=== PATIENT | female | born 1940 | race Caucasian/White ===

== ENCOUNTER 2018-04-26 07:21 | Day surgery (SDC) | payer OTHER ==
[2018-04-26] MEDS ORDERED: Ringers Lactate 1,000 ML IV ONE (08:12)
[2018-04-26] MEDS ORDERED: LIDOCAINE 2% MPF 5 ML VIAL ONE (09:16)
[2018-04-26] MEDS ORDERED: PROPOFOL 200 MG/20 ML VIAL IV ONE ×2 (09:18→09:29)
[2018-04-26] MEDS ORDERED: ESMOLOL HCL 10 ML IV ONE (09:33)
--- NOTE | 2018-04-26 09:40 | ENDO RPT ---
[address], [address] EGD PROCEDURE REPORT EXAM DATE: 04/26/2018 PATIENT NAME: Lupe Hartley MR#: [id number] BIRTHDATE: 1940 ATTENDING: Diogo Barraza Dr STATUS: outpatient BULK FLUIDS HANDLER: Myriam Vázquez RN and Caron Jackson RN INDICATIONS: The patient is a 78 yr old Female here for an EGD due to left upper quadrant abdominal pain, bloating, and belching PROCEDURE PERFORMED: EGD with biopsy MEDICATIONS: Per Anesthesia. TOPICAL ANESTHETIC: none CONSENT: The patient understands the risks and benefits of the procedure and understands that these risks include, but are not limited to: sedation, allergic reaction, infection, perforation and/or bleeding. Alternative means of evaluation and treatment include, among others: physical exam, x-rays, and/or surgical intervention. The patient elects to proceed with this endoscopic procedure. DESCRIPTION OF PROCEDURE: During intra-op preparation period all mechanical medical equipment was checked for proper function. Hand hygiene and appropriate measures for infection prevention was taken. Procedure, possible complications, and alternatives including but not limited to the possibility of bleeding, perforation, tear, infection, sepsis, need for surgery, need for blood transfusion, and anesthesia related complications were explained to the patient. After the risks, benefits and alternatives of the procedure were thoroughly explained, Informed consent was verified, confirmed and timeout was successfully executed by the treatment team. The patient was placed in the left lateral position. The patient was anesthetized with topical anesthesia. Through the anesthetized oropharyngeal area, the scope was passed without any difficulty. The EG-[id number] ([id number]) endoscope was introduced through the mouth and advanced to the third portion of the duodenum. Retroflexed views revealed a small hiatal hernia. The gastroscope was then slowly withdrawn and removed. LA Class A esophagitis was found in the lower esophagus. A small hiatal hernia was found Mild gastritis was found in the antrum. Multiple biopsies were obtained and sent to pathology. Duodenitis was found in the bulb of the duodenum. ADVERSE EVENTS: There were no complications. IMPRESSIONS: 1. LA Class A esophagitis in the lower esophagus 2. A small hiatal hernia 3. Mild gastritis in the antrum, s/p biopsies 4. Duodenitis in the bulb of the duodenum RECOMMENDATIONS: 1. await biopsy results 2. acid suppression therapy REPEAT EXAM: Diogo Barraza Dr eSigned: Diogo Barraza Dr 04/26/2018 9:39 AM cc: Patrick Monterroso CPT CODES: ICD9 CODES: PATIENT NAME: Lupe Hartley MR#: [id number]
--- NOTE | 2018-04-26 09:42 | ENDO RPT ---
[address], [address] EGD PROCEDURE REPORT EXAM DATE: 04/26/2018 PATIENT NAME: Lupe Hartley MR#: [id number] BIRTHDATE: 1940 ATTENDING: Diogo Barraza Dr STATUS: outpatient GATEHOUSE ATTENDANT: Myriam Vázquez RN and Caron Jackson RN INDICATIONS: The patient is a 78 yr old Female here for an EGD due to left upper quadrant abdominal pain, bloating, and belching PROCEDURE PERFORMED: EGD with biopsy MEDICATIONS: Per Anesthesia. TOPICAL ANESTHETIC: none CONSENT: The patient understands the risks and benefits of the procedure and understands that these risks include, but are not limited to: sedation, allergic reaction, infection, perforation and/or bleeding. Alternative means of evaluation and treatment include, among others: physical exam, x-rays, and/or surgical intervention. The patient elects to proceed with this endoscopic procedure. DESCRIPTION OF PROCEDURE: During intra-op preparation period all mechanical medical equipment was checked for proper function. Hand hygiene and appropriate measures for infection prevention was taken. Procedure, possible complications, and alternatives including but not limited to the possibility of bleeding, perforation, tear, infection, sepsis, need for surgery, need for blood transfusion, and anesthesia related complications were explained to the patient. After the risks, benefits and alternatives of the procedure were thoroughly explained, Informed consent was verified, confirmed and timeout was successfully executed by the treatment team. The patient was placed in the left lateral position. The patient was anesthetized with topical anesthesia. Through the anesthetized oropharyngeal area, the scope was passed without any difficulty. The EG-[id number] ([id number]) endoscope was introduced through the mouth and advanced to the third portion of the duodenum. Retroflexed views revealed a small paraesophaeal hernia. The gastroscope was then slowly withdrawn and removed. LA Class A esophagitis was found in the lower esophagus. A small paraesophaeal hernia was found Mild gastritis was found in the antrum. Multiple biopsies were obtained and sent to pathology. Duodenitis was found in the bulb of the duodenum. ADVERSE EVENTS: There were no complications. IMPRESSIONS: 1. LA Class A esophagitis in the lower esophagus 2. Small paraesophaeal hernia 3. Mild gastritis in the antrum, s/p biopsies 4. Duodenitis in the bulb of the duodenum RECOMMENDATIONS: 1. await biopsy results 2. acid suppression therapy REPEAT EXAM: Diogo Barraza Dr eSigned: Diogo Barraza Dr 04/26/2018 9:41 AM Revised: 04/26/2018 9:41 AM cc: Patrick Monterroso CPT CODES: ICD9 CODES: PATIENT NAME: Lupe Hartley MR#: [id number]
--- NOTE | 2018-04-26 10:10 | ENDO RPT ---
[address], [address] COLONOSCOPY PROCEDURE REPORT EXAM DATE: 04/26/2018 PATIENT NAME: Lupe Hartley MR #: [id number] BIRTHDATE: 1940 ATTENDING: Diogo Barraza Dr STATUS: outpatient PRODUCTION ASSISTANT: Caron Jackson RN and Myriam Vázquez RN INDICATIONS: The patient is a 78 yr old Female here for a colonoscopy due to RLQ abdominal pain PROCEDURE PERFORMED: Colonoscopy with biopsy - cold polypectomy MEDICATIONS: Per Anesthesia. ESTIMATED BLOOD LOSS: None CONSENT: The patient understands the risks and benefits of the procedure and understands that these risks include, but are not limited to: sedation, allergic reaction, infection, perforation and/or bleeding. Alternative means of evaluation and treatment include, among others: physical exam, x-rays, and/or surgical intervention. The patient elects to proceed with this endoscopic procedure. DESCRIPTION OF PROCEDURE: During intra-op preparation period all mechanical medical equipment was checked for proper function. Hand hygiene and appropriate measures for infection prevention was taken. Procedure, possible complications, alternatives including, but not limited to possibility of bleeding, perforation, tear, infection, sepsis, need for surgery, need for blood transfusion, were explained to the patient. After the risks, benefits and alternatives of the procedure were thoroughly explained, Informed consent was verified, confirmed and timeout was successfully executed by the treatment team. The patient was placed in the left lateral position. A digital rectal exam was performed and revealed no abnormalities of the rectum. After appropriate level of anesthesia, the scope was passed. The EG-[id number] ([id number]) and EC-[id number] ([id number]) endoscope was introduced through the anus and advanced to the cecum, which was identified by both the appendix and ileocecal valve. The instrument was then slowly withdrawn as the colon was fully examined. Scope withdrawal time was 8 minutes. COLON FINDINGS: Two diminutive flat polyps were found in the descending colon. A polypectomy was performed with cold forceps. Mild diverticulosis was noted throughout the entire examined colon, predominantly in the sigmoid colon. No bleeding was noted from the diverticulosis. Moderate sized internal hemorrhoids were found. Retroflexion was not performed. The scope was then completely withdrawn from the patient and the procedure terminated. ADVERSE EVENTS: There were no complications. IMPRESSIONS: 1. Two diminutive flat polyps in the descending colon; polypectomy was performed with cold forceps 2. Mild diverticulosis throughout the entire examined colon, predominantly in the sigmoid colon 3. Moderate sized internal hemorrhoids 4. Intubation to cecum RECOMMENDATIONS: 1. await biopsy results 2. avoid NSAIDS for 2 weeks RECALL: None schedule due to age (78 y.o.) Diogo Barraza Dr eSigned: Diogo Barraza Dr 04/26/2018 10:09 AM cc: Patrick Monterroso CPT CODES: ICD9 CODES: PATIENT NAME: Lupe Hartley MR#: [id number]
[2018-04-26 15:17] VITALS: BP 115/44; TEMP 97.9; O2SAT 100
== END 2018-04-26 10:40 | disposition home or self-care (01) ==
LOC: OR 07:21
PROVIDERS: ATTEND Internal Medicine Gastroenterology
PROC: 0DBM8ZX Excision of Descending Colon, Via Natural or Artificial Opening Endoscopic, Diagnostic (ICD-10-PCS; principal; 2018-04-26 09:45)
PROC: 0DB68ZX Excision of Stomach, Via Natural or Artificial Opening Endoscopic, Diagnostic (ICD-10-PCS; 2018-04-26 09:45)
DX: K29.50 Unspecified chronic gastritis without bleeding (principal); K63.5 Polyp of colon; K57.90 Diverticulosis of intestine, part unspecified, without perforation or abscess without bleeding; K64.8 Other hemorrhoids; K44.9 Diaphragmatic hernia without obstruction or gangrene; K29.80 Duodenitis without bleeding; I10 Essential (primary) hypertension; J44.9 Chronic obstructive pulmonary disease, unspecified; I25.10 Atherosclerotic heart disease of native coronary artery without angina pectoris; R01.1 Cardiac murmur, unspecified; E78.5 Hyperlipidemia, unspecified; Z79.82 Long term (current) use of aspirin; Z95.1 Presence of aortocoronary bypass graft; Z86.73 Personal history of transient ischemic attack (TIA), and cerebral infarction without residual deficits; Z87.891 Personal history of nicotine dependence; Z80.0 Family history of malignant neoplasm of digestive organs; Z80.3 Family history of malignant neoplasm of breast; Z82.49 Family history of ischemic heart disease and other diseases of the circulatory system; Z83.3 Family history of diabetes mellitus
CPT/HCPCS: 88305; 88312

== ENCOUNTER 2018-06-23 14:28 | Emergency (ER) | payer OTHER ==
[2018-06-23 15:44] LABS: Absolute Lymphocytes (CBC) 1.6 K/uL (0.7-4.9); Absolute Monocytes 0.6 K/uL (0.1-1.3); Absolute Neutrophil 7.7 K/uL (1.8-8.0); Basophils % 0.5 % (0-1.3); Hematocrit 45.3 % (36.0-45.0); Lymphocytes % 15.9 % (15.3-44.8); MCH 28.9 pg (27.0-35.0); MCV 87.3 fL (80-100); MPV 7.8 fL (7.6-11.3); Monocytes % 6.3 % (3.3-12.3); Protime INR 1.05; RBC Red Blood Cell Count 5.19 M/uL (3.86-4.86)
[2018-06-23 15:53] LABS: ALT/SGPT 19 U/L (12-78); AST/SGOT 16 U/L (15-37); Albumin 3.5 g/dL (3.4-5.0); Alkaline Phosphatase 123 U/L (45-117); BUN Blood Urea Nitrogen 17 mg/dL (7-18); Bicarbonate 27 mmol/L (21-32); Bilirubin Direct 0.1 mg/dL (0-0.2); Bilirubin Total 0.4 mg/dL (0.2-1.0); Glucose Level 109 mg/dL (74-106); Magnesium 2.3 mg/dL (1.8-2.4); NT PRO-BNP 744 pg/mL (<450); Potassium 4.1 mmol/L (3.5-5.1); Protein, Total 8.2 g/dL (6.4-8.2); Sodium Level 138 mmol/L (136-145); Troponin (Emerg Dept Use Only) < 0.02 ng/mL (0.0-0.045)
--- NOTE | 2018-06-23 16:52 | EDPHYS ---
Physician Documentation [facility] Name: Lupe Hartley Age: 78 yrs Sex: Female : 1940 Arrival Date: 06/23/2018 Time: 14:31 Bed 27 Private MD: Patrick Monterroso ED Physician Karthikeyan Bess HPI: 06/23 16:00 This 78 yrs old Female presents to ER via Ambulatory with complaints of Chest pm1 Pain. 16:00 The patient or guardian reports chest pain that is located primarily in the mid-sternal pm1 area. Onset: at 08:00. The pain radiates to the left arm. Associated signs and symptoms: Pertinent positives: shortness of breath, Pertinent negatives: abdominal pain, cough, dizziness, headache, nausea, vomiting. The chest pain is described as sharp. Duration: The patient or guardian reports multiple episodes, the episodes last approximately 5 second(s). Modifying factors: The symptoms are alleviated by nothing. the symptoms are aggravated by nothing. Severity of pain: in the emergency department the pain has resolved. The patient has not recently seen a physician, has an appointment scheduled, Dr. Corey in 1 month. Historical: - Allergies: 14:41 Phenobarbital; hj - Home Meds: 14:41 amlodipine 5 mg tab once daily [Active]; aspirin 81 mg Oral TbEC 1 tab once daily [Active]; levothyroxine 88 mcg tab 1 tab once daily [Active]; metoprolol succinate 200 mg Oral Tb24 once daily [Active]; Plavix 75 mg Oral tab 1 tab once daily [Active]; - PMHx: 14:41 CAD; Diverticulitis; HARD OF HEARING; Hyperlipidemia; Hypertension; Hypothyroidism; hj - PSHx: 14:41 Bypass x2; Heart stents; Hysterectomy; Appendectomy; Partial colon removal; hj - Immunization history:: Adult Immunizations up to date. - Social history:: Smoking status: Patient/guardian denies using tobacco, Patient/guardian denies using alcohol. - Ebola Screening: : Patient negative for fever greater than or equal to 101.5 degrees Fahrenheit, and additional compatible Ebola Virus Disease symptoms Patient denies exposure to infectious person Patient denies travel to an Ebola-affected area in the 21 days before illness onset. ROS: 16:00 Constitutional: Negative for fever, chills, and weight loss, Eyes: Negative for injury, pm1 pain, redness, and discharge, ENT: Negative for injury, pain, and discharge, Neck: Negative for injury, pain, and swelling. 16:00 Abdomen/GI: Negative for abdominal pain, nausea, vomiting, diarrhea, and constipation, Back: Negative for injury and pain, : Negative for injury, bleeding, discharge, and swelling, MS/Extremity: Negative for injury and deformity, Skin: Negative for injury, rash, and discoloration, Neuro: Negative for headache, weakness, numbness, tingling, and seizure. 16:00 Cardiovascular: Positive for chest pain, Negative for edema, orthopnea, palpitations. 16:00 Respiratory: Positive for shortness of breath, Negative for cough, sputum production, wheezing. Exam: 16:00 Constitutional: This is a well developed, well nourished patient who is awake, alert, pm1 and in no acute distress. Head/Face: Normocephalic, atraumatic. Eyes: Pupils equal round and reactive to light, extra-ocular motions intact. Lids and lashes normal. Conjunctiva and sclera are non-icteric and not injected. Cornea within normal limits. Periorbital areas with no swelling, redness, or edema. ENT: Nares patent. No nasal discharge, no septal abnormalities noted. Tympanic membranes are normal and external auditory canals are clear. Oropharynx with no redness, swelling, or masses, exudates, or evidence of obstruction, uvula midline. Mucous membranes moist. Neck: Trachea midline, no thyromegaly or masses palpated, and no cervical lymphadenopathy. Supple, full range of motion without nuchal rigidity, or vertebral point tenderness. No Meningismus. Chest/axilla: Normal chest wall appearance and motion. Nontender with no deformity. No lesions are appreciated. Cardiovascular: Regular rate and rhythm with a normal S1 and S2. No gallops, murmurs, or rubs. Normal PMI, no JVD. No pulse deficits. Respiratory: Lungs have equal breath sounds bilaterally, clear to auscultation and percussion. No rales, rhonchi or wheezes noted. No increased work of breathing, no retractions or nasal flaring. Abdomen/GI: Soft, non-tender, with normal bowel sounds. No distension or tympany. No guarding or rebound. No evidence of tenderness throughout. Back: No spinal tenderness. No costovertebral tenderness. Full range of motion. Skin: Warm, dry with normal turgor. Normal color with no rashes, no lesions, and no evidence of cellulitis. MS/ Extremity: Pulses equal, no cyanosis. Neurovascular intact. Full, normal range of motion. 16:00 Neuro: Orientation: is normal, Motor: is normal, Sensation: is normal, no obvious gross deficits. Vital Signs: 14:43 BP 195 / 74; Pulse 82; Resp 18; Temp 98.0(O); Pulse Ox 98% on R/A; Weight 60.78 kg; hj Height 5 ft. 5 in. (165.10 cm); Pain 6/10; 15:26 BP 190 / 67; Pulse 70; Resp 18; Pulse Ox 98% ; mg2 16:11 BP 179 / 69; Pulse 80; Resp 18; Pulse Ox 100% on R/A; Pain 0/10; mg2 17:01 BP 160 / 78; Pulse 85; Resp 18; Pulse Ox 100% on R/A; Pain 0/10; mg2 14:43 Body Mass Index 22.30 (60.78 kg, 165.10 cm) hj MDM: 15:09 Patient medically screened. pm1 16:00 Data reviewed: vital signs. Data interpreted: Pulse oximetry: on room air is 100 %. pm1 16:20 Refusal of service: The patient/guardian displays adequate decision making capability pm1 and despite a detailed discussion of alternatives, benefits, risks, and consequences refuses: Admission to the hospital for further work-up and treatment. 16:48 Physician consultation: Allan Fontanez MD was called at 16:43, was contacted at 16:48, pm1 regarding consult, patient's condition, and will see patient in office, tomorrow, Informed Dr. Fontanez that I wanted to keep the patient in the hospital for chest pain with shortness of breath. Impression: Angina. However the patient does not want to stay in the hospital. He knows her well and will see her in the office tomorrow. . 16:50 ED course: Informed patient of discussion with Dr. Fontanez and she said she will follow pm1 up with him tomorrow. 06/23 15:09 Order name: Basic Metabolic Panel; Complete Time: 16:14 pm1 06/23 15:09 Order name: CBC with Diff; Complete Time: 16:14 pm1 06/23 15:09 Order name: LFT's; Complete Time: 16:14 pm1 06/23 15:09 Order name: Magnesium; Complete Time: 16:14 pm1 06/23 15:09 Order name: NT PRO-BNP; Complete Time: 16:14 pm1 06/23 15:09 Order name: PT-INR; Complete Time: 16:14 pm1 06/23 14:46 Order name: EKG; Complete Time: 14:46 hj 06/23 15:09 Order name: Troponin (emerg Dept Use Only); Complete Time: 16:14 pm1 06/23 15:09 Order name: XRAY Chest (1 view) pm1 06/23 15:09 Order name: Cardiac monitoring; Complete Time: 15:22 pm1 06/23 15:09 Order name: EKG - Nurse/Tech; Complete Time: 15:23 pm1 06/23 15:09 Order name: IV Saline Lock; Complete Time: 15:23 pm1 06/23 15:09 Order name: Labs collected and sent; Complete Time: 15:23 pm1 06/23 15:09 Order name: O2 Per Protocol; Complete Time: 15:23 pm1 06/23 15:09 Order name: O2 Sat Monitoring; Complete Time: 15:23 pm1 Administered Medications: No medications were administered Disposition: 18:40 Co-signature as Attending Physician, Karthikeyan Bess MD I agree with the assessment and kdr plan of care. Disposition: 06/23/18 16:51 Discharged to Home. Impression: Chest pain, unspecified. - Condition is Stable. - Discharge Instructions: Nonspecific Chest Pain. - Medication Reconciliation Form, Thank You Letter form. - Follow up: Emergency Department; When: As needed; Reason: Worsening of condition. Follow up: Allan Fontanez MD; When: Tomorrow; Reason: Recheck today's complaints, Continuance of care, Re-evaluation by your physician. - Problem is new. - Symptoms have improved. Signatures: Dispatcher [employer] EDMS Karthikeyan Bess MD MD kdr Luis Antonio Cody RN RN hj Adan Spivey, SORTER OPERATOR SORTER OPERATOR pm1 Ryan Salcido RN RN mg2 Corrections: (The following items were deleted from the chart) 17:03 16:51 06/23/2018 16:51 Discharged to Home. Impression: Chest pain, unspecified. mg2 Condition is Stable. Forms are Medication Reconciliation Form, Thank You Letter, Antibiotic Education, Prescription Opioid Use. Follow up: Emergency Department; When: As needed; Reason: Worsening of condition. Follow up: Allan Fontanez; When: Tomorrow; Reason: Recheck today's complaints, Continuance of care, Re-evaluation by your physician. Problem is new. Symptoms have improved. pm1
--- NOTE | 2018-06-23 16:52 | ER ---
Nurse's Notes [facility] Name: Lupe Hartley Age: 78 yrs Sex: Female : 1940 Arrival Date: 06/23/2018 Time: 14:31 Bed 27 Private MD: Patrick Monterroso Diagnosis: Chest pain, unspecified Presentation: 06/23 14:39 Presenting complaint: Patient states: my BP was high 180/86 and started having chest hj pain around 8 am; denies N/V; reports radiating pain on the L arm; reports SOB;. Transition of care: patient was not received from another setting of care. Onset of symptoms was June 23, 2018. Risk Assessment: Do you want to hurt yourself or someone else? Patient reports no desire to harm self or others. Initial Sepsis Screen: Does the patient meet any 2 criteria? No. Patient's initial sepsis screen is negative. Does the patient have a suspected source of infection? No. Patient's initial sepsis screen is negative. Care prior to arrival: None. 14:39 Method Of Arrival: Ambulatory 14:39 Acuity: NINI 3 hj Triage Assessment: 14:42 General: Appears in no apparent distress. uncomfortable, Behavior is calm, cooperative, hj appropriate for age. Pain: Complains of pain in chest Pain does not radiate. Pain currently is 5 out of 10 on a pain scale. Cardiovascular: Capillary refill < 3 seconds Patient's skin is warm and dry. Historical: - Allergies: 14:41 Phenobarbital; hj - Home Meds: 14:41 amlodipine 5 mg tab once daily [Active]; aspirin 81 mg Oral TbEC 1 tab once daily [Active]; levothyroxine 88 mcg tab 1 tab once daily [Active]; metoprolol succinate 200 mg Oral Tb24 once daily [Active]; Plavix 75 mg Oral tab 1 tab once daily [Active]; - PMHx: 14:41 CAD; Diverticulitis; HARD OF HEARING; Hyperlipidemia; Hypertension; Hypothyroidism; hj - PSHx: 14:41 Bypass x2; Heart stents; Hysterectomy; Appendectomy; Partial colon removal; hj - Immunization history:: Adult Immunizations up to date. - Social history:: Smoking status: Patient/guardian denies using tobacco, Patient/guardian denies using alcohol. - Ebola Screening: : Patient negative for fever greater than or equal to 101.5 degrees Fahrenheit, and additional compatible Ebola Virus Disease symptoms Patient denies exposure to infectious person Patient denies travel to an Ebola-affected area in the 21 days before illness onset. Screenin:42 Abuse screen: Denies threats or abuse. Denies injuries from another. Nutritional hj screening: No deficits noted. Tuberculosis screening: No symptoms or risk factors identified. Fall Risk None identified. Assessment: 14:42 Pain: Pain began 6 hours ago. hj 15:23 General: Appears in no apparent distress. comfortable, Behavior is calm, cooperative. mg2 Pain: Denies pain. Neuro: Cardiovascular: Reports chest pain, before but pain free right now. it was radiating to the left arm initially. Respiratory: Airway is patent Respiratory effort is even, unlabored, Respiratory pattern is regular, symmetrical. GI: No signs and/or symptoms were reported involving the gastrointestinal system. : No signs and/or symptoms were reported regarding the genitourinary system. EENT: No signs and/or symptoms were reported regarding the EENT system. Derm: Skin is intact, is healthy with good turgor, Skin is pink, warm \T\ dry. normal. Musculoskeletal: No signs and/or symptoms reported regarding the musculoskeletal system. Vital Signs: 14:43 BP 195 / 74; Pulse 82; Resp 18; Temp 98.0(O); Pulse Ox 98% on R/A; Weight 60.78 kg; hj Height 5 ft. 5 in. (165.10 cm); Pain 6/10; 15:26 BP 190 / 67; Pulse 70; Resp 18; Pulse Ox 98% ; mg2 16:11 BP 179 / 69; Pulse 80; Resp 18; Pulse Ox 100% on R/A; Pain 0/10; mg2 17:01 BP 160 / 78; Pulse 85; Resp 18; Pulse Ox 100% on R/A; Pain 0/10; mg2 14:43 Body Mass Index 22.30 (60.78 kg, 165.10 cm) ED Course: 14:31 Patient arrived in ED. mr 14:32 Patrick Monterroso MD is Private Physician. mr 14:40 Triage completed. hj 14:42 Arm band placed on left wrist. hj 14:42 Patient has correct armband on for positive identification. Placed in gown. Bed in low hj position. Call light in reach. Side rails up X 1. Adult w/ patient. bus driver/monitor on. Pulse ox on. NIBP on. 14:43 Patient maintains SpO2 saturation greater than 95% on room air. hj 14:55 EKG done, by quality analyst/technical writer. reviewed by Karthikeyan Bess MD. at1 15:01 Adan Spivey NP is PHCP. pm1 15:01 Karthikeyan Bess MD is Attending Physician. pm1 15:10 Ryan Salcido, RN is Primary Nurse. mg2 15:25 No provider procedures requiring assistance completed. Inserted saline lock: 20 gauge mg2 in right antecubital area, using aseptic technique. Blood collected. 16:51 Allan Fontanez MD is Referral Physician. pm1 16:51 XRAY Chest (1 view) In Process Unspecified. EDMS 17:02 IV discontinued, intact, bleeding controlled, No redness/swelling at site. Pressure mg2 dressing applied. Administered Medications: No medications were administered Outcome: 16:51 Discharge ordered by MD. pm1 17:02 Discharged to home ambulatory, with family. mg2 17:02 Condition: stable 17:02 Discharge instructions given to patient, family, Instructed on discharge instructions, follow up and referral plans. Demonstrated understanding of instructions, follow-up care. 17:03 Patient left the ED. mg2 Signatures: Dispatcher [employer] EDME James Danielle Walters, building economist EKG Tat1 Luis Antonio Cody, RN RN Adan Spivey NP ROAD MANAGER pm1 Ryan Salcido, RN RN mg2 Corrections: (The following items were deleted from the chart) 14:46 14:43 Pulse 82bpm; Resp 18bpm; Pulse Ox 98% RA; Temp 98.0F Oral; 60.78 kg; Height 5 ft. hj 5 in.; BMI: 22.3; Pain 6/10; hj
--- NOTE | 2018-06-23 17:04 | RAD REPORT ---
EXAM DESCRIPTION: RAD - Chest Single View - 06/23/2018 4:50 pm CLINICAL HISTORY: Chest pain COMPARISON: January 2017 TECHNIQUE: AP portable chest image was obtained 1642 hours . FINDINGS: Chronic interstitial lung disease is present similar to comparison. No residual left lung field infiltrate or mass compared to the prior study. No failure or volume overload. Sternotomy wires are in place. Heart and vasculature are normal. No measurable pleural effusion and no pneumothorax. No acute bony abnormality seen. No acute aortic findings suspected. IMPRESSION: No acute cardiopulmonary process. No significant interval change.
[2018-06-23 17:16] VITALS: TEMP 98
[2018-06-23 17:18] VITALS: O2SAT 100
[2018-06-23 17:19] VITALS: BP 160/78
--- NOTE | 2018-06-24 09:26 | EKG ---
Test Date: 2018-06-23 Test Time: 14:48:02 Legal Recruiter: YURIDIA MEASUREMENT RESULTS: Intervals: Rate: 84 MO: 188 QRSD: 122 QT: 396 QTc: 467 [place]: P: -4 MO: 188 QRS: -73 T: 79 INTERPRETIVE STATEMENTS: Normal sinus rhythm Left axis deviation Left ventricular hypertrophy with QRS widening and repolarization abnormality Abnormal ECG Compared to ECG 01/25/2017 06:02:13 Left ventricular hypertrophy now present Atrial premature complex(es) no longer present Electronically Signed On 06-24-18 09:25:18 RETAIL INVENTORY CONTROL CLERK by Allan Fontanez
== END 2018-06-23 17:03 | disposition home or self-care (01) ==
LOC: ER 14:28
DX: R07.9 Chest pain, unspecified (principal); I10 Essential (primary) hypertension; E78.5 Hyperlipidemia, unspecified; E03.9 Hypothyroidism, unspecified; I25.10 Atherosclerotic heart disease of native coronary artery without angina pectoris; Z79.01 Long term (current) use of anticoagulants; Z79.82 Long term (current) use of aspirin; Z88.5 Allergy status to narcotic agent; Z95.818 Presence of other cardiac implants and grafts
CPT/HCPCS: 36415; 71045; 80048; 80076; 83735; 83880; 84484; 85025; 85610; 93005; 99285

== ENCOUNTER 2019-04-01 13:45 | Observation (INO) | payer OTHER ==
--- NOTE | 2019-04-01 14:33 | RAD REPORT ---
EXAM DESCRIPTION: RAD - Chest Single View - 04/01/2019 2:26 pm CLINICAL HISTORY: CHEST PAIN Chest pain. COMPARISON: <Comparisons> FINDINGS: Portable technique limits examination quality. The lungs are emphysematous but grossly clear. The heart is normal in size. No displaced fractures.St ernotomy wires. IMPRESSION: COPD.
[2019-04-01 14:51] LABS: Protime INR 0.96
[2019-04-01 15:03] LABS: Absolute Lymphocytes (CBC) 1.6 K/uL (0.7-4.9); Basophils % 0.9 % (0-1.3); Lymphocytes % 20.4 % (15.3-44.8); RBC Red Blood Cell Count 4.87 M/uL (3.86-4.86)
[2019-04-01 15:08] LABS: ALT/SGPT 16 U/L (12-78); AST/SGOT 13 U/L (15-37); Albumin 3.3 g/dL (3.4-5.0); Alkaline Phosphatase 94 U/L (45-117); BUN Blood Urea Nitrogen 20 mg/dL (7-18); Bicarbonate 27 mmol/L (21-32); Bilirubin Direct < 0.1 mg/dL (0-0.2); Bilirubin Total 0.4 mg/dL (0.2-1.0); Glucose Level 108 mg/dL (74-106); Magnesium 2.3 mg/dL (1.8-2.4); NT PRO-BNP 2110 pg/mL (<450); Potassium 3.9 mmol/L (3.5-5.1); Protein, Total 7.6 g/dL (6.4-8.2); Sodium Level 143 mmol/L (136-145); Troponin (Emerg Dept Use Only) < 0.02 ng/mL (0.0-0.045)
--- NOTE | 2019-04-01 15:32 | ER ---
Nurse's Notes [facility] Name: Lupe Hartley Age: 79 yrs Sex: Female : 1940 Arrival Date: 04/01/2019 Time: 13:52 Bed 2 Private MD: Diagnosis: Other chest pain Presentation: 04/01 13:52 Presenting complaint: EMS states: CHEST PAIN AND HTN x3 DAYS. Transition of care: bp patient was not received from another setting of care. Onset of symptoms is unknown. Risk Assessment: Do you want to hurt yourself or someone else? Patient reports no desire to harm self or others. Initial Sepsis Screen: Does the patient meet any 2 criteria? No. Patient's initial sepsis screen is negative. Does the patient have a suspected source of infection? No. Patient's initial sepsis screen is negative. Care prior to arrival: Medication(s) given: Nitroglycerin, 0.4 mg SL x 2, IV initiated. 20 GA, in the right antecubital area. 13:52 Method Of Arrival: EMS: [facility] bp 13:52 Acuity: NINI 2 bp Triage Assessment: 13:55 General: Appears in no apparent distress. comfortable, Behavior is calm, cooperative, bp appropriate for age. Pain: Complains of pain in chest. EENT: No deficits noted. Neuro: No deficits noted. Cardiovascular: Rhythm is sinus rhythm. Respiratory: No deficits noted. GI: No signs and/or symptoms were reported involving the gastrointestinal system. : No signs and/or symptoms were reported regarding the genitourinary system. Derm: No deficits noted. Historical: - Allergies: 13:55 Phenobarbital; bp - PMHx: 13:55 Hypothyroidism; Hypertension; Hyperlipidemia; HARD OF HEARING; Diverticulitis; CAD; bp Myocardial infarction; CARDIAC STENTS; COPD; - Immunization history:: Adult Immunizations. - Social history:: Smoking status: Patient/guardian denies using tobacco, Patient/guardian denies using alcohol, street drugs, The patient lives with family. - Ebola Screening: : No symptoms or risks identified at this time. - Family history:: not pertinent. - Hospitalizations: : No recent hospitalization is reported. Screenin:03 Abuse screen: Denies threats or abuse. Denies injuries from another. Nutritional bp screening: No deficits noted. Tuberculosis screening: No symptoms or risk factors identified. Fall Risk None identified. Assessment: 13:55 General: SEE TRIAGE NOTE. bp 14:00 Pain: Pain does not radiate. Pain began 2-3 days ago. bp 15:00 Reassessment: Patient and/or family updated on plan of care and expected duration. Pain ae4 level reassessed. Patient is alert, oriented x 3, equal unlabored respirations, skin warm/dry/pink. 16:57 Reassessment: ADMIT IN PROCESS. ae4 Vital Signs: 13:55 BP 193 / 60; Pulse 66; Resp 17; Temp 98; Pulse Ox 97% ; Weight 62.6 kg; Height 5 ft. 5 bp in. (165.10 cm); 14:24 BP 206 / 56; Pulse 59; Resp 15; Pulse Ox 99% ; bp 14:44 BP 215 / 65; Pulse 59; Resp 17; Pulse Ox 99% ; bp 16:03 BP 200 / 67; Pulse 56; Resp 20; Pulse Ox 97% on R/A; ae4 16:56 BP 185 / 99; Pulse 58; Resp 19; Pulse Ox 96% ; ae4 17:35 BP 133 / 104; Pulse 61; Resp 20; Pulse Ox 97% ; bp 13:55 Body Mass Index 22.96 (62.60 kg, 165.10 cm) bp NIH Stroke Scale Scores: 14:03 NIHSS Score: 0 bp ED Course: 13:52 Patient arrived in ED. bp 13:53 Triage completed. bp 13:55 Arm band placed on. bp 13:55 Maintain EMS IV. Dressing intact. Good blood return noted. Site clean \T\ dry. 20 GAUGE bp RIGHT AC. 14:03 Matti Pappas MD is Attending Physician. ma2 14:03 Patient has correct armband on for positive identification. Bed in low position. Call bp light in reach. Side rails up X2. manual lathe operator on. Pulse ox on. NIBP on. 14:03 No provider procedures requiring assistance completed. Patient maintains SpO2 bp saturation greater than 95% on room air. 14:12 Patrick Cornell, SADIQ is Primary Nurse. bp 14:26 XRAY Chest (1 view) In Process Unspecified. EDMS 15:31 Mayi Raymundo MD is Hospitalizing Provider. ma2 17:36 Patient admitted, IV remains in place. bp Administered Medications: 16:05 Drug: Labetalol 10 mg Route: IVP; Infused Over: 2 mins; Site: right antecubital; ae4 16:58 Follow up: Response: Blood pressure is lowered ae4 17:30 Drug: Labetalol 10 mg Route: IVP; Site: right antecubital; bp 17:33 Follow up: Response: Blood pressure is lowered bp Outcome: 15:31 Decision to Hospitalize by Provider. ma2 17:36 Admitted to Tele accompanied by tech, family with patient, via wheelchair, room 212, bp with chart. 17:36 Condition: stable 17:36 Instructed on the need for admit. 17:48 Patient left the ED. bp NIH Stroke Scale - NIH Stroke Score Date: 04/01/2019 Time: 14:03 Total Score = 0 1a. Level of Consciousness (LOC) - 0(Alert) 1b. Level of Consciousness (LOC) (Year \T\ Age) - 0(Both) 1c. LOC Commands (Open \T\ Closes Eyes/Painter Set) - 0(Both) 2. Best Gaze (Lateral Gaze Paresis) - 0(Normal) 3. Visual Field Loss - 0(No visual loss) 4. Facial Palsy - 0(Normal) 5a. Left Arm: Motor (10-second hold) - 0(No drift) 5b. Right Arm: Motor (10-second hold) - 0(No drift) 6a. Left Leg: Motor (5-second hold - always test supine) - 0(No drift) 6b. Right Leg: Motor (5-second hold - always test supine) - 0(No drift) 7. Limb Ataxia (finger/nose \T\ heel/craft - test with eyes open) - 0(Absent) 8. Sensory Loss (pinprick arms/legs/face) - 0(Normal) 9. Best Language: Aphasia (description/naming/reading) - 0(No aphasia) 10. Dysarthria (speech clarity - read or repeat words) - 0(Normal) 11. Extinction and Inattention (visual/tactile/auditory/spatial/personal) - 0(No abnormality) Initials: bp Signatures: Dispatcher [employer] EDPatrick Garcia RN RN bp Alzahri, Mohammad, MD MD ma2 Miah Yost RN RN ae4
--- NOTE | 2019-04-01 15:32 | EDPHYS ---
Physician Documentation [facility] Name: Lupe Hartley Age: 79 yrs Sex: Female : 1940 Arrival Date: 04/01/2019 Time: 13:52 Bed 2 Private MD: ED Physician Matti Pappas HPI: 04/01 15:01 This 79 yrs old Female presents to ER via EMS with complaints of Blood ma2 Pressure Problem, Chest Pain. 15:01 The patient or guardian reports chest pain that is located primarily in the substernal ma2 area. Onset: gradually, 1 day(s) ago. Associated signs and symptoms: Pertinent positives: Pertinent negatives: cough, dizziness, lower extremity pain, lightheadedness, shortness of breath, syncope. The chest pain is described as crushing. Severity of pain: At its worst the pain was mild in the emergency department the pain is unchanged. The patient has experienced similar episodes in the past. Historical: - Allergies: 13:55 Phenobarbital; bp - PMHx: 13:55 Hypothyroidism; Hypertension; Hyperlipidemia; HARD OF HEARING; Diverticulitis; CAD; bp Myocardial infarction; CARDIAC STENTS; COPD; - Immunization history:: Adult Immunizations. - Social history:: Smoking status: Patient/guardian denies using tobacco, Patient/guardian denies using alcohol, street drugs, The patient lives with family. - Ebola Screening: : No symptoms or risks identified at this time. - Family history:: not pertinent. - Hospitalizations: : No recent hospitalization is reported. ROS: 15:01 Constitutional: Negative for fever, chills, and weight loss. ma2 15:01 All other systems are negative. Exam: 15:01 Constitutional: This is a well developed, well nourished patient who is awake, alert, ma2 and in no acute distress. Head/Face: Normocephalic, atraumatic. Eyes: Pupils equal round and reactive to light, extra-ocular motions intact. Lids and lashes normal. Conjunctiva and sclera are non-icteric and not injected. Cornea within normal limits. Periorbital areas with no swelling, redness, or edema. ENT: Nares patent. No nasal discharge, no septal abnormalities noted. Tympanic membranes are normal and external auditory canals are clear. Oropharynx with no redness, swelling, or masses, exudates, or evidence of obstruction, uvula midline. Mucous membranes moist. Neck: Trachea midline, no thyromegaly or masses palpated, and no cervical lymphadenopathy. Supple, full range of motion without nuchal rigidity, or vertebral point tenderness. No Meningismus. Chest/axilla: Normal chest wall appearance and motion. Nontender with no deformity. No lesions are appreciated. Cardiovascular: Regular rate and rhythm with a normal S1 and S2. No gallops, murmurs, or rubs. Normal PMI, no JVD. No pulse deficits. Respiratory: Lungs have equal breath sounds bilaterally, clear to auscultation and percussion. No rales, rhonchi or wheezes noted. No increased work of breathing, no retractions or nasal flaring. Abdomen/GI: Soft, non-tender, with normal bowel sounds. No distension or tympany. No guarding or rebound. No evidence of tenderness throughout. MS/ Extremity: Pulses equal, no cyanosis. Neurovascular intact. Full, normal range of motion. Neuro: Awake and alert, GCS 15, oriented to person, place, time, and situation. Cranial nerves II-XII grossly intact. Motor strength 5/5 in all extremities. Sensory grossly intact. Cerebellar exam normal. Normal gait. Vital Signs: 13:55 BP 193 / 60; Pulse 66; Resp 17; Temp 98; Pulse Ox 97% ; Weight 62.6 kg; Height 5 ft. 5 bp in. (165.10 cm); 14:24 BP 206 / 56; Pulse 59; Resp 15; Pulse Ox 99% ; bp 14:44 BP 215 / 65; Pulse 59; Resp 17; Pulse Ox 99% ; bp 16:03 BP 200 / 67; Pulse 56; Resp 20; Pulse Ox 97% on R/A; ae4 16:56 BP 185 / 99; Pulse 58; Resp 19; Pulse Ox 96% ; ae4 17:35 BP 133 / 104; Pulse 61; Resp 20; Pulse Ox 97% ; bp 13:55 Body Mass Index 22.96 (62.60 kg, 165.10 cm) bp NIH Stroke Scale Scores: 14:03 NIHSS Score: 0 bp MDM: 14:03 Patient medically screened. ma2 15:01 Differential diagnosis: abnormal EKG, acute pericarditis, anxiety, coronary artery ma2 disease gastroesophageal reflux disease (GERD). Data reviewed: vital signs, nurses notes, lab test result(s), radiologic studies. 15:30 HEART Score: History: Highly Suspicious (2), ECG: Non specific repolarization ma2 disturbance / LBTB / PM (1), Age: > or = 65 years (2), Risk Factors: > or = 3 Risk factors for atherosclerotic disease (2), Total Score = 5. Counseling: I had a detailed discussion with the patient and/or guardian regarding: the historical points, exam findings, and any diagnostic results supporting the discharge/admit diagnosis, the presence of at least one elevated blood pressure reading (>120/80) during this emergency department visit, the need for further work-up and treatment in the hospital. 04/01 14:03 Order name: Basic Metabolic Panel; Complete Time: 15:19 ma04/01 14:03 Order name: CBC with Diff; Complete Time: 15:19 04/01 14:03 Order name: LFT's; Complete Time: 15:19 va04/01 14:03 Order name: Magnesium; Complete Time: 15:04/01 14:03 Order name: NT PRO-BNP; Complete Time: 15:19 04/01 14:03 Order name: PT-INR; Complete Time: 15:19 04/01 14:03 Order name: Troponin (emerg Dept Use Only); Complete Time: 15:19 ma04/01 14:03 Order name: XRAY Chest (1 view); Complete Time: 15:19 va04/01 14:03 Order name: EKG; Complete Time: 14:05 [facility] 04/01 14:03 Order name: Cardiac monitoring; Complete Time: 14:12 va04/01 14:03 Order name: EKG - Nurse/Tech; Complete Time: 14:12 04/01 14:03 Order name: IV Saline Lock; Complete Time: 14:12 04/01 14:03 Order name: Labs collected and sent; Complete Time: 14:24 ma2 04/01 14:03 Order name: O2 Per Protocol; Complete Time: 14:12 va2 04/01 14:03 Order name: O2 Sat Monitoring; Complete Time: 14:12 ma2 Administered Medications: 16:05 Drug: Labetalol 10 mg Route: IVP; Infused Over: 2 mins; Site: right antecubital; ae4 16:58 Follow up: Response: Blood pressure is lowered ae4 17:30 Drug: Labetalol 10 mg Route: IVP; Site: right antecubital; bp 17:33 Follow up: Response: Blood pressure is lowered bp Disposition: 04/01/19 15:31 Hospitalization ordered by Mayi Raymundo for Observation. Preliminary diagnosis is Other chest pain. - Bed requested for Telemetry/MedSurg (observation). - Status is Observation. bp - Condition is Stable. - Problem is new. - Symptoms are unchanged. UTI on Admission? No NIH Stroke Scale - NIH Stroke Score Date: 04/01/2019 Time: 14:03 Total Score = 0 1a. Level of Consciousness (LOC) - 0(Alert) 1b. Level of Consciousness (LOC) (Year \T\ Age) - 0(Both) 1c. LOC Commands (Open \T\ Closes Eyes/Stripper Black And White) - 0(Both) 2. Best Gaze (Lateral Gaze Paresis) - 0(Normal) 3. Visual Field Loss - 0(No visual loss) 4. Facial Palsy - 0(Normal) 5a. Left Arm: Motor (10-second hold) - 0(No drift) 5b. Right Arm: Motor (10-second hold) - 0(No drift) 6a. Left Leg: Motor (5-second hold - always test supine) - 0(No drift) 6b. Right Leg: Motor (5-second hold - always test supine) - 0(No drift) 7. Limb Ataxia (finger/nose \T\ heel/craft - test with eyes open) - 0(Absent) 8. Sensory Loss (pinprick arms/legs/face) - 0(Normal) 9. Best Language: Aphasia (description/naming/reading) - 0(No aphasia) 10. Dysarthria (speech clarity - read or repeat words) - 0(Normal) 11. Extinction and Inattention (visual/tactile/auditory/spatial/personal) - 0(No abnormality) Initials: bp Signatures: Dispatcher [employer] Patrick Mckeon, RN RN bp Matti Pappas MD MD ma2 Lori Hart Andrea, RN RN ae4 Corrections: (The following items were deleted from the chart) 15:50 15:31 Hospitalization Ordered by Mayi Raymundo MD for Observation. Preliminary eb diagnosis is Other chest pain. Bed requested for Telemetry/MedSurg (observation). Status is Observation. Condition is Stable. Problem is new. Symptoms are unchanged. UTI on Admission? No. ma2 17:16 15:50 04/01/2019 15:31 Hospitalization Ordered by Mayi Raymundo MD for eb Observation. Preliminary diagnosis is Other chest pain. Bed requested for Telemetry/MedSurg (observation). Status is Observation. Condition is Stable. Problem is new. Symptoms are unchanged. UTI on Admission? No. eb 17:48 17:16 04/01/2019 15:31 Hospitalization Ordered by Mayi Raymundo MD for bp Observation. Preliminary diagnosis is Other chest pain. Bed requested for Telemetry/MedSurg (observation). Status is Observation. Condition is Stable. Problem is new. Symptoms are unchanged. UTI on Admission? No. eb
[2019-04-01] MEDS ORDERED: LABETALOL 20 MG/4ML SYRINGE IV ONE (16:08)
[2019-04-01] MEDS ORDERED: MORPHINE 4 MG/ML SYR IV PRN (18:12)
[2019-04-01] MEDS ORDERED: NITROGLYCERIN 0.4 MG/TAB SL PRN (18:12)
[2019-04-01] MEDS ORDERED: ACETAMINOPHEN 500 MG TAB PO PRN (18:12)
[2019-04-01 19:44] VITALS: BMI 22.9
[2019-04-01] MEDS ORDERED: ENOXAPARIN 40 MG/0.4 ML SQ SCH (20:00)
[2019-04-01] MEDS ORDERED: METOPROLOL TAR 50 MG TAB PO SCH ×2 (21:00→21:13)
[2019-04-01] MEDS ORDERED: ATORVASTATIN 40 MG TAB PO SCH (21:00)
[2019-04-01] MEDS: AMLODIPINE 10 MG TAB PO SCH (23:13)
--- NOTE | 2019-04-02 03:10 | HP ---
Date of Admission: 04/01/2019 Consultants: He Corey MD, with Cardiology. Primary Care Physician: Dr. Monterroso Chief Complaint: Chest pain. Code Status: Full. History Of Present Illness: Patient is an 79-year-old female with past medical history of hypertension; hypothyroidism; diverticulosis; history of coronary artery disease, status post CABG x2. Patient was in her usual state of health until day of admission when she started having intermittent chest pain which was all over her chest, nonradiating, associated with some nausea. No vomiting of fever, chills, shortness of breath. Patient reports uncontrolled blood pressure. She has been compliant with her medications. Patient patient's symptoms were intermittent, moderate, progressively worsening. Therefore, came into the ER. In the ER, her vital signs showed elevated blood pressure, systolic was in the 200s, 215/65. Her workup revealed troponin of less than 0.02. EKG was unremarkable. Patient was then referred for admission. When seen in the ER, the patient was awake, alert, oriented x3, not in any acute distress. Past Medical History: Hypertension; hyperlipidemia; hard of hearing; diverticulosis; coronary artery disease, status post CABG, cardiac stents; TIA; congestive heart failure. Surgical History: Hysterectomy, appendectomy, colon resection for diverticulitis, CABG, and cardiac stents x4. Allergies: ANDROGENIC ANABOLIC STEROIDS, PHENOBARBITAL, PROMETHAZINE, CODEINE, STEROIDS. Medications: Patient takes aspirin 81 mg daily, Plavix 75 mg daily, levothyroxine, metoprolol 100 mg b.i.d. Social History: Patient denies any tobacco use, alcohol use, or illicit drug use. Patient is independent in her activities of daily living. Lives with her . Family History: Father had [place] at the age of 25. Review of Systems: Ten-point system reviewed, negative except as per HPI. Physical Examination: Vital Signs: Blood pressure 215/65, pulse 59, respirations 17, O2 of 99%, temperature 98. General: Awake alert oriented x3. Elderly female, in some mild distress. HEENT: Normocephalic, atraumatic, PERRLA, EOMI, moist mucous membranes. Oropharynx is clear. Conjunctivae anicteric. Patient has dentures present. Moist mucous membranes. CV: S1 and S2. Regular rate and rhythm. Peripheral pulses present. Respiratory: Moving air well bilaterally. No wheezing or stridor or use of accessory muscles. Gastrointestinal: Abdomen is soft, nontender, nondistended. Positive bowel sounds. No guarding or rigidity. Extremities: No clubbing, cyanosis, or edema. No calf tenderness. Neurological: Cranial nerves 2 through 12 intact grossly. No focal neurological deficits. Speech is normal. Skin: No rashes. Normal skin turgor. Psychiatric: Mood is okay. Affect is full. Insight and judgment are good. Laboratory Data: INR 0.96. Sodium 143; potassium 3.9; chloride 109; CO2 of 27 ; BUN 20; creatinine 1.33, which is around her baseline; glucose 108; calcium 9 ; magnesium 2.3. Troponin less than 0.02; BNP 2110. WBC 8, H and H 14.5 and 43 , platelets 352, neutrophils 68%. EKG showed nonspecific repolarization disturbance, widened QRS. Assessment And Plan: An 79-year-old female with: 1. Unstable angina. Patient has history of coronary artery bypass grafting, coronary artery disease. We will obtain serial cardiac enzymes to rule out acute coronary syndrome. Consult Cardiology. Patient does report recent cardiac stress test and echocardiogram in January. We will follow up with Dr. Corey's recommendations. We will resume home medications. The patient is on metoprolol, aspirin, Plavix and ARB. 2. Chronic kidney disease, stage 3. Creatinine seems to be around baseline. We will continue to monitor and avoid NSAIDs. 3. Hypertensive emergency. Patient is having chest pain. Blood pressure systolic in the 200s. We will give hydralazine IV. Resume home medications and monitor closely. 4. Hypothyroidism. We will check TSH. 5. Mixed hyperlipidemia. We will continue statin. 6. History of transient ischemic attack. 7. Congestive heart failure. Last known ejection fraction is 60%, diastolic dysfunction, chronic compensated. 8. Coronary artery disease, [place] artery and [place] heart, status post coronary artery bypass graft and stents. Continue with aspirin and Plavix. 9. Deep vein thrombosis prophylaxis with Lovenox. Admit the patient to Med-Surg, [facility] as observation. /TRAN Voice ID: [id number] BREANA
[2019-04-02 04:27] LABS: Urine Appearance CLEAR; Urine Bilirubin NEGATIVE (NEG); Urine Blood NEGATIVE (NEG); Urine Color YELLOW; Urine Glucose NEGATIVE (NEG); Urine Protein 2+ (NEG); Urine Specific Gravity 1.025 (1.005-1.030); Urine Urobilinogen 0.2 mg/dL (0.2-1.0)
[2019-04-02 04:28] LABS: Urine Microscopic Reflex ORDER UMIC
[2019-04-02 05:35] LABS: Urine Bacteria <20 /HPF (<20); Urine Culture Reflex Order REFLEXED; Urine RBC NONE SEEN /HPF (NONE SEEN)
[2019-04-02] MEDS ORDERED: LEVOTHYROXINE SOD 0.088 MG TAB PO SCH (06:00)
[2019-04-02 06:23] LABS: Absolute Lymphocytes (CBC) 2.6 K/uL (0.7-4.9); Basophils % 0.8 % (0-1.3); Hematocrit 41.3 % (36.0-45.0); Lymphocytes % 29.2 % (15.3-44.8); RBC Red Blood Cell Count 4.67 M/uL (3.86-4.86)
[2019-04-02 06:25] LABS: Potassium 3.4 mmol/L (3.5-5.1)
[2019-04-02] MEDS: AMLODIPINE 10 MG TAB PO SCH (08:44)
[2019-04-02] MEDS ORDERED: ASPIRIN EC 81 MG TAB PO SCH (09:00)
[2019-04-02] MEDS ORDERED: AMLODIPINE 10 MG TAB PO SCH (09:00)
[2019-04-02] MEDS ORDERED: IRBESARTAN 150 MG TAB PO SCH (09:00)
[2019-04-02] MEDS ORDERED: CLOPIDOGREL 75 MG TABLET PO SCH (09:00)
[2019-04-02 11:13] VITALS: TEMP 97.1
[2019-04-02 11:15] VITALS: O2SAT 98
--- NOTE | 2019-04-02 13:20 | EKG ---
Test Date: 2019-04-01 Test Time: 13:57:26 [employer] Producer: JOANNA MEASUREMENT RESULTS: Intervals: Rate: 60 CO: 192 QRSD: 130 QT: 440 QTc: 440 [place]: P: 74 CO: 192 QRS: -72 T: 73 INTERPRETIVE STATEMENTS: Normal sinus rhythm Left axis deviation Left ventricular hypertrophy with QRS widening and repolarization abnormality Abnormal ECG Compared to ECG 06/23/2018 14:48:02 No significant changes Electronically Signed On 04-02-19 13:18:45 CDT by He Corey
[2019-04-02 15:58] VITALS: BP 178/74
--- NOTE | 2019-04-02 23:22 | DS ---
Date of Discharge: 04/02/2019 Consultants: Dr. Corey. Procedures: None. Discharge Diagnoses: 1. Unstable angina, ACS ruled out. 2. Chronic kidney disease stage 3. Creatinine at baseline, improving. 3. Hypertensive emergency. Improved 4. Hypothyroidism. Continue levothyroxine. 5. Mixed hyperlipidemia. Lipid panel shows uncontrolled cholesterol and triglycerides. Statin 6. History of transient ischemic attack, stable on Plavix. 7. Congestive heart failure, diastolic dysfunction, chronic. 8. Coronary artery disease, [place] artery and [place] heart status post coronary artery bypass graft and stents. Continue with aspirin and Plavix. Beta carin held due to bradycardia. Hospital course Patient is an 79 -year-old femalewho came into the hospital with chest pain. Patient is admitted for further evaluation. ACS was ruled out. Patient has significant risk factors including heart disease with previous bypass congestive heart failure hypertension hyperlipidemia. Patient was found to have elevated blood pressure with systolic in the 200 's. Patient also has chronic kidney disease. Patient was given IV antihypertensives. Which improved her blood pressure. Patient's blood pressure medications were adjusted. Cardiology was consulted and patient was cleared from cardiology standpoint. Patient had a recent stress test and echocardiogram in January which was negative. Patient's symptoms subsided. Patient was recommended to follow up as an outpatient. Discharge condition stable. Discharge medications as per medication reconciliation list Follow up with primary care physician in 2-3 days. Follow up with wire mill operator in 2 weeks. Return to ER for worsening condition. Activity as tolerated. Physical exam: General awake alert oriented x3. CV S1-S2 Respiratory clear to auscultation bilaterally. GI abdomen soft nontender nondistended positive bowel sounds Extremities no clubbing cyanosis edema Neuro nonfocal SA/MODL Voice ID: [id number] Report ID: [id number] BREANA
--- NOTE | 2019-04-03 10:31 | CON ---
Date of Consultation: 04/02/[address] Raymnudo's service on 04/01/2019. I saw the patient on 04/02/2019. Reason For Consultation: Chest pain and hypertension. History Of Present Illness: Ms. Hartley is an 79-year-old woman. She is very well known to me from previous office visits and admission. She has had a history of coronary artery disease, status post stent in the LAD many years ago and had multiple stress tests in the past, all of which had been neg ative, who had issues with her hypertension on and off for years. She just had a renal Doppler in , which was negative. She came in with a blood pressure of 206 systolic. She has a history of COPD, hypothyroidism, dyslipidemia. Her blood pressure was over 200. She complained of some chest p ressure. No nausea or vomiting, diaphoresis, PND, orthopnea, pedal edema, palpitations, or syncope. Patient's workup was negative. Her troponin was negative. Her EKG showed LVH. Allergies: SHE IS ALLERGIC TO CODEINE AND STEROID. Review of Systems: Negative. Social History: Negative. Family History: Negative. Medications: At home include aspirin, Plavix, Norvasc 5 mg daily, Avapro , Synthroid. She also takes Toprol 100 b.i.d. Physical Examination: Vital Signs: Blood pressure 150/80, she was in sinus rhythm. General: No acute distress. HEENT: Negative. Neck: Supple with no bruit, lymphadenopathy, JVD, or thyromegaly. Chest: Clear to auscultation and percussion. Cardiac: Revealed a regular rhythm and rate with S4 gallops. No murmurs or rubs. Abdomen: Benign. Extremities: Revealed no clubbing, cyanosis, or edema. Diagnostic Data: Her creatinine is 1.33. Her BNP was 2110. EKG showed LVH. Troponin was negative. Her cholesterol was 249. Her triglyceride was 324. The LDL was 240. Impression And Plan: 1.Hypertension, poorly controlled. I will increase the Norvasc to 10 mg daily and a diuretic, hydro chlorothiazide daily. Continue the Avapro and Toprol as they are. She could certainly go home whene maritza it is okay with Dr. Raymundo and I will see her in the office soon. We will see what her blood pres sure does. She has already had a negative renal Dopplers. The last stress tests had been within the last year, I will do in the next month, I will repeat one. 2.Dyslipidemia, very poorly controlled. Patient . 3.Hypothyroidism. 4.Chronic obstructive pulmonary disease. 5.History of coronary artery disease, status post stent. 6.Mild renal insufficiency. 7.Left ventricular hypertrophy and elevated BNP secondary to hypertension. GILDA/TRAN Voice ID: [id number] Report ID: [id number]
== END 2019-04-02 16:22 | disposition home or self-care (01) ==
LOC: ER 13:45 → ERHOLD 15:49 → 2ND 17:37
PROVIDERS: ADMIT Family Medicine; ATTEND Family Medicine
DX: I16.1 Hypertensive emergency (principal); I25.10 Atherosclerotic heart disease of native coronary artery without angina pectoris; E78.2 Mixed hyperlipidemia; E03.9 Hypothyroidism, unspecified; K57.90 Diverticulosis of intestine, part unspecified, without perforation or abscess without bleeding; I11.0 Hypertensive heart disease with heart failure; I50.32 Chronic diastolic (congestive) heart failure; I12.9 Hypertensive chronic kidney disease with stage 1 through stage 4 chronic kidney disease, or unspecified chronic kidney disease; N18.3 Chronic kidney disease, stage 3 (moderate); Z95.1 Presence of aortocoronary bypass graft; Z86.73 Personal history of transient ischemic attack (TIA), and cerebral infarction without residual deficits; I51.7 Cardiomegaly
CPT/HCPCS: 36415; 71045; 80048; 80061; 80076; 81003; 81015; 83735; 83880; 84484; 85025; 85610; 87086; 87088; 93005; 94760; 96374; 97116; 97161; 97530; 99285; G0378; J1650

== ENCOUNTER 2020-03-28 16:48 | Emergency (ER) | payer OTHER ==
[2020-03-28 17:43] LABS: Absolute Lymphocytes (CBC) 0.8 K/uL (0.7-4.9); Basophils % 0.8 % (0-1.3); Hematocrit 41.2 % (36.0-45.0); Lymphocytes % 12.6 % (15.3-44.8); MPV 7.8 fL (7.6-11.3); RBC Red Blood Cell Count 4.73 M/uL (3.86-4.86)
[2020-03-28 17:44] LABS: Protime INR 1.06
[2020-03-28 18:01] LABS: ALT/SGPT 13 U/L (12-78); AST/SGOT 16 U/L (15-37); Albumin 3.2 g/dL (3.4-5.0); Alkaline Phosphatase 79 U/L (45-117); BUN Blood Urea Nitrogen 23 mg/dL (7-18); Bicarbonate 24 mmol/L (21-32); Bilirubin Direct < 0.1 mg/dL (0-0.2); Bilirubin Total 0.3 mg/dL (0.2-1.0); Glucose Level 99 mg/dL (74-106); Magnesium 2.2 mg/dL (1.8-2.4); NT PRO-BNP 1236 pg/mL (<450); Potassium 3.9 mmol/L (3.5-5.1); Protein, Total 8.2 g/dL (6.4-8.2); Sodium Level 137 mmol/L (136-145); Troponin (Emerg Dept Use Only) 0.03 ng/mL (0.0-0.045)
--- NOTE | 2020-03-28 18:49 | RAD REPORT ---
EXAM DESCRIPTION: RAD - Chest Single View - 03/28/2020 6:08 pm CLINICAL HISTORY: COUGH, decreased appetite, temperature 100.1 degrees COMPARISON: Portable March 2019 TECHNIQUE: AP portable chest image was obtained 03/28/2020 6:08 pm . FINDINGS: Baseline interstitial fibrotic changes are evident. Hazy ill-defined opacification is pres ent in the left mid lung field questionable for early pneumonia given the constellation of symptoms. No large mass or consolidation. No significant failure or volume overload. Sternotomy wires are in place. Heart and vasculature are normal. No measurable pleural effusion and n o pneumothorax. No acute bony abnormality seen. No acute aortic findings suspected. IMPRESSION: Questionable patchy pneumonia changes in the left midlung field. Findings are superimpos ed on chronic interstitial lung disease.
[2020-03-28 20:50] LABS: Blood O2 Saturation 97.4 % (92-98.5)
--- NOTE | 2020-03-28 21:20 | RAD REPORT ---
EXAM DESCRIPTION: CT - Thorax Wo Con - 03/28/2020 9:07 pm CLINICAL HISTORY: fever, cough COMPARISON: THORAX W CONTRAST dated 12/15/2011; CTANGIO CHEST dated 08/31/2007 TECHNIQUE: Axial 5 mm thick images of the chest were obtained without IV contrast. All CT scans are performed using dose optimization technique as appropriate and may include automated exposure control or mA/KV adjustment according to patient size. FINDINGS: Subpleural scarring changes are present in each upper lung field. In the lateral midportio n left upper lobe subpleural parenchymal opacification is present. Focal subpleural parenchymal opaci fication present in the medial aspect of the right middle lobe and in the posterior aspect of the rig ht lower lobe. A few small granulomatous type nodules are seen. No pleural thickening or pleural effu gabriela. No pneumothorax. No abnormal mediastinal or hilar masses or lymphadenopathy seen. Patient has extremely dense calcific ations in the aortic arch and in the origin of the left subclavian artery. Left subclavian origin johanne nt is in place. No pericardial thickening or effusion. No chest wall mass or abnormal axillary lymphadenopathy. IMPRESSION: Scattered subpleural lung parenchymal opacification is present. No large mass or consoli dation. Lung parenchymal pattern is nonspecific. Infectious etiology is suspected. The ground-glass subpleura l pattern raises possibility of COVID-19 pneumonia. Correlation is needed with history and laborator y findings.
--- NOTE | 2020-03-28 22:01 | EDPHYS ---
Physician Documentation [facility] Name: Lupe Hartley Age: 80 yrs Sex: Female : 1940 Arrival Date: 03/28/2020 Time: 16:49 Bed 23 Private MD: Patrick Monterroso ED Physician Jameel Saeed HPI: 03/28 20:10 This 80 yrs old Female presents to ER via EMS with complaints of Weakness. pkl 20:10 The patient or guardian reports cough, described as moderate, with no sputum. Onset: pkl The symptoms/episode began/occurred 1 week(s) ago. Associated signs and symptoms: Pertinent positives: feeling weak. Historical: - Allergies: 16:54 Phenobarbital; tw2 - Home Meds: 16:54 metoprolol succinate 100 mg oral Tb24 1 tab twice a day [Active]; Plavix 75 mg Oral tab tw2 1 tab once daily [Active]; irbesartan 75 mg oral tab 2 tabs once daily [Active]; amlodipine 5 mg tab 1 tab twice a day [Active]; levothyroxine 88 mcg tab 1 tab once daily [Active]; aspirin 81 mg Oral TbEC 1 tab once daily [Active]; hyoscyamine sulfate 0.125 mg SL subl [Active]; - PMHx: 16:54 CAD; cardiac stents; COPD; Diverticulitis; HARD OF HEARING; Hyperlipidemia; tw2 Hypertension; Hypothyroidism; Myocardial infarction; - Immunization history:: Adult Immunizations. - Social history:: Smoking status: . ROS: 20:10 Eyes: Negative for injury, pain, redness, and discharge, ENT: Negative for injury, pkl pain, and discharge, Neck: Negative for injury, pain, and swelling, Cardiovascular: Negative for chest pain, palpitations, and edema. 20:10 Respiratory: Positive for cough, with no reported sputum. 20:10 Abdomen/GI: Negative for abdominal pain, nausea, vomiting, and diarrhea. 20:10 Back: Negative for acute changes. 20:10 : Negative for urinary symptoms. 20:10 MS/extremity: Negative for acute changes. 20:10 Skin: Negative for rash. 20:10 Neuro: Positive for weakness, Negative for altered mental status. Exam: 20:10 Head/Face: Normocephalic, atraumatic. Eyes: Pupils equal round and reactive to light, pkl extra-ocular motions intact. Lids and lashes normal. Conjunctiva and sclera are non-icteric and not injected. Cornea within normal limits. Periorbital areas with no swelling, redness, or edema. ENT: Nares patent. No nasal discharge, no septal abnormalities noted. Tympanic membranes are normal and external auditory canals are clear. Oropharynx with no redness, swelling, or masses, exudates, or evidence of obstruction, uvula midline. Mucous membranes moist. Neck: Trachea midline, no thyromegaly or masses palpated, and no cervical lymphadenopathy. Supple, full range of motion without nuchal rigidity, or vertebral point tenderness. No Meningismus. Chest/axilla: Normal chest wall appearance and motion. Nontender with no deformity. No lesions are appreciated. Cardiovascular: Regular rate and rhythm with a normal S1 and S2. No gallops, murmurs, or rubs. Normal PMI, no JVD. No pulse deficits. Respiratory: Lungs have equal breath sounds bilaterally, clear to auscultation and percussion. No rales, rhonchi or wheezes noted. No increased work of breathing, no retractions or nasal flaring. Abdomen/GI: Soft, non-tender, with normal bowel sounds. No distension or tympany. No guarding or rebound. No evidence of tenderness throughout. Back: No spinal tenderness. No costovertebral tenderness. Full range of motion. Skin: Warm, dry with normal turgor. Normal color with no rashes, no lesions, and no evidence of cellulitis. MS/ Extremity: Pulses equal, no cyanosis. Neurovascular intact. Full, normal range of motion. Neuro: Awake and alert, GCS 15, oriented to person, place, time, and situation. Cranial nerves II-XII grossly intact. Motor strength 5/5 in all extremities. Sensory grossly intact. Cerebellar exam normal. Normal gait. 03/29 07:31 ECG was reviewed by the Attending Physician. kdr Vital Signs: 03/28 16:49 BP 178 / 82; Pulse 108; Resp 20; Temp 99.8(O); Pulse Ox 96% on R/A; Weight 52.16 kg tw2 (R); Height 5 ft. 5 in. (165.10 cm); Pain 0/10; 17:36 BP 170 / 71; Pulse 103; Resp 22; Pulse Ox 97% on R/A; tw2 19:37 BP 162 / 69; Pulse 100; Resp 20; Temp 99.2; Pulse Ox 99% on R/A; sg 21:21 BP 144 / 59; Pulse 115; Resp 18 S; Temp 100(O); Pulse Ox 99% on R/A; Pain 0/10; sg 22:30 BP 142 / 66; Pulse 100; Resp 18; Temp 99.2; Pulse Ox 100% on R/A; sg 23:30 BP 160 / 70; Pulse 97; Resp 18; Pulse Ox 100% on R/A; sg 16:49 Body Mass Index 19.14 (52.16 kg, 165.10 cm) tw2 MDM: 19:58 Patient medically screened. pkl 21:53 Data reviewed: vital signs, nurses notes, lab test result(s), EKG, radiologic studies, pkl CT scan, plain films. ED course: Patient does not want Covid 19 teat done. Discussed lab and imagining studies with patient and . Patient does not need admission at this time. Advised to return if symptoms are worse. Advised quaratine at home until she is better. Patient and understood instructions. 03/28 17:27 Order name: Basic Metabolic Panel; Complete Time: 18:54 tw2 03/28 17:27 Order name: CBC with Diff; Complete Time: 18:54 tw2 03/28 17:27 Order name: LFT's; Complete Time: 18:54 tw2 03/28 17:27 Order name: Magnesium; Complete Time: 18:54 tw2 03/28 17:27 Order name: NT PRO-BNP; Complete Time: 18:54 tw2 03/28 17:27 Order name: PT-INR; Complete Time: 18:54 tw2 03/28 17:27 Order name: Troponin (emerg Dept Use Only); Complete Time: 18:54 tw2 03/28 17:27 Order name: XRAY Chest (1 view); Complete Time: 18:54 tw 03/28 20:07 Order name: Blood Culture Adult (2) [facility] 03/28 20:07 Order name: Lactate; Complete Time: 21:01 [facility] 03/28 20:07 Order name: Procalcitonin; Complete Time: 21:45 [facility] 03/28 20:09 Order name: CT Chest Wo Con; Complete Time: 21:45 pkl 03/28 20:09 Order name: ABG; Complete Time: 21:01 pkl 03/28 17:27 Order name: EKG; Complete Time: 17:28 tw2 03/28 17:27 Order name: Cardiac monitoring; Complete Time: 17:36 tw2 03/28 17:27 Order name: EKG - Nurse/Tech; Complete Time: 17:36 tw2 03/28 17:27 Order name: IV Saline Lock; Complete Time: 17:36 tw2 03/28 17:27 Order name: Labs collected and sent; Complete Time: 17:36 tw2 03/28 17:27 Order name: O2 Per Protocol; Complete Time: 17:36 tw2 03/28 17:27 Order name: O2 Sat Monitoring; Complete Time: 17:36 tw2 EC/18 07:31 Rate is 107 beats/min. Rhythm is regular, Sinus tachycardia with No ectopy. QRS [place] is kdr Normal. Left axis deviation noted. [place] interval is normal. QRS interval is normal. QT interval is normal. Clinical impression: Sinus tachycardia. Administered Medications: 03/28 22:00 Drug: Decadron - Dexamethasone 6 mg Route: IVP; Site: right antecubital; sg 22:20 Follow up: Response: No adverse reaction ch2 22:00 Drug: AZITHromycin 500 mg Route: IVPB; Infused Over: 1 hrs; Site: right antecubital; sg 23:30 Follow up: Response: No adverse reaction; IV Status: Completed infusion sg Disposition: 03/28/20 22:01 Discharged to Home. Impression: Pneumonia. Possible Covid 19 infection. - Condition is Stable. - Prescriptions for Zithromax Z- Robin 250 mg Oral Tablet - take 1 tablet by ORAL route as directed for 5 days Day 1 - take two (2) tablets one time. Day 2, 3, 4 , 5 take one (1) tablet once daily.; 6 tablet. - Medication Reconciliation Form, Thank You Letter, Antibiotic Education, Prescription Opioid Use form. - Follow up: Patrick Monterroso MD; When: 2 - 3 days; Reason: Re-evaluation by your physician. - Problem is new. - Symptoms are unchanged. Signatures: Dispatcher [employer] EDDanny Gregorio RN RN sg Jameel Saeed MD MD pkl Rittger, Kevin, MD MD kdr Taylor Castillo, RN RN bb Amina Green RN RN tw2 Alba Su RN ch2 Corrections: (The following items were deleted from the chart) 23:32 22:01 03/28/2020 22:01 Discharged to Home. Impression: Pneumonia. Possible Covid 19 bb infection. Condition is Stable. Forms are Medication Reconciliation Form, Thank You Letter, Antibiotic Education, Prescription Opioid Use. Follow up: Patrick Monterroso; When: 2 - 3 days; Reason: Re-evaluation by your physician. Problem is new. Symptoms are unchanged. pkl
--- NOTE | 2020-03-28 22:01 | ER ---
Nurse's Notes [facility] Name: Lupe Hartley Age: 80 yrs Sex: Female : 1940 Arrival Date: 03/28/2020 Time: 16:49 Bed 23 Private MD: Patrick Monterroso Diagnosis: Pneumonia. Possible Covid 19 infection Presentation: 03/28 16:49 Chief complaint: EMS states: pt from home, reports a cough x 1 week, not eating and tw2 today she just hasnt felt well enough to take her medicine so her BP is a little elevated 165/86 and we got a temp of 100.1, 20 g right ac, ndka. Coronavirus screen: Client presents with at least one sign or symptom that may indicate coronavirus-19. Standard/surgical mask placed on the client. Provider contacted for isolation considerations. Ebola Screen: Patient denies travel to an Ebola-affected area in the 21 days before illness onset. Initial Sepsis Screen: Does the patient meet any 2 criteria? HR > 90 bpm. No. Patient's initial sepsis screen is negative. Does the patient have a suspected source of infection? No. Patient's initial sepsis screen is negative. Risk Assessment: Do you want to hurt yourself or someone else? Patient reports no desire to harm self or others. Onset of symptoms was March 28, 2020. 16:49 Method Of Arrival: [facility] tw2 16:49 Acuity: NINI 3 tw2 Triage Assessment: 16:49 General: Appears in no apparent distress. slender, Behavior is calm, cooperative, tw2 appropriate for age. Pain: Denies pain. Historical: - Allergies: 16:54 Phenobarbital; tw2 - Home Meds: 16:54 metoprolol succinate 100 mg oral Tb24 1 tab twice a day [Active]; Plavix 75 mg Oral tab tw2 1 tab once daily [Active]; irbesartan 75 mg oral tab 2 tabs once daily [Active]; amlodipine 5 mg tab 1 tab twice a day [Active]; levothyroxine 88 mcg tab 1 tab once daily [Active]; aspirin 81 mg Oral TbEC 1 tab once daily [Active]; hyoscyamine sulfate 0.125 mg SL subl [Active]; - PMHx: 16:54 CAD; cardiac stents; COPD; Diverticulitis; HARD OF HEARING; Hyperlipidemia; tw2 Hypertension; Hypothyroidism; Myocardial infarction; - Immunization history:: Adult Immunizations. - Social history:: Smoking status: . Screenin:00 Abuse screen: Denies threats or abuse. Nutritional screening: No deficits noted. tw2 Tuberculosis screening: No symptoms or risk factors identified. Fall Risk None identified. Assessment: 16:50 General: Appears in no apparent distress. slender, Behavior is calm, cooperative, tw2 appropriate for age. Pain: Denies pain. Neuro: Level of Consciousness is awake, alert, obeys commands, Oriented to person, place, time, situation. Cardiovascular: Heart tones S1 S2 Patient's skin is warm and dry. Respiratory: Reports cough that is non-productive, dry, persistent Airway is patent Respiratory effort is even, unlabored, Respiratory pattern is regular, symmetrical, Breath sounds are diminished bilaterally. GI: No signs and/or symptoms were reported involving the gastrointestinal system. Abdomen is flat, Bowel sounds present X 4 quads. : No signs and/or symptoms were reported regarding the genitourinary system. EENT: No signs and/or symptoms were reported regarding the EENT system. Derm: No signs and/or symptoms reported regarding the dermatologic system. Skin is fragile, is thin, Skin is dry, Skin temperature is warm. Musculoskeletal: Range of motion: intact in all extremities. 17:12 Reassessment: pts spouse is in lobby, ph# [phone]. tw2 17:37 Reassessment: Patient appears in no apparent distress at this time. No changes from tw2 previously documented assessment. Patient and/or family updated on plan of care and expected duration. Pain level reassessed. Patient is alert, oriented x 3, equal unlabored respirations, skin warm/dry/pink. 18:30 Reassessment: Patient is alert, oriented x 3, equal unlabored respirations, skin ch2 warm/dry/pink. "Im fine, just laying here coughing." Patient denies pain at this time. Patient states feeling better. Respiratory: Airway is patent Respiratory effort is even, unlabored, Respiratory pattern is symmetrical, tachypnea. Derm: Skin is pink, warm \\T\\ dry. 19:30 Reassessment: Patient and/or family updated on plan of care and expected duration. Pain sg level reassessed. Patient denies pain at this time. 20:30 Reassessment: Patient and/or family updated on plan of care and expected duration. Pain sg level reassessed. Patient is alert, oriented x 3, equal unlabored respirations, skin warm/dry/pink. Patient denies pain at this time. Patient states feeling better. 21:30 Reassessment: Patient and/or family updated on plan of care and expected duration. Pain sg level reassessed. Patient is alert, oriented x 3, equal unlabored respirations, skin warm/dry/pink. awaiting CT scan results at this time. 22:30 Reassessment: Patient and/or family updated on plan of care and expected duration. Pain sg level reassessed. Patient is alert, oriented x 3, equal unlabored respirations, skin warm/dry/pink. pt family updated on POC, pt at bedside speaking with , pt to be dc to home after IV abx therapy infusion here in the ED, pt and pt family stated understanding. Vital Signs: 16:49 BP 178 / 82; Pulse 108; Resp 20; Temp 99.8(O); Pulse Ox 96% on R/A; Weight 52.16 kg tw2 (R); Height 5 ft. 5 in. (165.10 cm); Pain 0/10; 17:36 BP 170 / 71; Pulse 103; Resp 22; Pulse Ox 97% on R/A; tw2 19:37 BP 162 / 69; Pulse 100; Resp 20; Temp 99.2; Pulse Ox 99% on R/A; sg 21:21 BP 144 / 59; Pulse 115; Resp 18 S; Temp 100(O); Pulse Ox 99% on R/A; Pain 0/10; sg 22:30 BP 142 / 66; Pulse 100; Resp 18; Temp 99.2; Pulse Ox 100% on R/A; sg 23:30 BP 160 / 70; Pulse 97; Resp 18; Pulse Ox 100% on R/A; sg 16:49 Body Mass Index 19.14 (52.16 kg, 165.10 cm) tw2 ED Course: 16:49 Patient arrived in ED. ds1 16:49 Amina Green, RN is Primary Nurse. tw2 16:50 Placed in gown. Bed in low position. Side rails up X2. classroom monitor on. Pulse ox on. tw2 NIBP on. 16:51 Triage completed. tw2 16:51 Arm band placed on. tw2 17:23 Karthikeyan Bess MD is Attending Physician. kdr 17:36 Maintain EMS IV. Dressing intact. Good blood return noted. Site clean \\T\\ dry. Gauge \\T\\ tw 2 site: 20 g RIGHT ac. 18:09 XRAY Chest (1 view) In Process Unspecified. EDMS 18:41 Report given to SADIQ Delgado. tw2 18:44 Primary Nurse role handed off by Amina Green RN sg 18:44 Danny Varela RN is Primary Nurse. sg 19:58 Attending Physician role handed off by Karthikeyan Bess MD pkl 19:58 Jameel Saeed MD is Attending Physician. pkl 20:03 Patrick Monterroso MD is Private Physician. sg 20:29 Initial lab(s) drawn, by ne, sent to lab. a procal and lactate and BCx2. sg 21:07 CT Chest Wo Con In Process Unspecified. EDMS 21:30 First set of blood cultures drawn by me. sg 21:45 Second set of blood cultures drawn by me. sg 22:00 Patrick Monterroso MD is Referral Physician. pkl 23:30 No provider procedures requiring assistance completed. IV discontinued, intact, sg bleeding controlled, No redness/swelling at site. Pressure dressing applied. Administered Medications: 22:00 Drug: Decadron - Dexamethasone 6 mg Route: IVP; Site: right antecubital; sg 22:20 Follow up: Response: No adverse reaction ch2 22:00 Drug: AZITHromycin 500 mg Route: IVPB; Infused Over: 1 hrs; Site: right antecubital; sg 23:30 Follow up: Response: No adverse reaction; IV Status: Completed infusion sg Outcome: 22:01 Discharge ordered by . pkl 23:30 Discharged to home via wheelchair, with family. sg 23:30 Condition: good 23:30 Discharge instructions given to patient, family, Instructed on discharge instructions, follow up and referral plans. medication usage, safety practices, Demonstrated understanding of instructions, follow-up care, medications, Prescriptions given X 2. 23:32 Patient left the ED. bb Signatures: Dispatcher [employer] EDMS Danny Varela RN RN sg Jameel Saeed MD MD pkKarthikeyan Walden MD MD kdr Sanford, Demi ds1 Taylor Castillo, RN RN bb Amina Green, RN RN tw2 Alba Su, RN RN ch2
[2020-03-28] MEDS ORDERED: NA CHLORIDE 0.9% 250 ML ONE (22:03)
[2020-03-28] MEDS ORDERED: AZITHROMYCIN 500 MG INJ IVPB ONE (22:03)
[2020-03-28] MEDS ORDERED: dexAMETHasone 4 MG/ML VIAL ONE (22:08)
[2020-03-28] MEDS ORDERED: ONDANSETRON 4 MG/2 ML VIAL ONE (22:27)
[2020-03-29 13:35] VITALS: O2SAT 99
[2020-03-29 13:36] VITALS: BP 144/59; TEMP 100
== END 2020-03-28 23:32 | disposition home or self-care (01) ==
LOC: ER 16:48
DX: J18.9 Pneumonia, unspecified organism (principal); I10 Essential (primary) hypertension; E03.9 Hypothyroidism, unspecified; I25.10 Atherosclerotic heart disease of native coronary artery without angina pectoris; Z79.01 Long term (current) use of anticoagulants; Z79.82 Long term (current) use of aspirin; Z88.5 Allergy status to narcotic agent
CPT/HCPCS: 96365; 93005; 87040 ×2; 85025; 80048; 36415; 83735; 87205; 85610; 80076; 83605; 84484; 84145; 83880; 71250; 71045; 82805; 96375; 99284; J0456; J7050; J2405

== ENCOUNTER 2021-01-20 06:10 | Observation (INO) | payer OTHER ==
[2021-01-20 06:34] LABS: RBC Red Blood Cell Count 4.23 M/uL (3.86-4.86)
[2021-01-20 06:35] LABS: Absolute Lymphocytes (CBC) 1.7 K/uL (0.7-4.9); Basophils % 1.1 % (0-1.3); Hematocrit 36.6 % (36.0-45.0); Lymphocytes % 17.1 % (15.3-44.8); MPV 7.5 fL (7.6-11.3)
[2021-01-20 06:53] LABS: ALT/SGPT 14 U/L (12-78); AST/SGOT 14 U/L (15-37); Albumin 3.2 g/dL (3.4-5.0); Alkaline Phosphatase 85 U/L (45-117); BUN Blood Urea Nitrogen 14 mg/dL (7-18); Bicarbonate 24 mmol/L (21-32); Bilirubin Direct < 0.1 mg/dL (0-0.2); Bilirubin Total 0.4 mg/dL (0.2-1.0); Glucose Level 105 mg/dL (74-106); Magnesium 2.2 mg/dL (1.8-2.4); NT PRO-BNP 2540 pg/mL (<450); Potassium 3.7 mmol/L (3.5-5.1); Protein, Total 7.1 g/dL (6.4-8.2); Sodium Level 141 mmol/L (136-145); Troponin (Emerg Dept Use Only) < 0.02 ng/mL (0.0-0.045)
--- NOTE | 2021-01-20 07:26 | ER ---
Nurse's Notes [facility] Name: Lupe Hartley Age: 80 yrs Sex: Female : 1940 Arrival Date: 01/20/2021 Time: 06:[address] Private MD: Diagnosis: Chest pain, unspecified;Congestive Heart Failure;Pneumonia Presentation: 01/20 06:20 Chief complaint: EMS states: Pt reports having chest pain since yesterday, having jb4 nausea and being unable to sleep. We initiated a 22g IV in the Left AC, gave 324mg of ASA, 1 sublingual nitro, and 4mg of Zofran IV. Pt now reports minimal chest pain. Coronavirus screen: Client denies travel out of the [place] in the last 14 days. At this time, the client does not indicate any symptoms associated with coronavirus-19. Ebola Screen: No symptoms or risks identified at this time. Initial Sepsis Screen: Does the patient meet any 2 criteria? No. Patient's initial sepsis screen is negative. Does the patient have a suspected source of infection? No. Patient's initial sepsis screen is negative. Risk Assessment: Do you want to hurt yourself or someone else? Patient reports no desire to harm self or others. Onset of symptoms was January 19, 2021. Transition of care: patient was not received from another setting of care. 06:20 Method Of Ar[facility]: [facility] jb4 06:20 Acuity: NINI 3 jb4 Historical: - Allergies: 06:24 Phenobarbital; jb4 - Home Meds: 06:24 amlodipine 5 mg tab 1 tab twice a day [Active]; metoprolol succinate 100 mg Oral Tb24 1 jb4 tab twice a day [Active]; Plavix 75 mg Oral tab 1 tab once daily [Active]; levothyroxine 88 mcg tab 1 tab once daily [Active]; irbesartan 75 mg Oral tab 2 tabs once daily [Active]; aspirin 81 mg Oral TbEC 1 tab once daily [Active]; - PMHx: 06:24 CAD; cardiac stents; COPD; Diverticulitis; HARD OF HEARING; Hyperlipidemia; jb4 Hypertension; Hypothyroidism; Myocardial infarction; - Immunization history:: Adult Immunizations up to date. - Social history:: Smoking status: Patient denies any tobacco usage or history of. Screenin:26 Abuse screen: Denies threats or abuse. Nutritional screening: No deficits noted. jb4 Tuberculosis screening: No symptoms or risk factors identified. Fall Risk None identified. Assessment: 06:26 General: Appears in no apparent distress. comfortable, Behavior is calm, cooperative, jb4 appropriate for age. Pain: Denies pain. Neuro: Level of Consciousness is awake, alert, obeys commands, Oriented to person, place, time, situation. Cardiovascular: Patient's skin is warm and dry. Respiratory: Airway is patent Respiratory effort is even, unlabored, Respiratory pattern is regular, symmetrical. GI: No signs and/or symptoms were reported involving the gastrointestinal system. : No signs and/or symptoms were reported regarding the genitourinary system. EENT: No signs and/or symptoms were reported regarding the EENT system. Derm: Skin is intact, Skin is pink, warm \T\ dry. Musculoskeletal: Circulation, motion, and sensation intact. Range of motion: intact in all extremities. Vital Signs: 06:20 BP 179 / 63; Pulse 58; Resp 16; Temp 98.9(O); Pulse Ox 97% on R/A; Weight 62.6 kg (R); jb4 Height 5 ft. 5 in. (165.10 cm); Pain 0/10; 08:00 BP 162 / 46; Pulse 53; Resp 13; Pulse Ox 97% on R/A; tr6 06:20 Body Mass Index 22.96 (62.60 kg, 165.10 cm) jb4 ED Course: 06:20 Patient arrived in ED. jb4 06:24 Triage completed. jb4 06:24 Arm band placed on right wrist. [facility] 06:25 Sanjay Doshi MD is Attending Physician. [facility] 06:26 Patient has correct armband on for positive identification. Bed in low position. Call jb light in reach. Side rails up X 1. cardiac monitor on. Pulse ox on. NIBP on. 06:26 Maintain EMS IV. Dressing intact. Good blood return noted. Site clean \T\ dry. Gauge \T\ abrahan 4 site: 22g LAC. 06:41 XRAY Chest (1 view) In Process Unspecified. EDMS 07:12 Attending Physician role handed off by Sanjay Doshi MD rn 07:12 Sukhwinder Delarosa MD is Attending Physician. rn 07:25 Rony Wilson DO is Hospitalizing Provider. 7 07:27 Lalita López, SADIQ is Primary Nurse. tr6 09:45 No provider procedures requiring assistance completed. tr6 09:45 Patient admitted, IV remains in place. tr6 Administered Medications: 08:00 Drug: Lasix (furosemide) 20 mg Route: IVP; Site: left antecubital; tr6 09:54 Follow up: Response: No adverse reaction tr6 08:07 Drug: Rocephin (cefTRIAXone) 1 grams Route: IV; Rate: per protocol; Site: left tr6 antecubital; 08:07 Drug: Zithromax (azithromycin) 500 mg Route: IVPB; Infused Over: 1 hrs; Site: left tr6 antecubital; Output: 09:30 Urine: 300ml (Voided); Total: 300ml. tr6 09:53 Urine: 100ml (Voided); Total: 400ml. tr6 Outcome: 07:26 Decision to Hospitalize by Provider. [facility] 09:44 Admitted to Med/surg accompanied by tech, via wheelchair, room 202, with chart, Report tr6 called to jarret BABCOCK 09:44 Condition: good 09:44 Instructed on the need for admit, Demonstrated understanding of instructions, follow-up care, medications. 10:23 Patient left the ED. ss Signatures: Dispatcher [employer] EDMS Sukhwinder Delarosa MD MD rn Smirch, Shelby, RN RN ss Bryson, James, RN RN jb4 Holmes, Maurice, MD MD mh7 Ramnanan, Tiffany, RN RN tr6
--- NOTE | 2021-01-20 07:27 | EDPHYS ---
Physician Documentation [facility] Name: Lupe Hartley Age: 80 yrs Sex: Female : 1940 Arrival Date: 01/20/2021 Time: 06:[address] Private MD: ED Physician Sukhwinder Delarosa HPI: 01/20 06:30 This 80 yrs old Female presents to ER via EMS with complaints of Chest pain. mh7 06:30 The patient or guardian reports chest pain that is located primarily in the substernal mh7 area. Onset: last night. The pain does not radiate. Associated signs and symptoms: Pertinent positives: dizziness, nausea, Pertinent negatives: abdominal pain, cough, diaphoresis, headache, lower extremity pain, lower extremity swelling, lightheadedness, near syncope, palpitations, recent travel, shortness of breath, syncope, vomiting. The chest pain is described as a heaviness. Duration: The patient or guardian reports multiple episodes, that are intermittent, that wax and wane, with no pattern. Modifying factors: The symptoms are alleviated by nothing. the symptoms are aggravated by nothing. Severity of pain: At its worst the pain was moderate last night, in the emergency department the pain has improved markedly. EMS care prior to arrival includes: aspirin. Historical: - Allergies: 06:24 Phenobarbital; jb4 - Home Meds: 06:24 amlodipine 5 mg tab 1 tab twice a day [Active]; metoprolol succinate 100 mg Oral Tb24 1 jb4 tab twice a day [Active]; Plavix 75 mg Oral tab 1 tab once daily [Active]; levothyroxine 88 mcg tab 1 tab once daily [Active]; irbesartan 75 mg Oral tab 2 tabs once daily [Active]; aspirin 81 mg Oral TbEC 1 tab once daily [Active]; - PMHx: 06:24 CAD; cardiac stents; COPD; Diverticulitis; HARD OF HEARING; Hyperlipidemia; jb4 Hypertension; Hypothyroidism; Myocardial infarction; - Immunization history:: Adult Immunizations up to date. - Social history:: Smoking status: Patient denies any tobacco usage or history of. ROS: 06:30 Constitutional: Negative for fever, chills, and weight loss, Eyes: Negative for injury, mh7 pain, redness, and discharge, ENT: Negative for injury, pain, and discharge, Neck: Negative for injury, pain, and swelling, Respiratory: Negative for shortness of breath, cough, wheezing, and pleuritic chest pain, Back: Negative for injury and pain, : Negative for injury, bleeding, discharge, and swelling, MS/Extremity: Negative for injury and deformity, Skin: Negative for injury, rash, and discoloration, Neuro: Negative for headache, weakness, numbness, tingling, and seizure, Psych: Negative for depression, anxiety, suicide ideation, homicidal ideation, and hallucinations, Allergy/Immunology: Negative for hives, rash, and allergies, Endocrine: Negative for neck swelling, polydipsia, polyuria, polyphagia, and marked weight changes, Hematologic/Lymphatic: Negative for swollen nodes, abnormal bleeding, and unusual bruising. Exam: 06:30 Constitutional: This is a well developed, well nourished patient who is awake, alert, mh7 and in no acute distress. Head/Face: Normocephalic, atraumatic. Eyes: Pupils equal round and reactive to light, extra-ocular motions intact. Lids and lashes normal. Conjunctiva and sclera are non-icteric and not injected. Cornea within normal limits. Periorbital areas with no swelling, redness, or edema. Neck: Trachea midline, no thyromegaly or masses palpated, and no cervical lymphadenopathy. Supple, full range of motion without nuchal rigidity, or vertebral point tenderness. No Meningismus. Chest/axilla: Normal chest wall appearance and motion. Nontender with no deformity. No lesions are appreciated. Cardiovascular: Regular rate and rhythm with a normal S1 and S2. No gallops, murmurs, or rubs. Normal PMI, no JVD. No pulse deficits. Respiratory: Lungs have equal breath sounds bilaterally, clear to auscultation and percussion. No rales, rhonchi or wheezes noted. No increased work of breathing, no retractions or nasal flaring. Abdomen/GI: Soft, non-tender, with normal bowel sounds. No distension or tympany. No guarding or rebound. No evidence of tenderness throughout. Back: No spinal tenderness. No costovertebral tenderness. Full range of motion. Skin: Warm, dry with normal turgor. Normal color with no rashes, no lesions, and no evidence of cellulitis. MS/ Extremity: Pulses equal, no cyanosis. Neurovascular intact. Full, normal range of motion. Neuro: Awake and alert, GCS 15, oriented to person, place, time, and situation. Cranial nerves II-XII grossly intact. Motor strength 5/5 in all extremities. Sensory grossly intact. Cerebellar exam normal. Normal gait. Psych: Awake, alert, with orientation to person, place and time. Behavior, mood, and affect are within normal limits. Vital Signs: 06:20 BP 179 / 63; Pulse 58; Resp 16; Temp 98.9(O); Pulse Ox 97% on R/A; Weight 62.6 kg (R); jb4 Height 5 ft. 5 in. (165.10 cm); Pain 0/10; 08:00 BP 162 / 46; Pulse 53; Resp 13; Pulse Ox 97% on R/A; tr6 06:20 Body Mass Index 22.96 (62.60 kg, 165.10 cm) 4 MDM: 07:14 Patient medically screened. rn 07:24 Differential diagnosis: abnormal EKG, acute myocardial infarction, acute pericarditis, mh7 anxiety, coronary artery disease chest wall pain, congestive heart failure pneumonia. HEART Score: History: Moderately Suspicious (1), ECG: Non specific repolarization disturbance / LBTB / PM (1), Age: > or = 65 years (2), Risk Factors: 1 or 2 risk factors (1), [Hypercholesterolemia] [Hypertension] Troponin: < or = 1 x Normal Limit (0), Total Score = 5. The patient was not given aspirin in the Emergency Department. Administered by EMS. Data reviewed: vital signs, nurses notes, EMS record, old medical records, lab test result(s), EKG, radiologic studies. Counseling: I had a detailed discussion with the patient and/or guardian regarding: the historical points, exam findings, and any diagnostic results supporting the discharge/admit diagnosis, the presence of at least one elevated blood pressure reading (>120/80) during this emergency department visit, lab results, radiology results, the need for further work-up and treatment in the hospital. 01/20 06:20 Order name: Basic Metabolic Panel [facility] 01/20 06:20 Order name: CBC with Diff [facility] 01/20 06:20 Order name: LFT's; Complete Time: 07:14 [facility] 01/20 06:20 Order name: Magnesium; Complete Time: 07:14 [facility] 01/20 06:20 Order name: NT PRO-BNP; Complete Time: 07:14 [facility] 01/20 06:20 Order name: PT-INR; Complete Time: 07:14 [facility] 01/20 06:20 Order name: Troponin (emerg Dept Use Only); Complete Time: 07:14 [facility] 01/20 06:20 Order name: Basic Metabolic Panel; Complete Time: 07:14 [facility] 01/20 06:20 Order name: CBC with Automated Diff; Complete Time: 07:14 [facility] 01/20 07:20 Order name: Blood Culture Adult (2) [facility] 01/20 07:23 Order name: Procalcitonin [facility] 01/20 07:23 Order name: Lactate [facility] 01/20 07:23 Order name: Procalcitonin; Complete Time: 09:35 [facility] 01/20 07:23 Order name: Lactate; Complete Time: 09:35 [facility] 01/20 06:20 Order name: XRAY Chest (1 view); Complete Time: 09:35 [facility] 01/20 06:20 Order name: EKG; Complete Time: 06:21 [facility] 01/20 06:20 Order name: Cardiac monitoring; Complete Time: 06:20 [facility] 01/20 06:20 Order name: EKG - Nurse/Tech; Complete Time: 06:20 [facility] 01/20 06:20 Order name: IV Saline Lock; Complete Time: 06:20 [facility] 01/20 06:20 Order name: Labs collected and sent; Complete Time: 06:20 [facility] 01/20 06:20 Order name: O2 Per Protocol; Complete Time: 06:20 [facility] 01/20 06:20 Order name: O2 Sat Monitoring; Complete Time: 06:20 [facility] 01/20 07:24 Order name: Influenza Screen (a \\T\\ B); Complete Time: 09:35 [facility] 01/20 07:24 Order name: COVID-19 : Document "Date of Symptom Onset" if Symptomatic. [facility] 01/20 09:39 Order name: SARS-COV-2 RT PCR EDMS Administered Medications: 08:00 Drug: Lasix (furosemide) 20 mg Route: IVP; Site: left antecubital; tr6 09:54 Follow up: Response: No adverse reaction tr6 08:07 Drug: Rocephin (cefTRIAXone) 1 grams Route: IV; Rate: per protocol; Site: left tr6 antecubital; 08:07 Drug: Zithromax (azithromycin) 500 mg Route: IVPB; Infused Over: 1 hrs; Site: left tr6 antecubital; Disposition Summary: 01/20/21 07:26 Hospitalization Ordered Hospitalization Status: Inpatient Admission [facility] Provider: Rony Wilson [facility] Location: Telemetry/MedSurg (Inpatient) [facility] Condition: Stable [facility] Problem: new [facility] Symptoms: have improved [facility] Bed/Room Type: Standard [facility] Room Assignment: 202(01/20/21 08:47) eb Diagnosis - Chest pain, unspecified [facility] - Congestive Heart Failure [facility] - Pneumonia [facility] Forms: - Medication Reconciliation Form [facility] - SBAR form [facility] Signatures: Dispatcher [employer] EDSukhwinder Palmer MD MD rn Bryson, James, RN RN jb4 Lori Hart Maurice, MD MD 7 Lalita López RN RN tr6 Corrections: (The following items were deleted from the chart) 08:47 07:26 [facility] eb
[2021-01-20] MEDS ORDERED: FUROSEMIDE 20 MG/ 2ML VIAL ONE (07:54)
[2021-01-20] MEDS ORDERED: CEFTRIAXONE/SWI 1gm 1 GM/10 ML SYR ONE (07:54)
[2021-01-20] MEDS ORDERED: AZITHROMYCIN 500 MG INJ IVPB ONE (07:54)
[2021-01-20] MEDS ORDERED: NA CHLORIDE 0.9% 250 ML ONE (07:54)
--- NOTE | 2021-01-20 08:12 | P.HP ---
Certification for Inpatient Patient admitted to: Observation With expected LOS: <2 Midnights Patient will require the following post-hospital care: None Practitioner: I am a practitioner with admitting privileges, knowledge of patient current condition, hospital course, and medical plan of care. Services: Services provided to patient in accordance with Admission requirements found in Title 42 Section 412.3 of the Code of Federal Regulations Patient History Date of Service: 01/20/21 Primary Care Provider: Dr. Fuentes; Cardiology-Dr. Corey Reason for admission: Chest pain History of Present Illness: 80-year-old female with history of CAD with prior stent, CABG x2, hypertension, hypothyroidism, chronic renal disease stage III and history of TIA. Patient presented to the emergency room with chest pain. This started yesterday. Chest pain was substernal. It was associated with some shortness of breath. She denied any fever, chills, sick contacts. She denied any nausea or vomiting. EMS was called. Patient given aspirin. Chest pain improved. Patient recently was seen by cardiology. She reported having a cardiac stress test, carotid Doppler last week with cardiology as an outpatient. Patient also reports history of Covid infection early part of the year. She was seen in the ER and released. She is partially vaccinated. She got her first dose of med during her vaccine sometime in September. She did not follow-up to get the second dose. In the ER patient was evaluated. Blood pressures elevated. White count 10.0, hemoglobin 12.5. Platelet count 397. sodium 141, potassium 3.7. BUN of 14, creatinine 1.25 with a GFR 41. Glucose 105. Troponin unremarkable. BMP 2540. Procalcitonin and lactic acid pending. Chest x-ray showed some congestion to the left upper lobe. CT chest pending. Patient was admitted for observation and further evaluation. Allergies Androgenic Anabolic Steroid Allergy (Verified 05/31/14 11:22) Shortness of breath phenobarbital Allergy (Verified 03/05/15 17:16) Unknown promethazine HCl [From Phenergan] Allergy (Verified 05/31/14 11:22) hallucinations codeine Adverse Reaction (Unknown, Verified 05/31/14 11:22) Nausea/Vomiting steroids Allergy (Uncoded 10/10/14 13:45) Unknown Home medications list reviewed: Yes Home Medications: Aspirin Chewable [Aspirin Chewable*] 81 mg PO DAILY 01/18/14 Clopidogrel Bisulfate [Plavix*] 75 mg PO DAILY 01/18/14 Levothyroxine Sodium [Levoxyl] 88 mcg PO [id number] 01/18/14 Metoprolol Succinate [Toprol Xl*] 100 mg PO BID 6AM 6PM 01/18/14 Irbesartan [Avapro*] 0.5 tab PO BID 04/01/19 Amlodipine Besylate [Norvasc] 10 mg PO DAILY #30 tablet 04/02/19 hydroCHLOROthiazide [Hydrochlorothiazide] 12.5 mg PO DAILY #30 tablet 04/02/19 - Past Medical/Surgical History Diabetic: No -: Hypothyroidism -: HTN -: Hyperlipidemia -: History of TIA -: CAD with prior stents, CABG x2 -: CABG x2 -: Hysterectomy -: History of colon resection related to diverticulitis -: Cardiac stents Psychosocial/ Personal History: Patient is of 59 years - Family History Family History: Reviewed- Non-Contributory - Social History Smoking Status: Former smoker Alcohol use: No CD- Drugs: No Caffeine use: Yes Place of Residence: Home Review of Systems General: As per HPI Eyes: Unremarkable ENT: Unremarkable Respiratory: Shortness of Breath, As per HPI Cardiovascular: Chest Pain, As per HPI Gastrointestinal: Unremarkable Genitourinary: Unremarkable Musculoskeletal: Unremarkable Integumentary: Unremarkable Neurological: Unremarkable Lymphatics: Unremarkable Physical Examination - Studies Laboratory Data (last 24 hrs) 01/20/21 06:25: PT 11.5, INR 1.00 01/20/21 06:25: WBC 10.00, Hgb 12.5, Hct 36.6, Plt Count 397 01/20/21 06:25: Sodium 141, Potassium 3.7, BUN 14, Creatinine 1.25, Glucose 105, Magnesium 2.2, Total Bilirubin 0.4, AST 14 L, ALT 14, Alkaline Phosphatase 85 Assessment and Plan - Plan Physical Exam: GENERAL: In general she is alert, cooperative. No focal deficits noted. VITAL SIGNS: Reviewed, blood pressure slightly elevated. HEENT: Head is normocephalic and atraumatic. Extraocular muscles are intact. Pupils are equal, round, and reactive to light and accommodation. Nares appeared normal. Mouth is well hydrated and without lesions. Mucous membranes are moist. NECK: Supple. No carotid bruits. No lymphadenopathy or thyromegaly. LUNGS: Slightly decreased to the left upper lobe otherwise unremarkable. No respiratory distress noted. Patient on room air. HEART: Regular rate and rhythm, no appreciable gallops, rubs, murmurs or extra heart sounds ABDOMEN: Soft, nontender, and nondistended. Positive bowel sounds. No hepatosplenomegaly was noted. EXTREMITIES: Without any cyanosis, clubbing, rash, lesions or peripheral edema. NEUROLOGIC: The patient is oriented to person, place and time. Strength and sensation are grossly intact. Face is symmetric. SKIN: Normal color, turgor and temperature. No ulcerations or rashes noted. Impression: Chest pain with mild shortness of breath with history of CAD with prior stents/CABG x2 Possible pneumonia versus atelectasis with history of nonhospitalized Covid infection in early 2020, partially vaccinated for Covid Hypertension uncontrolled Hypothyroidism Chronic kidney disease stage III History of TIA Plan: Chest pain with mild shortness of breath with history of CAD with prior stents/CABG x2: Patient will be admitted for further evaluation and observation. Will continue with aspirin, Plavix, blood pressure medications including Norvasc 5 mg 1 pill twice daily, metoprolol XL 100 mg 1 pill twice daily, and irbesartan 75 mg 2 pills daily. Will provide DVT prophylaxisheparin. Continue to monitor telemetry and cardiac enzymes. Patient was seen last week by cardiology for cardiac stress test, echocardiogram and carotid Doppler. Ca rdiology consulted for further evaluation. Await recommendations. Anticipate improvement over the next 24 hours. Possible pneumonia versus atelectasis with history of nonhospitalized Covid infection in early 2020, partially vaccinated for Covid: ER gave Rocephin and Zithromax in the ER. We will continue with medication. White count within normal range. Will order CT scan to further evaluate. Procalcitonin and lactic acid obtained. If unremarkable will discontinue antibiotics. Suspect atelectasis from prior Covid infection. Will test for Covid. Patient needs to be fully vaccinated in the future. She will need to get her second dose of Materna vaccine in the future. She can follow-up with her PCP for this.. Hypertension uncontrolled: Continue with home medicationNorvasc 5 mg 1 pill twice daily, metoprolol XL 100 mg 1 pill twice daily, and irbesartan 75 mg 2 pills daily. Will monitor and adjust appropriately. Hypothyroidism: Continue with her medication levothyroxine 88 mcg daily. Will check TSH and free T4. Chronic kidney disease stage III:Overall stable. Will consult nephrology for further recommendation. History of TIA: Continue Plavix and aspirin Code Status: Full Code DVT prophylaxis: Heparin Advanced Care Planning-30 minutes: Anticipate discharge likely within the next 24 hours. Await recommendations by cardiology and nephrology. Discharge Plan: Home Plan to discharge in: 24 Hours - Advance Directives Does patient have a Living Will: No Does patient have a Durable POA for Healthcare: Yes - Code Status/Comfort Care Code Status Assessed: Yes (Patient is full code) Time Spent Managing Pts Care (In Minutes): 55
--- NOTE | 2021-01-20 09:33 | RAD REPORT ---
EXAM DESCRIPTION: RAD - Chest Single View - 01/20/2021 6:41 am CLINICAL HISTORY: CHEST PAIN Chest pain. COMPARISON: Chest Single View dated 03/28/2020; Chest Single View dated 04/01/2019; Chest Single View dated 06/23/2018; Chest Single View dated 02/03/2017 FINDINGS: Portable technique limits examination quality. Airspace opacity is present in the left lateral mid lung superimposed on emphysematous changes. This likely represents infiltrate/pneumonia. The heart is normal in size. Sternotomy wires present.
[2021-01-20] MEDS ORDERED: IPRATROPIUM BROM 0.5MG/2.5ML NEB PRN (09:42)
[2021-01-20] MEDS ORDERED: METOPROLOL XL 100 MG TAB PO SCH (09:42)
[2021-01-20] MEDS ORDERED: ONDANSETRON 4 MG/2 ML VIAL IV PRN (09:42)
[2021-01-20] MEDS ORDERED: ACETAMINOPHEN 500 MG TAB PO PRN (09:42)
[2021-01-20] MEDS ORDERED: ALBUTEROL 2.5 MG/3 ML NEB SOL NEB PRN (09:42)
[2021-01-20] MEDS ORDERED: POTASSIUM CL SA 10 MEQ TAB PO ONE (09:56)
[2021-01-20 10:06] VITALS: BMI 22.9
[2021-01-20] MEDS: HEPARIN 5000 UNIT/ML 1 ML VIAL SQ SCH ×2 (10:33→20:38)
[2021-01-20] MEDS: ASPIRIN EC 81 MG TAB PO SCH (10:33)
[2021-01-20] MEDS: CLOPIDOGREL 75 MG TABLET PO SCH (10:33)
[2021-01-20] MEDS: AMLODIPINE 5 MG TAB PO SCH ×2 (10:44→20:38)
[2021-01-20] MEDS: IRBESARTAN 150 MG TAB PO SCH (10:44)
[2021-01-20 11:05] LABS: Urine Appearance CLEAR (Clear); Urine Bilirubin NEGATIVE (Negative); Urine Blood NEGATIVE (Negative); Urine Color YELLOW (Yellow); Urine Glucose NEGATIVE (Negative); Urine Protein TRACE (Negative); Urine Specific Gravity <=1.005 (1.005-1.030); Urine Urobilinogen 0.2 mg/dL (0.2-1.0)
[2021-01-20 11:07] LABS: Urine Microscopic Reflex ORDER UMIC
[2021-01-20 11:42] LABS: Urine Bacteria NONE SEEN /HPF (<20); Urine RBC NONE SEEN /HPF (NONE SEEN)
--- NOTE | 2021-01-20 11:54 | RAD REPORT ---
EXAM DESCRIPTION: CT - Thorax Wo Con CLINICAL HISTORY: Chest pain chest pain, Hx of COVID in early part of year COMPARISON: Thorax Wo Con dated 03/28/2020; Chest Single View dated 01/20/2021 FINDINGS: Prominent diffuse COPD is seen. There is a mildly loculated left pleural effusion noted wi th a mild subtle interstitial infiltrate in the anterior left upper lobe. Spiculated nodule is presen t in the posterior right apex, demonstrating interval increase in size since prior study. On today's examination the nodule measures 12 x 8 mm, previously 9 x 5 mm. No pneumothorax. No axillary, mediastinal or hilar adenopathy. No concerning bony finding. 22 mm cysts is seen anterior aspect of the left kidney superiorly. All CT scans are performed using dose optimization technique as appropriate and may include automated exposure control or mA/KV adjustment according to patient size. IMPRESSION: Prominent diffuse COPD is noted.Mild infiltrate is seen in the anterior left upper lobe with a small loculated left pleural effusion. Spiculated nodule/ mass in the posterior right upper lobe has increased in size since last year's CT study as detailed. Recommend followup PET-CT to evaluate for metabolic activity. Early neoplasia is c ertainly a possibility.
[2021-01-20] MEDS ORDERED: SPIRONOLACTONE 25 MG TABLET PO ONE (12:20)
[2021-01-20 12:51] LABS: Creatine Phosphokinase 57 U/L (26-192); Troponin I < 0.02 ng/mL (0.0-0.045)
--- NOTE | 2021-01-20 16:06 | EKG ---
Test Date: 2021-01-20 Test Time: 06:16:02 [employer] Estimator: MEASUREMENT RESULTS: Intervals: Rate: 57 NC: 192 QRSD: 120 QT: 464 QTc: 451 [place]: P: 78 NC: 192 QRS: -71 T: 59 INTERPRETIVE STATEMENTS: Sinus bradycardia with premature supraventricular complexes Left axis deviation Left ventricular hypertrophy with QRS widening Abnormal ECG Compared to ECG 03/28/2020 17:29:20 Atrial premature complex(es) now present Sinus tachycardia no longer present Left bundle-branch block no longer present Early repolarization no longer present Electronically Signed On 01-20-21 16:03:53 CDT by He Corey
--- NOTE | 2021-01-20 16:33 | CON ---
Date of Consultation: 01/20/2021 History Of Present Illness: The patient is alert, awake, able to answer some questions. She came in with chest discomfort that was midsternal. She says it was associated with nausea. She has been ev aluated by Dr. Corey. Has had some testing done in the outpatient setting as well. The patient se es Dr. Fuentes in [place] and knows me also from the practice. She is able to recall well, ab le to answer some questions. Denies any chest pain currently. States that the pain has completely r esolved. She is breathing a little bit better. States that she has had chest discomfort before also , but that it has been more of a sharp characteristic. This was more of a dull like pain that was as sociated with nausea, but has now gotten better. The patient has history of smoking. Does not smoke currently. Has not smoked in several years now. Does not drink alcohol. Does not use any drugs. The patient presented with chest discomfort that was midsternal that was not radiating. It was not a ssociated with activity. Did have some nausea with it. Physical Examination: Vital signs: The patient's last blood pressure is 162/46, before that was 179/63; pulse is 60 and re gular, respirations around 14 and comfortable. Lungs: Clear to auscultation anteriorly with decreased breath sounds at the very bases. She had kieran e mild wheezing that resolves with cough. Abdomen: Soft. Extremities: Reveal no edema. Heart: Sounds are regular. Past Medical History: Significant for congestive heart failure, COPD, nonspecific chest discomfort, history of CABG, history of TIA, history of hypertension, hypothyroidism, colon resection secondary t o diverticulitis, history of cardiac stents. Social History: The patient does not smoke, but is a former smoker. Does not use alcohol or any patricia gs. Seems to be in good mood. No SI and no HI. Allergies: PHENOBARBITAL, PROMETHAZINE, CODEINE, STEROIDS. SHE PRESENTS FROM HER HOME. Review of Systems: The patient is currently having no problems. She is not having any significant shortness of breath. She did have some chest pain earlier, but denies now. No edema, but does not get edema in the lower extremities even when she has congestive heart failure. Imaging Data: Chest x-ray reviewed. Chest x-ray shows emphysematous changes. Heart is normal size according to the reading. Sternotomy wires are present. Airspace opacity is present in the left lat eral mid lung superimposed on emphysematous changes. CT scan shows prominent diffuse COPD is noted. Mild infiltrate is seen in the anterior left upper lobe with a small loculated left pleural effusion . Spiculated nodule mass in the posterior right upper lobe has increased in size since last year CT study as detailed. Recommend followup PET CT to evaluate for metabolic activity. Early neoplasm is certainly a possibility. Laboratory Data: Reviewed. Sodium 141, potassium 3.7, chloride 110, bicarb is 24, BUN 14, creatinin e 1.25, calcium 8.6, magnesium 2.2, AST 14, ALT 14. ProBNP at 2540. Albumin 3.2, procalcitonin less than 0.05. TSH has been ordered and pending. Hematology shows WBC count of 10, hemoglobin 12.5, he matocrit 36.6, platelet count of 397. Assessment And Plan: An 80-year-old female, alert, awake, comfortable now, does not have any chest p ain, presented with chest pain. History of hypothyroidism, history of coronary artery disease, histo ry of question chronic kidney disease stage 2/3, presents with high blood pressure and some question of congestion, nonspecific chest pain. Dr. Corey has been consulted. Given her x-ray results and the CT showing a small nodule in the right lung and given her history of emphysema and COPD would rec ommend getting a Pulmonary consultation for further evaluation of this or recommendations for followu p. Discussed this with Dr. Wilson. Will order spironolactone 25 mg x1 along with the patient taking irbesartan and metoprolol to help improve her blood pressure. The patient's volume status seems to be close to euvolemic. Appreciate your consultation Dr. Wilson. We will continue to monitor this patient with you. I have discussed the plan with the patient as well. /TRAN Voice ID: [id number] Report ID: [id number]
[2021-01-20] MEDS: METOPROLOL XL 100 MG TAB PO SCH (17:43)
[2021-01-20 20:28] LABS: CKMB Creatine Kinase MB < 1.0 ng/mL (1.0-3.6); Creatine Phosphokinase 69 U/L (26-192); Troponin I < 0.02 ng/mL (0.0-0.045)
--- NOTE | 2021-01-20 22:00 | CON ---
Date of Consultation: 01/20/2021 Reason For Consultation: Chest pain. History Of Present Illness: Ms. Hartley is an 80-year-old woman who has an appointment actually wit h tomorrow, but came into the emergency room with chest pain. She has recently had a positive str ess test in the office. Her chest pain was substernal. No nausea, vomiting, diaphoresis, PND, ortho pnea, pedal edema, palpitations, or syncope. Her chest pain was exertional. She recently had COVID. Chest x-ray showed possible pneumonia versus atelectasis, although she had no fever or white count or cough. Her pain has resolved by the time I saw her. Past Medical History: Include hypertension, coronary artery disease, hypothyroidism, COPD, dyslipide gloria, and diverticulitis. Allergies: INCLUDE PHENOBARBITAL, STEROIDS, CODEINE, AND COMPAZINE. Family History: Positive for heart disease. Review of Systems: Negative. Social History: Negative. Medications At Home: Include aspirin, Plavix, Avapro, hydrochlorothiazide, metoprolol, Levoxyl. Physical Examination: General: She appeared to be in no acute distress when I saw. Vital Signs: Stable. Afebrile. HEENT: Negative. Neck: Supple without any bruit, lymphadenopathy, JVD, or thyromegaly. Chest: Clear to auscultation and percussion. Cardiac: Regular rhythm and rate with an S4 gallop. No murmurs or rubs. Abdomen: Benign. Extremities: Revealed no clubbing, cyanosis, or edema. Diagnostic Data: Showed a negative troponin, negative BNP. Chest x-ray stated earlier. CT scan of the chest is pending. Impression And Plan: 1.Chest pain possibly related to coronary artery disease and recent positive stress test. 2.Hypertension, well controlled. 3.Hypothyroidism. 4.Chronic obstructive pulmonary disease. 5.Dyslipidemia. 6.Diverticulitis. 7.Abnormal chest x-ray. I will wait for the CT of the chest to see the chest x-ray shows anything significant. She is pain f ree and she is ruled out and I am comfortable with her going home on her home medication. I would co nsider given her nitroglycerin as needed. I will see her in the office soon and I will set her up fo r an outpatient heart catheterization. NB/MODL Voice ID: [id number] Report ID: [id number]
[2021-01-21 05:46] LABS: Absolute Lymphocytes (CBC) 2.1 K/uL (0.7-4.9); Basophils % 1.2 % (0-1.3); Hematocrit 36.4 % (36.0-45.0); Lymphocytes % 21.2 % (15.3-44.8); MPV 7.7 fL (7.6-11.3); RBC Red Blood Cell Count 4.21 M/uL (3.86-4.86)
[2021-01-21] MEDS: METOPROLOL XL 100 MG TAB PO SCH (05:48)
--- NOTE | 2021-01-21 06:11 | P.DS ---
Admission Date: 01/20/21 Discharge Date: 01/21/21 Primary Care Provider: Dr. Fuentes; Cardiology-Dr. Corey Disposition: ROUTINE DISCHARGE Discharge Condition: GOOD Reason for Admission: Chest pain Consultations: Cardiology-Dr. Corey; Nephrology-Dr. Lopez Procedures: CT Scan: COMPARISON: Thorax Wo Con dated 03/28/2020; Chest Single View dated 01/20/2021 FINDINGS: Prominent diffuse COPD is seen. There is a mildly loculated left pleural effusion noted with a mild subtle interstitial infiltrate in the anterior left upper lobe. Spiculated nodule is present in the posterior right apex, demonstrating interval increase in size since prior study. On today's examination the nodule measures 12 x 8 mm, previously 9 x 5 mm. No pneumothorax. No axillary, mediastinal or hilar adenopathy. No concerning bony finding. 22 mm cysts is seen anterior aspect of the left kidney superiorly. All CT scans are performed using dose optimization technique as appropriate and may include automated exposure control or mA/KV adjustment according to patient size. IMPRESSION: Prominent diffuse COPD is noted.Mild infiltrate is seen in the anterior left upper lobe with a small loculated left pleural effusion. Spiculated nodule/ mass in the posterior right upper lobe has increased in size since last year's CT study as detailed. Recommend followup PET-CT to evaluate for metabolic activity. Early neoplasia is certainly a possibility. Follow up CXR: COMPARISON: January 20, 2021 FINDINGS: Small spiculated opacity right upper lobe unchanged. Small loculated left pleural effusion unchanged. Lungs are hyperaerated Heart is mildly enlarged. Postsurgical changes involve the chest Medical problem list: Chest pain with mild shortness of breath with history of CAD with prior stents/CABG x2 Possible left upper lobe pneumonia with small loculated left pleural effusion with history of nonhospitalized Covid infection in early 2020, partially vaccinated for Covid, complicated with abnormal CT scan showing spiculated nodule/mass in the right upper lobe increased in size since last year Hypertension uncontrolled Hypothyroidism Chronic kidney disease stage III History of TIA Brief History of Present Illness: 80-year-old female with history of CAD with prior stent, CABG x2, hypertension, hypothyroidism, chronic renal disease stage III and history of TIA. Patient presented to the emergency room with chest pain. This started yesterday. Chest pain was substernal. It was associated with some shortness of breath. She denied any fever, chills, sick contacts. She denied any nausea or vomiting. EMS was called. Patient given aspirin. Chest pain improved. Patient recently was seen by cardiology. She reported having a cardiac stress test, carotid Doppler last week with cardiology as an outpatient. Patient also reports history of Covid infection early part of the year. She was seen in the ER and released. She is partially vaccinated. She got her first dose of med during her vaccine sometime in September. She did not follow-up to get the second dose. In the ER patient was evaluated. Blood pressures elevated. White count 10.0, hemoglobin 12.5. Platelet count 397. sodium 141, potassium 3.7. BUN of 14, creatinine 1.25 with a GFR 41. Glucose 105. Troponin unremarkable. BMP 2540. Procalcitonin and lactic acid pending. Chest x-ray showed some congestion to the left upper lobe. CT chest pending. Patient was admitted for observation and further evaluation. Hospital Course: Patient presented with chest pain and shortness of breath. Patient with history of CAD with prior stents and CABG x2. Patient was admitted for further evaluation and treatment. CT scan revealed possible left upper lobe pneumonia with small loculated left pleural effusion. This was further complicated with a spiculated nodule/mass in the right upper lobe increased in size since last year. Patient was given antibiotics with improvement. Patient currently on room air. Patient was seen and evaluated by cardiology. Cardiology had performed cardiac stress test as an outpatient. This was abnormal. Cardiac enzymes unremarkable. Patient without chest pain at this time. Cardiology recommends for outpatient heart catheterization to be performed within the next 1 to 2 weeks. Medications were adjusted during the course of her stay. Aldactone was added for better blood pressure control. At discharge the patient will continue with aspirin 81 mg daily, Plavix 75 mg daily, Norvasc 10 mg daily, metoprolol XL 100 mg 1 pill twice daily, irbesartan 75 mg 1 pill twice daily, and Aldactone 25 mg daily. Patient will follow up with cardiology within 1 week to set up outpatient heart catheterization. Patient without significant shortness of breath. Room air saturations within normal range. For her suspected left upper lobe pneumonia, patient will continue with Augmentin 500 mg 1 pill twice daily. For the small left loculated pleural effusion and spiculated nodule/mass in the right upper lobe which has increased in size since last year, the patient will follow up with pulmonology as an outpatient to further evaluate. Procalcitonin negative. No need for inpatient intervention at this time. Patient will likely require PET CT scan to further evaluate with possible intervention in the future to address etiology. This may include CT-guided biopsy. Patient will follow up with pulmonology within 1 week to establish care and further address. Patient is partially vaccinated for Covid. Patient with prior Covid infection treated in the ER in early part of the year. Recommend that the patient complete her vaccination process within the next month. Patient with underlying COPD. At discharge she will continue with Symbicort 2 puffs twice daily and albuterol 2 puffs 3 times a day as needed for shortness of breath. Patient will establish care with pulmonology soon to further address this condition and above. Patient with uncontrolled hypertension. As mentioned above medications have been adjusted. Aldactone was added for better control. At discharge she will continue with Norvasc 10 mg daily, metoprolol XL 100 mg 1 pill twice daily, irbesartan 75 mg 1 pill twice daily, and Aldactone 25 mg daily. Recommend to maintain blood pressure less than 130/80. If blood pressures remain above 140/90 further adjustment in medication can be done. This can be done with the help of her PCP. Recommend follow-up with PCP in 1 week to [place] hospitalization. Patient with hypothyroidism. At discharge we will continue with levothyroxine 88 mcg daily. Patient with chronic renal disease stage III. Patient was seen by nephrology. Future medications made to be renally dosed. As mentioned above nephrology recommended to add Aldactone. Recommend follow-up with nephrology in 1 to 2 weeks to monitor her progress. Patient with history of TIA. As mentioned above patient will continue with Plavix 25 mg daily and aspirin 81 mg daily. Vital Signs/Physical Exam: Temp Pulse Resp BP Pulse Ox 97.6 F 58 16 176/74 H 91 01/21/21 00:00 01/21/21 05:48 01/21/21 00:00 01/21/21 05:48 01/21/21 00:00 General: Alert, In no apparent distress, Oriented x3, Cooperative HEENT: Atraumatic Neck: Supple Respiratory: Clear to auscultation bilaterally, Normal air movement Cardiovascular: Normal pulses, Regular rate/rhythm Gastrointestinal: Normal bowel sounds, No tenderness, No masses, No rebound, No guarding Musculoskeletal: No erythema, No tenderness, No warmth Integumentary: No tenderness/swelling Neurological: Normal speech, Normal strength at 5/5 x4 extr, Normal tone, Normal affect Laboratory Data at Discharge: WBC 9.90 K/uL (4.3-10.9) 01/21/21 05:25 Hgb 12.3 g/dL (12.0-15.0) 01/21/21 05:25 Hct 36.4 % (36.0-45.0) 01/21/21 05:25 Plt Count 395 K/uL (152-406) 01/21/21 05:25 PT 11.5 SECONDS (9.5-12.5) 01/20/21 06:25 INR 1.00 01/20/21 06:25 Sodium 141 mmol/L (136-145) 01/20/21 06:25 Potassium 3.7 mmol/L (3.5-5.1) 01/20/21 06:25 BUN 14 mg/dL (7-18) 01/20/21 06:25 Creatinine 1.25 mg/dL (0.55-1.3) 01/20/21 06:25 Glucose 105 mg/dL (74-106) 01/20/21 06:25 Magnesium 2.2 mg/dL (1.8-2.4) 01/20/21 06:25 Total Bilirubin 0.4 mg/dL (0.2-1.0) 01/20/21 06:25 AST 14 U/L (15-37) L 01/20/21 06:25 ALT 14 U/L (12-78) 01/20/21 06:25 Alkaline Phosphatase 85 U/L (45-117) 01/20/21 06:25 Troponin I < 0.02 ng/mL (0.0-0.045) 01/20/21 19:58 Home Medications: Aspirin Chewable [Aspirin Chewable*] 81 mg PO DAILY 01/18/14 Clopidogrel Bisulfate [Plavix*] 75 mg PO DAILY 01/18/14 Levothyroxine Sodium [Levoxyl] 88 mcg PO [id number] 01/18/14 Metoprolol Succinate [Toprol Xl*] 100 mg PO BID 6AM 6PM 01/18/14 Irbesartan [Avapro*] 0.5 tab PO BID 04/01/19 Amlodipine Besylate [Norvasc] 10 mg PO DAILY #30 tablet 04/02/19 Budesonide/Formoterol Fumarate [Symbicort 160-4.5 Mcg Inhaler] 2 inh IH BID 01/20/21 Albuterol Sulfate [Proair Hfa] 2 puff IH TID PRN #1 hfa.aer.ad 01/21/21 Amoxicillin/Potassium Clav [Augmentin 500-125 Tablet] 1 each PO BID #14 tablet 01/21/21 Spironolactone [Aldactone] 25 mg PO DAILY #30 tab 01/21/21 New Medications: Spironolactone [Aldactone] 25 mg PO DAILY #30 tab Amoxicillin/Potassium Clav [Augmentin 500-125 Tablet] 1 each PO BID #14 tablet Albuterol Sulfate [Proair Hfa] 2 puff IH TID PRN #1 hfa.aer.ad PRN Reason: Shortness Of Breath Physician Discharge Instructions: Patient presented with chest pain and shortness of breath. Patient with history of CAD with prior stents and CABG x2. Patient was admitted for further evaluation and treatment. CT scan revealed possible left upper lobe pneumonia with small loculated left pleural effusion. This was further complicated with a spiculated nodule/mass in the right upper lobe increased in size since last year. Patient was given antibiotics with improvement. Patient currently on room air. Patient was seen and evaluated by cardiology. Cardiology had perf ormed cardiac stress test as an outpatient. This was abnormal. Cardiac enzymes unremarkable. Patient without chest pain at this time. Cardiology recommends for outpatient heart catheterization to be performed within the next 1 to 2 weeks. Medications were adjusted during the course of her stay. Aldactone was added for better blood pressure control. At discharge the patient will continue with aspirin 81 mg daily, Plavix 75 mg daily, Norvasc 10 mg daily, metoprolol XL 100 mg 1 pill twice daily, irbesartan 75 mg 1 pill twice daily, and Aldactone 25 mg daily. Patient will follow up with cardiology within 1 week to set up outpatient heart catheterization. Patient without significant shortness of breath. Room air saturations within normal range. For her suspected left upper lobe pneumonia, patient will continue with Augmentin 500 mg 1 pill twice daily. For the small left loculated pleural effusion and spiculated nodule/mass in the right upper lobe which has increased in size since last year, the patient will follow up with pulmonology as an outpatient to further evaluate. Procalcitonin negative. No need for inpatient intervention at this time. Patient will likely require PET CT scan to further evaluate with possible intervention in the future to address etiology. This may include CT-guided biopsy. Patient will follow up with pulmonology within 1 week to establish care and further address. Patient is partially vaccinated for Covid. Patient with prior Covid infection treated in the ER in early part of the year. Recommend that the patient complete her vaccination process within the next month. Patient with underlying COPD. At discharge she will continue with Symbicort 2 puffs twice daily and albuterol 2 puffs 3 times a day as needed for shortness of breath. Patient will establish care with pulmonology soon to further address this condition and above. Patient with uncontrolled hypertension. As mentioned above medications have been adjusted. Aldactone was added for better control. At discharge she will continue with Norvasc 10 mg daily, metoprolol XL 100 mg 1 pill twice daily, irbesartan 75 mg 1 pill twice daily, and Aldactone 25 mg daily. Recommend to maintain blood pressure less than 130/80. If blood pressures remain above 140/90 further adjustment in medication can be done. This can be done with the help of her PCP. Recommend follow-up with PCP in 1 week to [place] hospitalization. Patient with hypothyroidism. At discharge we will continue with levothyroxine 88 mcg daily. Patient with chronic renal disease stage III. Patient was seen by nephrology. Future medications made to be renally dosed. As mentioned above nephrology recommended to add Aldactone. Recommend follow-up with nephrology in 1 to 2 weeks to monitor her progress. Patient with history of TIA. As mentioned above patient will continue with Plavix 25 mg daily and aspirin 81 mg daily. Diet: AHA Activity: Ad raffi Followup: NONE,NONE [Primary Care Provider] - Time spent managing pt's care (in minutes): 55
[2021-01-21 06:20] LABS: Magnesium 2.1 mg/dL (1.8-2.4); Potassium 3.8 mmol/L (3.5-5.1); Thyroid Stimulating Hormone 3.01 uIU/mL (0.360-3.740)
[2021-01-21] MEDS ORDERED: LEVOTHYROXINE SOD 0.088 MG TAB PO SCH (06:30)
[2021-01-21] MEDS: ASPIRIN EC 81 MG TAB PO SCH (07:49)
[2021-01-21] MEDS: CLOPIDOGREL 75 MG TABLET PO SCH (07:49)
[2021-01-21] MEDS: AMLODIPINE 5 MG TAB PO SCH (07:50)
[2021-01-21] MEDS: IRBESARTAN 150 MG TAB PO SCH (07:50)
[2021-01-21] MEDS: HEPARIN 5000 UNIT/ML 1 ML VIAL SQ SCH (07:51)
[2021-01-21] MEDS ORDERED: AZITHROMYCIN 250 MG TAB PO SCH (09:00)
[2021-01-21] MEDS ORDERED: CEFTRIAXONE/SWI 1gm 1 GM/10 ML SYR IV SCH (09:00)
--- NOTE | 2021-01-21 10:20 | RAD REPORT ---
EXAM DESCRIPTION: Brian Pa And Lat (2 Views)01/21/2021 9:56 am CLINICAL HISTORY: Cough COMPARISON: January 20, 2021 FINDINGS: Small spiculated opacity right upper lobe unchanged. Small loculated left pleural effusion unchanged. Lungs are hyperaerated Heart is mildly enlarged. Postsurgical changes involve the chest
[2021-01-21 11:52] VITALS: TEMP 97.1
[2021-01-21 12:17] VITALS: BP 157/64
[2021-01-21 15:06] VITALS: O2SAT 96
--- NOTE | 2021-01-21 15:22 | PN ---
The patient is seen in room [address] at [facility]. Subjective: The patient is alert, awake and comfortable. Her is in the room with her too. She denies any chest pain. Denies any significant shortness of breath. She feels like she is ready to go home, is awaiting for Dr. Corey to see her today. The states that he also has an jose ointment with him this afternoon. The patient states she will follow up with Dr. Fuentes once out o f the hospital. She has been informed about her nodule on the CT scan and then states that she will follow up with her physicians regarding that. She denies any other new issues overnight. Her blood pressure has been running slightly on the higher side with blood pressure readings between 140 to 170 . She did have some improvement after getting spironolactone yesterday. Did not have any problems w ith spironolactone. Her volume status overall is good. I also discussed her situation with Dr. Brandy foster and suggested that we start the patient on spironolactone 25 mg p.o. b.i.d. I had given her a do se yesterday and would start the twice a day prescription today. I have discussed this also with the patient. She will need to follow up with her. primary care physician/liberal arts teacher, Dr. Fuentes, an d then at that point, they can consider further blood pressure medication adjustment. The patient se ems to be ready to go home from the Nephrology point of view. Her kidney function seems to be stable with a creatinine of 1.26. Objective: Vital signs: Stable, reviewed. Blood pressure last was 175/74, pulse 57, respirations a round 16. Lungs: Clear to auscultation anteriorly. Abdomen: Soft. Extremities: Reveal no edema. Heart: Sounds are regular. Past Medical History: Significant for heart failure and hypertension, chronic kidney disease, COPD. Review of Systems: Overnight stable. No headaches. No nausea. No vomiting. Breathing has been comfortable. Laboratory Data: Reviewed. WBC count 9.9, hemoglobin and hematocrit 12.3/36.4, platelet count of ar ound 395. Sodium 140, potassium 3.8, chloride 108, bicarb 26. BUN and creatinine are 16 and 1.26. TSH is 3.01. Glucose 94. Assessment: Chronic kidney disease, stable. Volume status seems to be close to euvolemic. Blood pr essure on the higher side. Plan: Start the patient on spironolactone 25 mg p.o. b.i.d. Encourage adequate p.o. intake and wate r intake. Fall precautions. Avoid any NSAIDs. Discuss medications with her. Followup with Dr. Cross further medication adjustment. Follow up with Dr. Corey. May be able to go home today if cl eared by Dr. Corey as well. /TRAN Voice ID: [id number] Report ID: [id number]
[2021-01-21] MEDS ORDERED: SPIRONOLACTONE 25 MG TABLET PO SCH (21:00)
== END 2021-01-21 15:29 | disposition home or self-care (01) ==
LOC: ER 06:10 → ERHOLD 07:56 → 2ND 09:45
PROVIDERS: ADMIT Family Medicine; ATTEND Family Medicine
DX: R07.9 Chest pain, unspecified (principal); I25.10 Atherosclerotic heart disease of native coronary artery without angina pectoris; Z95.1 Presence of aortocoronary bypass graft; Z20.822 Contact with and (suspected) exposure to COVID-19; Z86.16 Personal history of COVID-19; Z95.5 Presence of coronary angioplasty implant and graft; R91.8 Other nonspecific abnormal finding of lung field; I13.0 Hypertensive heart and chronic kidney disease with heart failure and stage 1 through stage 4 chronic kidney disease, or unspecified chronic kidney disease; N18.30 Chronic kidney disease, stage 3 unspecified; E03.9 Hypothyroidism, unspecified; Z86.73 Personal history of transient ischemic attack (TIA), and cerebral infarction without residual deficits; R06.02 Shortness of breath; J44.9 Chronic obstructive pulmonary disease, unspecified; E78.5 Hyperlipidemia, unspecified; I50.9 Heart failure, unspecified; Z87.891 Personal history of nicotine dependence
CPT/HCPCS: 93005; 87040 ×2; 85025 ×2; 80048 ×2; 36415 ×2; 83735 ×2; 82550 ×2; 87205 ×3; 85610; 80061; 80076; 83605; 84443 ×2; 84484 ×3; 82553 ×2; 84439; 84145; 83880; 87804 ×2; 71250; 71045; 71046; 94010 ×2; 96375; 96374; 99285; U0003; J1940; J1644 ×3; J0456; J0696 ×2; J7050; G0378 ×3; 81003; 81015

== ENCOUNTER 2021-01-27 07:12 | Day surgery (SDC) | payer OTHER ==
[2021-01-27] MEDS ORDERED: NA CHLORIDE 0.9% 500 ML ONE (07:48)
[2021-01-27 08:05] VITALS: TEMP 97.5
[2021-01-27] MEDS ORDERED: ATROPINE SULF 1 MG/10 ML SYR IV ONE (09:17)
[2021-01-27] MEDS ORDERED: FENTANYL CITR 100 MCG/2 ML ONE (09:17)
[2021-01-27] MEDS ORDERED: NA CHLORIDE 0.9% 50 ML ONE (09:17)
[2021-01-27] MEDS ORDERED: MIDAZOLAM HCL 2 MG/2 ML INJ ONE ×2 (09:17→09:40)
[2021-01-27] MEDS ORDERED: HEPA 1000U/500MLS 2,000 UNIT/1,000 ML BAG IV ONE (09:20)
[2021-01-27] MEDS ORDERED: ASPIRIN 325 MG TAB ONE (10:18)
[2021-01-27] MEDS ORDERED: PRASUGREL (EFFIENT) 10 MG TAB ONE (10:19)
--- NOTE | 2021-01-27 11:21 | OP ---
Date of Procedure: 01/27/2021 Surgeon: He Corey [facility] Director: Mr. Gigi Galloway. Procedure Performed: Admitted on 01/27/2021 to my service as an outpatient for heart catheterization , selective coronary angiogram, and primary stent of the proximal LAD. Indication: CAD, status post previous stents in the past, unstable angina, abnormal stress test. Procedure In Detail: Brought to the bottle labeler today on 01/27/2021, prepped and draped in routine ster ile fashion. Given Versed for sedation. A 6-Romanian sheath introduced in the right common femoral ar ethel successfully using the Seldinger technique. Angiography there was normal. Angio-Seal will be u sed to close the case. She had a catheterization using the left Mo and right Mo catheter. Her RCA revealed many minor plaquing with right dominant. The circumflex had moderate plaquing. Th e LAD had a patent stent in the proximal area, but right before the stent, there was an 80% stenosis. We decided to intervene with a 6-Romanian XB LAD 3.5 with side-hole guide. A 0.014 cougar wire was u sed to cross the lesion. A 3.0 x 16 Synergy stent was used to stent the proximal LAD with 0% residua l. There were no complications. Blood Loss: 5 mL. Anesthesia: Total conscious sedation 60 minutes. The patient received Angiomax and Effient during the procedure. Postoperative Diagnoses: Coronary artery disease, status post successful primary stent of the proxim al LAD. We will continue medical therapy. Continue Plavix at home. Add a statin. The patient can go home i n about 8 hours today. GILDA/TRAN Voice ID: [id number] Report ID: [id number]
[2021-01-27 17:38] VITALS: O2SAT 100
[2021-01-27 17:40] VITALS: BP 158/50
== END 2021-01-27 16:20 | disposition home or self-care (01) ==
LOC: CCL 07:12
DX: I25.110 Atherosclerotic heart disease of native coronary artery with unstable angina pectoris (principal); I10 Essential (primary) hypertension; E78.5 Hyperlipidemia, unspecified; E03.9 Hypothyroidism, unspecified; J44.9 Chronic obstructive pulmonary disease, unspecified; K57.92 Diverticulitis of intestine, part unspecified, without perforation or abscess without bleeding; Z95.1 Presence of aortocoronary bypass graft; Z95.5 Presence of coronary angioplasty implant and graft; Z79.02 Long term (current) use of antithrombotics/antiplatelets; Z79.82 Long term (current) use of aspirin; Z88.6 Allergy status to analgesic agent; Z88.8 Allergy status to other drugs, medicaments and biological substances; Z90.49 Acquired absence of other specified parts of digestive tract
CPT/HCPCS: 85347 ×3; 93454; C1893; C1760; C1725; C1877; C9600; J2250; J3010; J0583; J7040; J1644

== ENCOUNTER 2022-04-18 04:15 | Observation (INO) | payer OTHER ==
[2022-04-18] MEDS ORDERED: NA CHLORIDE 0.9% 500 ML ONE (04:34)
[2022-04-18 04:49] LABS: Absolute Lymphocytes (CBC) 1.6 K/uL (0.7-4.9); Hematocrit 41.8 % (36.0-45.0); Lymphocytes % 8.6 % (15.3-44.8); MPV 7.2 fL (7.6-11.3)
[2022-04-18] MEDS ORDERED: ONDANSETRON 4 MG/2 ML VIAL ONE (05:04)
[2022-04-18 05:13] LABS: ALT/SGPT 16 U/L (12-78); AST/SGOT 14 U/L (15-37); Albumin 3.3 g/dL (3.4-5.0); Alkaline Phosphatase 94 U/L (45-117); BUN Blood Urea Nitrogen 20 mg/dL (7-18); Bicarbonate 27 mmol/L (21-32); Bilirubin Total 0.3 mg/dL (0.2-1.0); Glomerular Filtration Rate 36 ml/min (=/>90); Glucose Level 113 mg/dL (74-106); Lipase 132 U/L (73-393); Potassium 4.3 mmol/L (3.5-5.1); Protein, Total 7.6 g/dL (6.4-8.2); Sodium Level 139 mmol/L (136-145); Troponin High Sensitivity 19.9 pg/mL (<58.9)
[2022-04-18 05:15] LABS: Bilirubin Direct < 0.1 mg/dL (0-0.2)
[2022-04-18 06:18] LABS: Urine Blood Negative (Negative); Urine Glucose Negative (Negative); Urine Protein 1+ (Negative)
[2022-04-18 06:24] LABS: Urine RBC <5 /HPF (None Seen)
--- NOTE | 2022-04-18 07:26 | RAD REPORT ---
EXAM DESCRIPTION: CTAbdomen Pelvis W Contrast - 04/18/2022 6:00 am CLINICAL HISTORY: Abdominal pain. abd pain, vomiting/diarrhea COMPARISON: Abdomen Pelvis W Contrast dated 01/25/2017; Abdomen Pelvis W Contrast dated 10/08/2016 ; CT ABD PELVIS W CONTRAST dated 04/23/2012; CT ABD PELVIS W CONTRAST dated 03/18/2012 TECHNIQUE: Biphasic CT imaging of the abdomen and pelvis was performed with 100 ml non-ionic IV cont rast. All CT scans are performed using dose optimization technique as appropriate and may include automated exposure control or mA/KV adjustment according to patient size. FINDINGS: Linear atelectasis is present in the anterior left lung base. Cholecystectomy. Benign liver and renal cysts are present. Pancreatic atrophy is present. The adrenal glands are within normal limits. Spleen is normal sized. Significant aortoiliac atherosclerosis is p resent. No bowel obstruction, free air, free fluid or abscess. Nonvisualized appendix. No evidence of signi ficant lymphadenopathy. No suspicious bony findings. Mild diffuse osteopenia. IMPRESSION: No acute intra-abdominal or pelvic finding.
--- NOTE | 2022-04-18 07:54 | ER ---
Nurse's Notes [facility] Name: Lupe Hartley Age: 82 yrs Sex: Female : 1940 Arrival Date: 04/18/2022 Time: 04:22 Bed 4 Private MD: Diagnosis: Abdominal pain, Generalized;Vomiting;Diarrhea, unspecified;Unspecified kidney failure-chronic;Syncope Near;UTI/ Urinary tract infection, site not specified;Elevated white blood cell count Presentation: 04/18 04:26 Chief complaint: EMS states: found on toilet by spouse slumped over pt does not recall kl reports was going to bathroom to have a bowel movement. Coronavirus screen: Vaccine status: Patient reports receiving the 2nd dose of the covid vaccine. Ebola Screen: Patient negative for fever greater than or equal to 101.5 degrees Fahrenheit, and additional compatible Ebola Virus Disease symptoms. Initial Sepsis Screen: Does the patient meet any 2 criteria? No. Patient's initial sepsis screen is negative. Does the patient have a suspected source of infection? No. Patient's initial sepsis screen is negative. Risk Assessment: Do you want to hurt yourself or someone else? Patient reports no desire to harm self or others. 04:26 Method Of Arrival: EMS: [facility] 04:26 Acuity: NINI 3 07:25 Onset of symptoms was April 18, 2022. Triage Assessment: 04:30 General: Appears in no apparent distress. slender, incontinenet. General: Behavior is kl calm, cooperative. Pain: Denies pain. EENT: [place]. Neuro: Level of Consciousness is awake, alert, obeys commands, Oriented to person, place, time, situation. Cardiovascular: No deficits noted. Respiratory: No deficits noted. GI: Reports one episode of emesis. : No deficits noted. No signs and/or symptoms were reported regarding the genitourinary system. Historical: - Allergies: 04:28 Phenobarbital; kl 04:29 promethazine HCl; kl - Home Meds: 04:28 amlodipine 5 mg tab 1 tab twice a day [Active]; aspirin 81 mg Oral TbEC 1 tab once kl daily [Active]; irbesartan 75 mg Oral tab 2 tabs once daily [Active]; levothyroxine 88 mcg tab 1 tab once daily [Active]; metoprolol succinate 100 mg Oral Tb24 1 tab twice a day [Active]; Plavix 75 mg Oral tab 1 tab once daily [Active]; - PMHx: 04:28 CAD; cardiac stents; COPD; Diverticulitis; HARD OF HEARING; Hyperlipidemia; kl Hypertension; Myocardial infarction; Hypothyroidism; - Immunization history:: Adult Immunizations up to date. - Social history:: Smoking status: Patient denies any tobacco usage or history of. - Family history:: not pertinent. - Hospitalizations: : No recent hospitalization is reported. Screenin:51 Abuse screen: Denies threats or abuse. Nutritional screening: No deficits noted. kl Tuberculosis screening: No symptoms or risk factors identified. Fall Risk Fall in past 12 months (25 points). No secondary diagnosis (0 pts). IV access (20 points). Ambulatory Aid- None/Bed Rest/Nurse Assist (0 pts). Gait- Weak (10 pts.). Mental Status- Oriented to own ability (0 pts). Total Taylor Fall Scale indicates High Risk Score (45 or more points). Fall prevention measures have been instituted. Side Rails Up X 2 Placed Close to Nursing Station Frequent Obs/Assessments Occuring Family Present and informed to notify staff if the need to leave the bedside As available patient and family educated on Fall Prevention Program and Strategies. Assessment: 04:51 Reassessment: Patient appears in no apparent distress at this time. Patient and/or family updated on plan of care and expected duration. Pain level reassessed. Patient is alert, oriented x 3, equal unlabored respirations, skin warm/dry/pink. Patient states feeling better. respirations even non labored. 07:30 Reassessment: Patient appears in no apparent distress at this time. No changes from db previously documented assessment. Patient and/or family updated on plan of care and expected duration. Pain level reassessed. Patient is alert, oriented x 3, equal unlabored respirations, skin warm/dry/pink. 08:30 Reassessment: Patient appears in no apparent distress at this time. No changes from db previously documented assessment. Patient and/or family updated on plan of care and expected duration. Pain level reassessed. Patient is alert, oriented x 3, equal unlabored respirations, skin warm/dry/pink. Patient linen and gown changed. Patient assisted to bedside commode. Then patient assisted back into bed and puriwick placed. Patient denies pain at this time. Patient states feeling better. General: Appears in no apparent distress. comfortable, Behavior is calm, cooperative, quiet. Pain: Denies pain. Neuro: No deficits noted. Cardiovascular: No deficits noted. Respiratory: No deficits noted. GI: No deficits noted. : No deficits noted. EENT: No deficits noted. Derm: No deficits noted. Musculoskeletal: No deficits noted. 13:03 Reassessment: Patient appears in no apparent distress at this time. Patient and/or ph family updated on plan of care and expected duration. Pain level reassessed. Patient is alert, oriented x 3, equal unlabored respirations, skin warm/dry/pink. Pt eating lunch, tolerating well, awaiting rom assignment. 14:03 Reassessment: Patient appears in no apparent distress at this time. Patient and/or ph family updated on plan of care and expected duration. Pain level reassessed. Patient is alert, oriented x 3, equal unlabored respirations, skin warm/dry/pink. Report called to 4th floor, US a bedside, pt to be taken up to 4th floor after test. Vital Signs: 04:26 BP 185 / 65; Pulse 68; Resp 20; Temp 97.5(O); Pulse Ox 99% on R/A; Pain 0/10; kl 04:52 BP 148 / 107; Pulse 106; Resp 17; Temp 97.7(O); Pulse Ox 96% on R/A; mm9 05:02 BP 169 / 62; Pulse 65; Resp 18; Pulse Ox 95% on R/A; kl 05:56 BP 183 / 58; Pulse 70; Resp 18; Pulse Ox 97% on R/A; Pain 0/10; kl 07:24 BP 157 / 59; Pulse 65; Resp 18; Temp 97.8; Pulse Ox 100% on R/A; ph 13:12 BP 152 / 58; Pulse 58; Resp 18; Temp 98.0; Pulse Ox 95% on R/A; ph ED Course: 04:22 Patient arrived in ED. rn 04:23 Sukhwinder Delarosa MD is Attending Physician. rn 04:28 Triage completed. kl 04:49 Patient has correct armband on for positive identification. Placed in gown. Bed in low mm9 position. Call light in reach. Side rails up X2. Adult w/ patient. Warm blanket given. residential monitor on. Pulse ox on. NIBP on. 04:50 Basic Metabolic Panel Sent. kl 04:50 Troponin High Sensitivity Sent. kl 04:50 Hepatic Function Sent. kl 04:50 Maintain EMS IV. Dressing intact. Good blood return noted. Site clean \\T\\ dry. mm9 04:51 Magnesium Sent. kl 04:51 Protime (+inr) Sent. kl 04:51 Ptt, Activated Sent. kl 04:54 Diet: Patient is NPO. mm9 04:55 Lipase Sent. mm9 04:55 CMP Sent. mm9 04:55 CBC with Diff Sent. mm9 04:55 SARS-COV-2 RT PCR (Document "Date of Onset" if Symptomatic) Sent. mm9 04:55 Flu Sent. mm9 04:56 Door closed. mm9 07:04 Tatiana Cr, RN is Primary Nurse. ph 07:24 Arm band placed on Patient placed in an exam room. ph 07:25 No provider procedures requiring assistance completed. ph 07:27 Attending Physician role handed off by Sukhwinder Delarosa MD sanju 07:27 Fabiano Hutchison MD is Attending Physician. sanju 07:51 Robby Cordero is Hospitalizing Provider. sanju 07:53 Matti Martin MD is Hospitalizing Provider. sanju 14:05 Patient admitted, IV remains in place. ph Administered Medications: 04:26 CANCELLED (Duplicate Order): NS 0.9% 1000 ml IV at 1 bolus Per protocol; 1000 mL bolus rn 04:40 Drug: NS 0.9% 500 ml Route: IV; Rate: bolus; Site: right antecubital; kl 05:00 Follow up: Response: No adverse reaction; IV Status: Completed infusion; IV Intake: kl 500ml 05:07 Drug: Zofran (Ondansetron) 4 mg Route: IVP; Site: right antecubital; kl 07:26 Follow up: Response: No adverse reaction ph 08:30 Drug: Rocephin (cefTRIAXone) 1 grams Route: IV; Rate: per protocol; Site: right db antecubital; 09:00 Follow up: Response: No adverse reaction; IV Status: Completed infusion ph 08:30 Drug: NS 0.9% 1000 ml Route: IV; Rate: 125 ml/hr; Site: right antecubital; db 14:05 Follow up: Response: No adverse reaction; IV Status: Infusion continued upon admission ph Medication: 07:24 VIS not applicable for this client. ph Intake: 05:00 IV: 500ml; Total: 500ml. kl Outcome: 07:53 Decision to Hospitalize by Provider. sanju 14:04 Admitted to Tele accompanied by nurse, via wheelchair, room 425. ph 14:04 Condition: good 14:04 Instructed on the need for admit. 15:02 Patient left the ED. iw Signatures: Amanda Null RN RN kl Anderson, Corey, MD MD cha Williams, Irene, RN RN iw Nieto, Roman, MD MD rn Hall, Patricia, RN RN ph Benton, Danielle, RN RN db Martinez, Maria mm9 Corrections: (The following items were deleted from the chart) 04:30 04:29 Allergies: PENICILLINS; kl kl 04:30 04:29 Allergies: NKA; kl kl
--- NOTE | 2022-04-18 07:54 | EDPHYS ---
Physician Documentation [facility] Name: Lupe Hartley Age: 82 yrs Sex: Female : 1940 Arrival Date: 04/18/2022 Time: 04:22 Bed 4 Private MD: Fabiano Finch HPI: 04/18 04:26 This 82 yrs old Female presents to ER via Unassigned with complaints of syncope. rn 04:26 The patient has experienced syncope, lost consciousness. Onset: The symptoms/episode rn began/occurred just prior to arrival. Duration: This was a single episode. Context: the episode(s) was witnessed, by family, occurred at home, occurred while the patient was defecating, Just prior to the episode the patient experienced abdominal pain. Associated injury: The patient did not suffer any apparent associated injury. Associated signs and symptoms: Pertinent positives: abdominal pain, nausea, vomiting, Pertinent negatives: chest pain, headache, palpitations, seizure, shortness of breath. Current symptoms: Currently, the patient is not experiencing any symptoms. The patient has not experienced similar symptoms in the past. The patient has not recently seen a physician. Pt reports was having abd pain, nausea/vomiting, sat on toilet, had bowel movement, then doesn't remember what happened. Spouse told EMS he found her on toilet, slumped over, helped her ot floor. Pt wide awake when EMS arrived. Currently reports "feels sick", but no current abd pain/chest pain/back pain/headache. Denies focal neuro complaint. . Historical: - Allergies: 04:28 Phenobarbital; kl 04:29 promethazine HCl; kl - Home Meds: 04:28 amlodipine 5 mg tab 1 tab twice a day [Active]; aspirin 81 mg Oral TbEC 1 tab once kl daily [Active]; irbesartan 75 mg Oral tab 2 tabs once daily [Active]; levothyroxine 88 mcg tab 1 tab once daily [Active]; metoprolol succinate 100 mg Oral Tb24 1 tab twice a day [Active]; Plavix 75 mg Oral tab 1 tab once daily [Active]; - PMHx: 04:28 CAD; cardiac stents; COPD; Diverticulitis; HARD OF HEARING; Hyperlipidemia; kl Hypertension; Myocardial infarction; Hypothyroidism; - Immunization history:: Adult Immunizations up to date. - Social history:: Smoking status: Patient denies any tobacco usage or history of. - Family history:: not pertinent. - Hospitalizations: : No recent hospitalization is reported. ROS: 04:26 Constitutional: Negative for fever, chills, and weight loss, Eyes: Negative for injury, rn pain, redness, and discharge, Neck: Negative for injury, pain, and swelling, Cardiovascular: Negative for chest pain, palpitations, and edema, Respiratory: Negative for shortness of breath, cough, wheezing, and pleuritic chest pain, Abdomen/GI: + abd pain and nausea/vomiting Back: Negative for injury and pain, MS/Extremity: Negative for injury and deformity, Skin: Negative for injury, rash, and discoloration, Neuro: Negative for headache, weakness, numbness, tingling, and seizure. Exam: 04:26 Constitutional: This is a well developed, well nourished patient who is awake, alert, rn and in no acute distress. Head/Face: Normocephalic, atraumatic. Eyes: Periorbital areas with no swelling, redness, or edema. ENT: dry MM Cardiovascular: Regular rate and rhythm. No pulse deficits. Respiratory: Speaking full sentences. No increased work of breathing, no retractions or nasal flaring. Abdomen/GI: Soft, non-tender, nondistended Skin: Warm, dry MS/ Extremity: Pulses equal, no cyanosis. Neuro: Awake and alert, GCS 15, oriented to person, place, and situation. Cranial nerves II-XII grossly intact. Motor strength 5/5 in all extremities. Sensory grossly intact. 04:47 ECG was reviewed by the Attending Physician. rn Vital Signs: 04:26 BP 185 / 65; Pulse 68; Resp 20; Temp 97.5(O); Pulse Ox 99% on R/A; Pain 0/10; kl 04:52 BP 148 / 107; Pulse 106; Resp 17; Temp 97.7(O); Pulse Ox 96% on R/A; mm9 05:02 BP 169 / 62; Pulse 65; Resp 18; Pulse Ox 95% on R/A; kl 05:56 BP 183 / 58; Pulse 70; Resp 18; Pulse Ox 97% on R/A; Pain 0/10; kl 07:24 BP 157 / 59; Pulse 65; Resp 18; Temp 97.8; Pulse Ox 100% on R/A; ph 13:12 BP 152 / 58; Pulse 58; Resp 18; Temp 98.0; Pulse Ox 95% on R/A; ph MDM: 04:23 Patient medically screened. rn 07:56 Differential Diagnosis: cardiac arrhythmia, cerebrovascular accident, drug effect, GI sanju bleed, vasovagal episode. Data reviewed: vital signs, nurses notes, lab test result(s), EKG, radiologic studies, CT scan, plain films. Data interpreted: leg breaker: rate is 65 beats/min, rhythm is regular, Pulse oximetry: on room air is 100 %. Test interpretation: by ED physician or midlevel provider: ECG, plain radiologic studies. Counseling: I had a detailed discussion with the patient and/or guardian regarding: the historical points, exam findings, and any diagnostic results supporting the discharge/admit diagnosis, lab results, radiology results, the need for further work-up and treatment in the hospital. 04/18 04:24 Order name: CBC with Diff rn 04/18 04:24 Order name: CMP rn 04/18 04:24 Order name: Lipase rn 04/18 04:24 Order name: Urine Microscopic Only rn 04/18 04:24 Order name: SARS-COV-2 RT PCR (Document "Date of Onset" if Symptomatic) rn 04/18 04:24 Order name: Flu rn 04/18 04:24 Order name: Basic Metabolic Panel rn 04/18 04:24 Order name: Hepatic Function rn 04/18 04:24 Order name: Magnesium rn 04/18 04:24 Order name: Protime (+inr) rn 04/18 04:24 Order name: Ptt, Activated rn 04/18 04:24 Order name: Troponin High Sensitivity rn 04/18 04:52 Order name: CBC with Automated Diff; Complete Time: 04:53 EDMS 04/18 05:02 Order name: Protime (+INR); Complete Time: 06:30 EDMS 04/18 04:24 Order name: CT Abd/Pelvis - IV Contrast Only rn 04/18 05:02 Order name: PTT, Activated Partial Thromb; Complete Time: 06:30 EDMS 04/18 05:16 Order name: Comprehensive Metabolic Panel; Complete Time: 06:30 EDMS 04/18 05:16 Order name: Liver (Hepatic) Function; Complete Time: 06:30 EDMS 04/18 05:16 Order name: Troponin High Sensitivity; Complete Time: 06:30 EDMS 04/18 05:16 Order name: Magnesium; Complete Time: 06:30 EDMS 04/18 05:16 Order name: Lipase; Complete Time: 06:30 EDMS 04/18 05:21 Order name: SARS-COV-2 RT PCR; Complete Time: 06:30 EDMS 04/18 05:31 Order name: Influenza Screen (A ; Complete Time: 06:30 EDMS 04/18 06:18 Order name: Urine Dipstick-Ancillary; Complete Time: 06:30 EDMS 04/18 06:24 Order name: Urine Microscopic Only; Complete Time: 06:30 EDMS 04/18 07:27 Order name: CT; Complete Time: 07:42 EDMS 04/18 10:58 Order name: CT EDMS 04/18 14:55 Order name: US EDMS 04/18 04:24 Order name: IV Saline Lock; Complete Time: 04:55 rn 04/18 04:24 Order name: Labs collected and sent; Complete Time: 07:36 rn 04/18 04:24 Order name: Urine Dipstick-Ancillary (obtain specimen); Complete Time: 07:37 rn 04/18 04:24 Order name: EKG; Complete Time: 04:25 rn 04/18 04:24 Order name: Cardiac monitoring; Complete Time: 04:50 rn 04/18 04:24 Order name: EKG - Nurse/Tech; Complete Time: 04:50 rn 04/18 04:24 Order name: NPO; Complete Time: 04:56 rn 04/18 04:24 Order name: O2 Per Protocol; Complete Time: 04:50 rn 04/18 04:24 Order name: O2 Sat Monitoring; Complete Time: 04:50 rn EC:47 Rate is 64 beats/min. Rhythm is regular. Left axis deviation noted. QRS is positive in rn lead I and negative in lead aVF. MT interval is normal. QRS interval is normal. QT interval is normal. No Q waves. T waves are Normal. No ST changes noted. Clinical impression: NSR w/ Non-specific ST/T Changes. Interpreted by me. Reviewed by me. Administered Medications: 04:26 CANCELLED (Duplicate Order): NS 0.9% 1000 ml IV at 1 bolus Per protocol; 1000 mL bolus rn 04:40 Drug: NS 0.9% 500 ml Route: IV; Rate: bolus; Site: right antecubital; kl 05:00 Follow up: Response: No adverse reaction; IV Status: Completed infusion; IV Intake: kl 500ml 05:07 Drug: Zofran (Ondansetron) 4 mg Route: IVP; Site: right antecubital; kl 07:26 Follow up: Response: No adverse reaction ph 08:30 Drug: Rocephin (cefTRIAXone) 1 grams Route: IV; Rate: per protocol; Site: right db antecubital; 09:00 Follow up: Response: No adverse reaction; IV Status: Completed infusion ph 08:30 Drug: NS 0.9% 1000 ml Route: IV; Rate: 125 ml/hr; Site: right antecubital; db 14:05 Follow up: Response: No adverse reaction; IV Status: Infusion continued upon admission ph Disposition Summary: 04/18/22 07:53 Hospitalization Ordered Hospitalization Status: Inpatient Admission sanju Provider: Matti Martin cha Location: Telemetry/[facility] (Inpatient) sanju Condition: Fair sanju Problem: new sanju Symptoms: have improved sanju Bed/Room Type: Standard sanju Room Assignment: 425(04/18/22 13:16) eb Diagnosis - Abdominal pain, Generalized sanju - Vomiting sanju - Diarrhea, unspecified sanju - Unspecified kidney failure - chronic sanju - Syncope Near sanju - UTI/ Urinary tract infection, site not specified sanju - Elevated white blood cell count sanju Forms: - Medication Reconciliation Form sanju - SBAR form sanju Signatures: Dispatcher [employer] Amanda Bardales RN RN kl Anderson, Corey, MD MD cha Nieto, Roman, MD MD rn Botello, Elizabeth eb Benton, Danielle, RN RN db Hall, Patricia RN ph Corrections: (The following items were deleted from the chart) 04:26 04:24 NS 0.9% 1000 ml IV at 1 bolus Per protocol; 1000 mL bolus ordered. david rn 04: 04:29 Allergies: PENICILLINS; kl 04:30 04:29 Allergies: NKA; kl kl 13:16 07:53 sanju eb
[2022-04-18] MEDS ORDERED: CEFTRIAXONE 1000 MG/VIAL ONE (07:59)
[2022-04-18] MEDS ORDERED: NA CHLORIDE 0.9% 1,000 ML ONE (07:59)
[2022-04-18] MEDS ORDERED: NA CHLORIDE 0.9% 50 ML IV ONE (08:04)
[2022-04-18] MEDS ORDERED: ALPRAZOLAM 0.25 MG TABLET PO PRN (10:38)
[2022-04-18] MEDS ORDERED: MORPHINE 4 MG/ML SYR IV PRN (10:38)
[2022-04-18] MEDS ORDERED: ACETAMINOPHEN 500 MG TAB PO PRN (10:38)
--- NOTE | 2022-04-18 10:57 | RAD REPORT ---
EXAM DESCRIPTION: CT - Head Brain Wo Cont - 04/18/2022 10:51 am CLINICAL HISTORY: Syncope/LOC Headache, drowsiness, syncope COMPARISON: <Comparisons> TECHNIQUE: All CT scans are performed using dose optimization technique as appropriate and may inclu de automated exposure control or mA/KV adjustment according to patient size. FINDINGS: No intracranial hemorrhage, hydrocephalus or extra-axial fluid collection. Moderate genera lized brain atrophy is present with advanced periventricular and deep white matter chronic microvascu lar ischemic changes. No areas of brain edema or evidence of midline shift. The paranasal sinuses and mastoids are clear. The calvarium is intact. IMPRESSION: No acute intracranial abnormality.
--- NOTE | 2022-04-18 14:54 | RAD REPORT ---
EXAM DESCRIPTION: US - CP - 04/18/2022 2:45 pm CLINICAL HISTORY: syncope Headache, drowsiness, syncope COMPARISON: Carotid Artery Bilateral dated 04/20/2016 TECHNIQUE: Real-time sonographic evaluation of both carotid systems was performed. Doppler interroga tion was performed with waveform tracing bilaterally. FINDINGS: Normal high resistance waveforms are noted in both external carotid arteries. The common c arotid arteries and internal carotid arteries show normal low resistance waveforms. Moderate hard plaque is seen in both distal common carotid arteries and internal carotid arteries. Pe ak systolic and end diastolic velocity values and the ICA/CCA ratios are in the non-hemodynamically s ignificant range. Antegrade flow seen in both vertebral arteries. IMPRESSION: Moderate hard plaque is seen in both carotid systems. No evidence of a hemodynamically significant stenosis. Consider MRA or CTA for further detailed assessment.
[2022-04-18 15:25] VITALS: O2SAT 95
[2022-04-18 15:48] VITALS: BMI 19.6
[2022-04-18] MEDS: ENOXAPARIN 30 MG/0.3 ML SQ SCH (16:12)
[2022-04-18] MEDS: NA CHLORIDE 0.9% 1,000 ML IV SCH (16:13)
[2022-04-18] MEDS ORDERED: HYDRALAZINE HCL 20 MG/ML VIAL IV ONE (16:46)
[2022-04-18] MEDS: METOPROLOL XL 100 MG TAB PO SCH (18:21)
[2022-04-18] MEDS ORDERED: METOPROLOL TAR 25 MG TAB PO SCH (21:00)
[2022-04-18] MEDS ORDERED: GABAPENTIN 100 MG CAP PO SCH (21:00)
[2022-04-18] MEDS ORDERED: AMLODIPINE 2.5 MG TAB PO SCH (21:00)
[2022-04-19] MEDS: NA CHLORIDE 0.9% 1,000 ML IV SCH ×2 (04:32→08:15)
[2022-04-19] MEDS ORDERED: HYDRALAZINE HCL 20 MG/ML VIAL ONE (04:43)
[2022-04-19] MEDS: HYDRALAZINE HCL 20 MG/ML VIAL IV PRN ×2 (04:44→12:26)
[2022-04-19] MEDS: METOPROLOL XL 100 MG TAB PO SCH (05:23)
[2022-04-19] MEDS ORDERED: LEVOTHYROXINE SOD 0.088 MG TAB PO SCH (06:00)
[2022-04-19 06:59] LABS: Absolute Lymphocytes (CBC) 1.6 K/uL (0.7-4.9); Hematocrit 38.5 % (36.0-45.0); Lymphocytes % 14.9 % (15.3-44.8); MCV 87.8 fL (80-100); MPV 7.1 fL (7.6-11.3); RBC Red Blood Cell Count 4.39 M/uL (3.86-4.86)
[2022-04-19 07:11] LABS: Potassium 3.5 mmol/L (3.5-5.1)
[2022-04-19] MEDS: ENOXAPARIN 30 MG/0.3 ML SQ SCH (08:13)
[2022-04-19] MEDS ORDERED: CLOPIDOGREL 75 MG TABLET PO SCH (09:00)
[2022-04-19] MEDS ORDERED: VALSARTAN 80 MG TAB PO SCH (09:00)
[2022-04-19] MEDS ORDERED: ASPIRIN EC 81 MG TAB PO SCH (09:00)
[2022-04-19] MEDS ORDERED: AMLODIPINE 5 MG TAB PO SCH (09:00)
[2022-04-19] MEDS ORDERED: INFLUENZA VACCINE (for 6+ mo) 0.5 ML DOSE IMVAC ONE (11:00)
[2022-04-19 11:55] VITALS: BP 174/76; TEMP 98.3
--- NOTE | 2022-04-20 14:18 | EKG ---
Test Date: 2022-04-18 Test Time: 04:33:15 Junior Net Developer: NIURKA MEASUREMENT RESULTS: Intervals: Rate: 64 UT: 192 QRSD: 120 QT: 426 QTc: 439 Bayard: P: 77 UT: 192 QRS: -80 T: 38 INTERPRETIVE STATEMENTS: Normal sinus rhythm Left axis deviation Possible Anterior infarct, age undetermined Abnormal ECG Compared to ECG 01/20/2021 06:16:02 Myocardial infarct finding now present Sinus bradycardia no longer present Atrial premature complex(es) no longer present Left ventricular hypertrophy no longer present Electronically Signed On 04-20-22 14:15:03 CDT by Keaton Frausto
--- NOTE | 2022-05-08 01:52 | P.HP ---
Certification for Inpatient Patient admitted to: Observation With expected LOS: <2 Midnights Patient will require the following post-hospital care: None Practitioner: I am a practitioner with admitting privileges, knowledge of patient current condition, hospital course, and medical plan of care. Services: Services provided to patient in accordance with Admission requirements found in Title 42 Section 412.3 of the Code of Federal Regulations Patient History Date of Service: 04/18/22 Reason for admission: Syncope History of Present Illness: patient is an 82-year-old female who comes into the hospital with a syncopal episode. Patient was defecating. Patient had a vasovagal event. Patient passed out completely. Patient was brought into the emergency room for further evaluation. In the ER patient's labs and additional workup including imaging studies were unremarkable. Patient will be admitted for observation. Will monitor for any arrhythmias. Allergies Androgenic Anabolic Steroid Allergy (Verified 05/31/14 11:22) Shortness of breath phenobarbital Allergy (Verified 03/05/15 17:16) Unknown promethazine HCl [From Phenergan] Allergy (Verified 05/31/14 11:22) hallucinations codeine Adverse Reaction (Unknown, Verified 05/31/14 11:22) Nausea/Vomiting steroids Allergy (Uncoded 10/10/14 13:45) Unknown Home Medications: Clopidogrel Bisulfate [Plavix*] 75 mg PO DAILY 01/18/14 Levothyroxine Sodium [Levoxyl] 88 mcg PO [id number] 01/18/14 Metoprolol Succinate [Toprol Xl*] 100 mg PO BID 6AM 6PM 01/18/14 Irbesartan [Avapro*] 1 tab PO DAILY 04/01/19 Gabapentin 100 mg PO BEDTIME 04/18/22 Amlodipine [Norvasc*] 5 mg PO BID #60 tab 04/19/22 Hydralazine [Apresoline*] 10 mg PO TID #90 tab 04/19/22 - Past Medical/Surgical History Has patient received pneumonia vaccine in the past: Yes Diabetic: No -: Hypothyroidism -: HTN -: Hyperlipidemia -: History of TIA -: CAD with prior stents, CABG x2 -: rxn to steroid inj - swelling, hospitalized 15 days -: CABG x2 -: Hysterectomy -: History of colon resection related to diverticulitis -: Cardiac stents Psychosocial/ Personal History: Patient is of 59 years - Family History Father Medical History: Heart disease - Social History Smoking Status: Former smoker Alcohol use: No CD- Drugs: No Caffeine use: Yes Place of Residence: Home Review of Systems 10-point ROS is otherwise unremarkable Physical Examination - Vital Signs Temperature: 98.3 F Blood Pressure: 174/76 Pulse: 63 Respirations: 16 Pulse Ox (%): 95 - Physical Exam General: Alert, In no apparent distress, Oriented x3 HEENT: Atraumatic, PERRLA, Mucous membr. moist/pink, EOMI, Sclerae nonicteric Neck: Supple, 2+ carotid pulse no bruit, No LAD, Without JVD or thyroid abnormality Respiratory: Clear to auscultation bilaterally, Normal air movement Cardiovascular: Regular rate/rhythm, Normal S1 S2, Systolic murmur Gastrointestinal: Normal bowel sounds, Soft and benign, Non-distended, No tenderness Musculoskeletal: No clubbing, No swelling, No tenderness Integumentary: No rashes Neurological: Normal gait, Normal speech, Normal strength at 5/5 x4 extr, Normal tone, Sensation intact, Cranial nerves 3-12 intact, Normal affect Lymphatics: No axilla or inguinal lymphadenopathy Assessment & Plan - Problems (Diagnosis) (1) Syncope Onset Date: 04/21/16 Status: Acute (2) HTN (hypertension) Onset Date: 03/06/15 Status: Chronic (3) Hypothyroidism Status: Chronic - Plan Plan: 1. Continue with gentle hydration 2. Monitor on telemetry 3. Serial troponins 4. Repeat labs 5. GI/DVT prophylaxis Discharge Plan: Home Plan to discharge in: 24 Hours - Advance Directives Does patient have a Living Will: Yes Does patient have a Durable POA for Healthcare: Yes - Code Status/Comfort Care Code Status Assessed: Yes Code Status: Full Code Critical Care: No Time Spent Managing PTS Care (In Minutes): 45
--- NOTE | 2022-05-08 01:54 | P.DS ---
Discharge Date: 04/19/22 Disposition: ROUTINE DISCHARGE Discharge Condition: GOOD Reason for Admission: Syncope - Problems (1) Syncope Onset Date: 04/21/16 Status: Acute (2) HTN (hypertension) Onset Date: 03/06/15 Status: Chronic (3) Hypothyroidism Status: Chronic Brief History of Present Illness: patient is an 82-year-old female who comes into the hospital with a syncopal episode. Patient was defecating. Patient had a vasovagal event. Patient passed out completely. Patient was brought into the emergency room for further evaluation. In the ER patient's labs and additional workup including imaging studies were unremarkable. Patient will be admitted for observation. Will monitor for any arrhythmias. Hospital Course: Patient's workup was unremarkable. Patient's clinical symptoms are stable. At this time, patient is stable for discharge with outpatient follow-up with Cardiology. Vital Signs/Physical Exam: Temp Pulse Resp BP Pulse Ox 98.3 F 63 16 174/76 H 95 05/08/22 01:51 05/08/22 01:51 05/08/22 01:51 05/08/22 01:51 05/08/22 01:51 General: Alert, In no apparent distress, Oriented x3 Laboratory Data at Discharge: WBC 10.80 K/uL (4.3-10.9) 04/19/22 06:38 Hgb 13.1 g/dL (12.0-15.0) 04/19/22 06:38 Hct 38.5 % (36.0-45.0) 04/19/22 06:38 Plt Count 355 K/uL (152-406) 04/19/22 06:38 PT 11.0 SECONDS (9.5-12.5) 04/18/22 04:30 INR 1.00 04/18/22 04:30 APTT 35.1 SECONDS (24.3-36.9) 04/18/22 04:30 Sodium 140 mmol/L (136-145) 04/19/22 06:38 Potassium 3.5 mmol/L (3.5-5.1) D 04/19/22 06:38 BUN 12 mg/dL (7-18) 04/19/22 06:38 Creatinine 1.01 mg/dL (0.55-1.3) 04/19/22 06:38 Glucose 103 mg/dL (74-106) 04/19/22 06:38 Magnesium 2.0 mg/dL (1.8-2.4) 04/18/22 04:30 Total Bilirubin 0.3 mg/dL (0.2-1.0) 04/18/22 04:30 AST 14 U/L (15-37) L 04/18/22 04:30 ALT 16 U/L (12-78) 04/18/22 04:30 Alkaline Phosphatase 94 U/L (45-117) 04/18/22 04:30 Triglycerides 235 mg/dL (<150) H 04/19/22 06:38 Cholesterol 259 mg/dL (<200) H 04/19/22 06:38 HDL Cholesterol 41 mg/dL (40-60) 04/19/22 06:38 Cholesterol/HDL Ratio 6.32 04/19/22 06:38 Lipase 132 U/L (73-393) 04/18/22 04:30 Home Medications: Clopidogrel Bisulfate [Plavix*] 75 mg PO DAILY 01/18/14 Levothyroxine Sodium [Levoxyl] 88 mcg PO [id number] 01/18/14 Metoprolol Succinate [Toprol Xl*] 100 mg PO BID 6AM 6PM 01/18/14 Irbesartan [Avapro*] 1 tab PO DAILY 04/01/19 Gabapentin 100 mg PO BEDTIME 04/18/22 Amlodipine [Norvasc*] 5 mg PO BID #60 tab 04/19/22 Hydralazine [Apresoline*] 10 mg PO TID #90 tab 04/19/22 New Medications: Hydralazine [Apresoline*] 10 mg PO TID #90 tab Amlodipine [Norvasc*] 5 mg PO BID #60 tab Physician Discharge Instructions: OK TO DC IV AND DC HOME FOLLOW-UP WITH PRIMARY CARE PROVIDER IN 1-2 WEEKS FOLLOW-UP WITH Cardiology IN 1-2 WEEKS RETURN TO THE ER IF symptoms worsens CALL DR. LAY AT [phone] IF ANY QUESTIONS REGARDING HOSPITAL STAY. PLEASE CALL THE FLOOR AT [phone] IF ANY MEDICATION OR NURSING QUESTIONS. Diet: AHA Activity: Fall precautions Followup: Unknown,U [Primary Care Provider] - 1-2 Weeks Time spent managing pt's care (in minutes): 35
== END 2022-04-19 15:20 | disposition home or self-care (01) ==
LOC: ER 04:15 → ERHOLD 10:38 → 4TH 13:49
PROVIDERS: ADMIT Hospitalist; ATTEND Hospitalist
DX: R55 Syncope and collapse (principal); I12.9 Hypertensive chronic kidney disease with stage 1 through stage 4 chronic kidney disease, or unspecified chronic kidney disease; N18.9 Chronic kidney disease, unspecified; N39.0 Urinary tract infection, site not specified; E03.9 Hypothyroidism, unspecified; R10.84 Generalized abdominal pain; R11.10 Vomiting, unspecified; R19.7 Diarrhea, unspecified; E78.5 Hyperlipidemia, unspecified; J44.9 Chronic obstructive pulmonary disease, unspecified; I25.10 Atherosclerotic heart disease of native coronary artery without angina pectoris; I25.2 Old myocardial infarction; Z95.1 Presence of aortocoronary bypass graft; Z95.5 Presence of coronary angioplasty implant and graft; Z86.73 Personal history of transient ischemic attack (TIA), and cerebral infarction without residual deficits; Z87.891 Personal history of nicotine dependence; Z79.02 Long term (current) use of antithrombotics/antiplatelets; Z79.899 Other long term (current) drug therapy; Z88.8 Allergy status to other drugs, medicaments and biological substances; Z88.5 Allergy status to narcotic agent; Z90.710 Acquired absence of both cervix and uterus; Z82.49 Family history of ischemic heart disease and other diseases of the circulatory system
CPT/HCPCS: 36415; 70450; 74177; 80048; 80053; 80061; 81003; 81015; 82248; 83690; 83735; 84484; 85025; 85610; 85730; 87804; 90471; 93005; 93880; 96361; 96365; 96375; 99285; G0378; J0360; J1650; J2405; J7030; J7040; Q2035; Q9967; U0003

== ENCOUNTER 2022-06-05 03:19 | Observation (INO) | payer OTHER ==
[2022-06-05 03:49] LABS: Absolute Lymphocytes (CBC) 2.6 K/uL (0.7-4.9); Hematocrit 39.8 % (36.0-45.0); MCV 89.6 fL (80-100); MPV 7.3 fL (7.6-11.3); RBC Red Blood Cell Count 4.45 M/uL (3.86-4.86)
[2022-06-05 03:56] LABS: Protime INR 0.92
[2022-06-05 04:12] LABS: ALT/SGPT 17 U/L (12-78); AST/SGOT 15 U/L (15-37); Albumin 3.2 g/dL (3.4-5.0); Alkaline Phosphatase 99 U/L (45-117); BUN Blood Urea Nitrogen 26 mg/dL (7-18); Bicarbonate 27 mmol/L (21-32); Bilirubin Total 0.3 mg/dL (0.2-1.0); Glomerular Filtration Rate 36 ml/min (=/>90); Glucose Level 115 mg/dL (74-106); Magnesium 2.3 mg/dL (1.8-2.4); NT PRO-BNP 1821 pg/mL (<450); Potassium 3.8 mmol/L (3.5-5.1); Protein, Total 7.3 g/dL (6.4-8.2); Sodium Level 140 mmol/L (136-145); Troponin High Sensitivity 23.2 pg/mL (<58.9)
[2022-06-05 04:13] LABS: Bilirubin Direct < 0.1 mg/dL (0-0.2)
--- NOTE | 2022-06-05 04:19 | EDPHYS ---
Physician Documentation [facility] Name: Lupe Hartley Age: 82 yrs Sex: Female : 1940 Arrival Date: 06/05/2022 Time: 03:23 Bed 4 Private MD: ED Physician Sukhwinder Delarosa HPI: 06/05 03:26 This 82 yrs old Female presents to ER via Unassigned with complaints of Shortness Of rn Breath. 03:26 The patient has shortness of breath at rest. Onset: The symptoms/episode began/occurred rn just prior to arrival. Duration: The symptoms are continuous. The patient's shortness of breath is aggravated by nothing, is alleviated by application of supplemental oxygen. Associated signs and symptoms: Pertinent positives: chest pain, Pertinent negatives: non-productive cough, productive cough, fever, hemoptysis, loss of consciousness. Severity of symptoms: At their worst the symptoms were moderate in the emergency department the symptoms have improved. The patient has experienced similar episodes in the past. The patient has not recently seen a physician. Pt reports woke up from sleep with chest pain and sob. Reports substernal chest pain, non radiating, no trauma. No cough. + hx of COPD. Improved with nitro and aspirin.. Historical: - Allergies: 03:25 Phenobarbital; pf1 03:25 promethazine HCl; pf1 - Home Meds: 03:25 amlodipine 2.5 mg oral tab 1 tab [Active]; Plavix 75 mg Oral tab 1 tab once daily pf1 [Active]; irbesartan Oral [Active]; levothyroxine [Active]; metoprolol succinate 100 mg Oral Tb24 1 tab twice a day [Active]; aspirin 81 mg Oral TbEC 1 tab once daily [Active]; - PMHx: 03:25 CAD; cardiac stents; COPD; HARD OF HEARING; Diverticulitis; Hyperlipidemia; pf1 Hypertension; Hypothyroidism; Myocardial infarction; - PSHx: 03:25 Appendectomy; Total abdominal hysterectomy; Cholecystectomy; pf1 - Immunization history:: Adult Immunizations not up to date. - Social history:: Smoking status: Patient/guardian denies using. - Family history:: not pertinent. - Hospitalizations: : No recent hospitalization is reported. ROS: 03:26 Constitutional: Negative for fever, chills, and weight loss, Eyes: Negative for injury, rn pain, redness, and discharge, Neck: Negative for injury, pain, and swelling, Cardiovascular: Negative for palpitations, and edema, Respiratory: Negative for cough, wheezing, and pleuritic chest pain, Abdomen/GI: Negative for abdominal pain, nausea, vomiting, diarrhea, and constipation, Back: Negative for injury and pain, MS/Extremity: Negative for injury and deformity, Skin: Negative for injury, rash, and discoloration, Neuro: Negative for headache, weakness, numbness, tingling, and seizure. Exam: 03:26 Constitutional: This is a well developed, well nourished patient who is awake, alert, rn and in no acute distress. Head/Face: Normocephalic, atraumatic. Eyes: Periorbital areas with no swelling, redness, or edema. Cardiovascular: Regular rate and rhythm. No pulse deficits. Respiratory: Mild tachypnea, no retractions Abdomen/GI: Soft, non-tender Skin: Warm, dry MS/ Extremity: Pulses equal, no cyanosis. Neuro: Awake and alert, GCS 15 03:48 ECG was reviewed by the Attending Physician. rn Vital Signs: 03:25 BP 194 / 72; Pulse 66; Resp 18; Temp 98; Pulse Ox 100% ; Weight 54.43 kg; Height 5 ft. pf1 5 in. (165.10 cm); Pain 0/10; 04:15 BP 192 / 60; Pulse 65; Resp 18; Pulse Ox 98% on R/A; ll3 05:04 BP 182 / 73; Pulse 58; Resp 18; Temp 98; Pulse Ox 99% ; Pain 0/10; pf1 03:25 Body Mass Index 19.97 (54.43 kg, 165.10 cm) pf1 MDM: 03:23 Patient medically screened. rn 04:17 Differential diagnosis: Anemia Bronchitis CHF exacerbation, Chronic Obstructive rn Pulmonary Disease Myocardial Infarction pneumonia, Pneumothorax pulmonary edema. Data reviewed: vital signs, nurses notes, lab test result(s), EKG, radiologic studies, plain films, and as a result, I will admit patient. Counseling: I had a detailed discussion with the patient and/or guardian regarding: the historical points, exam findings, and any diagnostic results supporting the discharge/admit diagnosis, lab results, radiology results, the need for further work-up and treatment in the hospital. Response to treatment: the patient's symptoms have markedly improved after treatment, and as a result, I will admit patient. Admission orders: after a detailed discussion of the patient's condition and case, the admit orders are written by me. 06/05 03:25 Order name: BMP; Complete Time: 04:15 06/05 03:25 Order name: Blood Culture Adult (2) 06/05 03:25 Order name: CBC with Diff; Complete Time: 04:15 06/05 03:25 Order name: Hepatic Function; Complete Time: 04:15 06/05 03:25 Order name: Magnesium; Complete Time: 04:15 06/05 03:25 Order name: NT PRO-BNP; Complete Time: 04:15 06/05 03:25 Order name: PT-INR; Complete Time: 04: 06/05 03:25 Order name: Ptt, Activated; Complete Time: 04:15 06/05 03:25 Order name: Troponin HS; Complete Time: 04:15 06/05 03:25 Order name: XRAY CXR (1 view) 06/05 03:25 Order name: EKG; Complete Time: 03:26 06/05 03:25 Order name: COVID-19/FLU A+B; Complete Time: 04: 06/05 03:25 Order name: Cardiac monitoring; Complete Time: 03: 06/05 03:25 Order name: EKG - Nurse/Tech; Complete Time: 03: 06/05 03:25 Order name: IV Saline Lock; Complete Time: 03: 06/05 03:25 Order name: Labs collected and sent; Complete Time: 03: 06/05 03:25 Order name: O2 Per Protocol; Complete Time: 03: 06/05 03:25 Order name: O2 Sat Monitoring; Complete Time: 03:51 rn EC:48 Rate is 65 beats/min. Rhythm is regular. Left axis deviation noted. QRS is positive in rn lead I and negative in lead aVF. MS interval is normal. QRS interval is prolonged at 124 msec. QT interval is normal. No Q waves. T waves are Normal. No ST changes noted. Clinical impression: NSR w/ Non-specific ST/T Changes. Interpreted by me. Reviewed by me. Administered Medications: 04:40 Drug: Nitro-Bid (nitroglycerin) Ointment 2 % 1 inches Route: Transdermal; Site: pf1 anterior chest wall; 05:11 Follow up: Response: No adverse reaction; Pain is decreased; Blood pressure is lowered pf1 04:41 Drug: Lasix (furosemide) 40 mg Route: IVP; Site: right antecubital; pf1 05:10 Follow up: Response: (VIS) Vaccine information sheet provided today. Questions and/or pf1 concerns addressed. VIS edition date: Feb 14, 2021.; Pain is decreased; Blood pressure is lowered Disposition Summary: 06/05/22 04:18 Hospitalization Ordered Hospitalization Status: Observation rn Provider: David Galicia rn Location: Telemetry/MedSurg (observation) rn Condition: Stable rn Problem: new rn Symptoms: have improved rn Bed/Room Type: Standard rn Room Assignment: 201(06/05/22 04:47) mw Diagnosis - Unspecified combined systolic (congestive) and diastolic (congestive) heart failure rn - Chest pain, unspecified rn Forms: - Medication Reconciliation Form rn - SBAR form rn Signatures: Dispatcher [employer] EDBeth Girard RN RN mw Nieto, Roman, MD MD rn finley, Pamala, RN RN pf1 Corrections: (The following items were deleted from the chart) 04:47 04:18 rn lamar
--- NOTE | 2022-06-05 04:19 | ER ---
Nurse's Notes [facility] Name: Lupe Hartley Age: 82 yrs Sex: Female : 1940 Arrival Date: 06/05/2022 Time: 03:23 Bed 4 Private MD: Diagnosis: Unspecified combined systolic (congestive) and diastolic (congestive) heart failure;Chest pain, unspecified Presentation: 06/05 03:25 Chief complaint: EMS states: Patient arrived per [facility] with C/O chest pain with pf1 dizziness and SOB,onset 0200. Patient stated the chest pain woke her up this morning UNPAID INTERN. 03:25 Coronavirus screen: Vaccine status: Patient reports being unvaccinated. Ebola Screen: pf1 Patient negative for fever greater than or equal to 101.5 degrees Fahrenheit, and additional compatible Ebola Virus Disease symptoms. Initial Sepsis Screen: Does the patient meet any 2 criteria? No. Patient's initial sepsis screen is negative. Risk Assessment: Do you want to hurt yourself or someone else? Patient reports no desire to harm self or others. Onset of symptoms was June 05, 2022. Care prior to arrival: Medication(s) given: ASA, 81 mg, x 4, Nitroglycerin, 0.4 mg SL IV initiated. 20 GA, in the right antecubital area, Glucose check: 141. 03:25 Method Of Arrival: EMS: [facility] pf1 03:25 Acuity: NINI 2 pf1 03:25 Initial Sepsis Screen: Does the patient have a suspected source of infection? No. pf1 Patient's initial sepsis screen is negative. Triage Assessment: 03:25 General: Appears in no apparent distress. comfortable, well groomed, well developed. pf1 Pain: Denies pain. 03:25 General: Behavior is calm, cooperative, appropriate for age, quiet. EENT: Reports hard pf1 of hearing. Neuro: No deficits noted. Cardiovascular: Chest pain began Patient stated onset of chest pain at 0200 this morning, woke her up. Respiratory: Reports shortness of breath at rest Onset: The symptoms/episode began/occurred this morning, the patient has mild shortness of breath. GI: No deficits noted. : No deficits noted. Derm: No deficits noted. Historical: - Allergies: 03:25 Phenobarbital; pf1 03:25 promethazine HCl; pf1 - Home Meds: 03:25 amlodipine 2.5 mg oral tab 1 tab [Active]; Plavix 75 mg Oral tab 1 tab once daily pf1 [Active]; irbesartan Oral [Active]; levothyroxine [Active]; metoprolol succinate 100 mg Oral Tb24 1 tab twice a day [Active]; aspirin 81 mg Oral TbEC 1 tab once daily [Active]; - PMHx: 03:25 CAD; cardiac stents; COPD; HARD OF HEARING; Diverticulitis; Hyperlipidemia; pf1 Hypertension; Hypothyroidism; Myocardial infarction; - PSHx: 03:25 Appendectomy; Total abdominal hysterectomy; Cholecystectomy; pf1 - Immunization history:: Adult Immunizations not up to date. - Social history:: Smoking status: Patient/guardian denies using. - Family history:: not pertinent. - Hospitalizations: : No recent hospitalization is reported. Screenin:25 Abuse screen: Denies threats or abuse. pf1 03:25 Nutritional screening: No deficits noted. Tuberculosis screening: No symptoms or risk pf1 factors identified. Fall Risk IV access (20 points). Assessment: 03:25 Respiratory: Breath sounds are clear bilaterally. pf1 03:57 General: see triage assessment. Cardiovascular: Rhythm is sinus rhythm with multifocal pf1 PVCs. Respiratory: Reports shortness of breath at rest on exertion since onset 0200 this AM Airway is patent Respiratory effort is even, unlabored, relaxed. 04:30 Reassessment: Patient appears in no apparent distress at this time. Patient and/or pf1 family updated on plan of care and expected duration. Pain level reassessed. Patient is alert, oriented x 3, equal unlabored respirations, skin warm/dry/pink. Patient states feeling better. Patient states symptoms have improved. 04:30 Pain: Denies pain. Respiratory: Airway is patent Respiratory effort is even, unlabored, pf1 relaxed. Vital Signs: 03:25 BP 194 / 72; Pulse 66; Resp 18; Temp 98; Pulse Ox 100% ; Weight 54.43 kg; Height 5 ft. pf1 5 in. (165.10 cm); Pain 0/10; 04:15 BP 192 / 60; Pulse 65; Resp 18; Pulse Ox 98% on R/A; ll3 05:04 BP 182 / 73; Pulse 58; Resp 18; Temp 98; Pulse Ox 99% ; Pain 0/10; pf1 03:25 Body Mass Index 19.97 (54.43 kg, 165.10 cm) pf1 ED Course: 03:23 Patient arrived in ED. tw5 03:23 Sukhwinder Delarosa MD is Attending Physician. rn 03:25 Arm band placed on right wrist. Patient placed in an exam room, on a stretcher, in view pf1 of staff members, on vehicle monitor technician, on pulse oximetry. 03:25 EKG completed in triage. Results shown to MD. pf1 03:25 No provider procedures requiring assistance completed. pf1 03:25 Maintain EMS IV. Dressing intact. Good blood return noted. Site clean \T\ dry. Gauge \T\ pf 1 site: 20 gauge to RAC. 03:40 Warm blanket given. Verbal reassurance given. pf1 03:46 XRAY CXR (1 view) In Process Unspecified. EDMS 03:47 Triage completed. pf1 04:00 Placed in gown. Bed in low position. Call light in reach. Side rails up X2. pf1 04:18 David Galicia MD is Hospitalizing Provider. rn 04:30 Pure wick placed. Patient tolerated well. pf1 05:31 Patient admitted, IV remains in place. pf1 Administered Medications: 04:40 Drug: Nitro-Bid (nitroglycerin) Ointment 2 % 1 inches Route: Transdermal; Site: pf1 anterior chest wall; 05:11 Follow up: Response: No adverse reaction; Pain is decreased; Blood pressure is lowered pf1 04:41 Drug: Lasix (furosemide) 40 mg Route: IVP; Site: right antecubital; pf1 05:10 Follow up: Response: (VIS) Vaccine information sheet provided today. Questions and/or pf1 concerns addressed. VIS edition date: Feb 14, 2021.; Pain is decreased; Blood pressure is lowered Medication: 03:25 VIS not applicable for this client. pf1 Outcome: 04:18 Decision to Hospitalize by Provider. rn 05:31 Admitted to Med/surg accompanied by tech, family with patient, via stretcher, room 201, pf1 with chart, Report called to [employer] [facility] 05:31 Condition: stable 05:31 Instructed on the need for admit, Demonstrated understanding of instructions. 05:49 Patient left the ED. pf1 Signatures: Dispatcher [employer] EDMS Sukhwinder Delarosa MD MD rn Timothy, Lalita tw5 Cristobal Aceves RN RN ll3 Kaylyn fernandez RN RN pf1
[2022-06-05 04:25] LABS: SARS-COV-2 RT PCR NEGATIVE (NEGATIVE)
[2022-06-05] MEDS ORDERED: FUROSEMIDE 40 MG/4 ML VIAL ONE (04:37)
[2022-06-05] MEDS ORDERED: NITROGLYCERIN 1 GM PKT TD ONE (04:37)
--- NOTE | 2022-06-05 04:48 | P.HP ---
Certification for Inpatient Patient admitted to: Observation With expected LOS: <2 Midnights Patient will require the following post-hospital care: None Practitioner: I am a practitioner with admitting privileges, knowledge of patient current condition, hospital course, and medical plan of care. Services: Services provided to patient in accordance with Admission requirements found in Title 42 Section 412.3 of the Code of Federal Regulations <Kimberlyn Magallanes - Last Filed: 06/05/22 04:52> Patient History Date of Service: 06/05/22 Primary Care Provider: Alfredo Reason for admission: Chest Pain History of Present Illness: Patient is an 82-year-old female with past medical history significant for CAD status post CABG x2, hypertension, hypothyroidism, and CVA who presented to the ED with complaints of chest pain and shortness of breath. Patient states that the chest pain woke her up in her sleep. She describes the pain as an intense pressure in the middle of her chest. She denies any associated symptomsno nausea, shortness of breath, diaphoresis, radiation. EMS administered 324 mg aspirin and nitroglycerin. She was hypertensive upon arrival to the ED. EKG without ST changes. Troponin negative. BNP 1800. Chest x-ray negative. She was given 40 mg of Lasix and Nitropaste in the ED. patient reports that her chest pain has resolved but she still feels mildly short of breath. Given her cardiac history, ED provider wishes admit patient for observation for ACS rule out. Home medications list reviewed: Yes - Past Medical/Surgical History Diabetic: No -: Hypothyroidism -: HTN -: Hyperlipidemia -: History of TIA -: CAD with prior stents, CABG x2 -: CABG x2 -: Hysterectomy -: History of colon resection related to diverticulitis -: Cardiac stents Psychosocial/ Personal History: Patient is of 59 years - Family History Father -: Heart disease - Social History Smoking Status: Never smoker Alcohol use: No CD- Drugs: No Caffeine use: Yes Place of Residence: Home <Kimberlyn Magallanes - Last Filed: 06/05/22 04:52> Date of Service: 06/05/22 <David Galicia - Last Filed: 06/05/22 12:00> Allergies Androgenic Anabolic Steroid Allergy (Verified 05/31/14 11:22) Shortness of breath phenobarbital Allergy (Verified 03/05/15 17:16) Unknown promethazine HCl [From Phenergan] Allergy (Verified 05/31/14 11:22) hallucinations codeine Adverse Reaction (Unknown, Verified 05/31/14 11:22) Nausea/Vomiting steroids Allergy (Uncoded 10/10/14 13:45) Unknown Home Medications: RX: Levothyroxine Sodium [Levoxyl] 88 mcg PO [id number] 01/18/14 RX: Metoprolol Succinate [Toprol Xl*] 100 mg PO BID 6AM 6PM 01/18/14 Amlodipine [Norvasc] 2.5 mg PO DAILY 06/05/22 Aspirin [Aspirin EC 81 MG] 81 mg PO DAILY 06/05/22 Budesonide/Formoterol Fumarate [Symbicort 160-4.5 Mcg Inhaler] 2 puff IH BID 06/05/22 Clopidogrel Bisulfate [Plavix] 75 mg PO DAILY 06/05/22 Hydralazine [Apresoline] 10 mg PO TIDP PRN 06/05/22 RX: Albuterol Inhaler [Ventolin Inhaler*] 1 puff IH Q4HP PRN 06/05/22 RX: Amlodipine [Norvasc*] 5 mg PO DAILY 06/05/22 RX: Gabapentin 100 mg PO BEDTIME 06/05/22 RX: Irbesartan 150 mg PO DAILY 06/05/22 Review of Systems Respiratory: Shortness of Breath Cardiovascular: Chest Pain <Kimberlyn Magallanes - Last Filed: 06/05/22 04:52> Physical Examination - Physical Exam General: Alert, In no apparent distress HEENT: Atraumatic, PERRLA, EOMI, Sclerae nonicteric Neck: Supple, 2+ carotid pulse no bruit, No LAD, Without JVD or thyroid abnormality Respiratory: Clear to auscultation bilaterally, Normal air movement Cardiovascular: No edema, Regular rate/rhythm, Normal S1 S2 Gastrointestinal: Normal bowel sounds, No tenderness Musculoskeletal: No tenderness Integumentary: No rashes Neurological: Normal speech, Normal strength at 5/5 x4 extr, Normal tone, Normal affect - Studies Laboratory Data (last 24 hrs) 06/05/22 03:37: PT 10.1, INR 0.92, APTT 35.4 06/05/22 03:37: WBC 9.50, Hgb 13.0, Hct 39.8, Plt Count 406 06/05/22 03:37: Sodium 140, Potassium 3.8, BUN 26 H, Creatinine 1.45 H, Glucose 115 H, Magnesium 2.3, Total Bilirubin 0.3, AST 15, ALT 17, Alkaline Phosphatase 99 <ElpidioKimberlyn - Last Filed: 06/05/22 04:52> - Studies Laboratory Data (last 24 hrs) 06/05/22 03:37: PT 10.1, INR 0.92, APTT 35.4 06/05/22 03:37: WBC 9.50, Hgb 13.0, Hct 39.8, Plt Count 406 06/05/22 03:37: Sodium 140, Potassium 3.8, BUN 26 H, Creatinine 1.45 H, Glucose 115 H, Magnesium 2.3, Total Bilirubin 0.3, AST 15, ALT 17, Alkaline Phosphatase 99 <David Galicia - Last Filed: 06/05/22 12:00> Assessment and Plan - Problems (Diagnosis) (1) CAD (coronary artery disease) Current Visit: Yes Status: Acute Qualifiers: Coronary Disease-Associated Artery/Lesion type: bypass graft [place] vs. transplanted heart: [place] heart Associated angina: with unstable angina Qualified Code(s): I25.700 - Atherosclerosis of coronary artery bypass graft(s), unspecified, with unstable angina pectoris (2) HTN (hypertension) Current Visit: Yes Status: Chronic Qualifiers: Hypertension type: primary hypertension Qualified Code(s): I10 - Essential (primary) hypertension (3) Hypothyroidism Current Visit: Yes Status: Chronic Qualifiers: Hypothyroidism type: acquired Qualified Code(s): E03.9 - Hypothyroidism, unspecified (4) CKD (chronic kidney disease) Current Visit: Yes Status: Acute Qualifiers: Chronic kidney disease stage: stage 3 (moderate) Chronic kidney disease stage 3 subtype: stage 3b (GFR 30-44) Qualified Code(s): N18.32 - Chronic kidney disease, stage 3b - Plan Patient is admitted for observation for chest pain/ACS rule out. Cardiology consult. Initial troponin negative. Will trend. Echocardiogram ordered to evaluate possible CHF. Lipid panel and TSH ordered. Aspirin, plavix (home med), and atorvastatin daily. Monitor and replete electrolytes per protocol. Reconcile and continue home medications. Full code. Discharge Plan: Home Plan to discharge in: 24 Hours - Advance Directives Does patient have a Living Will: Yes Does patient have a Durable POA for Healthcare: Yes - Code Status/Comfort Care Code Status Assessed: Yes (Full) Critical Care: No Time Spent Managing Pts Care (In Minutes): 50 <Kimberlyn Magallanes - Last Filed: 06/05/22 04:52> Physician Review: Patient Assessed, Agree with Above Assessment and Plan <David Galicia - Last Filed: 06/05/22 12:00>
[2022-06-05] MEDS ORDERED: ACETAMINOPHEN 325 MG TABLET PO PRN (05:59)
[2022-06-05] MEDS ORDERED: NITROGLYCERIN 0.4 MG/TAB SL PRN (05:59)
[2022-06-05 06:02] VITALS: BMI 20.1
[2022-06-05] MEDS ORDERED: PNEUMOCOCCAL VACCINE 0.5 ML IMVAC ONE (08:00)
[2022-06-05] MEDS: ENOXAPARIN 30 MG/0.3 ML SQ SCH (08:15)
[2022-06-05] MEDS: ASPIRIN EC 81 MG TAB PO SCH (08:16)
[2022-06-05] MEDS ORDERED: POTASSIUM CL SA 10 MEQ TAB PO ONE (09:00)
[2022-06-05 09:26] LABS: Thyroid Stimulating Hormone 0.938 uIU/mL (0.360-3.740); Troponin High Sensitivity 19.2 pg/mL (<58.9)
--- NOTE | 2022-06-05 15:38 | RAD REPORT ---
EXAM DESCRIPTION: RAD - Chest Single View - 06/05/2022 3:44 am CLINICAL HISTORY: 82 years, Female, Dyspnea COMPARISON: None. FINDINGS: Single view of the chest was obtained portable. No prior films are available for compariso n. Lung volume is slightly decreased. Sternotomy wires suggest previous CABG. The cardiomediastinal s ilhouette demonstrate to be unremarkable. The heart is not enlarged. The thoracic aorta demonstrate i ntimal aortic arch calcification. The pulmonary vasculature is normal distribution. Costophrenic angl es are sharp. No areas of consolidation or masses are seen. There is a left carotid stent. External EKG leads within the [id number] limits diagnosis. The rest of the soft tissue and bony structures demonstrate to be unremarkable. IMPRESSION: No acute cardiopulmonary disease seen. Status post CABG. Electronically signed by: Billy Browning MD 06/05/2022 3:56 AM BUSINESS DEVELOPMENT SALES EXECUTIVE Due to temporary technical issues with the PACS/Fluency reporting system, reports are being signed by the in house radiologists without review as a courtesy to insure prompt reporting. The interpreting radiologist is fully responsible for the content of the report.
[2022-06-05 15:56] LABS: Specific Gravity 1.013 (1.005-1.030); Urine Bilirubin NEGATIVE (Negative); Urine Blood Negative (Negative); Urine Clarity Clear (Clear); Urine Color Light-Yellow (Yellow); Urine Glucose NEGATIVE (Negative); Urine Protein 1+ (Negative); Urine RBC <5 /HPF (None Seen); Urine Urobilinogen Normal (Normal)
--- NOTE | 2022-06-05 16:24 | RAD REPORT ---
EXAM DESCRIPTION: CT - Chest For Pe Angio - 06/05/2022 3:34 pm CLINICAL HISTORY: Chest pain/elevated D-dimer COMPARISON: January 2021 TECHNIQUE: Dynamically enhanced axial 3 mm thick images of the chest were obtained during administra tion of <100> mL Isovue 370 IV contrast. Coronal and oblique reconstruction images were generated and reviewed. Exam utilizes a protocol for optimal evaluation of pulmonary arterial tree. Maximum intensity projections 3D imaging was utilized All CT scans are performed using dose optimization technique as appropriate and may include automated exposure control or mA/KV adjustment according to patient size. FINDINGS: A pulmonary embolus is not seen. A thoracic aortic aneurysm is not noted. A pleural effusion is not seen. A pericardial effusion is not seen. 14 x 9 millimeter right upper lobe opacity mildly enlarged from January 2021 in which it measured 12 x 8 millimeters. March 2020 it measured 9 x 4 millimeters Centrilobular emphysema IMPRESSION: Negative for a pulmonary embolism. 14 x 9 millimeter right upper lobe opacity may represent neoplasm
--- NOTE | 2022-06-05 18:48 | CON ---
Date of Consultation: 06/05/2022 Reason For Consultation: Chest pain. History Of Present Illness: This is an 82-year-old female with history of coronary artery disease st atus post 2 vessel CABG about 5 years ago. She follows up with Dr. Corey and has a stress test gopal eduled for early next week. She has history of hypertension, hypothyroidism, and CVA who presented t o the emergency room with a chest pain that was very sharp on the left side of the chest, intense, wo ke her up from sleep around 2 o'clock in the morning and denies having any radiation, diaphoresis, na usea, vomiting, or shortness of breath. Pain resolved subsequently and troponins have been negative. Patient has been chest pain free since hospitalization. Past Medical History: As outlined above in the HPI. Medications: Refer to reconciliation sheet for detailed list. Allergies: LIST OF ALLERGY WAS REVIEWED INCLUDING CODEINE, PROMETHAZINE, STEROIDS, AND PHENOBARBITAL . Family History: No premature coronary artery disease or cancer. Social History: She does not smoke or drink. Does not use any drugs. Review of Systems: All systems reviewed and they were negative except for what is mentioned in HPI. Physical Examination: Vital Signs: Reviewed. Temperature is 97.5, pulse 58, breathing at 16, blood pressure is 158/78. O n arrival to the emergency room, her blood pressure was 194/72. General: A pleasant elderly female, in no apparent distress. Head And Neck: Pupils are equal and reactive to light. Intact eye movements. No JVD. No cervical lymphadenopathy. Neck is supple. Thyroid is not enlarged. Lungs: Clear to auscultation bilaterally. No rhonchi, wheezing, or crackles. No accessory muscle u se. Heart: Regular rate and rhythm. No extra sounds. Abdomen: Soft, nontender. Bowel sounds positive. No organomegaly. No masses or hernia. No rigidi ty or rebound. Extremities: No edema, clubbing, or cyanosis. Intact pulses. Skin: No rash. Neurologic: Alert, awake, and oriented x3. No acute focal deficits appreciated. Investigations: Troponins x3 are negative. LDL cholesterol is 181. NT proBNP is 1821. BUN 26 and creatinine 1.45. Assessment And Recommendations: 1.Chest pain. No EKG acute changes and cardiac enzymes are negative and pain is atypical. However, other considerations like pulmonary embolus or dissection should be considered. I recommend a CTA o f the lungs and if the CTA is negative, this patient can be released to follow up as an outpatient on the stress test as scheduled. 2.Coronary artery disease with atypical chest pain. Patient has a stress test already scheduled for outpatient basis to keep the plan as such. 3.Dyslipidemia. Fairly high LDL cholesterol. I agree with Lipitor. Thank you for the consult. /TRAN Voice ID: [id number] Report ID: [id number]
[2022-06-05] MEDS ORDERED: ATORVASTATIN 40 MG TAB PO SCH (21:00)
[2022-06-06 06:21] LABS: Potassium 4.3 mmol/L (3.5-5.1)
--- NOTE | 2022-06-06 08:41 | P.DS ---
Admission Date: 06/05/22 Discharge Date: 06/06/22 Primary Care Provider: Alfredo Disposition: ROUTINE DISCHARGE Discharge Condition: GOOD Reason for Admission: Chest Pain Consultations: 1. Cardiology Hospital Course: DIAGNOSES: # Atypical Chest Pain # Coronary Artery Disease s/p PCI + CABG # Hypertension # Hyperlipidemia # Hypothyroidism HOSPITAL COURSE: Mrs. Lupe Wolfe is a pleasant 82 year old female with a past medical history significant for coronary artery disease s/p PCI and CABG, hypertension, hyperlipidemia, and hypothyroidism who was admitted to the [facility] on 06/05/2022 for chest pain. She was admitted to the Medicine service. Her EKG was without STEMI criteria. Her troponin trend revealed 23.2 -> 19.2 -> 21.5. Her d-dimer returned elevated at 856. Her chest x-ray revealed, "no acute cardiopulmonary disease seen. Status post CABG." Her CT chest angiogram revealed, "negative for a pulmonary embolism. 14 x 9 millimeter right upper lobe opacity may represent neoplasm." Cardiology was consulted and she was evaluated by Dr. Frausto. He has cleared her for discharge with an outpatient stress test. In regards to the right lung opacity, I had an extensive discussion with her and her regarding my concerns for potential malignancy. She stated that she knew about the mass and has already been following as an outpatient with serial CT scans. I explained that the mass is gradually increasing in size and she verbalized understanding. We have provided her with Dr. Whitten's office information to schedule follow-up and she verbalized that she would schedule this appointment. On 06/06/2022, she was seen on morning rounds and deemed medically stable for discharge. She was discharged with instructions to schedule follow-up appointments with her PCP (Dr. Fuentes), with her Food Safety Specialist (Dr. Corey), and with Pulmonology (Dr. Whitten). She was provided a prescriptions for atrovastatin. She was given the opportunity to ask questions and reported no further questions. Furthermore, all questions were answered to the best of my ability. A copy of this discharge summary will be sent to the above providers to facilitate continuity of care. Today, I personally spent 25 minutes on her case, of which greater than 50% of the time was spent in patient education, counseling, and coordination of care as described above. Vital Signs/Physical Exam: Temp Pulse Resp BP Pulse Ox 97.3 F 61 17 130/67 96 06/06/22 04:00 06/06/22 04:00 06/06/22 04:00 06/06/22 04:00 06/06/22 04:00 General: Alert, In no apparent distress, Oriented x3 HEENT: Atraumatic, Mucous membr. moist/pink, EOMI, Sclerae nonicteric Neck: Supple, JVD not distended Respiratory: Clear to auscultation bilaterally, Normal air movement Cardiovascular: No edema, Regular rate/rhythm, Normal S1 S2, No gallops, No rubs, No murmurs Gastrointestinal: Normal bowel sounds, Soft and benign, Non-distended, No tenderness, No rebound, No guarding Musculoskeletal: No clubbing Integumentary: No rashes Neurological: Normal speech, Normal affect Laboratory Data at Discharge: WBC 9.50 K/uL (4.3-10.9) 06/05/22 03:37 Hgb 13.0 g/dL (12.0-15.0) 06/05/22 03:37 Hct 39.8 % (36.0-45.0) 06/05/22 03:37 Plt Count 406 K/uL (152-406) 06/05/22 03:37 PT 10.1 SECONDS (9.5-12.5) 06/05/22 03:37 INR 0.92 06/05/22 03:37 APTT 35.4 SECONDS (24.3-36.9) 06/05/22 03:37 Sodium 137 mmol/L (136-145) 06/06/22 05:55 Potassium 4.3 mmol/L (3.5-5.1) D 06/06/22 05:55 BUN 31 mg/dL (7-18) H 06/06/22 05:55 Creatinine 1.49 mg/dL (0.55-1.3) H 06/06/22 05:55 Glucose 108 mg/dL (74-106) H 06/06/22 05:55 Magnesium 2.3 mg/dL (1.8-2.4) 06/05/22 03:37 Total Bilirubin 0.3 mg/dL (0.2-1.0) 06/05/22 03:37 AST 15 U/L (15-37) 06/05/22 03:37 ALT 17 U/L (12-78) 06/05/22 03:37 Alkaline Phosphatase 99 U/L (45-117) 06/05/22 03:37 Triglycerides 152 mg/dL (<150) H 06/05/22 08:51 Cholesterol 253 mg/dL (<200) H 06/05/22 08:51 HDL Cholesterol 42 mg/dL (40-60) 06/05/22 08:51 Cholesterol/HDL Ratio 6.02 06/05/22 08:51 Home Medications: RX: Levothyroxine Sodium [Levoxyl] 88 mcg PO [id number] 01/18/14 RX: Metoprolol Succinate [Toprol Xl*] 100 mg PO BID 6AM 6PM 01/18/14 RX: Albuterol Inhaler [Ventolin Inhaler*] 1 puff IH Q4HP PRN 06/05/22 RX: Amlodipine [Norvasc*] 2.5 mg PO DAILY 06/05/22 RX: Aspirin [Aspirin EC 81 MG] 81 mg PO DAILY 06/05/22 RX: Budesonide/Formoterol Fumarate [Symbicort 160-4.5 Mcg Inhaler] 2 puff IH BID 06/05/22 RX: Clopidogrel Bisulfate [Plavix*] 75 mg PO DAILY 06/05/22 RX: Gabapentin 100 mg PO BEDTIME 06/05/22 RX: Hydralazine [Apresoline*] 10 mg PO TIDP PRN 06/05/22 RX: Irbesartan 150 mg PO DAILY 06/05/22 RX: Atorvastatin Calcium [Lipitor] 40 mg PO BEDTIME #30 tab 06/06/22 New Medications: RX: Atorvastatin Calcium [Lipitor] 40 mg PO BEDTIME #30 tab Physician Discharge Instructions: 1. Please call and schedule an appointment with your PCP (Dr. Fuentes) in 3-5 days 2. Please call and schedule an appointment Cardiology (Dr. Corey) in 3-5 days for a cardiac stress test 3. Please call and schedule an appointment with Pulmonology (Dr. Whitten) in 5- 7 days - Please have him follow-up on the spot/mass on your lung Diet: Regular Activity: Ad raffi Followup: Pawan Whitten MD [ACTIVE - CAN ADMIT] - (Follow up in 5-7 days) He Corey MD [ACTIVE - CAN ADMIT] - (Follow up in 3-5 days) Adalgisa Fuentes MD [ACTIVE - CAN ADMIT] - (Follow up in 3-5 days) Time spent managing pt's care (in minutes): 25
[2022-06-06] MEDS: ENOXAPARIN 30 MG/0.3 ML SQ SCH (08:43)
[2022-06-06] MEDS: ASPIRIN EC 81 MG TAB PO SCH (08:43)
[2022-06-06 10:01] VITALS: BP 154/61; TEMP 98.2
[2022-06-06 10:21] VITALS: O2SAT 96
--- NOTE | 2022-06-08 12:58 | EKG ---
Test Date: 2022-06-05 Test Time: 03:29:43 Interactive Web Developer: ARELY MEASUREMENT RESULTS: Intervals: Rate: 65 [place]: 204 QRSD: 124 QT: 430 QTc: 447 [place]: P: 86 [place]: 204 QRS: -67 T: 73 INTERPRETIVE STATEMENTS: Normal sinus rhythm Left axis deviation Left bundle branch block Abnormal ECG Compared to ECG 04/18/2022 04:33:15 Left bundle-branch block now present Myocardial infarct finding no longer present Electronically Signed On 06-08-22 12:52:17 INSURANCE AGENCY SALES MANAGER by Keaton Frausto
== END 2022-06-06 10:23 | disposition home or self-care (01) ==
LOC: ER 03:19 → ERHOLD 04:28 → 2ND 05:04
PROVIDERS: ADMIT Internal Medicine; ATTEND Internal Medicine
DX: R07.89 Other chest pain (principal); I25.10 Atherosclerotic heart disease of native coronary artery without angina pectoris; I10 Essential (primary) hypertension; E03.9 Hypothyroidism, unspecified; N18.32 Chronic kidney disease, stage 3b; E78.5 Hyperlipidemia, unspecified; Z20.822 Contact with and (suspected) exposure to COVID-19; Z86.73 Personal history of transient ischemic attack (TIA), and cerebral infarction without residual deficits; Z82.49 Family history of ischemic heart disease and other diseases of the circulatory system; Z88.6 Allergy status to analgesic agent; Z88.8 Allergy status to other drugs, medicaments and biological substances; Z95.1 Presence of aortocoronary bypass graft
CPT/HCPCS: 93005; 87040 ×2; 85025; 81001; 80048 ×2; 36415 ×2; 83735; 85610; 80061; 85379; 80076; 85730; 84443; 84484 ×3; 83880; 0240U; 71275; 71045; 94760 ×3; 96374; 99285; Q9967; J1940; J1650 ×2; G0378 ×3

== ENCOUNTER 2023-03-06 19:34 | Emergency (ER) | payer OTHER ==
[2023-03-06 20:05] LABS: Absolute Lymphocytes (CBC) 0.9 K/uL (0.7-4.9); Lymphocytes % 8.1 % (15.3-44.8); MCV 87.9 fL (80-100); MPV 7.5 fL (7.6-11.3); Platelets 320 thou/uL (152-406)
[2023-03-06 20:22] LABS: Albumin 3.3 g/dL (3.4-5.0); Bilirubin Total 0.6 mg/dL (0.2-1.0); Potassium 3.9 mEq/L (3.5-5.1); Protein, Total 7.2 g/dL (6.4-8.2)
--- NOTE | 2023-03-06 21:32 | RAD REPORT ---
EXAM DESCRIPTION: CT - [id number] - 03/06/2023 9:18 pm CLINICAL HISTORY: Trauma, head and neck injury. TRAUMA COMPARISON: Chest For Pe Angio dated 06/05/2022 TECHNIQUE: Axial 5 mm thick images of the head were obtained. Axial 2 mm thick images of the cervical spine were obtained with sagittal and coronal reconstruction images generated and reviewed. All CT scans are performed using dose optimization technique as appropriate and may include automated exposure control or mA/KV adjustment according to patient size. FINDINGS: CT HEAD WITHOUT CONTRAST: No acute hemorrhage, hydrocephalus or extra-axial collection is identified.No areas of brain edema or midline shift. Moderate to advanced chronic small vessel ischemic changes. The paranasal sinuses and mastoids are clear.The calvarium is intact. CT CERVICAL SPINE WITHOUT CONTRAST: No fracture or subluxation.No prevertebral soft tissues swelling is identified. 12 mm irregular right upper lobe pulmonary nodule is similar in size to 06/05/2022. Paraseptal emphysema. Carotid artery c alcifications. Left carotid artery stent. Multilevel degenerative changes are present in the spine. M ild central spinal stenosis present at C3-4. IMPRESSION: No acute intracranial or cervical spine findings. Irregular right upper lobe nodule is similar in size since 06/05/22 but continues to have a suspiciou s morphology and could represent a slow growing neoplasm. PET/CT could be considered for further eval uation.
[2023-03-06] MEDS ORDERED: NA CHLORIDE 0.9% 500 ML ONE (22:24)
[2023-03-06 23:20] LABS: Specific Gravity 1.023 (1.005-1.030); Urine Bacteria None Seen /HPF (<20); Urine Bilirubin NEGATIVE (Negative); Urine Blood Trace (Negative); Urine Clarity Turbid (Clear); Urine Color Light-Yellow (Yellow); Urine Glucose NEGATIVE (Negative); Urine Mucus Slight /HPF (None Seen); Urine Protein 3+ (Negative); Urine RBC <5 /HPF (None Seen); Urine Urobilinogen Normal (Normal); Urine pH 5.5 (5.0-7.0)
--- NOTE | 2023-03-06 23:35 | EDPHYS ---
Physician Documentation [facility] Name: Lupe Hartley Age: 83 yrs Sex: Female : 1940 Arrival Date: 03/06/2023 Time: 19:34 Bed 3 Private MD: ED Physician Douglas Dolan HPI: 03/06 19:37 This 83 yrs old Female presents to ER via Unassigned with complaints of Weakness, ms3 Nausea, Fall Injury. 19:37 83-year-old female presents via [facility] for fall while going to a chair. Patient ms3 states she developed vomiting at 4 AM and has felt weak today. Patient denies loss of consciousness. Patient is on Plavix. Patient denies pain at this time. Patient denies alleviating or inciting factors.. Historical: - Allergies: 19:40 Phenobarbital; eh3 19:40 promethazine HCl; eh3 - Home Meds: 19:40 amlodipine 2.5 mg tab 1 tab [Active]; aspirin 81 mg Oral TbEC 1 tab once daily eh3 [Active]; irbesartan Oral [Active]; levothyroxine [Active]; metoprolol succinate 100 mg Oral Tb24 1 tab twice a day [Active]; Plavix 75 mg Oral tab 1 tab once daily [Active]; - PMHx: 19:40 CAD; cardiac stents; COPD; Diverticulitis; HARD OF HEARING; Hyperlipidemia; eh3 Hypertension; Hypothyroidism; Myocardial infarction; - PSHx: 19:40 Appendectomy; Cholecystectomy; Total abdominal hysterectomy; eh3 - Immunization history:: Adult Immunizations up to date. - Social history:: Smoking status: unknown. ROS: 19:37 Neck: Negative for injury, pain, and swelling, Cardiovascular: Negative for chest pain, ms3 and palpitations. Respiratory: Negative for shortness of breath, cough, wheezing, and pleuritic chest pain. 19:37 MS/Extremity: Negative for injury and deformity, Skin: Negative for injury, rash, and discoloration. 19:37 Constitutional: Positive for Generalized weakness. 19:37 Abdomen/GI: Positive for nausea and vomiting. Exam: 19:37 Constitutional: This is a well developed, well nourished patient who is awake, alert, ms3 and in no acute distress. Head/Face: Normocephalic, atraumatic. Neck: Trachea midline, no cervical lymphadenopathy. Supple, full range of motion without nuchal rigidity, or vertebral point tenderness. No Meningismus. Chest/axilla: Normal chest wall appearance and motion. Nontender with no deformity. Cardiovascular: Regular rate and rhythm with a normal S1 and S2. No gallops, murmurs, or rubs. Normal PMI, no JVD. No pulse deficits. Respiratory: Lungs have equal breath sounds bilaterally, clear to auscultation and percussion. No rales, rhonchi or wheezes noted. No increased work of breathing, no retractions or nasal flaring. Abdomen/GI: Soft, non-tender, with normal bowel sounds. No distension or tympany. No guarding or rebound. No evidence of tenderness throughout. Skin: Warm, dry with normal turgor. Normal color with no rashes, no lesions, and no evidence of cellulitis. MS/ Extremity: Pulses equal, no cyanosis. Neurovascular intact. Full, normal range of motion. 19:49 ECG was reviewed by the Attending Physician. ms3 Vital Signs: 19:35 BP 186 / 61; Pulse 65; Resp 16; Temp 97.7(O); Pulse Ox 96% on R/A; Weight 48.99 kg; eh3 Height 5 ft. 5 in. ; 20:30 BP 178 / 75; Pulse 65; Resp 16; Pulse Ox 96% on R/A; eh3 21:11 BP 193 / 68; Pulse 61; Resp 15 S; Pulse Ox 97% on R/A; lg3 22:17 BP 185 / 61; Pulse 62; Resp 16 S; Pulse Ox 98% on R/A; lg3 23:27 BP 191 / 58; Pulse 61; Resp 16 S; Pulse Ox 98% on R/A; lg3 19:35 Body Mass Index 17.97 (48.99 kg, 165.1 cm) eh3 MDM: 19:35 Patient medically screened. ms3 19:37 ED course: DDX includes Dehydration vs UTI vs ICH vs C spine injury. ms3 23:34 Data reviewed: vital signs, nurses notes, lab test result(s), EKG, radiologic studies, ms3 and as a result, I will discharge patient. I considered the following discharge prescriptions or medication management in the emergency department Medications were administered in the Emergency Department. See MAR. Independent interpretation of the following test(s) in the Emergency Department EKG: See my EKG interpretation above CT Scan: My interpretation is CT head without contrast images reviewed by me do not reveal intracranial hemorrhage. Historians other than the Patient: EMS: [facility]. Counseling: I had a detailed discussion with the patient and/or guardian regarding the historical points, exam findings, and any diagnostic results supporting the discharge/admit diagnosis, lab results, radiology results, the need for outpatient follow up, to return to the emergency department if symptoms worsen or persist or if there are any questions or concerns that arise at home. Special discussion: I discussed with the patient/guardian in detail that at this point there is no indication for admission to the hospital. It is understood, however, that if the symptoms persist or worsen the patient needs to return immediately for re-evaluation. ED course: Discussed labs, imaging with patient and her . Patient states she is aware of right upper lobe nodule with spiculation. Patient to follow-up with her primary care physician in 2 to 3 days. Patient understands and agrees with plan. All questions were answered. Return precautions discussed include worsening symptoms, or any other concerns. 03/06 19:37 Order name: CBC with Diff; Complete Time: 21:33 ms3 03/06 19:37 Order name: CMP; Complete Time: 21:33 ms3 03/06 19:37 Order name: Urinalysis w/ reflexes; Complete Time: 23:30 ms3 03/06 19:37 Order name: CT Head C Spine; Complete Time: 21:33 ms3 03/06 19:37 Order name: EKG; Complete Time: 19:37 ms3 03/06 19:37 Order name: Labs collected and sent; Complete Time: 19:59 ms3 03/06 19:37 Order name: EKG - Nurse/Tech; Complete Time: 19:59 ms3 EC:49 Rate is 66 beats/min. Rhythm is regular. Left axis deviation noted. VT interval is ms3 normal. Clinical impression: NSR w/ Non-specific ST/T Changes. Interpreted by me. Reviewed by me. Administered Medications: 22:16 Drug: NS 0.9% IV 500 ml Route: IV; Rate: bolus; Site: right antecubital; lg3 23:37 Follow up: IV Status: Completed infusion; IV Intake: 500ml lg3 Disposition Summary: 03/06/23 23:34 Discharge Ordered Location: Home ms3 Condition: Stable ms3 Diagnosis - Fall on same level, unspecified ms3 - Muscle weakness (generalized) ms3 - Solitary pulmonary nodule - Right upper lobe- spiculated ms3 Followup: ms3 - With: Private Physician - When: 1 - 2 days - Reason: Recheck today's complaints Discharge Instructions: - Discharge Summary Sheet ms3 - Weakness ms3 - Weakness, [id number] ms3 - Pulmonary Nodule, [id number] ms3 Forms: - Medication Reconciliation Form ms3 - Thank You Letter ms3 - Antibiotic Education ms3 - Prescription Opioid Use ms3 - Patient Portal Instructions ms3 - Leadership Thank You Letter ms3 Signatures: Dispatcher [employer] EDChristiane Oconnor, RN RN lg3 Douglas Dolan, DO ms3 Zee Cr, RN RN eh3
--- NOTE | 2023-03-06 23:35 | ER ---
Nurse's Notes [facility] Name: Lupe Hartley Age: 83 yrs Sex: Female : 1940 Arrival Date: 03/06/2023 Time: 19:34 Bed 3 Private MD: Diagnosis: Fall on same level, unspecified;Muscle weakness (generalized);Solitary pulmonary nodule-Right upper lobe- spiculated Presentation: 03/06 19:35 Chief complaint: EMS states: toned out to home for fall from chair to floor due to pasquale eh3 leg weakness, fall occurred about 45 minutes ago and weakness began this morning at 0400. Pt denies hitting head or LOC. Coronavirus screen: Vaccine status: Patient reports receiving the 2nd dose of the covid vaccine. Ebola Screen: No symptoms or risks identified at this time. No acute neurological deficit is noted. Initial Sepsis Screen: Does the patient meet any 2 criteria? No. Patient's initial sepsis screen is negative. Does the patient have a suspected source of infection? No. Patient's initial sepsis screen is negative. Risk Assessment: Do you want to hurt yourself or someone else? Patient reports no desire to harm self or others. Onset of symptoms was March 06, 2023. 19:35 Method Of Arrival: EMS: [place] [id number] 19:35 Acuity: NINI 3 eh3 Triage Assessment: 19:40 The onset of the patients symptoms was March 06, 2023 at 04:00. General: Appears in no eh3 apparent distress. comfortable, Behavior is calm, cooperative, appropriate for age. Pain: Denies pain. Neuro: Level of Consciousness is awake, alert, obeys commands, Oriented to person, place, situation, Reports weakness in right leg and left leg. Cardiovascular: Capillary refill < 3 seconds Patient's skin is warm and dry. Respiratory: Airway is patent Respiratory effort is even, unlabored, Respiratory pattern is regular, symmetrical. GI: Abdomen is round non-distended. Derm: Skin is pink, warm \T\ dry. Musculoskeletal: Circulation, motion, and sensation intact. Historical: - Allergies: 19:40 Phenobarbital; eh3 19:40 promethazine HCl; eh3 - Home Meds: 19:40 amlodipine 2.5 mg tab 1 tab [Active]; aspirin 81 mg Oral TbEC 1 tab once daily eh3 [Active]; irbesartan Oral [Active]; levothyroxine [Active]; metoprolol succinate 100 mg Oral Tb24 1 tab twice a day [Active]; Plavix 75 mg Oral tab 1 tab once daily [Active]; - PMHx: 19:40 CAD; cardiac stents; COPD; Diverticulitis; HARD OF HEARING; Hyperlipidemia; eh3 Hypertension; Hypothyroidism; Myocardial infarction; - PSHx: 19:40 Appendectomy; Cholecystectomy; Total abdominal hysterectomy; eh3 - Immunization history:: Adult Immunizations up to date. - Social history:: Smoking status: unknown. Screenin:[facility] ED Fall Risk Assessment (Adult) Score/Fall Risk Level 3 or more points = High eh3 Risk Oriented to surroundings, Maintained a safe environment, Educated pt \T\ family on fall prevention, incl call for assistance when getting out of bed, Assessed \T\ reinforced patient's understanding of fall precautions, Provided non-skid footwear, Hourly rounding (assess needs \T\ fall precautionary measures) done, Used ambulatory aids as needed (educated on \T\ assisted with). Abuse screen: Denies threats or abuse. Denies injuries from another. Nutritional screening: No deficits noted. Tuberculosis screening: No symptoms or risk factors identified. Assessment: 19:35 VAN Scoring: Arm Drift: Patients demonstrates NO arm weakness. Patient is VAN Negative. eh3 Visual Disturbance: No visual disturbance noted. Aphasia: No aphasia noted. Neglect: No neglect noted. 20:30 Reassessment: Patient appears in no apparent distress at this time. Patient and/or eh3 family updated on plan of care and expected duration. Pain level reassessed. Patient is alert, oriented x 3, equal unlabored respirations, skin warm/dry/pink. 21:12 General: Appears in no apparent distress. comfortable, Behavior is calm, cooperative. lg3 Pain: Denies pain. Neuro: No deficits noted. Rutledge Agitation-Sedation Scale (RASS): 0 - Alert and Calm Reports weakness. Cardiovascular: No deficits noted. Denies chest pain, shortness of breath, Capillary refill < 3 seconds Clubbing of nail beds is absent JVD is absent Patient's skin is warm and dry. Respiratory: No deficits noted. Airway is patent Respiratory effort is even, unlabored, Respiratory pattern is regular, symmetrical. GI: No deficits noted. No signs and/or symptoms were reported involving the gastrointestinal system. Abdomen is flat, non-distended. : No deficits noted. No signs and/or symptoms were reported regarding the genitourinary system. EENT: No deficits noted. No signs and/or symptoms were reported regarding the EENT system. Derm: No deficits noted. No signs and/or symptoms reported regarding the dermatologic system. Skin is intact, is fragile, is thin, Skin is dry, Skin is normal, Skin temperature is warm. Musculoskeletal: Reports generalized weakness. 22:17 Reassessment: Patient appears in no apparent distress at this time. No changes from lg3 previously documented assessment. Patient and/or family updated on plan of care and expected duration. Pain level reassessed. Patient is alert, oriented x 3, equal unlabored respirations, skin warm/dry/pink. 23:27 Reassessment: Patient appears in no apparent distress at this time. No changes from lg3 previously documented assessment. Patient and/or family updated on plan of care and expected duration. Pain level reassessed. Patient is alert, oriented x 3, equal unlabored respirations, skin warm/dry/pink. Vital Signs: 19:35 BP 186 / 61; Pulse 65; Resp 16; Temp 97.7(O); Pulse Ox 96% on R/A; Weight 48.99 kg; eh3 Height 5 ft. 5 in. ; 20:30 BP 178 / 75; Pulse 65; Resp 16; Pulse Ox 96% on R/A; eh3 21:11 BP 193 / 68; Pulse 61; Resp 15 S; Pulse Ox 97% on R/A; lg3 22:17 BP 185 / 61; Pulse 62; Resp 16 S; Pulse Ox 98% on R/A; lg3 23:27 BP 191 / 58; Pulse 61; Resp 16 S; Pulse Ox 98% on R/A; lg3 19:35 Body Mass Index 17.97 (48.99 kg, 165.1 cm) 3 ED Course: 19:35 Patient arrived in ED. eh3 19:35 Douglas Dolan DO is Attending Physician. ms3 19:35 Patient has correct armband on for positive identification. Bed in low position. Call 3 light in reach. Side rails up X2. Provided Education on: Use of call schmid. Client placed on continuous cardiac and pulse oximetry monitoring. NIBP monitoring applied. 19:35 Maintain EMS IV. Dressing intact. Good blood return noted. Site clean \T\ dry. Gauge \T\ eh 3 site: 22g RAC. 19:40 Triage completed. eh3 19:40 Arm band placed on. eh3 21:11 Christiane Branch, RN is Primary Nurse. lg3 21:12 Door closed. Noise minimized. Warm blanket given. Family accompanied patient. lg3 21:12 Patient maintains SpO2 saturation greater than 95% on room air. lg3 21:20 CT Head C Spine In Process Unspecified. EDMS 23:37 No provider procedures requiring assistance completed. IV discontinued, intact, lg3 bleeding controlled, No redness/swelling at site. Pressure dressing applied. Administered Medications: 22:16 Drug: NS 0.9% IV 500 ml Route: IV; Rate: bolus; Site: right antecubital; lg3 23:37 Follow up: IV Status: Completed infusion; IV Intake: 500ml lg3 Medication: 23:37 VIS not applicable for this client. lg3 Intake: 23:37 IV: 500ml; Total: 500ml. lg3 Outcome: 23:34 Discharge ordered by . ms3 23:37 Discharged to home via wheelchair, with significant other. lg3 23:37 Condition: stable 23:37 Discharge instructions given to patient, Instructed on discharge instructions, follow up and referral plans. Demonstrated understanding of instructions, follow-up care. 23:46 Patient left the ED. jw7 Signatures: Dispatcher [employer] EDMS Christiane Branch, RN SADIQ 3 Douglas Dolan, DO ms3 Carissa Jimenes RN SADIQ jw7 Zee Cr RN RN 3
[2023-03-06 23:50] VITALS: TEMP 97.7
[2023-03-06 23:55] VITALS: O2SAT 98
[2023-03-06 23:57] VITALS: BP 191/58
--- NOTE | 2023-03-07 15:05 | EKG ---
Test Date: 2023-03-06 Test Time: 19:49:36 [employer] Room Supervisor: ОЛЕГ MEASUREMENT RESULTS: Intervals: Rate: 66 TN: 186 QRSD: 122 QT: 434 QTc: 454 [place]: P: -19 TN: 186 QRS: -76 T: 97 INTERPRETIVE STATEMENTS: Normal sinus rhythm Left axis deviation Left ventricular hypertrophy with QRS widening ST & T wave abnormality, consider lateral ischemia Abnormal ECG Compared to ECG 06/05/2022 03:29:43 Left ventricular hypertrophy now present ST (T wave) deviation now present Possible ischemia now present Left bundle-branch block no longer present Electronically Signed On 03-07-23 15:04:42 CDT by Keaton Frausto
== END 2023-03-06 23:46 | disposition home or self-care (01) ==
LOC: ER 19:34
DX: M62.81 Muscle weakness (generalized) (principal); R91.1 Solitary pulmonary nodule; W18.30XA Fall on same level, unspecified, initial encounter; I10 Essential (primary) hypertension; J44.9 Chronic obstructive pulmonary disease, unspecified; E03.9 Hypothyroidism, unspecified; Z95.818 Presence of other cardiac implants and grafts; Z79.01 Long term (current) use of anticoagulants; Z79.82 Long term (current) use of aspirin
CPT/HCPCS: 93005; 85025; 81001; 36415; 80053; 70450; 72125; 96360; 99285; J7040

== ENCOUNTER 2023-04-27 01:36 | Inpatient (IN) | payer OTHER ==
--- NOTE | 2023-04-27 02:26 | ER ---
Nurse's Notes [facility] Name: Lupe Hartley Age: 83 yrs Sex: Female : 1940 Arrival Date: 04/27/2023 Time: 01:36 Bed 7 Private MD: Diagnosis: Syncope Near;Weakness;Diarrhea, unspecified Presentation: 04/27 01:42 Chief complaint: EMS states: they were called to patient's home for patient having cm10 generalized weakness. EMS states that patient has had weakness, dizziness onset yesterday at 0800. Per EMS report, pt was having a BM tonight and became dizzy and was unable to stand. Pt had 1 episode of diarrhea. EMS states placing pt on 3L NC due to O2 sat being 93% on RA. Upon arrival, pt A\T\Ox4, respirations even and unlabored, O2 sat 96% on RA. Coronavirus screen: Vaccine status: Patient reports receiving the 2nd dose of the covid vaccine. Client denies travel out of the [place] in the last 14 days. Ebola Screen: Patient denies travel to an Ebola-affected area in the 21 days before illness onset. No symptoms or risks identified at this time. Initial Sepsis Screen: Does the patient meet any 2 criteria? No. Patient's initial sepsis screen is negative. Does the patient have a suspected source of infection? No. Patient's initial sepsis screen is negative. Risk Assessment: Do you want to hurt yourself or someone else? Patient reports no desire to harm self or others. Onset of symptoms was April 27, 2023. 01:42 Method Of Arrival: [facility] cm10 01:42 Acuity: NINI 3 cm10 Triage Assessment: 01:46 General: Appears in no apparent distress. comfortable, Behavior is calm, cooperative. cm10 Pain: Complains of pain in all over. EENT: No deficits noted. No signs and/or symptoms were reported regarding the EENT system. Neuro: No deficits noted. Rutledge Agitation-Sedation Scale (RASS): 0 - Alert and Calm Level of Consciousness is awake, alert, obeys commands, Oriented to person, place, time, situation. Cardiovascular: No deficits noted. Patient's skin is warm and dry. Respiratory: No deficits noted. Airway is patent Respiratory effort is even, unlabored, Respiratory pattern is regular, symmetrical. GI: No deficits noted. No signs and/or symptoms were reported involving the gastrointestinal system. Abdomen is flat. : No deficits noted. No signs and/or symptoms were reported regarding the genitourinary system. Derm: No deficits noted. No signs and/or symptoms reported regarding the dermatologic system. Skin is intact, Skin is pink, warm \T\ dry. Musculoskeletal: No deficits noted. No signs and/or symptoms reported regarding the musculoskeletal system. Range of motion: intact in all extremities. Historical: - Allergies: 01:46 Phenobarbital; cm10 01:46 promethazine HCl; cm10 - PMHx: 01:46 CAD; cardiac stents; COPD; Diverticulitis; HARD OF HEARING; Hyperlipidemia; cm10 Hypertension; Hypothyroidism; Myocardial infarction; - PSHx: :46 Appendectomy; Cholecystectomy; Total abdominal hysterectomy; cm10 - Immunization history:: Adult Immunizations up to date. - Social history:: Smoking status: Patient denies any tobacco usage or history of. - Family history:: not pertinent. Screenin:48 [facility] ED Fall Risk Assessment (Adult) History of falling in the last 3 months, cm10 including since admission No falls in past 3 months (0 pts) Confusion or Disorientation No (0 pts) Intoxicated or Sedated No (0 pts) Impaired Gait Yes (1 pt) Mobility Assist Device Used Yes (1 pt) Altered Elimination No (0 pt) Score/Fall Risk Level 0 - 2 = Low Risk Oriented to surroundings, Maintained a safe environment, Educated pt \T\ family on fall prevention, incl call for assistance when getting out of bed, Assessed \T\ reinforced patient's understanding of fall precautions, Hourly rounding (assess needs \T\ fall precautionary measures) done, Used ambulatory aids as needed (educated on \T\ assisted with). Abuse screen: Denies threats or abuse. Denies injuries from another. Nutritional screening: No deficits noted. Tuberculosis screening: No symptoms or risk factors identified. Assessment: 01:47 Reassessment: See triage assessment. cm10 02:56 Reassessment: Missed attempt for blood cultures. cm10 03:00 Reassessment: ASSUMED CARE OF PT. PT LYING IN BED. NO DISTRESS NOTED. VS STABLE. LAB jj7 CALLED TO COME ATTEMPT TO COLLECT BC BEFORE ANTIBIOTICS ARE STARTED. FAMILY AT BEDSIDE. CALL [place]NER IN REACH. Vital Signs: 01:42 BP 158 / 69; Pulse 80; Resp 18 S; Temp 97.6(O); Pulse Ox 96% on R/A; Weight 45.36 kg; cm10 Height 5 ft. 5 in. ; 03:00 BP 191 / 69; Pulse 76; Resp 20; Pulse Ox 96% ; jj7 04:00 BP 141 / 50; Pulse 82; Resp 20; Pulse Ox 97% ; Pain 0/10; jj7 01:42 Body Mass Index 16.64 (45.36 kg, 165.1 cm) cm10 04:00 Pain Scale: Adult jj7 [place] Coma Score: 02:20 Eye Response: spontaneous(4). Motor Response: obeys commands(6). Verbal Response: sanju oriented(5). Total: 15. NIH Stroke Scale Scores: 02:20 NIHSS Score: 0 sanju ED Course: 01:40 Patient arrived in ED. jj6 01:45 Triage completed. cm10 01:47 Arm band placed on Patient placed in an exam room, in the treatment room, on cardiac cm10 monitor, on pulse oximetry. 01:48 Patient has correct armband on for positive identification. Bed in low position. Call cm10 light in reach. Side rails up X2. Provided Education on: ER process and procedures. . Client placed on continuous cardiac and pulse oximetry monitoring. NIBP monitoring applied. 01:56 Fabiano Hutchison MD is Attending Physician. sanju 02:24 Matti Martin MD is Hospitalizing Provider. sanju 02:32 Type And Screen Sent. cm10 02:32 Lactate w/ 2H reflex if indic. Sent. cm10 02:32 Lipase Sent. cm10 02:32 Basic Metabolic Panel Sent. cm10 02:32 CBC with Diff Sent. cm10 02:32 LFT's Sent. cm10 02:32 Magnesium Sent. cm10 02:32 NT PRO-BNP Sent. cm10 02:32 PT-INR Sent. cm10 02:32 Troponin HS Sent. cm10 02:33 Initial lab(s) drawn, by me, sent to lab. T\T\S collected, blood band applied to patient. cm10 Inserted saline lock: 22 gauge in right antecubital area, using aseptic technique. Blood collected. 02:34 XRAY Chest (1 view) In Process Unspecified. EDMS 02:50 CT Traumagram (Head C Spine CAP wo con) In Process Unspecified. EDMS Administered Medications: 03:01 Drug: NS 0.9% IV 500 ml IV at bolus once Route: IV; Rate: bolus; Site: right cm10 antecubital; 03:50 Follow up: IV Status: Completed infusion jj7 03:01 Drug: Famotidine IVP 20 mg IVP once; dilute with 10 mL 0.9% NaCl; give over 2 minutes cm10 Route: IVP; Site: right antecubital; 04:30 Follow up: Response: No adverse reaction j7 04:22 Drug: Rocephin IV 1 grams IV at per protocol once; Given slow IV push per pharmacy jj7 instructions Route: IV; Rate: per protocol; Site: right antecubital; 04:29 Drug: NS 0.9% IV 1000 ml IV at 125 ml/hr continuous Route: IV; Rate: 125 ml/hr; Site: j right forearm; 04:29 Drug: Aspirin PO Chewable Tablet 162 mg PO once Route: PO; jj7 04:30 Follow up: Response: No adverse reaction jj7 Medication: 01:48 VIS not applicable for this client. cm10 Outcome: 02:25 Decision to Hospitalize by Provider. [facility] 07:42 Patient left the ED. ll1 NIH Stroke Scale - NIH Stroke Score Date: 04/27/2023 Time: 02:20 Total Score = 0 10. Dysarthria (speech clarity - read or repeat words) - 0(Normal) 11. Extinction and Inattention (visual/tactile/auditory/spatial/personal) - 0(No abnormality) 1a. Level of Consciousness (LOC) - 0(Alert) 1b. Level of Consciousness (LOC) (Month \T\ Age) - 0(Both) 1c. LOC Commands (Open \T\ Closes Eyes/Mesh Worker) - 0(Both) 2. Best Gaze (Lateral Gaze Paresis) - 0(Normal) 3. Visual Field Loss - 0(No visual loss) 4. Facial Palsy - 0(Normal) 5a. Left Arm: Motor (10-second hold) - 0(No drift) 5b. Right Arm: Motor (10-second hold) - 0(No drift) 6a. Left Leg: Motor (5-second hold - always test supine) - 0(No drift) 6b. Right Leg: Motor (5-second hold - always test supine) - 0(No drift) 7. Limb Ataxia (finger/nose \T\ heel/craft - test with eyes open) - 0(Absent) 8. Sensory Loss (pinprick arms/legs/face) - 0(Normal) 9. Best Language: Aphasia (description/naming/reading) - 0(No aphasia) Initials: sanju Signatures: Dispatcher [employer] EDFabiano Edmond MD MD cha Lewis, Lynsay RN RN ll1 Paulina Ruiz jj6 Yanique Akbar RN RN jj7 Jagruti Ward RN RN cm10 Corrections: (The following items were deleted from the chart) 04:31 04:00 BP 129 / 111; Pulse 82bpm; Resp 20bpm; Pulse Ox 97%; Pain 0/10, Adult; [id number]
--- NOTE | 2023-04-27 02:26 | EDPHYS ---
Physician Documentation [facility] Name: Lupe Hartley Age: 83 yrs Sex: Female : 1940 Arrival Date: 04/27/2023 Time: 01:36 Bed 7 Private MD: ED Physician Fabiano Hutchison HPI: 04/27 02:17 This 83 yrs old Female presents to ER via EMS with complaints of General sanju Weakness. 02:17 weakness. The patient has experienced near-syncope, felt dizzy, felt faint, felt sanju generally weak. Onset: The symptoms/episode began/occurred just prior to arrival. Duration: The patient has had multiple episodes, that last 20 second(s). Context: the episode(s) was witnessed, by family. Onset: The symptoms/episode began/occurred just prior to arrival. Associated injury: The patient did not suffer any apparent associated injury. Associated signs and symptoms: Pertinent positives: dizziness, lightheadedness, palpitations. Current symptoms: Currently, the patient is not experiencing any symptoms, the patient feels back to baseline. Severity of symptoms: At their worst the symptoms were mild moderate in the emergency department the symptoms are unchanged. The patient has experienced similar episodes in the past, several times. Historical: - Allergies: 01:46 Phenobarbital; cm10 01:46 promethazine HCl; cm10 - PMHx: 01:46 CAD; cardiac stents; COPD; Diverticulitis; HARD OF HEARING; Hyperlipidemia; cm10 Hypertension; Hypothyroidism; Myocardial infarction; - PSHx: 01:46 Appendectomy; Cholecystectomy; Total abdominal hysterectomy; cm10 - Immunization history:: Adult Immunizations up to date. - Social history:: Smoking status: Patient denies any tobacco usage or history of. - Family history:: not pertinent. ROS: 02:17 Constitutional: Negative for fever, chills, and weight loss, Eyes: Negative for injury, sanju pain, redness, and discharge, ENT: Negative for injury, pain, and discharge, Neck: Negative for injury, pain, and swelling, Cardiovascular: Negative for chest pain, palpitations, and edema, Respiratory: Negative for shortness of breath, cough, wheezing, and pleuritic chest pain, Abdomen/GI: Negative for abdominal pain, nausea, vomiting, diarrhea, and constipation, Back: Negative for injury and pain, : Negative for injury, bleeding, discharge, and swelling, MS/Extremity: Negative for injury and deformity, Skin: Negative for injury, rash, and discoloration, Psych: Negative for depression, anxiety, suicide ideation, homicidal ideation, and hallucinations, Allergy/Immunology: Negative for hives, rash, and allergies, Endocrine: Negative for neck swelling, polydipsia, polyuria, polyphagia, and marked weight changes, Hematologic/Lymphatic: Negative for swollen nodes, abnormal bleeding, and unusual bruising, 02:17 Neuro: Positive for dizziness, near syncope, weakness, Exam: 02:20 Abdomen/GI: Exam negative for acute changes, sanju 02:20 Constitutional: This is a well developed, well nourished patient who is awake, alert, and in no acute distress. Head/Face: Normocephalic, atraumatic. Eyes: Pupils equal round and reactive to light, extra-ocular motions intact. Lids and lashes normal. Conjunctiva and sclera are non-icteric and not injected. Cornea within normal limits. Periorbital areas with no swelling, redness, or edema. ENT: Nares patent. No nasal discharge, no septal abnormalities noted. Tympanic membranes are normal and external auditory canals are clear. Oropharynx with no redness, swelling, or masses, exudates, or evidence of obstruction, uvula midline. Mucous membranes moist. Neck: Trachea midline, no thyromegaly or masses palpated, and no cervical lymphadenopathy. Supple, full range of motion without nuchal rigidity, or vertebral point tenderness. No Meningismus. Chest/axilla: Normal chest wall appearance and motion. Nontender with no deformity. No lesions are appreciated. Cardiovascular: Regular rate and rhythm with a normal S1 and S2. No gallops, murmurs, or rubs. Normal PMI, no JVD. No pulse deficits. Respiratory: Lungs have equal breath sounds bilaterally, clear to auscultation and percussion. No rales, rhonchi or wheezes noted. No increased work of breathing, no retractions or nasal flaring. Back: No spinal tenderness. No costovertebral tenderness. Full range of motion. Female : Normal external genitalia. MS/ Extremity: Pulses equal, no cyanosis. Neurovascular intact. Full, normal range of motion. Psych: Awake, alert, with orientation to person, place and time. Behavior, mood, and affect are within normal limits. 02:20 Abdomen/GI: Inspection: abdomen appears normal, Bowel sounds: normal, Palpation: mild abdominal tenderness, in all quadrants, Liver: no appreciated palpable abnormalities, Hernia: not appreciated, 02:29 ECG was reviewed by the Attending Physician. [facility] Vital Signs: 01:42 BP 158 / 69; Pulse 80; Resp 18 S; Temp 97.6(O); Pulse Ox 96% on R/A; Weight 45.36 kg; cm10 Height 5 ft. 5 in. ; 03:00 BP 191 / 69; Pulse 76; Resp 20; Pulse Ox 96% ; jj7 04:00 BP 141 / 50; Pulse 82; Resp 20; Pulse Ox 97% ; Pain 0/10; jj7 01:42 Body Mass Index 16.64 (45.36 kg, 165.1 cm) cm10 04:00 Pain Scale: Adult j NIH Stroke Scale Scores: 02:20 NIHSS Score: 0 sanju Shelby Coma Score: 02:20 Eye Response: spontaneous(4). Motor Response: obeys commands(6). Verbal Response: sanju oriented(5). Total: 15. MDM: 01:56 Patient medically screened. sanju 02:22 Differential Diagnosis altered mental status, sepsis, flu. Differential Diagnosis: sanju aortic aneurysm, cardiac arrhythmia, cerebrovascular accident, GI bleed, idiopathic syncope, pseudo seizure, seizure, sepsis, transient ischemic attack, vasovagal episode. Data reviewed: vital signs, nurses notes, lab test result(s), EKG, radiologic studies, CT scan, plain films. Consideration of Admission/Observation Patient was admitted/placed on observation. Escalation of care including admission/observation considered. I considered the following discharge prescriptions or medication management in the emergency department Medications were administered in the Emergency Department. See MAR. Independent interpretation of the following test(s) in the Emergency Department EKG: See my EKG interpretation above. Test considered but Not performed: Ultrasound no abd usg. Care significantly affected by the following chronic conditions: Hypertension, Chronic Obstructive Pulmonary Disease, mi, cad, diverticulitis. Counseling: I had a detailed discussion with the patient and/or guardian regarding the historical points, exam findings, and any diagnostic results supporting the discharge/admit diagnosis, lab results, radiology results, the need for further work-up and treatment in the hospital. 04/27 01:58 Order name: Basic Metabolic Panel; Complete Time: 03:22 [facility] 04/27 01:58 Order name: CBC with Diff [facility] 04/27 01:58 Order name: LFT's; Complete Time: 03:22 [facility] 04/27 01:58 Order name: Magnesium; Complete Time: 03:22 [facility] 04/27 01:58 Order name: NT PRO-BNP; Complete Time: 03:22 [facility] 04/27 01:58 Order name: PT-INR; Complete Time: 02:58 [facility] 04/27 01:58 Order name: Troponin HS; Complete Time: 03:22 [facility] 04/27 01:58 Order name: Lipase; Complete Time: 03:22 [facility] 04/27 01:58 Order name: Urinalysis w/ reflexes [facility] 04/27 01:58 Order name: Blood Culture Adult (2) [facility] 04/27 01:58 Order name: Lactate w/ 2H reflex if indic.; Complete Time: 03:22 [facility] 04/27 02:11 Order name: Type And Screen [facility] 04/27 02:56 Order name: Manual Differential EDMS 04/27 06:25 Order name: CBC with Automated Diff EDMS 04/27 06:37 Order name: Basic Metabolic Panel EDMS 04/27 06:37 Order name: Troponin High Sensitivity EDMS 04/27 06:37 Order name: Magnesium EDMS 04/27 01:58 Order name: XRAY Chest (1 view) [facility] 04/27 01:59 Order name: CT Traumagram (Head C Spine CAP wo con) [facility] 04/27 01:58 Order name: EKG; Complete Time: 01:59 [facility] 04/27 01:58 Order name: Cardiac monitoring; Complete Time: 02:32 [facility] 04/27 01:58 Order name: EKG - Nurse/Tech; Complete Time: 02:32 [facility] 04/27 01:58 Order name: IV Saline Lock; Complete Time: 02:32 [facility] 04/27 01:58 Order name: Labs collected and sent; Complete Time: 02:32 [facility] 04/27 01:58 Order name: O2 Per Protocol; Complete Time: 02:32 [facility] 04/27 01:58 Order name: O2 Sat Monitoring; Complete Time: 02:32 [facility] EC:29 Rate is 79 beats/min. Rhythm is regular. QRS Dudley is Normal. NM interval is normal. QRS sanju interval is normal. QT interval is normal. No Q waves. T waves are Normal. No ST changes noted. Clinical impression: NSR w/ Non-specific ST/T Changes and No evidence of ischemia. Interpreted by me. Reviewed by me. Administered Medications: 03:01 Drug: NS 0.9% IV 500 ml IV at bolus once Route: IV; Rate: bolus; Site: right cm10 antecubital; 03:50 Follow up: IV Status: Completed infusion jj7 03:01 Drug: Famotidine IVP 20 mg IVP once; dilute with 10 mL 0.9% NaCl; give over 2 minutes cm10 Route: IVP; Site: right antecubital; 04:30 Follow up: Response: No adverse reaction jj7 04:22 Drug: Rocephin IV 1 grams IV at per protocol once; Given slow IV push per pharmacy jj7 instructions Route: IV; Rate: per protocol; Site: right antecubital; 04:29 Drug: NS 0.9% IV 1000 ml IV at 125 ml/hr continuous Route: IV; Rate: 125 ml/hr; Site: [facility] right forearm; 04:29 Drug: Aspirin PO Chewable Tablet 162 mg PO once Route: PO; jj7 04:30 Follow up: Response: No adverse reaction jj7 Disposition Summary: 04/27/23 02:25 Hospitalization Ordered Notes: Hospitalization Status: Inpatient Admission sanju Provider: Matti Martin cha Condition: Fair sanju Problem: new sanju Symptoms: have improved sanju Bed/Room Type: Standard sanju Location: Telemetry/MedSurg (Inpatient)(04/27/23 06:58) Room Assignment: [facility](04/27/23 06:58) Diagnosis - Syncope Near sanju - Weakness sanju - Diarrhea, unspecified sanju Forms: - Medication Reconciliation Form sanju - SBAR form sanju - Leadership Thank You Letter sanju NIH Stroke Scale - NIH Stroke Score Date: 04/27/2023 Time: 02:20 Total Score = 0 10. Dysarthria (speech clarity - read or repeat words) - 0(Normal) 11. Extinction and Inattention (visual/tactile/auditory/spatial/personal) - 0(No abnormality) 1a. Level of Consciousness (LOC) - 0(Alert) 1b. Level of Consciousness (LOC) (Month \T\ Age) - 0(Both) 1c. LOC Commands (Open \T\ Closes Eyes/Haulage Engine Operator) - 0(Both) 2. Best Gaze (Lateral Gaze Paresis) - 0(Normal) 3. Visual Field Loss - 0(No visual loss) 4. Facial Palsy - 0(Normal) 5a. Left Arm: Motor (10-second hold) - 0(No drift) 5b. Right Arm: Motor (10-second hold) - 0(No drift) 6a. Left Leg: Motor (5-second hold - always test supine) - 0(No drift) 6b. Right Leg: Motor (5-second hold - always test supine) - 0(No drift) 7. Limb Ataxia (finger/nose \T\ heel/craft - test with eyes open) - 0(Absent) 8. Sensory Loss (pinprick arms/legs/face) - 0(Normal) 9. Best Language: Aphasia (description/naming/reading) - 0(No aphasia) Initials: sanju Signatures: Dispatcher [employer] EDFabiano Edmond MD MD cha Garcia, Cindy, RN RN cg Johnson, Juwairiyah, RN RN jjJagruti Casillas RN RN cm10 Corrections: (The following items were deleted from the chart) 03:55 02:25 Telemetry/MedSurg (Inpatient) sanju cg 03:55 02:25 sanju cg 06:58 03:[address] [facility] ER HOLD cg cg 06:58 03:55 ERHOLD- cg cg
--- NOTE | 2023-04-27 02:41 | P.HP ---
Certification for Inpatient Patient admitted to: Inpatient With expected LOS: <2 Midnights Patient will require the following post-hospital care: None Practitioner: I am a practitioner with admitting privileges, knowledge of patient current condition, hospital course, and medical plan of care. Services: Services provided to patient in accordance with Admission requirements found in Title 42 Section 412.3 of the Code of Federal Regulations Patient History Date of Service: 04/27/23 Reason for admission: Syncope History of Present Illness: 83-year-old, female with a past medical history of CAD, cardiac stents, COPD, diverticulitis, hyperlipidemia, hypertension, NC, hard of hearing, presents to the emergency room with dizziness. She reports symptoms started prior to arrival. She reports associated weakness, feeling faint. She reports associated diarrhea worse today. She reports symptoms worse with exertion. Better with rest. She reports chest pain that is chronic. Denies chest pain radiation. She denies fever, chills, chest pain, abdominal pain, shortness of breath, nausea vomiting. Plan to admit for near syncope. Weakness, diarrhea. ER evaluation NIH stroke scale 0 GCS 15, vital signsBP 158 / 69; Pulse 80; Resp 18 S; Temp 97.6(O); Pulse Ox 96% on R/A;Laboratory evaluation leukocytosis 14.80, left shift 86.1, acute kidney injury BUN 17 creatinine 1.22, unknown baseline estimated GFR 44, elevated troponin 73.6, BNP 90635, UA pending, CT of the abdomen pelvis chest, head and cervical spine 13 mm right lung base lung lesion similar in size to previous exam, calcified granuloma, minimal bilateral pleural fluid, cardiomegaly, bilateral renal cysts 3.7 no hydronephrosis, colonic diverticulosis, no bowel dilation or obstruction, C3-C4 C4-C5 mild central canal stenosis, right upper lobe pulmonary lesion [address] report, Allergies Androgenic Anabolic Steroid Allergy (Verified 05/31/14 11:22) Shortness of breath phenobarbital Allergy (Verified 03/05/15 17:16) Unknown promethazine HCl [From Phenergan] Allergy (Verified 05/31/14 11:22) hallucinations codeine Adverse Reaction (Unknown, Verified 05/31/14 11:22) Nausea/Vomiting steroids Allergy (Uncoded 10/10/14 13:45) Unknown Home Medications: Levothyroxine Sodium [Levoxyl] 88 mcg PO [id number] 01/18/14 Metoprolol Succinate [Toprol Xl*] 100 mg PO BID 6AM 6PM 01/18/14 Albuterol Inhaler [Ventolin Inhaler*] 1 puff IH Q4HP PRN 06/05/22 Amlodipine [Norvasc*] 2.5 mg PO DAILY 06/05/22 Aspirin [Aspirin EC 81 MG] 81 mg PO DAILY 06/05/22 Budesonide/Formoterol Fumarate [Symbicort 160-4.5 Mcg Inhaler] 2 puff IH BID 06/05/22 Clopidogrel Bisulfate [Plavix*] 75 mg PO DAILY 06/05/22 Gabapentin 100 mg PO BEDTIME 06/05/22 Hydralazine [Apresoline*] 10 mg PO TIDP PRN 06/05/22 Irbesartan 150 mg PO DAILY 06/05/22 Atorvastatin Calcium [Lipitor] 40 mg PO BEDTIME #30 tab 06/06/22 - Past Medical/Surgical History Diabetic: No -: Hypothyroidism -: HTN -: Hyperlipidemia -: History of TIA -: CAD with prior stents, CABG x2 -: COPD -: diverticulitis -: CABG x2 -: Hysterectomy -: History of colon resection related to diverticulitis -: Cardiac stents Psychosocial/ Personal History: Patient is of 59 years - Family History Father -: Heart disease - Social History Alcohol use: No CD- Drugs: No Caffeine use: Yes Review of Systems 10-point ROS is otherwise unremarkable Physical Examination - Physical Exam General: Alert, In no apparent distress, Oriented x3 HEENT: Atraumatic, Normocephalic, PERRLA Neck: Supple, 2+ carotid pulse no bruit, JVD not distended Respiratory: Normal air movement, Diminished, Crackles/rales Cardiovascular: No edema, Normal pulses, Regular rate/rhythm Capillary refill: <2 Seconds Gastrointestinal: Normal bowel sounds, Soft and benign Musculoskeletal: No clubbing, No swelling Integumentary: No rashes, No breakdown Neurological: Normal speech, Normal strength at 5/5 x4 extr, Normal tone Assessment and Plan - Plan Assessment and plan NSTEMI Acute kidney injury Elevated BNP Near syncope Diarrhea CAD cardiac stents COPD diverticulitis hyperlipidemia hypertension Pulmonary lesion NC hard of hearing Assessment and plan NSTEMI Elevated BNP Near syncope Telemetry, cardiology consult, trend troponin, trend BNP IV diuretics, as needed analgesics, resume appropriate home meds, daily weight BP 158 / 69; Pulse 80; Resp 18 S; Temp 97.6(O); Pulse Ox 96% elevated troponin 73.6, BNP 23128, UA pending, CT of the abdomen pelvis chest, head and cervical spine NIH stroke scale 0, GCS 15 leukocytosis 14.80, left shift 86.1,-ceftriaxone 40 mg Lovenox 1 mg/kg every [address] of the chest, cervical spine 13 mm right lung base lung lesion similar in size to previous exam, calcified granuloma, minimal bilateral pleural fluid, cardiomegaly, bilateral renal cysts 3.7 no hydronephrosis, colonic diverticulosis, no bowel dilation or obstruction, C3-C4 C4-C5 mild central canal stenosis, right upper lobe pulmonary lesion [address] report, Acute on chronic kidney injury Diarrhea Gentle IV fluids, acute kidney injury BUN 17 creatinine 1.22, unknown baseline estimated GFR 44, Renal consult cardiac stents COPD diverticulitis hyperlipidemia hypertension NC hard of hearing Resume appropriate home meds Pulmonary lesion Bilateral renal cyst seen on prior exams Follow-up as outpatient Full code DVT Diet cardiac Discharge Plan: Home Plan to discharge in: 48 Hours - Advance Directives Does patient have a Living Will: No Does patient have a Durable POA for Healthcare: No - Code Status/Comfort Care Code Status: Full Code Physician Review: Patient Assessed, Agree with Above Assessment and Plan Critical Care: No Time Spent Managing Pts Care (In Minutes): 50
[2023-04-27 02:48] LABS: Absolute Lymphocytes (CBC) 1.1 K/uL (0.7-4.9); Hematocrit 41.8 % (36.0-45.0); Lymphocytes % 7.1 % (15.3-44.8); MCV 89.7 fL (80-100); MPV 8.1 fL (7.6-11.3); Platelets 339 thou/uL (152-406); RBC Red Blood Cell Count 4.66 M/uL (3.86-4.86)
[2023-04-27 02:50] LABS: Protime INR 1.05
[2023-04-27] MEDS ORDERED: FAMOTIDINE 20 MG/2 ML VIAL IV ONE (02:50)
[2023-04-27] MEDS ORDERED: CEFTRIAXONE 1000 MG/VIAL ONE (02:50)
[2023-04-27] MEDS ORDERED: NA CHLORIDE 0.9% 500 ML ONE (02:50)
[2023-04-27] MEDS ORDERED: NA CHLORIDE 0.9% 50 ML ONE (02:51)
[2023-04-27 03:03] LABS: Albumin 3.3 g/dL (3.4-5.0); Bilirubin Direct 0.2 mg/dL (0-0.2); Bilirubin Indirect, Calculated 0.6 mg/dL (0.2-0.8); Bilirubin Total 0.8 mg/dL (0.2-1.0); Protein, Total 7.7 g/dL (6.4-8.2)
[2023-04-27 03:15] LABS: Troponin High Sensitivity 73.6 pg/mL (<58.9)
[2023-04-27] MEDS ORDERED: ENOXAPARIN 100 MG/ML SYR SQ SCH (03:38)
[2023-04-27] MEDS ORDERED: NA CHLORIDE 0.9% 1,000 ML ONE (04:37)
[2023-04-27] MEDS ORDERED: ASPIRIN EC 81 MG TAB PO ONE (04:37)
[2023-04-27 04:49] LABS: Blood Morphology Comment NOT SEEN (NOT SEEN); Platelet Estimate ADEQ
[2023-04-27] MEDS ORDERED: ENOXAPARIN 30 MG/0.3 ML SQ SCH (05:00)
[2023-04-27] MEDS ORDERED: ACETAMINOPHEN 500 MG TAB PO PRN (05:35)
[2023-04-27] MEDS ORDERED: MORPHINE 2 MG/ML SYR ONE (06:14)
[2023-04-27] MEDS ORDERED: ONDANSETRON 4 MG/2 ML VIAL ONE (06:14)
[2023-04-27 06:17] LABS: Absolute Lymphocytes (CBC) 0.7 K/uL (0.7-4.9); Hematocrit 33.7 % (36.0-45.0); Lymphocytes % 13.2 % (15.3-44.8); MCV 89.3 fL (80-100); MPV 7.6 fL (7.6-11.3); Platelets 233 thou/uL (152-406); RBC Red Blood Cell Count 3.78 M/uL (3.86-4.86)
[2023-04-27 06:36] LABS: Magnesium 1.8 mg/dL (1.6-2.4); Potassium 4.6 mEq/L (3.5-5.1); Troponin High Sensitivity 21.7 pg/mL (<58.9)
[2023-04-27 08:06] LABS: Blood Morphology Comment NOT SEEN (NOT SEEN); Platelet Estimate ADEQ; White Blood Cell Scan OK (OK)
[2023-04-27] MEDS ORDERED: FUROSEMIDE 40 MG/4 ML VIAL IV SCH (09:00)
[2023-04-27] MEDS: NA CHLORIDE 0.9% 1,000 ML IV SCH (10:53)
--- NOTE | 2023-04-27 11:18 | EKG ---
Test Date: 2023-04-27 Test Time: 02:20:51 Temporary Data Entry Clerk: PIERRE MEASUREMENT RESULTS: Intervals: Rate: 79 SC: 190 QRSD: 122 QT: 412 QTc: 472 [place]: P: 84 SC: 190 QRS: -77 T: 91 INTERPRETIVE STATEMENTS: Sinus rhythm with premature atrial complexes with aberrant conduction Left anterior fascicular block Left ventricular hypertrophy with QRS widening and repolarization abnormality Abnormal ECG Compared to ECG 03/06/2023 19:49:36 Atrial premature complex(es) now present Aberrant conduction of supraventricular beat(s) now present Left anterior fascicular block now present Early repolarization now present Left-axis deviation no longer present ST (T wave) deviation no longer present Possible ischemia no longer present Electronically Signed On 04-27-23 11:17:31 CDT by Keaton Frausto
[2023-04-27] MEDS ORDERED: PNEUMOCOCCAL VACCINE 0.5 ML IMVAC ONE (12:00)
[2023-04-27] MEDS ORDERED: HYDRALAZINE HCL 20 MG/ML VIAL IV ONE ×2 (14:47→15:41)
[2023-04-27] MEDS: ONDANSETRON 4 MG/2 ML VIAL IV PRN (14:56)
--- NOTE | 2023-04-27 15:08 | CON ---
Date of Consultation: 04/27/2023 Reason For Consultation: Syncope and elevated troponin. History Of Present Illness: This is an 83-year-old female with past medical history of coronary ashley ry disease status post stent to the ostial LAD in the past. Had a stress test back in June 2022, which showed small apical ischemia. She has been having chest pain lately as per her report, but ye sterday she was feeling dizziness, threw out, and felt faint while walking. She has been having diar salbador as well and then she was walking and she thought that she is going to pass out and she did brief ly. Denies having any active chest pain at this moment. Her echo from March without any signifi cant abnormality. She has moderate MR and normal ejection fraction. Troponin was positive slightly initially and now it is normal. Past Medical History: Coronary artery disease, hypertension, dyslipidemia, COPD. Medications: Refer reconciliation sheet for detailed list. Allergies: LIST WAS REVIEWED. Family History: No premature coronary artery disease or cancer. Social History: She does not smoke or drink. Does not use any drugs. Review of Systems: All systems reviewed and they were negative except as mentioned in HPI. Physical Examination: Vital Signs: Reviewed. Head and Neck: Pupils are equal, reactive to light. Intact eye movements. No JVD. No cervical lym phadenopathy. Neck is supple. Thyroid is not enlarged. Lungs: Clear to auscultation bilaterally. No rhonchi, wheezing, or crackles. No accessory muscle u se. Heart: Regular rate and rhythm. No extra sounds. Abdomen: Soft, nontender. Bowel sounds positive. No organomegaly. No masses or hernia. No rigidi ty or rebound. Extremities: No edema, clubbing, or cyanosis. Intact pulses. Skin: No rashes or nodules. Neurologic: Alert, awake, oriented x3. No acute focal deficits appreciated. Investigations: BUN is 18, creatinine 1.1. Troponin 73, then 21 and hemoglobin 11.8. Assessment And Recommendations: 1.Positive troponin with chest pain. Troponin is mildly elevated and then normalized. We will obta in a Lexiscan nuclear stress test on her to further evaluate and update the echo. 2.Syncope, likely it is due to low blood pressure and dehydration and she is having diarrhea. At th is point, she is not dizzy anymore. Continue to monitor on telemetry and obtain an echo. 3.Hypertension. Blood pressure is in a good range. SR/TRAN Voice ID: [id number] Report ID: [id number]
[2023-04-27] MEDS ORDERED: QUETIAPINE 25 MG TAB PO ONE (15:48)
[2023-04-27 18:11] LABS: Phosphorus 2.6 mg/dL (2.5-4.9); Potassium 3.5 mEq/L (3.5-5.1); Uric Acid 4.9 mg/dL (2.6-6.0)
--- NOTE | 2023-04-27 18:16 | RAD REPORT ---
EXAM DESCRIPTION: XR Chest, 1 View CLINICAL HISTORY: The patient is 83 years old and is Female; COPD;Cough TECHNIQUE: Single view of the chest. COMPARISON: No relevant prior studies available. FINDINGS: Lungs: COPD changes. No fluid overload or consolidation. Pleural space: Unremarkable. No pneumothorax. Heart: Mild cardiomegaly. Mediastinum: Unremarkable. Bones/joints: Sternal closure wires. No acute fracture visualized. Vasculature: Vascular stent in the left neck. Upper abdomen: No free air in the visualized upper abdomen. IMPRESSION: COPD changes. No fluid overload or consolidation. Electronically signed by: Jenna Stokes MD 04/27/2023 4:21 AM CDT Due to temporary technical issues with the PACS/Fluency reporting system, reports are being signed by the in house radiologists without review as a courtesy to insure prompt reporting. The interpreting radiologist is fully responsible for the content of the report.
--- NOTE | 2023-04-27 18:17 | RAD REPORT ---
EXAM DESCRIPTION: CT Head and Cervical Spine Without Intravenous Contrast CLINICAL HISTORY: The patient is 83 years old and is Female; Dizziness; Pain TECHNIQUE: Axial computed tomography images of the head/brain and cervical spine without intravenous contrast. Sagittal and coronal reformatted images were created and reviewed. This CT exam was pe rformed using one or more of the following dose reduction techniques: automated exposure control, a djustment of the mA and/or kV according to patient size, and/or use of iterative reconstruction techn ique. COMPARISON: March 06, 2023 FINDINGS: Brain: Moderate age related periventricular white matter microangiopathic changes. No intracranial hemorrhage. Ventricles: Within normal limits for age. No ventriculomegaly. Skull: No acute fracture. Sinuses: Unremarkable as visualized. No acute sinusitis. Mastoid air cells: Unremarkable as visualized. No mastoid effusion. Vertebrae: No acute cervical spine fracture visualized. Developmental nonunion posterior arch C1. Normal alignment. Discs/spinal canal/neural foramina: Degenerative disc disease C3-4 and C4-5. Mild central canal s tenosis C3-4. Soft tissues: Unremarkable. Vasculature: Left common carotid vascular stent. Lung apices: Question right upper lobe pulmonary lesion, [address] chest report. Pleuroparenchymal scarring at the lung apices. Pleural space: No apical pneumothorax. * A single impression for all exams can be found at the end of this report EXAM DESCRIPTION: CT Chest, Abdomen and Pelvis Without Intravenous Contrast CLINICAL HISTORY: The patient is 83 years old and is Female; Dizziness; Pain TECHNIQUE: Axial computed tomography images of the chest, abdomen and pelvis without intravenous con trast. Sagittal and coronal reformatted images were created and reviewed. This CT exam was perfor med using one or more of the following dose reduction techniques: automated exposure control, adjus tment of the mA and/or kV according to patient size, and/or use of iterative reconstruction technique . COMPARISON: CT angiography chest June 05, 2022. FINDINGS: Artifacts: Motion artifact limits evaluation. CHEST: Lungs: 13 mm spiculated lesion in the right lung apex, similar in size to the previous exam. Calcified granuloma right lower lobe. Lingula atelectasis or scarring. Pleural space: Minimal bilateral pleural fluid. No pneumothorax. Heart: Cardiomegaly. No significant pericardial effusion. No significant coronary artery calcifications. Mediastinum: No pneumomediastinum. ABDOMEN: Liver: Unremarkable. Gallbladder and bile ducts: Cholecystectomy without biliary dilatation. Pancreas: Fatty infiltration. No ductal dilation. Spleen: Unremarkable. No splenomegaly. Adrenals: Unremarkable. No mass. Kidneys and ureters: Bilateral simple renal cysts, largest measuring 3.7 cm. No nephrolithiasis or hydronephrosis. Stomach and bowel: Previous rectal resection/anastomosis. Colonic diverticulosis. No bowel dilatation or obstruction. No bowel wall thickening. PELVIS: Appendix: No findings to suggest acute appendicitis. Bladder: Bladder is not well distended. No stones. Reproductive: Hysterectomy. CHEST, ABDOMEN and PELVIS: Intraperitoneal space: Unremarkable. No significant fluid collection. No free air. Bones/joints: No sternoclavicular joint dislocation. No sternoclavicular joint dislocation. Degenerative changes in the thoracic and lumbar spine with mild thoracic scoliosis. No acute compression fracture in the thoracic or lumbar spine. No acute rib fracture visualized. No acute fracture in the pelvis or proximal femora. No hip dislocation. Soft tissues: Unremarkable. Vasculature: Moderate atherosclerotic calcification in the chest and abdomen. Coronary artery arslan cifications. No aortic aneurysm. Lymph nodes: Unremarkable. No enlarged lymph nodes. Tubes, lines and devices: Sternal closure wires. * A single impression for all exams can be found at the end of this report IMPRESSION: CT Head and Cervical Spine Without Intravenous Contrast: 1. No intracranial hemorrhage. 2. Moderate age related periventricular white matter microangiopathic changes. 3. No acute cervical spine fracture visualized. 4. Degenerative disc disease C3-4 and C4-5. Mild central canal stenosis C3-4. 5. Question right upper lobe pulmonary lesion, [address] chest report. CT Chest, Abdomen and Pelvis Without Intravenous Contrast: 1. Motion artifact limits evaluation. 2. 13 mm spiculated lesion in the right lung apex, similar in size to the previous exam. For low -risk or high-risk patients consider a follow-up chest CT at 3 months. If unchanged consider an add itional follow-up CT at 18-24 months. Alternatively (or additionally) PET/CT or tissue sampling cou ld be performed. These guidelines do not apply to immunocompromised patients and patients with c ancer. Follow up in patients with significant comorbidities as clinically warranted. For lung cancer screening, adhere to Lung-RADS guidelines. Reference: Radiology. 2017; 284(1):228-43. 3. Minimal bilateral pleural fluid. 4. Previous rectal resection/anastomosis. Colonic diverticulosis. 5. Bosniak II benign renal cyst measuring 3.7 cm. No follow-up imaging is recommended. JACR 2018 Aug; 264-273, Management of the Incidental Renal Mass on CT, [employer] 2020; 814-848, B osniak Classification of Cystic Renal Masses, Version 2019. Electronically signed by: Jenna Stokes MD 04/27/2023 4:37 AM CDT Due to temporary technical issues with the PACS/Fluency reporting system, reports are being signed by the in house radiologists without review as a courtesy to insure prompt reporting. The interpreting radiologist is fully responsible for the content of the report.
[2023-04-27] MEDS: QUETIAPINE 25 MG TAB PO SCH (20:48)
[2023-04-27] MEDS ORDERED: LORazepam 2 MG/ML VIAL IV ONE (21:05)
--- NOTE | 2023-04-27 21:17 | P.CNS ---
Date of Consult: 04/27/23 Reason for Consult: Hyponatremia Requesting Physician: Matti Martin Chief Complaint: Syncope History of Present Illness: 83-year-old, female with a past medical history of CAD, cardiac stents, COPD, diverticulitis, hyperlipidemia, hypertension, [place], hard of hearing, presents to the emergency room with dizziness. She reports symptoms started prior to arrival. She reports associated weakness, feeling faint. She reports associated diarrhea worse today. She reports symptoms worse with exertion. Better with rest. She reports chest pain that is chronic. Denies chest pain radiation. She denies fever, chills, chest pain, abdominal pain, shortness of breath, nausea vomiting. Plan to admit for near syncope. Weakness, diarrhea. ER evaluation NIH stroke scale 0 GCS 15, vital signsBP 158 / 69; Pulse 80; Resp 18 S; Temp 97.6(O); Pulse Ox 96% on R/A;Laboratory evaluation leukocytosis 14.80, left shift 86.1, acute kidney injury BUN 17 creatinine 1.22, unknown baseline estimated GFR 44, elevated troponin 73.6, BNP 98449, UA pending, CT of the abdomen pelvis chest, head and cervical spine 13 mm right lung base lung lesion similar in size to previous exam, calcified granuloma, minimal bilateral pleural fluid, cardiomegaly, bilateral renal cysts 3.7 no hydronephrosis, colonic diverticulosis, no bowel dilation or obstruction, C3-C4 C4-C5 mild central canal stenosis, right upper lobe pulmonary lesion [address] report. [id number] 02:17 This 83 yrs old Female presents to ER via EMS with complaints of General sanju Weakness. 02:17 weakness. The patient has experienced near-syncope, felt dizzy, felt faint, felt sanju generally weak. Onset: The symptoms/episode began/occurred just prior to arrival. Duration: The patient has had multiple episodes, that last 20 second(s). Context: the episode(s) was witnessed, by family. Onset: The symptoms/episode began/occurred just prior to arrival. Associated injury: The patient did not suffer any apparent ass ociated injury. Associated signs and symptoms: Pertinent positives: dizziness, lightheadedness, palpitations. Current symptoms: Currently, the patient is not experiencing any symptoms, the patient feels back to baseline. Severity of symptoms: At their worst the symptoms were mild moderate in the emergency department the symptoms are unchanged. The patient has experienced similar episodes in the past, several times. Allergies Androgenic Anabolic Steroid Allergy (Verified 05/31/14 11:22) Shortness of breath phenobarbital Allergy (Verified 03/05/15 17:16) Unknown promethazine HCl [From Phenergan] Allergy (Verified 05/31/14 11:22) hallucinations codeine Adverse Reaction (Unknown, Verified 05/31/14 11:22) Nausea/Vomiting steroids Allergy (Uncoded 10/10/14 13:45) Unknown Home medications list reviewed: Yes Home Medications: Levothyroxine Sodium [Levoxyl] 88 mcg PO [id number] 01/18/14 Metoprolol Succinate [Toprol Xl*] 100 mg PO BID 6AM 6PM 01/18/14 Albuterol Inhaler [Ventolin Inhaler*] 1 puff IH Q4HP PRN 06/05/22 Amlodipine [Norvasc*] 2.5 mg PO DAILY 06/05/22 Aspirin [Aspirin EC 81 MG] 81 mg PO DAILY 06/05/22 Budesonide/Formoterol Fumarate [Symbicort 160-4.5 Mcg Inhaler] 2 puff IH BID 06/05/22 Clopidogrel Bisulfate [Plavix*] 75 mg PO DAILY 06/05/22 Gabapentin 100 mg PO BEDTIME 06/05/22 Hydralazine [Apresoline*] 10 mg PO TIDP PRN 06/05/22 Irbesartan 150 mg PO DAILY 06/05/22 Amlodipine [Norvasc*] 5 mg PO DAILY 04/27/23 - Past Medical/Surgical History Diabetic: No -: Hypothyroidism -: HTN -: HLD -: History of TIA -: CAD with prior stents, CABG x2 -: COPD -: Diverticulitis -: CABG x2 -: Hysterectomy -: History of colon resection related to diverticulitis -: Cardiac stents Psychosocial/ Personal History: Patient is of 59 years - Family History Father Medical History: Heart disease - Social History Smoking Status: Unknown if ever smoked Alcohol use: No CD- Drugs: No Caffeine use: Yes Place of Residence: Home Review of Systems 10-point ROS is otherwise unremarkable General: Weakness Neurological: Confusion Physical Examination Temp Pulse Resp BP Pulse Ox 99.0 F 93 H 16 167/78 H 92 04/27/23 16:00 04/27/23 16:30 04/27/23 12:00 04/27/23 16:30 04/27/23 16:30 General: Cooperative, Confused HEENT: Atraumatic Neck: Supple Respiratory: Normal air movement Cardiovascular: No edema, Regular rate/rhythm Gastrointestinal: Soft and benign, Non-distended Musculoskeletal: No clubbing, No contractures Integumentary: No rashes, No cyanosis Neurological: Normal speech Laboratory Data (last 24 hrs) 04/27/23 04/27/23 04/27/23 02:25 02:25 02:25 WBC 14.80 H Hgb 14.0 Hct 41.8 Plt Count 339 PT 11.5 INR 1.05 Sodium 137 Potassium 4.0 BUN 17 Creatinine 1.22 H Glucose 145 H Magnesium 2.0 Total Bilirubin 0.8 AST 16 ALT 13 Alkaline Phosphatase 91 Lipase 24 Imagings Data: [id number] EXAM DESCRIPTION: XR Chest, 1 View CLINICAL HISTORY: The patient is 83 years old and is Female; COPD;Cough TECHNIQUE: Single view of the chest. COMPARISON: No relevant prior studies available. FINDINGS: Lungs: COPD changes. No fluid overload or consolidation. Pleural space: Unremarkable. No pneumothorax. Heart: Mild cardiomegaly. Mediastinum: Unremarkable. Bones/joints: Sternal closure wires. No acute fracture visualized. Vasculature: Vascular stent in the left neck. Upper abdomen: No free air in the visualized upper abdomen. IMPRESSION: COPD changes. No fluid overload or consolidation. [id number] EXAM DESCRIPTION: CT Head and Cervical Spine Without Intravenous Contrast CLINICAL HISTORY: The patient is 83 years old and is Female; Dizziness; Pain TECHNIQUE: Axial computed tomography images of the head/brain and cervical spine without intravenous contrast. Sagittal and coronal reformatted images were created and reviewed. This CT exam was performed using one or more of the following dose reduction techniques: automated exposure control, adjustment of the mA and/or kV according to patient size, and/or use of iterative reconstruction technique. COMPARISON: March 06, 2023 FINDINGS: Brain: Moderate age related periventricular white matter microangiopathic changes. No intracranial hemorrhage. Ventricles: Within normal limits for age. No ventriculomegaly. Skull: No acute fracture. Sinuses: Unremarkable as visualized. No acute sinusitis. Mastoid air cells: Unremarkable as visualized. No mastoid effusion. Vertebrae: No acute cervical spine fracture visualized. Developmental nonunion posterior arch C1. Normal alignment. Discs/spinal canal/neural foramina: Degenerative disc disease C3-4 and C4-5. Mild central canal stenosis C3-4. Soft tissues: Unremarkable. Vasculature: Left common carotid vascular stent. Lung apices: Question right upper lobe pulmonary lesion, [address] chest report. Pleuroparenchymal scarring at the lung apices. Pleural space: No apical pneumothorax. * A single impression for all exams can be found at the end of this report EXAM DESCRIPTION: CT Chest, Abdomen and Pelvis Without Intravenous Contrast CLINICAL HISTORY: The patient is 83 years old and is Female; Dizziness; Pain TECHNIQUE: Axial computed tomography images of the chest, abdomen and pelvis without intravenous contrast. Sagittal and coronal reformatted images were created and reviewed. This CT exam was performed using one or more of the following dose reduction techniques: automated exposure control, adjustment of the mA and/or kV according to patient size, and/or use of iterative reconstruction technique. COMPARISON: CT angiography chest June 05, 2022. FINDINGS: Artifacts: Motion artifact limits evaluation. CHEST: Lungs: 13 mm spiculated lesion in the right lung apex, similar in size to the previous exam. Calcified granuloma right lower lobe. Lingula atelectasis or scarring. Pleural space: Minimal bilateral pleural fluid. No pneumothorax. Heart: Cardiomegaly. No significant pericardial effusion. No significant coronary artery calcifications. Mediastinum: No pneumomediastinum. ABDOMEN: Liver: Unremarkable. Gallbladder and bile ducts: Cholecystectomy without biliary dilatation. Pancreas: Fatty infiltration. No ductal dilation. Spleen: Unremarkable. No splenomegaly. Adrenals: Unremarkable. No mass. Kidneys and ureters: Bilateral simple renal cysts, largest measuring 3.7 cm. No nephrolithiasis or hydronephrosis. Stomach and bowel: Previous rectal resection/anastomosis. Colonic diverticulosis. No bowel dilatation or obstruction. No bowel wall thickening. PELVIS: Appendix: No findings to suggest acute appendicitis. Bladder: Bladder is not well distended. No stones. Reproductive: Hysterectomy. CHEST, ABDOMEN and PELVIS: Intraperitoneal space: Unremarkable. No significant fluid collection. No free a ir. Bones/joints: No sternoclavicular joint dislocation. No sternoclavicular joint dislocation. Degenerative changes in the thoracic and lumbar spine with mild thoracic scoliosis. No acute compression fracture in the thoracic or lumbar spine. No acute rib fracture visualized. No acute fracture in the pelvis or proximal femora. No hip dislocation. Soft tissues: Unremarkable. Vasculature: Moderate atherosclerotic calcification in the chest and abdomen. Coronary artery calcifications. No aortic aneurysm. Lymph nodes: Unremarkable. No enlarged lymph nodes. Tubes, lines and devices: Sternal closure wires. * A single impression for all exams can be found at the end of this report IMPRESSION: CT Head and Cervical Spine Without Intravenous Contrast: 1. No intracranial hemorrhage. 2. Moderate age related periventricular white matter microangiopathic changes. 3. No acute cervical spine fracture visualized. 4. Degenerative disc disease C3-4 and C4-5. Mild central canal stenosis C3-4. 5. Question right upper lobe pulmonary lesion, [address] chest report. CT Chest, Abdomen and Pelvis Without Intravenous Contrast: 1. Motion artifact limits evaluation. 2. 13 mm spiculated lesion in the right lung apex, similar in size to the previous exam. For low-risk or high-risk patients consider a follow-up chest CT at 3 months. If unchanged consider an additional follow-up CT at 18-24 months. Alternatively (or additionally) PET/CT or tissue sampling could be performed. These guidelines do not apply to immunocompromised patients and patients with cancer. Follow up in patients with significant comorbidities as clinically warranted. For lung cancer screening, adhere to Lung-RADS guidelines. Reference: Radiology. 2017; 284(1):228-43. 3. Minimal bilateral pleural fluid. 4. Previous rectal resection/anastomosis. Colonic diverticulosis. 5. Bosniak II benign renal cyst measuring 3.7 cm. No follow-up imaging is recommended. JACR 2017; 264-273, Management of the Incidental Renal Mass on CT, [employer] 2020; 814-848, Bosniak Classification of Cystic Renal Masses, Version 2019. Conclusions/Impression: CKD IIIa with Proteinuria -No NSAIDs -Continue IVF with NS Hyponatremia -Continue IVF with NS HTN with CKD -Hydralazine prn -Start Losartan BID -Start Metoprolol BID DM II with CKD -Recommend RISS Anemia in chronic illness -Monitor [facility] Hospitalist and ER notes reviewed Thank you kindly for the consultation
[2023-04-27] MEDS: LOSARTAN POTASSIUM 50 MG TABLET PO SCH (21:30)
[2023-04-28] MEDS: LOSARTAN POTASSIUM 50 MG TABLET PO SCH ×4 (06:24→21:24)
[2023-04-28] MEDS: NA CHLORIDE 0.9% 1,000 ML IV SCH (06:24)
[2023-04-28] MEDS ORDERED: HYDRALAZINE HCL 20 MG/ML VIAL IV ONE (06:30)
[2023-04-28] MEDS ORDERED: REGADENOSON 0.4 MG/5 ML SYR IV ONE (07:44)
[2023-04-28 09:23] LABS: Magnesium 1.9 mg/dL (1.6-2.4); Potassium 3.9 mEq/L (3.5-5.1)
[2023-04-28 09:29] LABS: Absolute Lymphocytes (CBC) 1.8 K/uL (0.7-4.9); Hematocrit 45.8 % (36.0-45.0); Lymphocytes % 10.9 % (15.3-44.8); MCV 89.1 fL (80-100); MPV 8.2 fL (7.6-11.3); Platelets 246 thou/uL (152-406); RBC Red Blood Cell Count 5.14 M/uL (3.86-4.86)
--- NOTE | 2023-04-28 15:30 | PN ---
Date of Progress Note: 04/28/2023 Subjective: Seen by bedside. She continues to complain of chest pain on and off and tried to do a s tress test on her today; however, she could not because of some alteration in her mental status. Review of Systems: Positive for chest pain. No nausea, vomiting, or diarrhea. Has mild shortness of breath. All other systems were reviewed, they were negative. Objective: Vital Signs: Reviewed. Head and Neck: Pupils are equal, reactive to light. Intact eye movements. No JVD. No cervical lym phadenopathy. Neck is supple. Thyroid is not enlarged. Lungs: Clear to auscultation bilaterally. No rhonchi, wheezing, or crackles. No accessory muscle u se. Heart: Irregular. No extra sounds. Abdomen: Soft, nontender. Bowel sounds positive. Extremities: No edema, clubbing, or cyanosis. Intact pulses. Skin: No rashes or nodules. Neurologic: Alert, awake, oriented x3. No acute focal deficits appreciated. Investigations: BUN is 19, creatinine 1.32. Troponin peaked at 201. NT-proBNP is 26,000. Assessment And Recommendations: 1.Chest pain with positive troponin. This is [id number] myocardial infarction versus demand i schemia, but she is having active chest pain. Keep n.p.o. past midnight. Plan for coronary angiogra m tomorrow. She could not have a stress test done, and obtain an echocardiogram. 2.Syncope, likely due to dehydration. Her blood pressure is much better. 3.Hypertension. Blood pressure is controlled. Continue current management. SR/MODL Voice ID: [id number] Report ID: [id number]
--- NOTE | 2023-04-28 21:12 | P.PN ---
Date of Service: 04/28/23 Vital Signs Temp Pulse Resp BP Pulse Ox 97.5 F 115 H 16 199/84 H 99 04/28/23 16:00 04/28/23 16:00 04/28/23 16:00 04/28/23 16:00 04/28/23 16:00 Medications Acetaminophen (Acetaminophen 500 Mg Tab) 500 mg PO Q4HP PRN PRN Reason: Pain scale 2-4 (Mild) Sodium Chloride (Ns 1000 Ml Ivbag) 1,000 mls @ 50 mls/hr IV .Q20H [facility] Last Admin: 04/28/23 06:24 Dose: 1,000 mls Losartan Potassium (Losartan Potassium 50 Mg Tablet) 50 mg PO BID [facility] Last Admin: 04/28/23 08:36 Dose: 50 mg Metoprolol Tartrate (Metoprolol Tar 50 Mg Tab) 50 mg PO BID [facility] Ondansetron HCl (Ondansetron 4 Mg/2 Ml Vial) 4 mg IV Q6HP PRN PRN Reason: NAUSEA / VOMITING Last Admin: 04/27/23 14:56 Dose: 4 mg Quetiapine Fumarate (Quetiapine 25 Mg Tab) 25 mg PO BEDTIME [facility] Last Admin: 04/27/23 20:48 Dose: 25 mg Assessment/ Plan: Nephrology No dyspnea No chest pain Feeling better No acute events overnight Vitals, medications, blood work and imaging reviewed in the chart. General: Cooperative, Confused HEENT: Atraumatic Neck: Supple Respiratory: Normal air movement Cardiovascular: No edema, Regular rate/rhythm Gastrointestinal: Soft and benign, Non-distended Musculoskeletal: No clubbing, No contractures Integumentary: No rashes, No cyanosis Neurological: Normal speech Laboratory Data (last 24 hrs) 04/27/23 04/27/23 04/27/23 02:25 02:25 02:25 WBC 14.80 H Hgb 14.0 Hct 41.8 Plt Count 339 PT 11.5 INR 1.05 Sodium 137 Potassium 4.0 BUN 17 Creatinine 1.22 H Glucose 145 H Magnesium 2.0 Total Bilirubin 0.8 AST 16 ALT 13 Alkaline Phosphatase 91 Lipase 24 Imagings Data: [id number] EXAM DESCRIPTION: XR Chest, 1 View CLINICAL HISTORY: The patient is 83 years old and is Female; COPD;Cough TECHNIQUE: Single view of the chest. COMPARISON: No relevant prior studies available. FINDINGS: Lungs: COPD changes. No fluid overload or consolidation. Pleural space: Unremarkable. No pneumothorax. Heart: Mild cardiomegaly. Mediastinum: Unremarkable. Bones/joints: Sternal closure wires. No acute fracture visualized. Vasculature: Vascular stent in the left neck. Upper abdomen: No free air in the visualized upper abdomen. IMPRESSION: COPD changes. No fluid overload or consolidation. [id number] EXAM DESCRIPTION: CT Head and Cervical Spine Without Intravenous Contrast CLINICAL HISTORY: The patient is 83 years old and is Female; Dizziness; Pain TECHNIQUE: Axial computed tomography images of the head/brain and cervical spine without intravenous contrast. Sagittal and coronal reformatted images were created and reviewed. This CT exam was performed using one or more of the following dose reduction techniques: automated exposure control, adjustment of the mA and/or kV according to patient size, and/or use of iterative reconstruction technique. COMPARISON: March 06, 2023 FINDINGS: Brain: Moderate age related periventricular white matter microangiopathic changes. No intracranial hemorrhage. Ventricles: Within normal limits for age. No ventriculomegaly. Skull: No acute fracture. Sinuses: Unremarkable as visualized. No acute sinusitis. Mastoid air cells: Unremarkable as visualized. No mastoid effusion. Vertebrae: No acute cervical spine fracture visualized. Developmental nonunion posterior arch C1. Normal alignment. Discs/spinal canal/neural foramina: Degenerative disc disease C3-4 and C4-5. Mild central canal stenosis C3-4. Soft tissues: Unremarkable. Vasculature: Left common carotid vascular stent. Lung apices: Question right upper lobe pulmonary lesion, [address] chest report. Pleuroparenchymal scarring at the lung apices. Pleural space: No apical pneumothorax. * A single impression for all exams can be found at the end of this report EXAM DESCRIPTION: CT Chest, Abdomen and Pelvis Without Intravenous Contrast CLINICAL HISTORY: The patient is 83 years old and is Female; Dizziness; Pain TECHNIQUE: Axial computed tomography images of the chest, abdomen and pelvis without intravenous contrast. Sagittal and coronal reformatted images were created and reviewed. This CT exam was performed using one or more of the following dose reduction techniques: automated exposure control, adjustment of the mA and/or kV according to patient size, and/or use of iterative reconstruction technique. COMPARISON: CT angiography chest June 05, 2022. FINDINGS: Artifacts: Motion artifact limits evaluation. CHEST: Lungs: 13 mm spiculated lesion in the right lung apex, similar in size to the previous exam. Calcified granuloma right lower lobe. Lingula atelectasis or scarring. Pleural space: Minimal bilateral pleural fluid. No pneumothorax. Heart: Cardiomegaly. No significant pericardial effusion. No significant coronary artery calcifications. Mediastinum: No pneumomediastinum. ABDOMEN: Liver: Unremarkable. Gallbladder and bile ducts: Cholecystectomy without biliary dilatation. Pancreas: Fatty infiltration. No ductal dilation. Spleen: Unremarkable. No splenomegaly. Adrenals: Unremarkable. No mass. Kidneys and ureters: Bilateral simple renal cysts, largest measuring 3.7 cm. No nephrolithiasis or hydronephrosis. Stomach and bowel: Previous rectal resection/anastomosis. Colonic diverticulosis. No bowel dilatation or obstruction. No bowel wall thickening. PELVIS: Appendix: No findings to suggest acute appendicitis. Bladder: Bladder is not well distended. No stones. Reproductive: Hysterectomy. CHEST, ABDOMEN and PELVIS: Intraperitoneal space: Unremarkable. No significant fluid collection. No free air. Bones/joints: No sternoclavicular joint dislocation. No sternoclavicular joint dislocation. Degenerative changes in the thoracic and lumbar spine with mild thoracic scoliosis. No acute compression fracture in the thoracic or lumbar spine. No acute rib fracture visualized. No acute fracture in the pelvis or proximal femora. No hip dislocation. Soft tissues: Unremarkable. Vasculature: Moderate atherosclerotic calcification in the chest and abdomen. Coronary artery calcifications. No aortic aneurysm. Lymph nodes: Unremarkable. No enlarged lymph nodes. Tubes, lines and devices: Sternal closure wires. * A single impression for all exams can be found at the end of this report IMPRESSION: CT Head and Cervical Spine Without Intravenous Contrast: 1. No intracranial hemorrhage. 2. Moderate age related periventricular white matter microangiopathic changes. 3. No acute cervical spine fracture visualized. 4. Degenerative disc disease C3-4 and C4-5. Mild central canal stenosis C3-4. 5. Question right upper lobe pulmonary lesion, [address] chest report. CT Chest, Abdomen and Pelvis Without Intravenous Contrast: 1. Motion artifact limits evaluation. 2. 13 mm spiculated lesion in the right lung apex, similar in size to the previous exam. For low-risk or high-risk patients consider a follow-up chest CT at 3 months. If unchanged consider an additional follow-up CT at 18-24 months. Alternatively (or additionally) PET/CT or tissue sampling could be performed. These guidelines do not apply to immunocompromised patients and patients with cancer. Follow up in patients with significant comorbidities as clinically warranted. For lung cancer screening, adhere to Lung-RADS guidelines. Reference: Radiology. 2017; 284(1):228-43. 3. Minimal bilateral pleural fluid. 4. Previous rectal resection/anastomosis. Colonic diverticulosis. 5. Bosniak II benign renal cyst measuring 3.7 cm. No follow-up imaging is recommended. JACR 2018 Aug; 264-273, Management of the Incidental Renal Mass on CT, [employer] 2020; 814-848, Bosniak Classification of Cystic Renal Masses, V ersion 2019. Conclusions/Impression: CKD IIIa with Proteinuria -No NSAIDs -Continue IVF with NS Hyponatremia -Continue IVF with NS HTN with CKD -Hydralazine prn -Continue Losartan BID -Start Metoprolol BID DM II with CKD -Recommend RISS Anemia in chronic illness -Monitor H&H Hospitalist note reviewed
--- NOTE | 2023-04-28 21:15 | P.PN ---
Subjective Date of Service: 04/28/23 Chief Complaint: Syncope Subjective: No new changes HPI 04/27: 83-year-old, female with a past medical history of CAD, cardiac stents, COPD, diverticulitis, hyperlipidemia, hypertension, [place], hard of hearing, presents to the emergency room with dizziness. She reports symptoms started prior to arrival. She reports associated weakness, feeling faint. She reports associated diarrhea worse today. She reports symptoms worse with exer tion. Better with rest. She reports chest pain that is chronic. Denies chest pain radiation. She denies fever, chills, chest pain, abdominal pain, shortness of breath, nausea vomiting. Plan to admit for near syncope. Weakness, diarrhea. ER evaluation NIH stroke scale 0 GCS 15, vital signsBP 158 / 69; Pulse 80; Resp 18 S; Temp 97.6(O); Pulse Ox 96% on R/A;Laboratory evaluation leukocytosis 14.80, left shift 86.1, acute kidney injury BUN 17 creatinine 1.22, unknown baseline estimated GFR 44, elevated troponin 73.6, BNP 46562, UA pending, CT of the abdomen pelvis chest, head and cervical spine 13 mm right lung base lung lesion similar in size to previous exam, calcified granuloma, minimal bilateral pleural fluid, cardiomegaly, bilateral renal cysts 3.7 no hydronephrosis, colonic diverticulosis, no bowel dilation or obstruction, C3-C4 C4-C5 mild central canal stenosis, right upper lobe pulmonary lesion [address] report, 04/28: Crystal more lethargic today. Difficult to arouse. at bedside needing placement options. May need to consider hospice at this point. Stress test cancelled today. Physical Examination - Vital Signs Temperature: 97.5 F Blood Pressure: 199/84 Pulse: 115 Respirations: 16 Pulse Ox (%): 99 Assessment And Plan - Plan Physical Exam General: lethargic, In no apparent distress, Oriented x1 HEENT: Atraumatic, Normocephalic, PERRLA Neck: Supple, 2+ carotid pulse no bruit, JVD not distended Respiratory: Normal air movement, Diminished, Crackles/rales Cardiovascular: No edema, Normal pulses, Regular rate/rhythm Capillary refill: <2 Seconds Gastrointestinal: Normal bowel sounds, Soft and benign Musculoskeletal: No clubbing, No swelling Integumentary: No rashes, No breakdown Neurological: Normal speech, Normal strength at 5/5 x4 extr, Normal tone Assessment and plan NSTEMI Elevated BNP Near syncope Telemetry, cardiology consult, trend troponin, trend BNP IV diuretics, as needed analgesics, resume appropriate home meds, daily weight BP 158 / 69; Pulse 80; Resp 18 S; Temp 97.6(O); Pulse Ox 96% elevated troponin 73.6, BNP 39450, UA pending, CT of the abdomen pelvis chest, head and cervical spine NIH stroke scale 0, GCS 15 leukocytosis 14.80, left shift 86.1,-ceftriaxone 40 mg Lovenox 1 mg/kg every [address] of the chest, cervical spine 13 mm right lung base lung lesion similar in size to previous exam, calcified granuloma, minimal bilateral pleural fluid, cardiomegaly, bilateral renal cysts 3.7 no hydronephrosis, colonic diverticulosis, no bowel dilation or obstruction, C3-C4 C4-C5 mild central canal stenosis, right upper lobe pulmonary lesion [address] report, Acute on chronic kidney injury Diarrhea Gentle IV fluids, acute kidney injury BUN 17 creatinine 1.22, unknown baseline estimated GFR 44, Renal consult cardiac stents COPD diverticulitis hyperlipidemia hypertension [place] hard of hearing Resume appropriate home meds Pulmonary lesion Bilateral renal cyst seen on prior exams Follow-up as outpatient Full code DVT lovenox Diet cardiac Physician Review: Patient Assessed, Agree with Above Assessment and Plan
[2023-04-28] MEDS: METOPROLOL TAR 50 MG TAB PO SCH (21:23)
[2023-04-28] MEDS: QUETIAPINE 25 MG TAB PO SCH (21:24)
[2023-04-29] MEDS: NA CHLORIDE 0.9% 1,000 ML IV SCH (06:22)
[2023-04-29 08:18] LABS: Absolute Lymphocytes (CBC) 1.1 K/uL (0.7-4.9); Hematocrit 38.1 % (36.0-45.0); Lymphocytes % 8.5 % (15.3-44.8); MCV 88.8 fL (80-100); MPV 8.3 fL (7.6-11.3); Platelets 280 thou/uL (152-406); RBC Red Blood Cell Count 4.29 M/uL (3.86-4.86)
[2023-04-29 08:31] LABS: Magnesium 2.1 mg/dL (1.6-2.4); Potassium 4.1 mEq/L (3.5-5.1)
[2023-04-29] MEDS: LOSARTAN POTASSIUM 50 MG TABLET PO SCH ×2 (08:33→21:38)
[2023-04-29] MEDS: METOPROLOL TAR 50 MG TAB PO SCH ×2 (08:33→21:38)
[2023-04-29] MEDS: HYDRALAZINE HCL 20 MG/ML VIAL IV PRN ×3 (08:41→17:11)
[2023-04-29] MEDS ORDERED: METOPROLOL TARTRATE 5 MG/5 ML INJ IV STA (09:37)
[2023-04-29] MEDS ORDERED: NA CHLORIDE 0.9% 0 ML ONE (10:18)
[2023-04-29] MEDS ORDERED: HEPA 1000U/500MLS 2,000 UNIT/1,000 ML BAG IV ONE (10:41)
[2023-04-29] MEDS ORDERED: MIDAZOLAM HCL 2 MG/2 ML INJ ONE (10:41)
[2023-04-29] MEDS ORDERED: FENTANYL CITR 100 MCG/2 ML ONE (10:41)
[2023-04-29] MEDS ORDERED: TICAGRELOR 90 MG TABLET PO ONE (10:42)
[2023-04-29] MEDS ORDERED: CLOPIDOGREL 75 MG TABLET ONE (10:42)
[2023-04-29] MEDS ORDERED: ASPIRIN 325 MG TAB ONE (10:42)
[2023-04-29] MEDS ORDERED: HEPARIN 10,000 UNIT/10 ML VIAL IV ONE (10:42)
[2023-04-29] MEDS ORDERED: ATROPINE SULF 1 MG/10 ML SYR IV ONE (10:43)
[2023-04-29] MEDS ORDERED: ASPIRIN 81 MG CHEWABLE TABLET ONE (11:14)
[2023-04-29] MEDS ORDERED: HYDRALAZINE HCL 20 MG/ML VIAL ONE (12:42)
--- NOTE | 2023-04-29 13:12 | PN ---
Date of Progress Note: 04/29/2023 Subjective: Seen at bedside. Seems to have on and off chest pain. No nausea, vomiting, diarrhea. Review of Systems: No nausea, vomiting, diarrhea. Has chest pain on and off and mild shortness of breath. All other sy stems reviewed are negative. Physical Examination: Vital signs: Reviewed. Head and Neck: Pupils are equal, reactive to light. Intact eye movement. No JVD. No cervical vanessa opathy. Neck: Supple. Thyroid is not enlarged. Lungs: Clear to auscultation bilaterally. No rhonchi, rales, or crackles. No accessory muscle use. Heart: Regular. No extra sounds. Abdomen: Soft, nontender. Bowel sounds positive. No organomegaly. No masses or hernia. No rigidi ty or rebound. Extremities: No clubbing, cyanosis. Intact pulses. Skin: No rash. Neuro: Alert, awake, oriented. No acute focal deficits appreciated. Investigations: Labs reviewed. Assessment And Recommendation: 1.Non-ST elevation myocardial infarction. She is n.p.o. Plan for coronary angiogram today. 2.Acute renal failure. Recommend nephrology evaluation. Maybe patient is dehydrated, needs gentle hydration. With the hypertension and blood pressure still very high, I recommend to add amlodipine 5 mg daily. SR/MODL Voice ID: [id number] Report ID: [id number]
--- NOTE | 2023-04-29 19:50 | P.PN ---
Subjective Date of Service: 04/29/23 Chief Complaint: Syncope Subjective: No new changes HPI 04/27: 83-year-old, female with a past medical history of CAD, cardiac stents, COPD, diverticulitis, hyperlipidemia, hypertension, [place], hard of hearing, presents to the emergency room with dizziness. She reports symptoms started prior to arrival. She reports associated weakness, feeling faint. She reports associated diarrhea worse today. She reports symptoms worse with exer tion. Better with rest. She reports chest pain that is chronic. Denies chest pain radiation. She denies fever, chills, chest pain, abdominal pain, shortness of breath, nausea vomiting. Plan to admit for near syncope. Weakness, diarrhea. ER evaluation NIH stroke scale 0 GCS 15, vital signsBP 158 / 69; Pulse 80; Resp 18 S; Temp 97.6(O); Pulse Ox 96% on R/A;Laboratory evaluation leukocytosis 14.80, left shift 86.1, acute kidney injury BUN 17 creatinine 1.22, unknown baseline estimated GFR 44, elevated troponin 73.6, BNP 69509, UA pending, CT of the abdomen pelvis chest, head and cervical spine 13 mm right lung base lung lesion similar in size to previous exam, calcified granuloma, minimal bilateral pleural fluid, cardiomegaly, bilateral renal cysts 3.7 no hydronephrosis, colonic diverticulosis, no bowel dilation or obstruction, C3-C4 C4-C5 mild central canal stenosis, right upper lobe pulmonary lesion [address] report, 04/28: Lupe more lethargic today. Difficult to arouse. at bedside needing placement options. May need to consider hospice at this point. Stress test cancelled today. 04/29: Lupe awake and conversing well. she states she feels tired and doesn't remember how much she slept yesterday. She denies fever, chills, N/V/D, and SIMONS. Physical Examination - Vital Signs Temperature: 97.5 F Blood Pressure: 201/87 Pulse: 95 Respirations: 23 Pulse Ox (%): 94 Assessment And Plan - Plan Physical Exam General: awake, In no apparent distress, Oriented x1 HEENT: Atraumatic, Normocephalic, PERRLA Neck: Supple, 2+ carotid pulse no bruit, JVD not distended Respiratory: Normal air movement, Diminished, Crackles/rales Cardiovascular: No edema, Normal pulses, Regular rate/rhythm Capillary refill: <2 Seconds Gastrointestinal: Normal bowel sounds, Soft and benign Musculoskeletal: No clubbing, No swelling Integumentary: No rashes, No breakdown Neurological: Normal speech, Normal strength at 5/5 x4 extr, Normal tone Assessment and plan NSTEMI Elevated BNP Near syncope Telemetry, cardiology consult, trend troponin, trend BNP IV diuretics, as needed analgesics, resume appropriate home meds, daily weight BP 158 / 69; Pulse 80; Resp 18 S; Temp 97.6(O); Pulse Ox 96% elevated troponin 73.6, BNP 18264, UA pending, CT of the abdomen pelvis chest, head and cervical spine NIH stroke scale 0, GCS 15 leukocytosis 14.80, left shift 86.1,-ceftriaxone 40 mg Lovenox 1 mg/kg every [address] of the chest, cervical spine 13 mm right lung base lung lesion similar in size to previous exam, calcified granuloma, minimal bilateral pleural fluid, cardiomegaly, bilateral renal cysts 3.7 no hydronephrosis, colonic diverticulosis, no bowel dilation or obstruction, C3-C4 C4-C5 mild central canal stenosis, right upper lobe pulmonary lesion [address] report, Acute on chronic kidney injury Diarrhea Gentle IV fluids, acute kidney injury BUN 17 creatinine 1.22, unknown baseline estimated GFR 44, Renal consult cardiac stents COPD diverticulitis hyperlipidemia hypertension [place] hard of hearing Resume appropriate home meds Pulmonary lesion Bilateral renal cyst seen on prior exams Follow-up as outpatient Full code DVT lovenox Diet cardiac Discharge Plan: Home Physician Review: Patient Assessed, Agree with Above Assessment and Plan Time Spent Managing PTS Care (In Minutes): 35
[2023-04-29] MEDS ORDERED: CLOPIDOGREL 75 MG TABLET PO SCH (21:00)
[2023-04-29] MEDS: QUETIAPINE 25 MG TAB PO SCH (21:37)
[2023-04-29] MEDS: ATORVASTATIN 40 MG TAB PO SCH (21:38)
--- NOTE | 2023-04-29 22:14 | P.PN ---
Date of Service: 04/29/23 Vital Signs Temp Pulse Resp BP Pulse Ox 97.5 F 80 23 H 178/77 H 94 04/29/23 19:49 04/29/23 21:38 04/29/23 19:49 04/29/23 21:38 04/29/23 19:49 Medications Acetaminophen (Acetaminophen 500 Mg Tab) 500 mg PO Q4HP PRN PRN Reason: Pain scale 2-4 (Mild) Aspirin (Aspirin 81 Mg Chewable Tablet) 81 mg PO DAILY [facility] Atorvastatin Calcium (Atorvastatin 40 Mg Tab) 40 mg PO BEDTIME [facility] Last Admin: 04/29/23 21:38 Dose: 40 mg Clopidogrel Bisulfate (Clopidogrel 75 Mg Tablet) 75 mg PO DAILY [facility] Hydralazine HCl (Hydralazine Hcl 20 Mg/Ml Vial) 10 mg IV Q6HP PRN PRN Reason: Goal to achieve SBP in comment Last Admin: 04/29/23 17:11 Dose: 10 mg Losartan Potassium (Losartan Potassium 50 Mg Tablet) 50 mg PO BID [facility] Last Admin: 04/29/23 21:38 Dose: 50 mg Metoprolol Tartrate (Metoprolol Tar 50 Mg Tab) 50 mg PO BID [facility] Last Admin: 04/29/23 21:38 Dose: 50 mg Ondansetron HCl (Ondansetron 4 Mg/2 Ml Vial) 4 mg IV Q6HP PRN PRN Reason: NAUSEA / VOMITING Last Admin: 04/27/23 14:56 Dose: 4 mg Quetiapine Fumarate (Quetiapine 25 Mg Tab) 25 mg PO BEDTIME [facility] Last Admin: 04/29/23 21:37 Dose: 25 mg Assessment/ Plan: Nephrology No dyspnea No chest pain +Appetite No acute events overnight Vitals, medications, blood work and imaging reviewed in the chart. General: Cooperative, Confused HEENT: Atraumatic Neck: Supple Respiratory: Normal air movement Cardiovascular: No edema, Regular rate/rhythm Gastrointestinal: Soft and benign, Non-distended Musculoskeletal: No clubbing, No contractures Integumentary: No rashes, No cyanosis Neurological: Normal speech Laboratory Data (last 24 hrs) 04/27/23 04/27/23 04/27/23 02:25 02:25 02:25 WBC 14.80 H Hgb 14.0 Hct 41.8 Plt Count 339 PT 11.5 INR 1.05 Sodium 137 Potassium 4.0 BUN 17 Creatinine 1.22 H Glucose 145 H Magnesium 2.0 Total Bilirubin 0.8 AST 16 ALT 13 Alkaline Phosphatase 91 Lipase 24 Imagings Data: [id number] EXAM DESCRIPTION: XR Chest, 1 View CLINICAL HISTORY: The patient is 83 years old and is Female; COPD;Cough TECHNIQUE: Single view of the chest. COMPARISON: No relevant prior studies available. FINDINGS: Lungs: COPD changes. No fluid overload or consolidation. Pleural space: Unremarkable. No pneumothorax. Heart: Mild cardiomegaly. Mediastinum: Unremarkable. Bones/joints: Sternal closure wires. No acute fracture visualized. Vasculature: Vascular stent in the left neck. Upper abdomen: No free air in the visualized upper abdomen. IMPRESSION: COPD changes. No fluid overload or consolidation. [id number] EXAM DESCRIPTION: CT Head and Cervical Spine Without Intravenous Contrast CLINICAL HISTORY: The patient is 83 years old and is Female; Dizziness; Pain TECHNIQUE: Axial computed tomography images of the head/brain and cervical spine without intravenous contrast. Sagittal and coronal reformatted images were created and reviewed. This CT exam was performed using one or more of the following dose reduction techniques: automated exposure control, adjustment of the mA and/or kV according to patient size, and/or use of iterative reconstruction technique. COMPARISON: March 06, 2023 FINDINGS: Brain: Moderate age related periventricular white matter microangiopathic changes. No intracranial hemorrhage. Ventricles: Within normal limits for age. No ventriculomegaly. Skull: No acute fracture. Sinuses: Unremarkable as visualized. No acute sinusitis. Mastoid air cells: Unremarkable as visualized. No mastoid effusion. Vertebrae: No acute cervical spine fracture visualized. Developmental nonunion posterior arch C1. Normal alignment. Discs/spinal canal/neural foramina: Degenerative disc disease C3-4 and C4-5. Mild central canal stenosis C3-4. Soft tissues: Unremarkable. Vasculature: Left common carotid vascular stent. Lung apices: Question right upper lobe pulmonary lesion, [address] chest report. Pleuroparenchymal scarring at the lung apices. Pleural space: No apical pneumothorax. * A single impression for all exams can be found at the end of this report EXAM DESCRIPTION: CT Chest, Abdomen and Pelvis Without Intravenous Contrast CLINICAL HISTORY: The patient is 83 years old and is Female; Dizziness; Pain TECHNIQUE: Axial computed tomography images of the chest, abdomen and pelvis without intravenous contrast. Sagittal and coronal reformatted images were created and reviewed. This CT exam was performed using one or more of the following dose reduction techniques: automated exposure control, adjustment of the mA and/or kV according to patient size, and/or use of iterative re construction technique. COMPARISON: CT angiography chest June 05, 2022. FINDINGS: Artifacts: Motion artifact limits evaluation. CHEST: Lungs: 13 mm spiculated lesion in the right lung apex, similar in size to the previous exam. Calcified granuloma right lower lobe. Lingula atelectasis or scarring. Pleural space: Minimal bilateral pleural fluid. No pneumothorax. Heart: Cardiomegaly. No significant pericardial effusion. No significant coronary artery calcifications. Mediastinum: No pneumomediastinum. ABDOMEN: Liver: Unremarkable. Gallbladder and bile ducts: Cholecystectomy without biliary dilatation. Pancreas: Fatty infiltration. No ductal dilation. Spleen: Unremarkable. No splenomegaly. Adrenals: Unremarkable. No mass. Kidneys and ureters: Bilateral simple renal cysts, largest measuring 3.7 cm. No nephrolithiasis or hydronephrosis. Stomach and bowel: Previous rectal resection/anastomosis. Colonic diverticulosis. No bowel dilatation or obstruction. No bowel wall thickening. PELVIS: Appendix: No findings to suggest acute appendicitis. Bladder: Bladder is not well distended. No stones. Reproductive: Hysterectomy. CHEST, ABDOMEN and PELVIS: Intraperitoneal space: Unremarkable. No significant fluid collection. No free air. Bones/joints: No sternoclavicular joint dislocation. No sternoclavicular joint dislocation. Degenerative changes in the thoracic and lumbar spine with mild thoracic scoliosis. No acute compression fracture in the thoracic or lumbar spine. No acute rib fracture visualized. No acute fracture in the pelvis or proximal femora. No hip dislocation. Soft tissues: Unremarkable. Vasculature: Moderate atherosclerotic calcification in the chest and abdomen. Coronary artery calcifications. No aortic aneurysm. Lymph nodes: Unremarkable. No enlarged lymph nodes. Tubes, lines and devices: Sternal closure wires. * A single impression for all exams can be found at the end of this report IMPRESSION: CT Head and Cervical Spine Without Intravenous Contrast: 1. No intracranial hemorrhage. 2. Moderate age related periventricular white matter microangiopathic changes. 3. No acute cervical spine fracture visualized. 4. Degenerative disc disease C3-4 and C4-5. Mild central canal stenosis C3-4. 5. Question right upper lobe pulmonary lesion, [address] chest report. CT Chest, Abdomen and Pelvis Without Intravenous Contrast: 1. Motion artifact limits evaluation. 2. 13 mm spiculated lesion in the right lung apex, similar in size to the previous exam. For low-risk or high-risk patients consider a follow-up chest CT at 3 months. If unchanged consider an additional follow-up CT at 18-24 months. Alternatively (or additionally) PET/CT or tissue sampling could be performed. These guidelines do not apply to immunocompromised patients and patients with cancer. Follow up in patients with significant comorbidities as clinically warranted. For lung cancer screening, adhere to Lung-RADS guidelines. Reference: Radiology. 2017; 284(1):228-43. 3. Minimal bilateral pleural fluid. 4. Previous rectal resection/anastomosis. Colonic diverticulosis. 5. Bosniak II benign renal cyst measuring 3.7 cm. No follow-up imaging is recommended. JACR 2018 b; 264-273, Management of the Incidental Renal Mass on CT, [employer] 2020; 814-848, Bosniak Classification of Cystic Renal Masses, Version 2019. Conclusions/Impression: CKD IIIa with Proteinuria -No NSAIDs -DC IVF Hyponatremia, resolved -Discontinue IVF HTN with CKD -Hydralazine prn -Continue Losartan BID -Continue Metoprolol BID Elevated BNP -Check CXR in AM -DC IVF DM II with CKD -Recommend RISS Anemia in chronic illness -Monitor H&H Hospitalist note reviewed
[2023-04-30] MEDS ORDERED: NA CHLORIDE 0.9% 250 ML IV ONE (00:01)
[2023-04-30] MEDS ORDERED: NA CHLORIDE 0.9% 1,000 ML IV SCH (01:00)
[2023-04-30 07:11] LABS: Absolute Lymphocytes (CBC) 0.7 K/uL (0.7-4.9); Hematocrit 33.1 % (36.0-45.0); Lymphocytes % 7.1 % (15.3-44.8); MCV 89.3 fL (80-100); MPV 7.7 fL (7.6-11.3); Platelets 291 thou/uL (152-406); RBC Red Blood Cell Count 3.71 M/uL (3.86-4.86)
[2023-04-30 07:19] LABS: Magnesium 2.2 mg/dL (1.6-2.4); Potassium 3.3 mEq/L (3.5-5.1)
--- NOTE | 2023-04-30 08:00 | RAD REPORT ---
EXAM DESCRIPTION: Brian Single View04/30/2023 5:50 am CLINICAL HISTORY: Shortness breath. Elevated BNP COMPARISON: April 27, 2023 FINDINGS: Worsening in the diffuse bilateral pulmonary opacities. The heart remains enlarged. Postsurgical changes involve the chest IMPRESSION: Worsening in diffuse bilateral pulmonary opacities probably pulmonary edema
[2023-04-30] MEDS ORDERED: FUROSEMIDE 20 MG/ 2ML VIAL IV ONE (09:10)
[2023-04-30] MEDS ORDERED: POTASSIUM PHOS 30 MM in NA CHLORIDE 0.9% 500 ML IV ONE (09:30)
[2023-04-30] MEDS ORDERED: POTASSIUM 25 MEQ EFFERV TAB PO ONE ×2 (09:33→16:00)
[2023-04-30] MEDS: CLOPIDOGREL 75 MG TABLET PO SCH (10:43)
[2023-04-30] MEDS: LOSARTAN POTASSIUM 50 MG TABLET PO SCH ×2 (10:43→20:15)
[2023-04-30] MEDS: METOPROLOL TAR 50 MG TAB PO SCH ×2 (10:43→20:15)
[2023-04-30] MEDS: ASPIRIN 81 MG CHEWABLE TABLET PO SCH (10:46)
[2023-04-30] MEDS ORDERED: FUROSEMIDE 40 MG/4 ML VIAL IV ONE (11:30)
--- NOTE | 2023-04-30 11:30 | P.PN ---
(S) Notes reviewed, BP remains labile, elevated this AM. Pt has had low appetite, no acute complaints, denies CP or dyspnea (O) Vitals, medications, blood work and imaging reviewed in the chart. General: Elderly, frail, NAD HEENT: Atraumatic, sclera anicteric, LFNC Neck: Supple Respiratory: Normal air movement, b/l air entry Cardiovascular: No sig edema, non tachy, irregular, cardiac murmur Gastrointestinal: Soft and benign, Non-distended Musculoskeletal: Muscle mass loss Integumentary: No rashes Neurological: Normal speech, responds appropriately Conclusions/Impression: Abnormal results of kidney functions studies. CKD NOS, some fluctuation in levels in the setting of hemodynamic factors, other -Cr level (back) on IVF, unclear if she had a LHC yesterday as planned by Cardiology Hyponatremia, resolved -Poor PO intake reported, monitor closely Hypertensive heart and kidney disease -Will cont ARB for now as renal function stable and BP elevated. -Will add back dihydropyridine CCB NSTEMI, elevated BNP, CXR with opacities, possible pulm edema. -F/u Cardiology reccs, dose Lasix x 1, assess response. Wilfredo Hummel MD, MEGAN
[2023-04-30] MEDS: AMLODIPINE 5 MG TAB PO SCH (12:58)
[2023-04-30] MEDS: HYDRALAZINE HCL 20 MG/ML VIAL IV PRN (18:03)
[2023-04-30] MEDS: ONDANSETRON 4 MG/2 ML VIAL IV PRN (19:17)
[2023-04-30] MEDS: QUETIAPINE 25 MG TAB PO SCH (20:15)
[2023-04-30] MEDS: ATORVASTATIN 40 MG TAB PO SCH (20:15)
[2023-05-01 04:07] LABS: Potassium 3.1 mEq/L (3.5-5.1)
[2023-05-01] MEDS ORDERED: POTASSIUM 25 MEQ EFFERV TAB PO ONE ×2 (04:08→08:12)
[2023-05-01] MEDS ORDERED: POTASSIUM CL SA 10 MEQ TAB PO ONE (04:37)
[2023-05-01] MEDS: METOPROLOL TAR 50 MG TAB PO SCH ×2 (08:36→20:39)
[2023-05-01] MEDS: ASPIRIN 81 MG CHEWABLE TABLET PO SCH (08:36)
[2023-05-01] MEDS: LOSARTAN POTASSIUM 50 MG TABLET PO SCH ×2 (08:36→20:39)
[2023-05-01] MEDS: CLOPIDOGREL 75 MG TABLET PO SCH (08:36)
[2023-05-01] MEDS: AMLODIPINE 5 MG TAB PO SCH (08:36)
--- NOTE | 2023-05-01 11:43 | P.PN ---
Subjective Date of Service: 05/01/23 Chief Complaint: Syncope Subjective: No new changes, Doing well HPI 04/27: 83-year-old, female with a past medical history of CAD, cardiac stents, COPD, diverticulitis, hyperlipidemia, hypertension, [place], hard of hearing, presents to the emergency room with dizziness. She reports symptoms started prior to arrival. She reports associated weakness, feeling faint. She reports associated diarrhea worse today. She reports symptoms worse with exertion. Better with rest. She reports chest pain that is chronic. Denies chest pain radiation. She denies fever, chills, chest pain, abdominal pain, shortness of breath, nausea vomiting. Plan to admit for near syncope. Weakness, diarrhea. ER evaluation NIH stroke scale 0 GCS 15, vital signsBP 158 / 69; Pulse 80; Resp 18 S; Temp 97.6(O); Pulse Ox 96% on R/A;Laboratory evaluation leukocytosis 14.80, left shift 86.1, acute kidney injury BUN 17 creatinine 1.22, unknown baseline estimated GFR 44, elevated troponin 73.6, BNP 89722, UA pending, CT of the abdomen pelvis chest, head and cervical spine 13 mm right lung base lung lesion similar in size to previous exam, calcified granuloma, minimal bilateral pleural fluid, cardiomegaly, bilateral renal cysts 3.7 no hydronephrosis, colonic diverticulosis, no bowel dilation or obstruction, C3-C4 C4-C5 mild central canal stenosis, right upper lobe pulmonary lesion [address] report, 04/28: Lupe more lethargic today. Difficult to arouse. at bedside needing placement options. May need to consider hospice at this point. Stress test cancelled today. 04/29: Lupe awake and conversing well. she states she feels tired and doesn't remember how much she slept yesterday. She denies fever, chills, N/V/D, and SIMONS. 04/30: Lupe is more awake today, she has decreased PO intake. PT walked with her today. She is pleasantly confused. 05/01: Lupe appears very alert this AM, she states she will try to walk with PT today. will continue to monitor progress. On CLD for now. possible placement needs. Review of Systems 10-point ROS is otherwise unremarkable Physical Examination - Vital Signs Temperature: 98.3 F Blood Pressure: 144/63 Pulse: 84 Respirations: 14 Pulse Ox (%): 95 Assessment And Plan - Plan Physical Exam General: awake, In no apparent distress, Oriented x1 HEENT: Atraumatic, Normocephalic, PERRLA Neck: Supple, 2+ carotid pulse no bruit, JVD not distended Respiratory: Normal air movement, Diminished, Crackles/rales Cardiovascular: No edema, Normal pulses, Regular rate/rhythm Capillary refill: <2 Seconds Gastrointestinal: Normal bowel sounds, Soft and benign Musculoskeletal: No clubbing, No swelling Integumentary: No rashes, No breakdown Neurological: Normal speech, Normal strength at 5/5 x4 extr, Normal tone Assessment and plan NSTEMI Elevated BNP Near syncope Telemetry, cardiology consult, trend troponin, trend BNP IV diuretics, as needed analgesics, resume appropriate home meds, daily weight BP 158 / 69; Pulse 80; Resp 18 S; Temp 97.6(O); Pulse Ox 96% elevated troponin 73.6, BNP 65172, UA pending, CT of the abdomen pelvis chest, head and cervical spine NIH stroke scale 0, GCS 15 leukocytosis 14.80, left shift 86.1,-ceftriaxone 40 mg Lovenox 1 mg/kg every [address] of the chest, cervical spine 13 mm right lung base lung lesion similar in size to previous exam, calcified granuloma, minimal bilateral pleural fluid, cardiomegaly, bilateral renal cysts 3.7 no hydronephrosis, colonic diverticulosis, no bowel dilation or obstruction, C3-C4 C4-C5 mild central canal stenosis, right upper lobe pulmonary lesion [address] report, Acute on chronic kidney injury Diarrhea Gentle IV fluids, acute kidney injury BUN 17 creatinine 1.22, unknown baseline estimated GFR 44, Renal consult cardiac stents COPD diverticulitis hyperlipidemia hypertension [place] hard of hearing Resume appropriate home meds Pulmonary lesion Bilateral renal cyst seen on prior exams Follow-up as outpatient Full code DVT lovenox Diet cardiac Discharge Plan: Retirement Physician Review: Patient Assessed, Agree with Above Assessment and Plan Time Spent Managing PTS Care (In Minutes): 35
--- NOTE | 2023-05-01 11:48 | P.PN ---
Subjective Date of Service: 04/30/23 Chief Complaint: Syncope Subjective: No new changes, Doing well HPI 04/27: 83-year-old, female with a past medical history of CAD, cardiac stents, COPD, diverticulitis, hyperlipidemia, hypertension, [place], hard of hearing, presents to the emergency room with dizziness. She reports symptoms started prior to arrival. She reports associated weakness, feeling faint. She reports associated diarrhea worse today. She reports symptoms worse with exertion. Better with rest. She reports chest pain that is chronic. Denies chest pain radiation. She denies fever, chills, chest pain, abdominal pain, shortness of breath, nausea vomiting. Plan to admit for near syncope. Weakness, diarrhea. ER evaluation NIH stroke scale 0 GCS 15, vital signsBP 158 / 69; Pulse 80; Resp 18 S; Temp 97.6(O); Pulse Ox 96% on R/A;Laboratory evaluation leukocytosis 14.80, left shift 86.1, acute kidney injury BUN 17 creatinine 1.22, unknown baseline estimated GFR 44, elevated troponin 73.6, BNP 76610, UA pending, CT of the abdomen pelvis chest, head and cervical spine 13 mm right lung base lung lesion similar in size to previous exam, calcified granuloma, minimal bilateral pleural fluid, cardiomegaly, bilateral renal cysts 3.7 no hydronephrosis, colonic diverticulosis, no bowel dilation or obstruction, C3-C4 C4-C5 mild central canal stenosis, right upper lobe pulmonary lesion [address] report, 04/28: Lupe more lethargic today. Difficult to arouse. at bedside needing placement options. May need to consider hospice at this point. Stress test cancelled today. 04/29: Lupe awake and conversing well. she states she feels tired and doesn't remember how much she slept yesterday. She denies fever, chills, N/V/D, and SIMONS. 04/30: Lupe is more awake today, she has decreased PO intake. PT walked with her today. She is pleasantly confused. Review of Systems 10-point ROS is otherwise unremarkable Physical Examination - Vital Signs Temperature: 98.3 F Blood Pressure: 144/63 Pulse: 84 Respirations: 14 Pulse Ox (%): 95 Assessment And Plan - Plan Physical Exam General: awake, In no apparent distress, Oriented x1 HEENT: Atraumatic, Normocephalic, PERRLA Neck: Supple, 2+ carotid pulse no bruit, JVD not distended Respiratory: Normal air movement, Diminished, Crackles/rales Cardiovascular: No edema, Normal pulses, Regular rate/rhythm Capillary refill: <2 Seconds Gastrointestinal: Normal bowel sounds, Soft and benign Musculoskeletal: No clubbing, No swelling Integumentary: No rashes, No breakdown Neurological: Normal speech, Normal strength at 5/5 x4 extr, Normal tone Assessment and plan NSTEMI Elevated BNP Near syncope Telemetry, cardiology consult, trend troponin, trend BNP IV diuretics, as needed analgesics, resume appropriate home meds, daily weight BP 158 / 69; Pulse 80; Resp 18 S; Temp 97.6(O); Pulse Ox 96% elevated troponin 73.6, BNP 08140, UA pending, CT of the abdomen pelvis chest, head and cervical spine NIH stroke scale 0, GCS 15 leukocytosis 14.80, left shift 86.1,-ceftriaxone 40 mg Lovenox 1 mg/kg every [address] of the chest, cervical spine 13 mm right lung base lung lesion similar in size to previous exam, calcified granuloma, minimal bilateral pleural fluid, cardiomegaly, bilateral renal cysts 3.7 no hydronephrosis, colonic diverticulosis, no bowel dilation or obstruction, C3-C4 C4-C5 mild central canal stenosis, right upper lobe pulmonary lesion [address] report, Acute on chronic kidney injury Diarrhea Gentle IV fluids, acute kidney injury BUN 17 creatinine 1.22, unknown baseline estimated GFR 44, Renal consult cardiac stents COPD diverticulitis hyperlipidemia hypertension [place] hard of hearing Resume appropriate home meds Pulmonary lesion Bilateral renal cyst seen on prior exams Follow-up as outpatient Full code DVT lovenox Diet cardiac Physician Review: Patient Assessed, Agree with Above Assessment and Plan Time Spent Managing PTS Care (In Minutes): 35
[2023-05-01] MEDS: QUETIAPINE 25 MG TAB PO SCH (20:39)
[2023-05-01] MEDS: ATORVASTATIN 40 MG TAB PO SCH (20:39)
--- NOTE | 2023-05-01 21:50 | P.PN ---
Date of Service: 05/01/23 Vital Signs Temp Pulse Resp BP Pulse Ox 98.8 F 85 18 163/72 H 94 05/01/23 20:00 05/01/23 20:00 05/01/23 20:00 05/01/23 20:00 05/01/23 20:00 Medications Acetaminophen (Acetaminophen 500 Mg Tab) 500 mg PO Q4HP PRN PRN Reason: Pain scale 2-4 (Mild) Amlodipine Besylate (Amlodipine 5 Mg Tab) 5 mg PO DAILY [facility] Last Admin: 05/01/23 08:36 Dose: 5 mg Aspirin (Aspirin 81 Mg Chewable Tablet) 81 mg PO DAILY [facility] Last Admin: 05/01/23 08:36 Dose: 81 mg Atorvastatin Calcium (Atorvastatin 40 Mg Tab) 40 mg PO BEDTIME [facility] Last Admin: 05/01/23 20:39 Dose: 40 mg Clopidogrel Bisulfate (Clopidogrel 75 Mg Tablet) 75 mg PO DAILY [facility] Last Admin: 05/01/23 08:36 Dose: 75 mg Hydralazine HCl (Hydralazine Hcl 20 Mg/Ml Vial) 10 mg IV Q6HP PRN PRN Reason: Goal to achieve SBP in comment Last Admin: 04/30/23 18:03 Dose: 10 mg Losartan Potassium (Losartan Potassium 50 Mg Tablet) 50 mg PO BID [facility] Last Admin: 05/01/23 20:39 Dose: 50 mg Metoprolol Tartrate (Metoprolol Tar 50 Mg Tab) 50 mg PO BID [facility] Last Admin: 05/01/23 20:39 Dose: 50 mg Ondansetron HCl (Ondansetron 4 Mg/2 Ml Vial) 4 mg IV Q6HP PRN PRN Reason: NAUSEA / VOMITING Last Admin: 04/30/23 19:17 Dose: 4 mg Quetiapine Fumarate (Quetiapine 25 Mg Tab) 25 mg PO BEDTIME [facility] Last Admin: 05/01/23 20:39 Dose: 25 mg Assessment/ Plan: Nephrology No dyspnea No chest pain +Appetite No acute events overnight Vitals, medications, blood work and imaging reviewed in the chart. General: Cooperative, Confused HEENT: Atraumatic Neck: Supple Respiratory: Normal air movement Cardiovascular: No edema, Regular rate/rhythm Gastrointestinal: Soft and benign, Non-distended Musculoskeletal: No clubbing, No contractures Integumentary: No rashes, No cyanosis Neurological: Normal speech Laboratory Data (last 24 hrs) 10/17/23 10/17/23 10/17/23 02:25 02:25 02:25 WBC 14.80 H Hgb 14.0 Hct 41.8 Plt Count 339 PT 11.5 INR 1.05 Sodium 137 Potassium 4.0 BUN 17 Creatinine 1.22 H Glucose 145 H Magnesium 2.0 Total Bilirubin 0.8 AST 16 ALT 13 Alkaline Phosphatase 91 Lipase 24 Imagings Data: [id number] EXAM DESCRIPTION: XR Chest, 1 View CLINICAL HISTORY: The patient is 83 years old and is Female; COPD;Cough TECHNIQUE: Single view of the chest. COMPARISON: No relevant prior studies available. FINDINGS: Lungs: COPD changes. No fluid overload or consolidation. Pleural space: Unremarkable. No pneumothorax. Heart: Mild cardiomegaly. Mediastinum: Unremarkable. Bones/joints: Sternal closure wires. No acute fracture visualized. Vasculature: Vascular stent in the left neck. Upper abdomen: No free air in the visualized upper abdomen. IMPRESSION: COPD changes. No fluid overload or consolidation. [id number] EXAM DESCRIPTION: CT Head and Cervical Spine Without Intravenous Contrast CLINICAL HISTORY: The patient is 83 years old and is Female; Dizziness; Pain TECHNIQUE: Axial computed tomography images of the head/brain and cervical spine without intravenous contrast. Sagittal and coronal reformatted images were created and reviewed. This CT exam was performed using one or more of the following dose reduction techniques: automated exposure control, adjustment of the mA and/or kV according to patient size, and/or use of iterative reconstruction technique. COMPARISON: March 06, 2023 FINDINGS: Brain: Moderate age related periventricular white matter microangiopathic changes. No intracranial hemorrhage. Ventricles: Within normal limits for age. No ventriculomegaly. Skull: No acute fracture. Sinuses: Unremarkable as visualized. No acute sinusitis. Mastoid air cells: Unremarkable as visualized. No mastoid effusion. Vertebrae: No acute cervical spine fracture visualized. Developmental nonunion posterior arch C1. Normal alignment. Discs/spinal canal/neural foramina: Degenerative disc disease C3-4 and C4-5. Mild central canal stenosis C3-4. Soft tissues: Unremarkable. Vasculature: Left common carotid vascular stent. Lung apices: Question right upper lobe pulmonary lesion, [address] chest report. Pleuroparenchymal scarring at the lung apices. Pleural space: No apical pneumothorax. * A single impression for all exams can be found at the end of this report EXAM DESCRIPTION: CT Chest, Abdomen and Pelvis Without Intravenous Contrast CLINICAL HISTORY: The patient is 83 years old and is Female; Dizziness; Pain TECHNIQUE: Axial computed tomography images of the chest, abdomen and pelvis without intravenous contrast. Sagittal and coronal reformatted images were created and reviewed. This CT exam was performed using one or more of the following dose reduction techniques: automated exposure control, adjustment of the mA and/or kV according to patient size, and/or use of iterative reconstruction technique. COMPARISON: CT angiography chest June 05, 2022. FINDINGS: Artifacts: Motion artifact limits evaluation. CHEST: Lungs: 13 mm spiculated lesion in the right lung apex, similar in size to the previous exam. Calcified granuloma right lower lobe. Lingula atelectasis or scarring. Pleural space: Minimal bilateral pleural fluid. No pneumothorax. Heart: Cardiomegaly. No significant pericardial effusion. No significant coronary artery calcifications. Mediastinum: No pneumomediastinum. ABDOMEN: Liver: Unremarkable. Gallbladder and bile ducts: Cholecystectomy without biliary dilatation. Pancreas: Fatty infiltration. No ductal dilation. Spleen: Unremarkable. No splenomegaly. Adrenals: Unremarkable. No mass. Kidneys and ureters: Bilateral simple renal cysts, largest measuring 3.7 cm. No nephrolithiasis or hydronephrosis. Stomach and bowel: Previous rectal resection/anastomosis. Colonic diverticulosis. No bowel dilatation or obstruction. No bowel wall thickening. PELVIS: Appendix: No findings to suggest acute appendicitis. Bladder: Bladder is not well distended. No stones. Reproductive: Hysterectomy. CHEST, ABDOMEN and PELVIS: Intraperitoneal space: Unremarkable. No significant fluid collection. No free air. Bones/joints: No sternoclavicular joint dislocation. No sternoclavicular joint dislocation. Degenerative changes in the thoracic and lumbar spine with mild thoracic scoliosis. No acute compression fracture in the thoracic or lumbar spine. No acute rib fracture visualized. No acute fracture in the pelvis or proximal femora. No hip dislocation. Soft tissues: Unremarkable. Vasculature: Moderate atherosclerotic calcification in the chest and abdomen. Coronary artery calcifications. No aortic aneurysm. Lymph nodes: Unremarkable. No enlarged lymph nodes. Tubes, lines and devices: Sternal closure wires. * A single impression for all exams can be found at the end of this report IMPRESSION: CT Head and Cervical Spine Without Intravenous Contrast: 1. No intracranial hemorrhage. 2. Moderate age related periventricular white matter microangiopathic changes. 3. No acute cervical spine fracture visualized. 4. Degenerative disc disease C3-4 and C4-5. Mild central canal stenosis C3-4. 5. Question right upper lobe pulmonary lesion, [address] chest report. CT Chest, Abdomen and Pelvis Without Intravenous Contrast: 1. Motion artifact limits evaluation. 2. 13 mm spiculated lesion in the right lung apex, similar in size to the previous exam. For low-risk or high-risk patients consider a follow-up chest CT at 3 months. If unchanged consider an additional follow-up CT at 18-24 months. Alternatively (or additionally) PET/CT or tissue sampling could be performed. These guidelines do not apply to immunocompromised patients and patients with cancer. Follow up in patients with significant comorbidities as clinically warranted. For lung cancer screening, adhere to Lung-RADS guidelines. Reference: Radiology. 2017; 284(1):228-43. 3. Minimal bilateral pleural fluid. 4. Previous rectal resection/anastomosis. Colonic diverticulosis. 5. Bosniak II benign renal cyst measuring 3.7 cm. No follow-up imaging is recommended. JACR 2018 Aug; 264-273, Management of the Incidental Renal Mass on CT, [employer] 2020; 814-848, Bosniak Classification of Cystic Renal Masses, Version 2019. Conclusions/Impression: CKD IIIa with Proteinuria -No NSAIDs -DC IVF Hyponatremia, resolved -Discontinue IVF Hypokalemia -Replete as ordered HTN with CKD -Hydralazine prn -Continue Losartan BID -Continue Metoprolol BID Elevated BNP -Check CXR in AM -DC IVF DM II with CKD -Recommend RISS Anemia in chronic illness -Monitor H&H Hospitalist note reviewed
[2023-05-02 04:07] LABS: Potassium 3.9 mEq/L (3.5-5.1)
[2023-05-02] MEDS ORDERED: POTASSIUM 25 MEQ EFFERV TAB PO ONE (09:00)
[2023-05-02] MEDS: CLOPIDOGREL 75 MG TABLET PO SCH (09:08)
[2023-05-02] MEDS: DOCUSATE NA 100 MG CAP PO PRN (09:08)
[2023-05-02] MEDS: AMLODIPINE 5 MG TAB PO SCH (09:08)
[2023-05-02] MEDS: METOPROLOL TAR 50 MG TAB PO SCH ×2 (09:08→20:18)
[2023-05-02] MEDS: LOSARTAN POTASSIUM 50 MG TABLET PO SCH ×2 (09:08→20:18)
[2023-05-02] MEDS: ASPIRIN 81 MG CHEWABLE TABLET PO SCH (09:09)
--- NOTE | 2023-05-02 12:58 | P.PN ---
Subjective Date of Service: 05/02/23 Chief Complaint: Syncope Subjective: No new changes, Doing well HPI 04/27: 83-year-old, female with a past medical history of CAD, cardiac stents, COPD, diverticulitis, hyperlipidemia, hypertension, [place], hard of hearing, presents to the emergency room with dizziness. She reports symptoms started prior to arrival. She reports associated weakness, feeling faint. She reports associated diarrhea worse today. She reports symptoms worse with exertion. Better with rest. She reports chest pain that is chronic. Denies chest pain radiation. She denies fever, chills, chest pain, abdominal pain, shortness of breath, nausea vomiting. Plan to admit for near syncope. Weakness, diarrhea. ER evaluation NIH stroke scale 0 GCS 15, vital signsBP 158 / 69; Pulse 80; Resp 18 S; Temp 97.6(O); Pulse Ox 96% on R/A;Laboratory evaluation leukocytosis 14.80, left shift 86.1, acute kidney injury BUN 17 creatinine 1.22, unknown baseline estimated GFR 44, elevated troponin 73.6, BNP 62575, UA pending, CT of the abdomen pelvis chest, head and cervical spine 13 mm right lung base lung lesion similar in size to previous exam, calcified granuloma, minimal bilateral pleural fluid, cardiomegaly, bilateral renal cysts 3.7 no hydronephrosis, colonic diverticulosis, no bowel dilation or obstruction, C3-C4 C4-C5 mild central canal stenosis, right upper lobe pulmonary lesion [address] report, 04/28: Lupe more lethargic today. Difficult to arouse. at bedside needing placement options. May need to consider hospice at this point. Stress test cancelled today. 04/29: Lupe awake and conversing well. she states she feels tired and doesn't remember how much she slept yesterday. She denies fever, chills, N/V/D, and SIMONS. 04/30: Lupe is more awake today, she has decreased PO intake. PT walked with her today. She is pleasantly confused. 05/01: Lupe appears very alert this AM, she states she will try to walk with PT today. will continue to monitor progress. On CLD for now. possible placement needs. 05/02: Lupe is doing well this morning, She is tolerating CLD, requested meds to help her have a BM. Will need placement at discharge. Review of Systems 10-point ROS is otherwise unremarkable Physical Examination - Vital Signs Temperature: 97.6 F Blood Pressure: 188/86 Pulse: 95 Respirations: 16 Pulse Ox (%): 92 Assessment And Plan - Plan Physical Exam General: awake, In no apparent distress, Oriented x1 HEENT: Atraumatic, Normocephalic, PERRLA Neck: Supple, 2+ carotid pulse no bruit, JVD not distended Respiratory: Normal air movement, Diminished, Crackles/rales Cardiovascular: No edema, Normal pulses, Regular rate/rhythm Capillary refill: <2 Seconds Gastrointestinal: Normal bowel sounds, Soft and benign Musculoskeletal: No clubbing, No swelling Integumentary: No rashes, No breakdown Neurological: Normal speech, Normal strength at 5/5 x4 extr, Normal tone Assessment and plan NSTEMI Elevated BNP Near syncope Telemetry, cardiology consult, trend troponin, trend BNP IV diuretics, as needed analgesics, resume appropriate home meds, daily weight BP 158 / 69; Pulse 80; Resp 18 S; Temp 97.6(O); Pulse Ox 96% elevated troponin 73.6, BNP 22074, UA pending, CT of the abdomen pelvis chest, head and cervical spine NIH stroke scale 0, GCS 15 leukocytosis 14.80, left shift 86.1,-ceftriaxone 40 mg Lovenox 1 mg/kg every [address] of the chest, cervical spine 13 mm right lung base lung lesion similar in size to previous exam, calcified granuloma, minimal bilateral pleural fluid, cardiomegaly, bilateral renal cysts 3.7 no hydronephrosis, colonic diverticulosis, no bowel dilation or obstruction, C3-C4 C4-C5 mild central canal stenosis, right upper lobe pulmonary lesion [address] report, Acute on chronic kidney injury Diarrhea Gentle IV fluids, acute kidney injury BUN 17 creatinine 1.22, unknown baseline estimated GFR 44, GFR 47 today (05/02) Renal consult cardiac stents COPD diverticulitis hyperlipidemia hypertension [place] hard of hearing Resume appropriate home meds Pulmonary lesion Bilateral renal cyst seen on prior exams Follow-up as outpatient Full code DVT lovenox Diet cardiac Physician Review: Patient Assessed, Agree with Above Assessment and Plan Time Spent Managing PTS Care (In Minutes): 35
[2023-05-02] MEDS: ATORVASTATIN 40 MG TAB PO SCH (20:18)
[2023-05-02] MEDS: QUETIAPINE 25 MG TAB PO SCH (20:18)
[2023-05-03] MEDS: CLOPIDOGREL 75 MG TABLET PO SCH (10:18)
[2023-05-03] MEDS: METOPROLOL TAR 50 MG TAB PO SCH ×2 (10:18→21:21)
[2023-05-03] MEDS: ASPIRIN 81 MG CHEWABLE TABLET PO SCH (10:18)
[2023-05-03] MEDS: LOSARTAN POTASSIUM 50 MG TABLET PO SCH ×2 (10:19→21:20)
[2023-05-03] MEDS: AMLODIPINE 5 MG TAB PO SCH (10:19)
[2023-05-03] MEDS: DOCUSATE NA 100 MG CAP PO PRN (15:03)
[2023-05-03] MEDS: HYDRALAZINE HCL 20 MG/ML VIAL IV PRN (17:39)
--- NOTE | 2023-05-03 17:49 | P.PN ---
Subjective Date of Service: 05/03/23 <GraysonDavid - Last Filed: 05/03/23 17:51> Date of Service: 05/03/23 Chief Complaint: Syncope Subjective: No new changes, Doing well HPI 04/27: 83-year-old, female with a past medical history of CAD, cardiac stents, COPD, diverticulitis, hyperlipidemia, hypertension, [place], hard of hearing, presents to the emergency room with dizziness. She reports symptoms started prior to arrival. She reports associated weakness, feeling faint. She reports associated diarrhea worse today. She reports symptoms worse with exertion. Better with rest. She reports chest pain that is chronic. Denies chest pain radiation. She denies fever, chills, chest pain, abdominal pain, shortness of breath, nausea vomiting. Plan to admit for near syncope. Weakness, diarrhea. ER evaluation NIH stroke scale 0 GCS 15, vital signsBP 158 / 69; Pulse 80; Resp 18 S; Temp 97.6(O); Pulse Ox 96% on R/A;Laboratory evaluation leukocytosis 14.80, left shift 86.1, acute kidney injury BUN 17 creatinine 1.22, unknown baseline estimated GFR 44, elevated troponin 73.6, BNP 06262, UA pending, CT of the abdomen pelvis chest, head and cervical spine 13 mm right lung base lung lesion similar in size to previous exam, calcified granuloma, minimal bilateral pleural fluid, cardiomegaly, bilateral renal cysts 3.7 no hydronephrosis, colonic diverticulosis, no bowel dilation or obstruction, C3-C4 C4-C5 mild central canal stenosis, right upper lobe pulmonary lesion [address] report, 04/28: Lupe more lethargic today. Difficult to arouse. at bedside needing placement options. May need to consider hospice at this point. Stress test cancelled today. 04/29: Lupe awake and conversing well. she states she feels tired and doesn't remember how much she slept yesterday. She denies fever, chills, N/V/D, and SIMONS. 04/30: Lupe is more awake today, she has decreased PO intake. PT walked with her today. She is pleasantly confused. 05/01: Lupe appears very alert this AM, she states she will try to walk with PT today. will continue to monitor progress. On CLD for now. possible placement needs. 05/02: Lupe is doing well this morning, She is tolerating CLD, requested meds to help her have a BM. Will need placement at discharge. 05/03: Lupe appears comfortable in bed, she has been tolerating CLD and will advance to low sodium diet tonight. Placement at option is [facility] has been initiated, waiting for approval. Lupe is accompanied by her who has faithfully assisted her throughout this admission. <Poonam Hunter - Last Filed: 05/03/23 18:41> Review of Systems 10-point ROS is otherwise unremarkable <Poonam Hunter - Last Filed: 05/03/23 18:41> Physical Examination - Vital Signs Temperature: 97.4 F Blood Pressure: 193/77 Pulse: 79 Respirations: 16 Pulse Ox (%): 94 <Poonam Hunter - Last Filed: 05/03/23 18:41> Assessment And Plan Physician Review: Patient Assessed, Agree with Above Assessment and Plan Physician Review Additional Text: She is doing well this morning. She is pending placement to [facility]. Appreciate CM assistance. <David Galicia - Last Filed: 05/03/23 17:51> - Plan Physical Exam General: awake, In no apparent distress, Oriented x1 HEENT: Atraumatic, Normocephalic, PERRLA Neck: Supple, 2+ carotid pulse no bruit, JVD not distended Respiratory: Normal air movement, Diminished, Crackles/rales Cardiovascular: No edema, Normal pulses, Regular rate/rhythm Capillary refill: <2 Seconds Gastrointestinal: Normal bowel sounds, Soft and benign Musculoskeletal: No clubbing, No swelling Integumentary: No rashes, No breakdown Neurological: Normal speech, Normal strength at 5/5 x4 extr, Normal tone Assessment and plan NSTEMI Elevated BNP Near syncope Telemetry, cardiology consult, trend troponin, trend BNP IV diuretics, as needed analgesics, resume appropriate home meds, daily weight BP 158 / 69; Pulse 80; Resp 18 S; Temp 97.6(O); Pulse Ox 96% elevated troponin 73.6, BNP 41730, UA pending, CT of the abdomen pelvis chest, head and cervical spine NIH stroke scale 0, GCS 15 leukocytosis 14.80, left shift 86.1,-ceftriaxone 40 mg Lovenox 1 mg/kg every [address] of the chest, cervical spine 13 mm right lung base lung lesion similar in size to previous exam, calcified granuloma, minimal bilateral pleural fluid, cardiomegaly, bilateral renal cysts 3.7 no hydronephrosis, colonic diverticul osis, no bowel dilation or obstruction, C3-C4 C4-C5 mild central canal stenosis, right upper lobe pulmonary lesion [address] report, Acute on chronic kidney injury Diarrhea Gentle IV fluids, acute kidney injury BUN 17 creatinine 1.22, unknown baseline estimated GFR 44, GFR 47 today (05/02) Renal consult cardiac stents COPD diverticulitis hyperlipidemia hypertension [place] hard of hearing Resume appropriate home meds Pulmonary lesion Bilateral renal cyst seen on prior exams Follow-up as outpatient Full code DVT lovenox Diet cardiac Discharge Plan: [facility] Plan to discharge in: 48 Hours Physician Review: Patient Assessed, Agree with Above Assessment and Plan Time Spent Managing PTS Care (In Minutes): 35 <Poonam Hunter - Last Filed: 05/03/23 18:41>
--- NOTE | 2023-05-03 20:22 | P.PN ---
Date of Service: 05/03/23 Vital Signs Temp Pulse Resp BP Pulse Ox 97.4 F 79 16 193/77 H 94 05/03/23 18:42 05/03/23 18:42 05/03/23 18:42 05/03/23 18:42 05/03/23 18:42 Medications Acetaminophen (Acetaminophen 500 Mg Tab) 500 mg PO Q4HP PRN PRN Reason: Pain scale 2-4 (Mild) Amlodipine Besylate (Amlodipine 5 Mg Tab) 5 mg PO DAILY [facility] Last Admin: 05/03/23 10:19 Dose: 5 mg Aspirin (Aspirin 81 Mg Chewable Tablet) 81 mg PO DAILY [facility] Last Admin: 05/03/23 10:18 Dose: 81 mg Atorvastatin Calcium (Atorvastatin 40 Mg Tab) 40 mg PO BEDTIME [facility] Last Admin: 05/02/23 20:18 Dose: 40 mg Clopidogrel Bisulfate (Clopidogrel 75 Mg Tablet) 75 mg PO DAILY [facility] Last Admin: 05/03/23 10:18 Dose: 75 mg Docusate Sodium (Docusate Na 100 Mg Cap) 100 mg PO DAILY PRN PRN Reason: CONSTIPATION Last Admin: 05/03/23 15:03 Dose: 100 mg Hydralazine HCl (Hydralazine Hcl 20 Mg/Ml Vial) 10 mg IV Q6HP PRN PRN Reason: Goal to achieve SBP in comment Last Admin: 05/03/23 17:39 Dose: 10 mg Losartan Potassium (Losartan Potassium 50 Mg Tablet) 50 mg PO BID [facility] Last Admin: 05/03/23 10:19 Dose: 50 mg Metoprolol Tartrate (Metoprolol Tar 50 Mg Tab) 50 mg PO BID [facility] Last Admin: 05/03/23 10:18 Dose: 50 mg Nutritional Formula (Ensure Enlive 237 Ml Can) 237 ml PO BID [facility] Ondansetron HCl (Ondansetron 4 Mg/2 Ml Vial) 4 mg IV Q6HP PRN PRN Reason: NAUSEA / VOMITING Last Admin: 04/30/23 19:17 Dose: 4 mg Quetiapine Fumarate (Quetiapine 25 Mg Tab) 25 mg PO BEDTIME [facility] Last Admin: 05/02/23 20:18 Dose: 25 mg Assessment/ Plan: Nephrology No dyspnea No chest pain +Appetite Feeling better No acute events overnight Vitals, medications, blood work and imaging reviewed in the chart. General: Cooperative, Confused HEENT: Atraumatic Neck: Supple Respiratory: Normal air movement Cardiovascular: No edema, Regular rate/rhythm Gastrointestinal: Soft and benign, Non-distended Musculoskeletal: No clubbing, No contractures Integumentary: No rashes, No cyanosis Neurological: Normal speech De Luna light Laboratory Data (last 24 hrs) 04/27/23 04/27/23 04/27/23 02:25 02:25 02:25 WBC 14.80 H Hgb 14.0 Hct 41.8 Plt Count 339 PT 11.5 INR 1.05 Sodium 137 Potassium 4.0 BUN 17 Creatinine 1.22 H Glucose 145 H Magnesium 2.0 Total Bilirubin 0.8 AST 16 ALT 13 Alkaline Phosphatase 91 Lipase 24 Imagings Data: [id number] EXAM DESCRIPTION: XR Chest, 1 View CLINICAL HISTORY: The patient is 83 years old and is Female; COPD;Cough TECHNIQUE: Single view of the chest. COMPARISON: No relevant prior studies available. FINDINGS: Lungs: COPD changes. No fluid overload or consolidation. Pleural space: Unremarkable. No pneumothorax. Heart: Mild cardiomegaly. Mediastinum: Unremarkable. Bones/joints: Sternal closure wires. No acute fracture visualized. Vasculature: Vascular stent in the left neck. Upper abdomen: No free air in the visualized upper abdomen. IMPRESSION: COPD changes. No fluid overload or consolidation. [id number] EXAM DESCRIPTION: CT Head and Cervical Spine Without Intravenous Contrast CLINICAL HISTORY: The patient is 83 years old and is Female; Dizziness; Pain TECHNIQUE: Axial computed tomography images of the head/brain and cervical spine without intravenous contrast. Sagittal and coronal reformatted images were created and reviewed. This CT exam was performed using one or more of the following dose reduction techniques: automated exposure control, adjustment of the mA and/or kV according to patient size, and/or use of iterative reconstruction technique. COMPARISON: March 06, 2023 FINDINGS: Brain: Moderate age related periventricular white matter m icroangiopathic changes. No intracranial hemorrhage. Ventricles: Within normal limits for age. No ventriculomegaly. Skull: No acute fracture. Sinuses: Unremarkable as visualized. No acute sinusitis. Mastoid air cells: Unremarkable as visualized. No mastoid effusion. Vertebrae: No acute cervical spine fracture visualized. Developmental nonunion posterior arch C1. Normal alignment. Discs/spinal canal/neural foramina: Degenerative disc disease C3-4 and C4-5. Mild central canal stenosis C3-4. Soft tissues: Unremarkable. Vasculature: Left common carotid vascular stent. Lung apices: Question right upper lobe pulmonary lesion, [address] chest report. Pleuroparenchymal scarring at the lung apices. Pleural space: No apical pneumothorax. * A single impression for all exams can be found at the end of this report EXAM DESCRIPTION: CT Chest, Abdomen and Pelvis Without Intravenous Contrast CLINICAL HISTORY: The patient is 83 years old and is Female; Dizziness; Pain TECHNIQUE: Axial computed tomography images of the chest, abdomen and pelvis without intravenous contrast. Sagittal and coronal reformatted images were created and reviewed. This CT exam was performed using one or more of the following dose reduction techniques: automated exposure control, adjustment of the mA and/or kV according to patient size, and/or use of iterative reconstruction technique. COMPARISON: CT angiography chest June 05, 2022. FINDINGS: Artifacts: Motion artifact limits evaluation. CHEST: Lungs: 13 mm spiculated lesion in the right lung apex, similar in size to the previous exam. Calcified granuloma right lower lobe. Lingula atelectasis or scarring. Pleural space: Minimal bilateral pleural fluid. No pneumothorax. Heart: Cardiomegaly. No significant pericardial effusion. No significant coronary artery calcifications. Mediastinum: No pneumomediastinum. ABDOMEN: Liver: Unremarkable. Gallbladder and bile ducts: Cholecystectomy without biliary dilatation. Pancreas: Fatty infiltration. No ductal dilation. Spleen: Unremarkable. No splenomegaly. Adrenals: Unremarkable. No mass. Kidneys and ureters: Bilateral simple renal cysts, largest measuring 3.7 cm. No nephrolithiasis or hydronephrosis. Stomach and bowel: Previous rectal resection/anastomosis. Colonic diverticulosis. No bowel dilatation or obstruction. No bowel wall thickening. PELVIS: Appendix: No findings to suggest acute appendicitis. Bladder: Bladder is not well distended. No stones. Reproductive: Hysterectomy. CHEST, ABDOMEN and PELVIS: Intraperitoneal space: Unremarkable. No significant fluid collection. No free air. Bones/joints: No sternoclavicular joint dislocation. No sternoclavicular joint dislocation. Degenerative changes in the thoracic and lumbar spine with mild thoracic scoliosis. No acute compression fracture in the thoracic or lumbar spine. No acute rib fracture visualized. No acute fracture in the pelvis or proximal femora. No hip dislocation. Soft tissues: Unremarkable. Vasculature: Moderate atherosclerotic calcification in the chest and abdomen. Coronary artery calcifications. No aortic aneurysm. Lymph nodes: Unremarkable. No enlarged lymph nodes. Tubes, lines and devices: Sternal closure wires. * A single impression for all exams can be found at the end of this report IMPRESSION: CT Head and Cervical Spine Without Intravenous Contrast: 1. No intracranial hemorrhage. 2. Moderate age related periventricular white matter microangiopathic changes. 3. No acute cervical spine fracture visualized. 4. Degenerative disc disease C3-4 and C4-5. Mild central canal stenosis C3-4. 5. Question right upper lobe pulmonary lesion, [address] chest report. CT Chest, Abdomen and Pelvis Without Intravenous Contrast: 1. Motion artifact limits evaluation. 2. 13 mm spiculated lesion in the right lung apex, similar in size to the previous exam. For low-risk or high-risk patients consider a follow-up chest CT at 3 months. If unchanged consider an additional follow-up CT at 18-24 months. A lternatively (or additionally) PET/CT or tissue sampling could be performed. These guidelines do not apply to immunocompromised patients and patients with cancer. Follow up in patients with significant comorbidities as clinically warranted. For lung cancer screening, adhere to Lung-RADS guidelines. Reference: Radiology. 2017; 284(1):228-43. 3. Minimal bilateral pleural fluid. 4. Previous rectal resection/anastomosis. Colonic diverticulosis. 5. Bosniak II benign renal cyst measuring 3.7 cm. No follow-up imaging is recommended. JACR 2018 Aug; 264-273, Management of the Incidental Renal Mass on CT, [employer] 2020; 814-848, Bosniak Classification of Cystic Renal Masses, Version 2019. Conclusions/Impression: CKD IIIa with Proteinuria -No NSAIDs Hyponatremia, resolved Hypokalemia -Replete prn HTN with CKD -Hydralazine prn -Continue Losartan BID -Continue Metoprolol BID Pulmonary Edema, improved DM II with CKD -RISS prn Anemia in chronic illness -Monitor H&H Hospitalist note reviewed
[2023-05-03] MEDS: ENSURE ENLIVE 237 ML CAN PO SCH (21:00)
[2023-05-03] MEDS: QUETIAPINE 25 MG TAB PO SCH (21:20)
[2023-05-03] MEDS: ATORVASTATIN 40 MG TAB PO SCH (21:21)
[2023-05-04] MEDS: HYDRALAZINE HCL 20 MG/ML VIAL IV PRN (05:10)
[2023-05-04] MEDS: ENSURE ENLIVE 237 ML CAN PO SCH ×2 (09:00→20:29)
--- NOTE | 2023-05-04 09:37 | P.PN ---
Subjective Date of Service: 05/04/23 Chief Complaint: Syncope Subjective: Improving (Denies chest pain, dyspnea) Review of Systems Unremarkable Physical Examination - Vital Signs Temperature: 97.5 F Blood Pressure: 162/66 Pulse: 83 Respirations: 18 Pulse Ox (%): 96 - Physical Exam General: Alert, In no apparent distress, Oriented x3 HEENT: Atraumatic, PERRLA, EOMI Neck: Supple, JVD not distended Respiratory: Clear to auscultation bilaterally, Normal air movement Cardiovascular: Regular rate/rhythm, Normal S1 S2 Gastrointestinal: Normal bowel sounds, No tenderness Musculoskeletal: No tenderness Integumentary: No rashes Neurological: Normal speech, Normal tone, Normal affect - Studies Medications List Reviewed: Yes Assessment And Plan - Plan Assessment NSTEMI, history of CAD Near syncope FABRIZIO/hyponatremia History of COPD Hypertension Hyperlipidemia Plan NSTEMI, history of CAD Heart catheterization performed on 04/29/2023 with a stent to the LAD reportedly. Continue aspirin, statin, Plavix, beta-carin. Chest pain-free at this time, awaiting placement at [facility]. Near syncope Has remained stable since heart catheterization. FABRIZIO/hyponatremia Improved with IV fluids, currently at baseline. De Luna catheter was previously placed, will remove and attempt voiding trial. History of COPD As needed nebulizer treatments Hypertension Hyperlipidemia Home medications continued. DVT PPx Lovenox Full code Possible discharge today Discharge Plan: [facility] Plan to discharge in: 24 Hours Critical Care: No Time Spent Managing PTS Care (In Minutes): 25
[2023-05-04] MEDS: ASPIRIN 81 MG CHEWABLE TABLET PO SCH (10:00)
[2023-05-04] MEDS: AMLODIPINE 5 MG TAB PO SCH (10:01)
[2023-05-04] MEDS: METOPROLOL TAR 50 MG TAB PO SCH ×2 (10:02→20:29)
[2023-05-04] MEDS: CLOPIDOGREL 75 MG TABLET PO SCH (10:02)
[2023-05-04] MEDS: LOSARTAN POTASSIUM 50 MG TABLET PO SCH ×2 (10:02→20:29)
--- NOTE | 2023-05-04 13:08 | P.DS ---
Admission Date: 04/27/23 Discharge Date: 05/04/23 Disposition: TRANSFER TO [facility] Discharge Condition: GOOD Reason for Admission: Syncope Consultations: Cardiology Nephrology Procedures: Chest x-ray 04/30/2023 FINDINGS: Lungs: COPD changes. No fluid overload or consolidation. Pleural space: Unremarkable. No pneumothorax. Heart: Mild cardiomegaly. Mediastinum: Unremarkable. Bones/joints: Sternal closure wires. No acute fracture visualized. Vasculature: Vascular stent in the left neck. Upper abdomen: No free air in the visualized upper abdomen. IMPRESSION: COPD changes. No fluid overload or consolidation CT head/C-spine/chest/abdomen/pelvis 04/27/2020 IMPRESSION: CT Head and Cervical Spine Without Intravenous Contrast: 1. No intracranial hemorrhage. 2. Moderate age related periventricular white matter microangiopathic changes. 3. No acute cervical spine fracture visualized. 4. Degenerative disc disease C3-4 and C4-5. Mild central canal stenosis C3-4. 5. Question right upper lobe pulmonary lesion, [address] chest report. CT Chest, Abdomen and Pelvis Without Intravenous Contrast: 1. Motion artifact limits evaluation. RADIOLOGY SERVICES REPORT (Continued) Name: PRATIK PAN CC: Fabiano Hutchison MD; Matti Martin MD, CRYSTAL ANN / Report: [id number] Radiology Services Report Page 3 of 3 2. 13 mm spiculated lesion in the right lung apex, similar in size to the previous exam. For low-risk or high-risk patients consider a follow-up chest CT at 3 months. If unchanged consider an additional followup CT at 18-24 months. Alternatively (or additionally) PET/CT or tissue sampling could be performed. These guidelines do not apply to immunocompromised patients and patients with cancer. Follow up in patients with significant comorbidities as clinically warranted. For lung cancer screening, adhere to LungRADS guidelines. Reference: Radiology. 2017; 284(1):228-43. 3. Minimal bilateral pleural fluid. 4. Previous rectal resection/anastomosis. Colonic diverticulosis. 5. Bosniak II benign renal cyst measuring 3.7 cm. No follow-up imaging is recommended. JACR 2017; 264-273, Management of the Incidental Renal Mass on CT, [employer] 2020; 814- 848, Bosniak Classification of Cystic Renal Masses, Version 2019. Heart catheterization performed 04/29/2023 Findings in pending report, reportedly had 1 stent to the LAD Brief History of Present Illness: 83-year-old, female with a past medical history of CAD, cardiac stents, COPD, diverticulitis, hyperlipidemia, hypertension, [place], hard of hearing, presents to the emergency room with dizziness. She reports symptoms started prior to arrival. She reports associated weakness, feeling faint. She reports associated diarrhea worse today. She reports symptoms worse with exertion. Better with rest. She reports chest pain that is chronic. Denies chest pain radiation. She denies fever, chills, chest pain, abdominal pain, shortness of breath, nausea vomiting. Plan to admit for near syncope. Weakness, diarrhea. ER evaluation NIH stroke scale 0 GCS 15, vital signsBP 158 / 69; Pulse 80; Resp 18 S; Temp 97.6(O); Pulse Ox 96% on R/A;Laboratory evaluation leukocytosis 14.80, left shift 86.1, acute kidney injury BUN 17 creatinine 1.22, unknown baseline estimated GFR 44, elevated troponin 73.6, BNP 44391, UA pending, CT of the abdomen pelvis chest, head and cervical spine 13 mm right lung base lung lesion similar in size to previous exam, calcified granuloma, minimal bilateral pleural fluid, cardiomegaly, bilateral renal cysts 3.7 no hydronephrosis, colo arabella diverticulosis, no bowel dilation or obstruction, C3-C4 C4-C5 mild central canal stenosis, right upper lobe pulmonary lesion [address] report, Incidental findings on CT scan include 13 mm spiculated lesion right lung apex similar in size to previous exam. For low or high risk patients consider follow-up CT chest at 3 months. If unchanged consider additional follow-up CT at 18 to 24 months. Bosniak 2 benign renal cyst measuring 3.7 cm, no follow-up imaging is recommended. Hospital Course: Patient was admitted for near syncope, NSTEMI. She separately had a heart catheterization performed which revealed CAD requiring a stent to the LAD. She was started on aspirin, Plavix, statin. She also had mild hyponatremia which resolved with IV fluids and was seen by nephrology. She has been cleared to be discharged to half-way [facility]. Vital Signs/Physical Exam: Temp Pulse Resp BP Pulse Ox 97.5 F 87 18 142/63 H 96 05/04/23 09:37 05/04/23 10:02 05/04/23 09:37 05/04/23 10:02 05/04/23 09:37 General: Alert, In no apparent distress, Oriented x3 HEENT: Atraumatic, PERRLA, EOMI Neck: Supple, JVD not distended Respiratory: Clear to auscultation bilaterally, Normal air movement Cardiovascular: Regular rate/rhythm, Normal S1 S2 Gastrointestinal: Normal bowel sounds, No tenderness Musculoskeletal: No tenderness Integumentary: No rashes Neurological: Normal speech, Normal tone, Normal affect Laboratory Data at Discharge: WBC 10.50 thou/uL (4.3-10.9) 04/30/23 06:15 Hgb 11.0 g/dL (12.0-15.0) L D 04/30/23 06:15 Hct 33.1 % (36.0-45.0) L 04/30/23 06:15 Plt Count 291 thou/uL (152-406) 04/30/23 06:15 PT 11.5 SECONDS (9.5-12.5) 04/27/23 02:25 INR 1.05 04/27/23 02:25 Sodium 139 mEq/L (136-145) 05/02/23 03:32 Potassium 3.9 mEq/L (3.5-5.1) 05/02/23 03:32 BUN 13 mg/dL (7-18) 05/02/23 03:32 Creatinine 1.15 mg/dL (0.55-1.02) H 05/02/23 03:32 Glucose 108 mg/dL (74-106) H 05/02/23 03:32 Uric Acid 4.9 mg/dL (2.6-6.0) 04/27/23 17:50 Phosphorus 2.6 mg/dL (2.5-4.9) 04/27/23 17:50 Magnesium 2.2 mg/dL (1.6-2.4) 04/30/23 06:15 Total Bilirubin 0.8 mg/dL (0.2-1.0) 04/27/23 02:25 AST 16 U/L (15-37) 04/27/23 02:25 ALT 13 U/L (13-56) 04/27/23 02:25 Alkaline Phosphatase 91 U/L (45-117) 04/27/23 02:25 Lipase 24 U/L (13-75) 04/27/23 02:25 Home Medications: Levothyroxine Sodium [Levoxyl] 88 mcg PO USILS0IU 01/18/14 Metoprolol Succinate [Toprol Xl*] 100 mg PO BID 6AM 6PM 01/18/14 Albuterol Inhaler [Ventolin Inhaler*] 1 puff IH Q4HP PRN 06/05/22 Aspirin [Aspirin EC 81 MG] 81 mg PO DAILY 06/05/22 Budesonide/Formoterol Fumarate [Symbicort 160-4.5 Mcg Inhaler] 2 puff IH BID 06/05/22 Clopidogrel Bisulfate [Plavix*] 75 mg PO DAILY 06/05/22 Gabapentin 100 mg PO BEDTIME 06/05/22 Hydralazine [Apresoline*] 10 mg PO TIDP PRN 06/05/22 Irbesartan 150 mg PO DAILY 06/05/22 Amlodipine [Norvasc*] 5 mg PO DAILY 04/27/23 Atorvastatin Calcium [Lipitor] 40 mg PO BEDTIME #30 tab 05/04/23 New Medications: Atorvastatin Calcium [Lipitor] 40 mg PO BEDTIME #30 tab Physician Discharge Instructions: Please follow-up with cardiology in 1 to 2 weeks Please follow-up with your primary care doctor also in 1 to 2 weeks Make sure you take your prescribed aspirin, clopidogrel, atorvastatin. Incidental findings on CT scan include 13 mm spiculated lesion right lung apex similar in size to previous exam. For low or high risk patients consider follow-up CT chest at 3 months. If unchanged consider additional follow-up CT at 18 to 24 months. Bosniak 2 benign renal cyst measuring 3.7 cm, no follow-up imaging is recommended. Diet: AHA Activity: Fall precautions Followup: Angelo Jarquin DO [ACTIVE - CAN ADMIT] - 1-2 Weeks Keaton Frausto MD [ACTIVE - CAN ADMIT] - 1-2 Weeks Time spent managing pt's care (in minutes): 30
[2023-05-04] MEDS ORDERED: FLEET ENEMA ADULT PR ONE (15:38)
--- NOTE | 2023-05-04 17:24 | P.PN ---
Date of Service: 05/04/23 Vital Signs Temp Pulse Resp BP Pulse Ox 98.9 F 85 20 152/70 H 94 05/04/23 12:00 05/04/23 12:00 05/04/23 12:00 05/04/23 12:00 05/04/23 12:00 Medications Acetaminophen (Acetaminophen 500 Mg Tab) 500 mg PO Q4HP PRN PRN Reason: Pain scale 2-4 (Mild) Amlodipine Besylate (Amlodipine 5 Mg Tab) 5 mg PO DAILY [facility] Last Admin: 05/04/23 10:01 Dose: 5 mg Aspirin (Aspirin 81 Mg Chewable Tablet) 81 mg PO DAILY [facility] Last Admin: 05/04/23 10:00 Dose: 81 mg Atorvastatin Calcium (Atorvastatin 40 Mg Tab) 40 mg PO BEDTIME [facility] Last Admin: 05/03/23 21:21 Dose: 40 mg Clopidogrel Bisulfate (Clopidogrel 75 Mg Tablet) 75 mg PO DAILY [facility] Last Admin: 05/04/23 10:02 Dose: 75 mg Docusate Sodium (Docusate Na 100 Mg Cap) 100 mg PO DAILY PRN PRN Reason: CONSTIPATION Last Admin: 05/03/23 15:03 Dose: 100 mg Hydralazine HCl (Hydralazine Hcl 20 Mg/Ml Vial) 10 mg IV Q6HP PRN PRN Reason: Goal to achieve SBP in comment Last Admin: 05/04/23 05:10 Dose: 10 mg Losartan Potassium (Losartan Potassium 50 Mg Tablet) 50 mg PO BID [facility] Last Admin: 05/04/23 10:02 Dose: 50 mg Metoprolol Tartrate (Metoprolol Tar 50 Mg Tab) 50 mg PO BID [facility] Last Admin: 05/04/23 10:02 Dose: 50 mg Nutritional Formula (Ensure Enlive 237 Ml Can) 237 ml PO BID [facility] Last Admin: 05/04/23 09:00 Dose: 237 ml Ondansetron HCl (Ondansetron 4 Mg/2 Ml Vial) 4 mg IV Q6HP PRN PRN Reason: NAUSEA / VOMITING Last Admin: 04/30/23 19:17 Dose: 4 mg Quetiapine Fumarate (Quetiapine 25 Mg Tab) 25 mg PO BEDTIME [facility] Last Admin: 05/03/23 21:20 Dose: 25 mg Assessment/ Plan: Nephrology No dyspnea No chest pain +Appetite Doing well No acute events overnight Vitals, medications, blood work and imaging reviewed in the chart. General: Cooperative, Confused HEENT: Atraumatic Neck: Supple Respiratory: Normal air movement Cardiovascular: No edema, Regular rate/rhythm Gastrointestinal: Soft and benign, Non-distended Musculoskeletal: No clubbing, No contractures Integumentary: No rashes, No cyanosis Neurological: Normal speech [facility] Laboratory Data (last 24 hrs) 04/27/23 04/27/23 04/27/23 02:25 02:25 02:25 WBC 14.80 H Hgb 14.0 Hct 41.8 Plt Count 339 PT 11.5 INR 1.05 Sodium 137 Potassium 4.0 BUN 17 Creatinine 1.22 H Glucose 145 H Magnesium 2.0 Total Bilirubin 0.8 AST 16 ALT 13 Alkaline Phosphatase 91 Lipase 24 Imagings Data: [id number] EXAM DESCRIPTION: XR Chest, 1 View CLINICAL HISTORY: The patient is 83 years old and is Female; COPD;Cough TECHNIQUE: Single view of the chest. COMPARISON: No relevant prior studies available. FINDINGS: Lungs: COPD changes. No fluid overload or consolidation. Pleural space: Unremarkable. No pneumothorax. Heart: Mild cardiomegaly. Mediastinum: Unremarkable. Bones/joints: Sternal closure wires. No acute fracture visualized. Vasculature: Vascular stent in the left neck. Upper abdomen: No free air in the visualized upper abdomen. IMPRESSION: COPD changes. No fluid overload or consolidation. [id number] EXAM DESCRIPTION: CT Head and Cervical Spine Without Intravenous Contrast CLINICAL HISTORY: The patient is 83 years old and is Female; Dizziness; Pain TECHNIQUE: Axial computed tomography images of the head/brain and cervical spine without intravenous contrast. Sagittal and coronal reformatted images were created and reviewed. This CT exam was performed using one or more of the following dose reduction techniques: automated exposure control, adjustment of the mA and/or kV according to patient size, and/or use of iterative reconstruction technique. COMPARISON: March 06, 2023 FINDINGS: Brain: Moderate age related periventricular white matter microangiopathic changes. No intracranial hemorrhage. Ventricles: Within normal limits for age. No ventriculomegaly. Skull: No acute fracture. Sinuses: Unremarkable as visualized. No acute sinusitis. Mastoid air cells: Unremarkable as visualized. No mastoid effusion. Vertebrae: No acute cervical spine fracture visualized. Developmental nonunion posterior arch C1. Normal alignment. Discs/spinal canal/neural foramina: Degenerative disc disease C3-4 and C4-5. Mild central canal stenosis C3-4. Soft tissues: Unremarkable. Vasculature: Left common carotid vascular stent. Lung apices: Question right upper lobe pulmonary lesion, [address] chest report. Pleuroparenchymal scarring at the lung apices. Pleural space: No apical pneumothorax. * A single impression for all exams can be found at the end of this report EXAM DESCRIPTION: CT Chest, Abdomen and Pelvis Without Intravenous Contrast CLINICAL HISTORY: The patient is 83 years old and is Female; Dizziness; Pain TECHNIQUE: Axial computed tomography images of the chest, abdomen and pelvis without intravenous contrast. Sagittal and coronal reformatted images were created and reviewed. This CT exam was performed using one or more of the following dose reduction techniques: automated exposure control, adjustment of the mA and/or kV according to patient size, and/or use of iterative reconstruction technique. COMPARISON: CT angiography chest June 05, 2022. FINDINGS: Artifacts: Motion artifact limits evaluation. CHEST: Lungs: 13 mm spiculated lesion in the right lung apex, similar in size to the previous exam. Calcified granuloma right lower lobe. Lingula atelectasis or scarring. Pleural space: Minimal bilateral pleural fluid. No pneumothorax. Heart: Cardiomegaly. No significant pericardial effusion. No significant coronary artery calcifications. Mediastinum: No pneumomediastinum. ABDOMEN: Liver: Unremarkable. Gallbladder and bile ducts: Cholecystectomy without biliary dilatation. Pancreas: Fatty infiltration. No ductal dilation. Spleen: Unremarkable. No splenomegaly. Adrenals: Unremarkable. No mass. Kidneys and ureters: Bilateral simple renal cysts, largest measuring 3.7 cm. No nephrolithiasis or hydronephrosis. Stomach and bowel: Previous rectal resection/anastomosis. Colonic diverticulosis. No bowel dilatation or obstruction. No bowel wall thickening. PELVIS: Appendix: No findings to suggest acute appendicitis. Bladder: Bladder is not well distended. No stones. Reproductive: Hysterectomy. CHEST, ABDOMEN and PELVIS: Intraperitoneal space: Unremarkable. No significant fluid collection. No free air. Bones/joints: No sternoclavicular joint dislocation. No sternoclavicular joint dislocation. Degenerative changes in the thoracic and lumbar spine with mild thoracic scoliosis. No acute compression fracture in the thoracic or lumbar spine. No acute rib fracture visualized. No acute fracture in the pelvis or proximal femora. No hip dislocation. Soft tissues: Unremarkable. Vasculature: Moderate atherosclerotic calcification in the chest and abdomen. Coronary artery calcifications. No aortic aneurysm. Lymph nodes: Unremarkable. No enlarged lymph nodes. Tubes, lines and devices: Sternal closure wires. * A single impression for all exams can be found at the end of this report IMPRESSION: CT Head and Cervical Spine Without Intravenous Contrast: 1. No intracranial hemorrhage. 2. Moderate age related periventricular white matter microangiopathic changes. 3. No acute cervical spine fracture visualized. 4. Degenerative disc disease C3-4 and C4-5. Mild central canal stenosis C3-4. 5. Question right upper lobe pulmonary lesion, [address] chest report. CT Chest, Abdomen and Pelvis Without Intravenous Contrast: 1. Motion artifact limits evaluation. 2. 13 mm spiculated lesion in the right lung apex, similar in size to the previous exam. For low-risk or high-risk patients consider a follow-up chest CT at 3 months. If unchanged consider an additional follow-up CT at 18-24 months. Alternatively (or additionally) PET/CT or tissue sampling could be performed. These guidelines do not apply to immunocompromised patients and patients with cancer. Follow up in patients with significant comorbidities as clinically warranted. For lung cancer screening, adhere to Lung-RADS guidelines. Reference: Radiology. 2017; 284(1):228-43. 3. Minimal bilateral pleural fluid. 4. Previous rectal resection/anastomosis. Colonic diverticulosis. 5. Bosniak II benign renal cyst measuring 3.7 cm. No follow-up imaging is recomm ended. JACR 2018 b; 264-273, Management of the Incidental Renal Mass on CT, [employer] 2020; 814-848, Bosniak Classification of Cystic Renal Masses, Version 2019. Conclusions/Impression: CKD IIIa with Proteinuria -No NSAIDs -Remove gary today Hyponatremia, resolved Hypokalemia -Replete prn HTN with CKD -Hydralazine prn -Continue Losartan BID -Continue Metoprolol BID Pulmonary Edema, improved DM II with CKD -RISS prn Anemia in chronic illness -Monitor H&H Hospitalist note reviewed Case reviewed with hospitalist team
[2023-05-04] MEDS ORDERED: LACTULOSE 20 GM/30 ML UCUP PO ONE (17:50)
[2023-05-04] MEDS: ATORVASTATIN 40 MG TAB PO SCH (20:28)
[2023-05-04] MEDS: QUETIAPINE 25 MG TAB PO SCH (20:28)
--- NOTE | 2023-05-05 08:20 | P.PN ---
Date of Service: 05/05/23 Discharge delayed as SNF wound not accept patient since she had not had a recent BM. Had moderate formed BM overnight, gary also removed and voiding freely. Will proceed with DC to SNF as per DC summary from 07/04/23 Assessment General: Alert, In no apparent distress, Oriented x3 HEENT: Atraumatic, PERRLA, EOMI Neck: Supple, JVD not distended Respiratory: Clear to auscultation bilaterally, Normal air movement Cardiovascular: Regular rate/rhythm, Normal S1 S2 Gastrointestinal: Normal bowel sounds, No tenderness Musculoskeletal: No tenderness Integumentary: No rashes Neurological: Normal speech, Normal tone, Normal affect
[2023-05-05] MEDS: ENSURE ENLIVE 237 ML CAN PO SCH (09:00)
[2023-05-05] MEDS: LOSARTAN POTASSIUM 50 MG TABLET PO SCH (09:34)
[2023-05-05] MEDS: METOPROLOL TAR 50 MG TAB PO SCH (09:34)
[2023-05-05] MEDS: ASPIRIN 81 MG CHEWABLE TABLET PO SCH (09:34)
[2023-05-05] MEDS: CLOPIDOGREL 75 MG TABLET PO SCH (09:35)
[2023-05-05] MEDS: AMLODIPINE 5 MG TAB PO SCH (09:35)
--- NOTE | 2023-05-05 21:36 | P.PN ---
Date of Service: 05/05/23 Vital Signs Temp Pulse Resp BP Pulse Ox 98.5 F 78 20 136/79 95 05/05/23 08:00 05/05/23 09:35 05/05/23 08:00 05/05/23 09:35 05/05/23 08:00 Assessment/ Plan: Nephrology No dyspnea No chest pain +Appetite Doing well No acute events overnight Vitals, medications, blood work and imaging reviewed in the chart. General: Cooperative, Confused HEENT: Atraumatic Neck: Supple Respiratory: Normal air movement Cardiovascular: No edema, Regular rate/rhythm Gastrointestinal: Soft and benign, Non-distended Musculoskeletal: No clubbing, No contractures Integumentary: No rashes, No cyanosis Neurological: Normal speech [facility] Laboratory Data (last 24 hrs) 04/27/23 04/27/23 04/27/23 02:25 02:25 02:25 WBC 14.80 H Hgb 14.0 Hct 41.8 Plt Count 339 PT 11.5 INR 1.05 Sodium 137 Potassium 4.0 BUN 17 Creatinine 1.22 H Glucose 145 H Magnesium 2.0 Total Bilirubin 0.8 AST 16 ALT 13 Alkaline Phosphatase 91 Lipase 24 Imagings Data: [id number] EXAM DESCRIPTION: XR Chest, 1 View CLINICAL HISTORY: The patient is 83 years old and is Female; COPD;Cough TECHNIQUE: Single view of the chest. COMPARISON: No relevant prior studies available. FINDINGS: Lungs: COPD changes. No fluid overload or consolidation. Pleural space: Unremarkable. No pneumothorax. Heart: Mild cardiomegaly. Mediastinum: Unremarkable. Bones/joints: Sternal closure wires. No acute fracture visualized. Vasculature: Vascular stent in the left neck. Upper abdomen: No free air in the visualized upper abdomen. IMPRESSION: COPD changes. No fluid overload or consolidation. [id number] EXAM DESCRIPTION: CT Head and Cervical Spine Without Intravenous Contrast CLINICAL HISTORY: The patient is 83 years old and is Female; Dizziness; Pain TECHNIQUE: Axial computed tomography images of the head/brain and cervical spine without intravenous contrast. Sagittal and coronal reformatted images were created and reviewed. This CT exam was performed using one or more of the following dose reduction techniques: automated exposure control, adjustment of the mA and/or kV according to patient size, and/or use of iterative reconstruction technique. COMPARISON: March 06, 2023 FINDINGS: Brain: Moderate age related periventricular white matter microangiopathic changes. No intracranial hemorrhage. Ventricles: Within normal limits for age. No ventriculomegaly. Skull: No acute fracture. Sinuses: Unremarkable as visualized. No acute sinusitis. Mastoid air cells: Unremarkable as visualized. No mastoid effusion. Vertebrae: No acute cervical spine fracture visualized. Developmental nonunion posterior arch C1. Normal alignment. Discs/spinal canal/neural foramina: Degenerative disc disease C3-4 and C4-5. Mild central canal stenosis C3-4. Soft tissues: Unremarkable. Vasculature: Left common carotid vascular stent. Lung apices: Question right upper lobe pulmonary lesion, [address] chest report. Pleuroparenchymal scarring at the lung apices. Pleural space: No apical pneumothorax. * A single impression for all exams can be found at the end of this report EXAM DESCRIPTION: CT Chest, Abdomen and Pelvis Without Intravenous Contrast CLINICAL HISTORY: The patient is 83 years old and is Female; Dizziness; Pain TECHNIQUE: Axial computed tomography images of the chest, abdomen and pelvis without intravenous contrast. Sagittal and coronal reformatted images were created and reviewed. This CT exam was performed using one or more of the following dose reduction techniques: automated exposure control, adjustment of the mA and/or kV according to patient size, and/or use of iterative reconstruction technique. COMPARISON: CT angiography chest June 05, 2022. FINDINGS: Artifacts: Motion artifact limits evaluation. CHEST: Lungs: 13 mm spiculated lesion in the right lung apex, similar in size to the previous exam. Calcified granuloma right lower lobe. Lingula atelectasis or scarring. Pleural space: Minimal bilateral pleural fluid. No pneumothorax. Heart: Cardiomegaly. No significant pericardial effusion. No significant coronary artery calcifications. Mediastinum: No pneumomediastinum. ABDOMEN: Liver: Unremarkable. Gallbladder and bile ducts: Cholecystectomy without biliary dilatation. Pancreas: Fatty infiltration. No ductal dilation. Spleen: Unremarkable. No splenomegaly. Adrenals: Unremarkable. No mass. Kidneys and ureters: Bilateral simple renal cysts, largest measuring 3.7 cm. No nephrolithiasis or hydronephrosis. Stomach and bowel: Previous rectal resection/anastomosis. Colonic diverticulosis. No bowel dilatation or obstruction. No bowel wall thickening. PELVIS: Appendix: No findings to suggest acute appendicitis. Bladder: Bladder is not well distended. No stones. Reproductive: Hysterectomy. CHEST, ABDOMEN and PELVIS: Intraperitoneal space: Unremarkable. No significant fluid collection. No free air. Bones/joints: No sternoclavicular joint dislocation. No sternoclavicular joint dislocation. Degenerative changes in the thoracic and lumbar spine with mild thoracic scoliosis. No acute compression fracture in the thoracic or lumbar spine. No acute rib fracture visualized. No acute fracture in the pelvis or proximal femora. No hip dislocation. Soft tissues: Unremarkable. Vasculature: Moderate atherosclerotic calcification in the chest and abdomen. Coronary artery calcifications. No aortic aneurysm. Lymph nodes: Unremarkable. No enlarged lymph nodes. Tubes, lines and devices: Sternal closure wires. * A single impression for all exams can be found at the end of this report IMPRESSION: CT Head and Cervical Spine Without Intravenous Contrast: 1. No intracranial hemorrhage. 2. Moderate age related periventricular white matter microangiopathic changes. 3. No acute cervical spine fracture visualized. 4. Degenerative disc disease C3-4 and C4-5. Mild central canal stenosis C3-4. 5. Question right upper lobe pulmonary lesion, [address] chest report. CT Chest, Abdomen and Pelvis Without Intravenous Contrast: 1. Motion artifact limits evaluation. 2. 13 mm spiculated lesion in the right lung apex, similar in size to the previous exam. For low-risk or high-risk patients consider a follow-up chest CT at 3 months. If unchanged consider an additional follow-up CT at 18-24 months. Alternatively (or additionally) PET/CT or tissue sampling could be performed. These guidelines do not apply to immunocompromised patients and patients with cancer. Follow up in patients with significant comorbidities as clinically warranted. For lung cancer screening, adhere to Lung-RADS guidelines. Reference: Radiology. 2017; 284(1):228-43. 3. Minimal bilateral pleural fluid. 4. Previous rectal resection/anastomosis. Colonic diverticulosis. 5. Bosniak II benign renal cyst measuring 3.7 cm. No follow-up imaging is recommended. JACR 2018 Aug; 264-273, Management of the Incidental Renal Mass on CT, [employer] 2020; 814-848, Bosniak Classification of Cystic Renal Masses, Version 2019. Conclusions/Impression: CKD IIIa with Proteinuria -No NSAIDs Hyponatremia, resolved Hypokalemia -Replete prn HTN with CKD -Hydralazine prn -Continue Losartan BID -Continue Metoprolol BID Pulmonary Edema, improved DM II with CKD -RISS prn Anemia in chronic illness -Monitor H&H Hospitalist note reviewed Case reviewed with hospitalist team
[2023-05-06 12:41] VITALS: BP 136/79; TEMP 98.5
[2023-05-06 12:59] VITALS: O2SAT 93
[2023-05-06 15:54] VITALS: BMI 17.4
== END 2023-05-05 15:36 | DRG 280 ==
LOC: ER 01:36 → ERHOLD 03:26 → 2ND 07:26
PROVIDERS: ADMIT Hospitalist; ATTEND Internal Medicine
PROC: 0T9B70Z Drainage of Bladder with Drainage Device, Via Natural or Artificial Opening (ICD-10-PCS; principal; 2023-04-27)
DX: I21.4 Non-ST elevation (NSTEMI) myocardial infarction (principal); E43 Unspecified severe protein-calorie malnutrition; E87.1 Hypo-osmolality and hyponatremia; I25.810 Atherosclerosis of coronary artery bypass graft(s) without angina pectoris; N17.9 Acute kidney failure, unspecified; Z68.1 Body mass index [BMI] 19.9 or less, adult; I25.2 Old myocardial infarction; I12.9 Hypertensive chronic kidney disease with stage 1 through stage 4 chronic kidney disease, or unspecified chronic kidney disease; N18.31 Chronic kidney disease, stage 3a; E78.5 Hyperlipidemia, unspecified; E03.9 Hypothyroidism, unspecified; I51.7 Cardiomegaly; N28.1 Cyst of kidney, acquired; M48.02 Spinal stenosis, cervical region; J98.4 Other disorders of lung; E86.0 Dehydration; E11.22 Type 2 diabetes mellitus with diabetic chronic kidney disease; D63.1 Anemia in chronic kidney disease; E87.6 Hypokalemia; J44.9 Chronic obstructive pulmonary disease, unspecified; Z95.1 Presence of aortocoronary bypass graft; Z79.4 Long term (current) use of insulin; Z98.61 Coronary angioplasty status; Z90.49 Acquired absence of other specified parts of digestive tract; Z90.710 Acquired absence of both cervix and uterus
CPT/HCPCS: 36415; 70450; 71045; 71250; 72125; 76937; 80048; 80076; 83605; 83690; 83735; 83880; 84100; 84132; 84484; 84550; 85025; 85610; 86850; 86900; 86901; 87040; 93005; 93458; 96361; 96374; 96375; 97110; 97116; 97161; 97530; 99284; C1725; C1760; C1893; C9600; G0269; J0360; J0461; J0696; J1940; J2250; J2270; J2405; J2785; J3010; J7030; J7040; J7050; Q9967

== ENCOUNTER 2023-07-25 11:13 | Inpatient (IN) | payer OTHER ==
[2023-07-25] MEDS ORDERED: CEFTRIAXONE 1000 MG/VIAL ONE (11:33)
[2023-07-25] MEDS ORDERED: NA CHLORIDE 0.9% 1,000 ML ONE ×2 (11:33→17:46)
[2023-07-25] MEDS ORDERED: FAMOTIDINE 20 MG/2 ML VIAL IV ONE (11:33)
[2023-07-25 11:51] LABS: Specific Gravity 1.019 (1.005-1.030); Urine Bacteria None Seen /HPF (<20); Urine Bilirubin NEGATIVE (Negative); Urine Blood Negative (Negative); Urine Clarity Clear (Clear); Urine Color Yellow (Yellow); Urine Glucose NEGATIVE (Negative); Urine Mucus Slight /HPF (None Seen); Urine Protein 2+ (Negative); Urine RBC <5 /HPF (None Seen); Urine Urobilinogen Normal (Normal)
[2023-07-25 11:52] LABS: Absolute Lymphocytes (CBC) 1.1 K/uL (0.7-4.9); Hematocrit 34.4 % (36.0-45.0); Lymphocytes % 8.4 % (15.3-44.8); MCV 83.8 fL (80-100); MPV 6.8 fL (7.6-11.3); Platelets 561 thou/uL (152-406)
[2023-07-25 11:58] LABS: Protime INR 1.24
[2023-07-25 12:12] LABS: Albumin 2.7 g/dL (3.4-5.0); Bilirubin Direct 0.2 mg/dL (0-0.2); Bilirubin Indirect, Calculated 0.4 mg/dL (0.2-0.8); Bilirubin Total 0.6 mg/dL (0.2-1.0); Potassium 3.9 mEq/L (3.5-5.1); Protein, Total 8.2 g/dL (6.4-8.2)
[2023-07-25 12:21] LABS: SARS-COV-2 RT PCR NEGATIVE (NEGATIVE)
--- NOTE | 2023-07-25 12:42 | RAD REPORT ---
EXAM DESCRIPTION: Brian Single View07/25/2023 12:27 pm CLINICAL HISTORY: Cough COMPARISON: April 2023 FINDINGS: Moderate bilateral pulmonary opacities. Heart is mildly enlarged. Postsurgical changes involve the chest. IMPRESSION: Moderate bilateral pulmonary opacities may represent pulmonary edema
--- NOTE | 2023-07-25 12:59 | EDPHYS ---
Physician Documentation [facility] Name: Lupe Hartley Age: 83 yrs Sex: Female : 1940 Arrival Date: 07/25/2023 Time: 11:13 Bed 17 Private MD: ED Physician Fabiano Hutchison HPI: 07/25 11:24 This 83 yrs old Female presents to ER via EMS with complaints of syncope, sanju weakness and fall. 11:24 fall. The patient has experienced near-syncope, almost passed out, felt dizzy, felt sanju generally weak. Onset: The symptoms/episode began/occurred just prior to arrival, this morning. Duration: This was a single episode, that lasted 30 second(s). Context: the episode(s) was witnessed, by family, . Associated injury: Left lower extremity: Right lower extremity:. Associated signs and symptoms: The patient has no apparent associated signs or symptoms. Current symptoms: wekness, confused. Severity of symptoms: At their worst the symptoms were mild in the emergency department the symptoms are unchanged. Historical: - Allergies: 11:19 Phenobarbital; kc6 11:19 promethazine HCl; kc6 - PMHx: 11:19 CAD; cardiac stents; COPD; Diverticulitis; HARD OF HEARING; Hyperlipidemia; kc6 Hypertension; Hypothyroidism; Myocardial infarction; - PSHx: 11:19 Appendectomy; Cholecystectomy; Total abdominal hysterectomy; kc6 - Immunization history:: Adult Immunizations unknown. - Social history:: Smoking status: unknown. - Family history:: not pertinent. ROS: 11:24 Constitutional: Negative for fever, chills, and weight loss, Eyes: Negative for injury, sanju pain, redness, and discharge, ENT: Negative for injury, pain, and discharge, Neck: Negative for injury, pain, and swelling, Cardiovascular: Negative for chest pain, palpitations, and edema, Respiratory: Negative for shortness of breath, cough, wheezing, and pleuritic chest pain, Abdomen/GI: Negative for abdominal pain, nausea, vomiting, diarrhea, and constipation, Back: Negative for injury and pain, : Negative for injury, bleeding, discharge, and swelling, MS/Extremity: Negative for injury and deformity, Skin: Negative for injury, rash, and discoloration, Psych: Negative for depression, anxiety, suicide ideation, homicidal ideation, and hallucinations, Allergy/Immunology: Negative for hives, rash, and allergies, Endocrine: Negative for neck swelling, polydipsia, polyuria, polyphagia, and marked weight changes, Hematologic/Lymphatic: Negative for swollen nodes, abnormal bleeding, and unusual bruising, 11:24 Neuro: Positive for dizziness, near syncope, weakness, Exam: 11:24 Constitutional: This is a well developed, well nourished patient who is awake, alert, sanju and in no acute distress. Head/Face: Normocephalic, atraumatic. Eyes: Pupils equal round and reactive to light, extra-ocular motions intact. Lids and lashes normal. Conjunctiva and sclera are non-icteric and not injected. Cornea within normal limits. Periorbital areas with no swelling, redness, or edema. ENT: Nares patent. No nasal discharge, no septal abnormalities noted. Tympanic membranes are normal and external auditory canals are clear. Oropharynx with no redness, swelling, or masses, exudates, or evidence of obstruction, uvula midline. Mucous membranes moist. Neck: Trachea midline, no thyromegaly or masses palpated, and no cervical lymphadenopathy. Supple, full range of motion without nuchal rigidity, or vertebral point tenderness. No Meningismus. Chest/axilla: Normal chest wall appearance and motion. Nontender with no deformity. No lesions are appreciated. Respiratory: Lungs have equal breath sounds bilaterally, clear to auscultation and percussion. No rales, rhonchi or wheezes noted. No increased work of breathing, no retractions or nasal flaring. Abdomen/GI: Soft, non-tender, with normal bowel sounds. No distension or tympany. No guarding or rebound. No evidence of tenderness throughout. Back: No spinal tenderness. No costovertebral tenderness. Full range of motion. Skin: Warm, dry with normal turgor. Normal color with no rashes, no lesions, and no evidence of cellulitis. MS/ Extremity: Pulses equal, no cyanosis. Neurovascular intact. Full, normal range of motion. Neuro: Awake and alert, GCS 15, oriented to person, place, time, and situation. Cranial nerves II-XII grossly intact. Motor strength 5/5 in all extremities. Sensory grossly intact. Cerebellar exam normal. Normal gait. Psych: Awake, alert, with orientation to person, place and time. Behavior, mood, and affect are within normal limits. 11:24 Cardiovascular: Rate: tachycardic, actual rate is 118 bpm, Rhythm: regular, Pulses: no pulse deficits are appreciated, Heart sounds: normal, Edema: is not appreciated, JVD: is not appreciated, 11:24 ECG was reviewed by the Attending Physician. 13:34 ECG was reviewed by the Attending Physician. [facility] Vital Signs: 11:16 BP 155 / 117; Pulse 118; Resp 16 S; Temp 97.6(O); Pulse Ox 99% on R/A; Weight 48.08 kg kc6 (M); Height 5 ft. 5 in. (R); 11:23 BP 138 / 74; kc6 12:04 BP 182 / 71; Pulse 112; Resp 16 S; Pulse Ox 100% on R/A; kc6 12:24 BP 172 / 106; Pulse 118; kc6 13:41 BP 164 / 65; Pulse 97; Resp 25 S; Pulse Ox 100% on 2.5 lpm NC; kc6 13:56 Temp 98.2(O); kc6 15:37 BP 160 / 53; Pulse 82; Resp 24 S; Pulse Ox 96% on 3 lpm NC; kc6 20:08 BP 157 / 49; Pulse 78; Resp 22; Pulse Ox 96% on 3 lpm NC; jw7 11:16 Body Mass Index 17.64 (48.08 kg, 165.1 cm) kc6 MDM: 11:19 Patient medically screened. sanju 11:28 Differential Diagnosis altered mental status, sepsis, flu. Differential Diagnosis: sanju cardiac arrhythmia, cerebrovascular accident, emotional response, GI bleed, idiopathic syncope, seizure, sepsis, transient ischemic attack, vasovagal episode. Data reviewed: vital signs, nurses notes, lab test result(s), EKG, radiologic studies, CT scan, plain films. Consideration of Admission/Observation Patient was admitted/placed on observation. Escalation of care including admission/observation considered. I considered the following discharge prescriptions or medication management in the emergency department Medications were administered in the Emergency Department. See MAR. Independent interpretation of the following test(s) in the Emergency Department EKG: See my EKG interpretation above. Test considered but Not performed: MRI: no mri brain. Historians other than the Patient: EMS: ems well informed. Care significantly affected by the following chronic conditions: Hypertension, cad, cva, copd, [place], stents. Counseling: I had a detailed discussion with the patient and/or guardian regarding the historical points, exam findings, and any diagnostic results supporting the discharge/admit diagnosis, lab results, radiology results, the need for further work-up and treatment in the hospital. 07/25 11:21 Order name: Basic Metabolic Panel; Complete Time: 12:26 07/25 11:21 Order name: CBC with Diff; Complete Time: 12:07/25 11:21 Order name: LFT's; Complete Time: 12:07/25 11:21 Order name: Magnesium; Complete Time: 12:26 sanju 07/25 11:21 Order name: NT PRO-BNP; Complete Time: 12: [facility] 07/25 11:21 Order name: PT-INR; Complete Time: 12: sanju 07/25 11:21 Order name: Troponin HS; Complete Time: 12:26 sanju 07/25 11:21 Order name: Lipase; Complete Time: 12:26 [facility] 07/25 11:21 Order name: Blood Culture Adult (2) [facility] 07/25 11:21 Order name: Lactate w/ 2H reflex if indic.; Complete Time: 12:26 [facility] 07/25 11:21 Order name: COVID-19/FLU A+B; Complete Time: 12: [facility] 07/25 11:22 Order name: Urinalysis w/ reflexes; Complete Time: 12:26 [facility] 07/25 15:45 Order name: CBC with Automated Diff [facility] 07/25 15:45 Order name: CBC with Automated Diff [facility] 07/25 15:45 Order name: Comprehensive Metabolic Panel [facility] 07/25 15:45 Order name: Comprehensive Metabolic Panel [facility] 07/25 15:45 Order name: Troponin High Sensitivity [facility] 07/25 15:45 Order name: Troponin High Sensitivity [facility] 07/25 11:21 Order name: XRAY Chest (1 view); Complete Time: 12:50 07/25 11:21 Order name: CT Traumagram (Head C Spine CAP W Con); Complete Time: 13:31 07/25 11:21 Order name: EKG; Complete Time: 11:22 07/25 13:12 Order name: EKG; Complete Time: 13:13 sanju 07/25 15:45 Order name: CONS Physician Consult [facility] 07/25 11:21 Order name: Cardiac monitoring; Complete Time: 11:24 [facility] 07/25 11:21 Order name: EKG - Nurse/Tech; Complete Time: : [facility] 07/25 11:21 Order name: IV Saline Lock; Complete Time: 11: [facility] 07/25 11:21 Order name: Labs collected and sent; Complete Time: 11:49 [facility] 07/25 11:21 Order name: O2 Per Protocol; Complete Time: : [facility] 07/25 11: Order name: O2 Sat Monitoring; Complete Time: : [facility] 07/25 13:12 Order name: EKG - Nurse/Tech; Complete Time: 13:25 [facility] EC:24 Rate is 120 beats/min. Rhythm is regular. QRS [place] is Normal. SC interval is normal. sanju QRS interval is normal. QT interval is normal. No Q waves. T waves are Normal. No ST changes noted. Clinical impression: Sinus tachycardia. Interpreted by me. Reviewed by me. 13:34 Rate is 134 beats/min. Rhythm is irregularly irregular, A fib with No ectopy. QRS [place] sanju is Normal. SC interval is normal. QRS interval is normal. QT interval is normal. No Q waves. T waves are Normal. No ST changes noted. Interpreted by me. Reviewed by me. Administered Medications: 12:55 Discontinued: ns 0.9% 1000 ml IV at 1 bolus Per protocol; 1000 mL bolus [facility] 11:51 Drug: NS 0.9% IV 1000 ml IV at 1 bolus Per protocol; 1000 mL bolus Route: IV; Rate: 1 kc6 bolus; Site: right antecubital; 13:56 Follow up: Response: No adverse reaction; IV Status: Completed infusion; IV Intake: kc6 1000ml 11:51 Drug: Rocephin IV 1 grams IV at per protocol once; Given slow IV push per pharmacy kc6 instructions Route: IV; Rate: per protocol; Site: right antecubital; 13:56 Follow up: Response: No adverse reaction; IV Status: Completed infusion; IV Intake: kc6 1000ml 11:51 Drug: Famotidine IVP 20 mg IVP once; dilute with 10 mL 0.9% NaCl; give over 2 minutes kc6 Route: IVP; Site: right antecubital; 12:04 Follow up: Response: No adverse reaction kc 13:25 Drug: Zithromax IVPB 500 mg IVPB once over 1 hrs; mix in 250 mL NS Route: IVPB; Infused kc6 Over: 1 hrs; Site: right antecubital; 15:31 Follow up: Response: No adverse reaction; IV Status: Completed infusion; IV Intake: kc6 250ml 13:25 Drug: MethylPrednisoLONE IVP 2 mg/kg IVP once Route: IVP; Site: right antecubital; kc6 13:57 Follow up: Response: No adverse reaction kc6 13:25 Drug: Levalbuterol Inhalation 1.25 mg Inhalation once Route: Inhalation; kc6 13:57 Follow up: Response: No adverse reaction kc6 13:25 Drug: Ipratropium Inhalation Aerosol 0.5 mg Inhalation once Route: Inhalation; kc6 13:57 Follow up: Response: No adverse reaction kc6 13:36 Drug: Metoprolol IVP 5 mg IVP once; Hold for SBP <100 or HR <60. Route: IVP; Site: [facility] right antecubital; 13:40 Follow up: Response: No adverse reaction; Blood pressure is lowered; Cardiac rhythm kc6 changed 13:36 Drug: Metoprolol PO 25 mg PO once Route: PO; kc6 15:31 Follow up: Response: No adverse reaction; Blood pressure is lowered; Cardiac rhythm kc6 changed 13:40 Not Given (Other Intervention Used): hydralazine5 mg IVP once kc6 13:50 Drug: Digoxin IVP 0.5 mg IVP once Route: IVP; Site: right antecubital; kc6 15:31 Follow up: Response: No adverse reaction; Blood pressure is lowered; Cardiac rhythm kc6 changed 13:50 Drug: hydrALAZINE PO 10 mg PO once Route: PO; kc6 15:31 Follow up: Response: No adverse reaction; Blood pressure is lowered; Cardiac rhythm kc6 changed 13:50 Drug: Lovenox Sub-Q 45 mg Sub-Q once Route: Sub-Q; Site: right lower abdomen; kc6 15:31 Follow up: Response: No adverse reaction kc6 14:21 Drug: Tussionex Pennkinetic ER PO Suspension 2.5 ml PO once Route: PO; kc6 15:31 Follow up: Response: No adverse reaction kc6 14:21 Drug: Furosemide IVP 20 mg IVP once; give over 2 minutes Route: IVP; Site: right kc6 antecubital; 15:32 Follow up: Response: No adverse reaction kc6 Disposition Summary: 07/25/23 12:58 Hospitalization Ordered Notes: Hospitalization Status: Inpatient Admission sanju Provider: Matti Martin cha Condition: Fair sanju Problem: new sanju Symptoms: have improved sanju Bed/Room Type: Standard sanju Location: Telemetry/MedSurg (Inpatient)(07/25/23 18:52) dw Room Assignment: 431(07/25/23 18:52) dw Diagnosis - Weakness sanju - Syncope Near sanju - Combined systolic (congestive) and diastolic (congestive) heart failure sanju - Pneumonia due to other specified bacteria sanju - Fall on same level, unspecified sanju - Unspecified kidney failure sanju - Paroxysmal atrial fibrillation - with RVR sanju Forms: - Medication Reconciliation Form sanju - SBAR form sanju - Leadership Thank You Letter sanju Signatures: Dispatcher [employer] Maritza Carnes RN RN dw Fabiano Hutchison MD MD cha Baxter, Heather, RN RN Radha Lange RN RN kc6 Corrections: (The following items were deleted from the chart) 16:14 12:58 Telemetry/MedSurg (Inpatient) sanju hb 16:14 12:58 sanju hb 18:52 16:14 [facility] ER HOLD hb dw 18:52 16:14 ERHOLD- hb dw
--- NOTE | 2023-07-25 12:59 | ER ---
Nurse's Notes [facility] Name: Lupe Hartley Age: 83 yrs Sex: Female : 1940 Arrival Date: 07/25/2023 Time: 11:13 Bed 17 Private MD: Diagnosis: Weakness;Syncope Near;Combined systolic (congestive) and diastolic (congestive) heart failure;Pneumonia due to other specified bacteria;Fall on same level, unspecified;Unspecified kidney failure;Paroxysmal atrial fibrillation-with RVR Presentation: 07/25 11:16 Chief complaint: EMS states: pt was discharged from a rehab facility yesterday for kc6 previous CVA. states this AM she fell while getting out of her chair. denies LOC, pt takes palvix. BGL en route 153. pt reports left leg weakness. Coronavirus screen: At this time, the client does not indicate any symptoms associated with coronavirus-19. Ebola Screen: No symptoms or risks identified at this time. Initial Sepsis Screen: Does the patient meet any 2 criteria? No. Patient's initial sepsis screen is negative. Does the patient have a suspected source of infection? No. Patient's initial sepsis screen is negative. Risk Assessment: Do you want to hurt yourself or someone else? Patient reports no desire to harm self or others. Onset of symptoms was July 25, 2023. 11:16 Method Of Arrival: EMS: [facility] 11:16 Acuity: NINI 3 [facility] Historical: - Allergies: 11:19 Phenobarbital; [facility] 11:19 promethazine HCl; kc6 - PMHx: 11:19 CAD; cardiac stents; COPD; Diverticulitis; HARD OF HEARING; Hyperlipidemia; kc6 Hypertension; Hypothyroidism; Myocardial infarction; - PSHx: 11:19 Appendectomy; Cholecystectomy; Total abdominal hysterectomy; kc6 - Immunization history:: Adult Immunizations unknown. - Social history:: Smoking status: unknown. - Family history:: not pertinent. Screenin:19 [facility] ED Fall Risk Assessment (Adult) History of falling in the last 3 months, [facility] including since admission No falls in past 3 months (0 pts) Confusion or Disorientation No (0 pts) Intoxicated or Sedated No (0 pts) Impaired Gait No (0 pts) Mobility Assist Device Used No (0 pt) Altered Elimination No (0 pt) Score/Fall Risk Level 0 - 2 = Low Risk. Abuse screen: Denies threats or abuse. Denies injuries from another. Nutritional screening: No deficits noted. Tuberculosis screening: No symptoms or risk factors identified. Assessment: 11:21 General: Appears in no apparent distress. comfortable, well groomed, well developed, kc6 Behavior is calm, cooperative, appropriate for age. Pain: Denies pain. Neuro: Level of Consciousness is awake, alert, obeys commands, Oriented to person, place, time, situation, Appropriate for age [employer] are equal bilaterally Moves all extremities. Full function Gait is unsteady, Speech is normal, Facial droop on left, Facial symmetry: tongue is midline, Pupils are PERRLA, Intact. Cardiovascular: Denies chest pain, Heart tones S1 S2 present Capillary refill < 3 seconds Rhythm is sinus tachycardia. Respiratory: Reports cough that is Airway is patent Trachea midline Respiratory effort is even, unlabored, Respiratory pattern is regular, symmetrical. GI: No signs and/or symptoms were reported involving the gastrointestinal system. : No signs and/or symptoms were reported regarding the genitourinary system. EENT: No signs and/or symptoms were reported regarding the EENT system. Derm: No signs and/or symptoms reported regarding the dermatologic system. Skin is intact, is healthy with good turgor, Skin is pink, warm \T\ dry. Musculoskeletal: No signs and/or symptoms reported regarding the musculoskeletal system. Circulation, motion, and sensation intact. Capillary refill < 3 seconds, Range of motion: intact in all extremities. 12:04 Reassessment: Patient appears in no apparent distress at this time. No changes from kc6 previously documented assessment. Patient and/or family updated on plan of care and expected duration. Pain level reassessed. Patient is alert, oriented x 3, equal unlabored respirations, skin warm/dry/pink. 13:04 Reassessment: Patient appears in no apparent distress at this time. No changes from kc6 previously documented assessment. Patient and/or family updated on plan of care and expected duration. Pain level reassessed. Patient is alert, oriented x 3, equal unlabored respirations, skin warm/dry/pink. 14:04 Reassessment: Patient appears in no apparent distress at this time. No changes from kc6 previously documented assessment. Patient and/or family updated on plan of care and expected duration. Pain level reassessed. Patient is alert, oriented x 3, equal unlabored respirations, skin warm/dry/pink. 15:04 Reassessment: Patient appears in no apparent distress at this time. No changes from [facility] previously documented assessment. Patient and/or family updated on plan of care and expected duration. Pain level reassessed. Patient is alert, oriented x 3, equal unlabored respirations, skin warm/dry/pink. 20:14 General: Report Given to SADIQ Mccurdy. 7 Vital Signs: 11:16 BP 155 / 117; Pulse 118; Resp 16 S; Temp 97.6(O); Pulse Ox 99% on R/A; Weight 48.08 kg kc6 (M); Height 5 ft. 5 in. (R); 11:23 BP 138 / 74; kc6 12:04 BP 182 / 71; Pulse 112; Resp 16 S; Pulse Ox 100% on R/A; kc6 12:24 BP 172 / 106; Pulse 118; kc6 13:41 BP 164 / 65; Pulse 97; Resp 25 S; Pulse Ox 100% on 2.5 lpm NC; kc6 13:56 Temp 98.2(O); kc6 15:37 BP 160 / 53; Pulse 82; Resp 24 S; Pulse Ox 96% on 3 lpm NC; kc6 20:08 BP 157 / 49; Pulse 78; Resp 22; Pulse Ox 96% on 3 lpm NC; jw7 11:16 Body Mass Index 17.64 (48.08 kg, 165.1 cm) [facility] ED Course: 11:15 Patient arrived in ED. eb 11:16 Radha Lange RN is Primary Nurse. [facility] 11:19 Triage completed. [facility] 11:19 Fabiano Hutchison MD is Attending Physician. [facility] 11:19 Arm band placed on. [facility] 11:19 Maintain EMS IV. Dressing intact. Good blood return noted. Site clean \T\ dry. Gauge \T\ tobi 6 site: 20G RAC. Patient maintains SpO2 saturation greater than 95% on room air. 11:20 Patient has correct armband on for positive identification. Bed in low position. Call [facility] light in reach. Side rails up X2. Client placed on continuous cardiac and pulse oximetry monitoring. NIBP monitoring applied. site monitor on. 12:29 XRAY Chest (1 view) In Process Unspecified. EDMS 12:54 CT Traumagram (Head C Spine CAP W Con) In Process Unspecified. EDMS 12:56 Matti Martin MD is Hospitalizing Provider. [facility] 17:41 No provider procedures requiring assistance completed. Patient admitted, IV remains in kc6 place. 19:00 Report given to Carissa Lynn RN. 6 19:00 Provided Education on: need for admit. jw7 Administered Medications: 12:55 Discontinued: ns 0.9% 1000 ml IV at 1 bolus Per protocol; 1000 mL bolus [facility] 11:51 Drug: NS 0.9% IV 1000 ml IV at 1 bolus Per protocol; 1000 mL bolus Route: IV; Rate: 1 kc6 bolus; Site: right antecubital; 13:56 Follow up: Response: No adverse reaction; IV Status: Completed infusion; IV Intake: kc6 1000ml 11:51 Drug: Rocephin IV 1 grams IV at per protocol once; Given slow IV push per pharmacy kc6 instructions Route: IV; Rate: per protocol; Site: right antecubital; 13:56 Follow up: Response: No adverse reaction; IV Status: Completed infusion; IV Intake: kc6 1000ml 11:51 Drug: Famotidine IVP 20 mg IVP once; dilute with 10 mL 0.9% NaCl; give over 2 minutes kc6 Route: IVP; Site: right antecubital; 12:04 Follow up: Response: No adverse reaction [facility] 13:25 Drug: Zithromax IVPB 500 mg IVPB once over 1 hrs; mix in 250 mL NS Route: IVPB; Infused kc6 Over: 1 hrs; Site: right antecubital; 15:31 Follow up: Response: No adverse reaction; IV Status: Completed infusion; IV Intake: kc6 250ml 13:25 Drug: MethylPrednisoLONE IVP 2 mg/kg IVP once Route: IVP; Site: right antecubital; kc6 13:57 Follow up: Response: No adverse reaction [facility] 13:25 Drug: Levalbuterol Inhalation 1.25 mg Inhalation once Route: Inhalation; kc6 13:57 Follow up: Response: No adverse reaction [facility] 13:25 Drug: Ipratropium Inhalation Aerosol 0.5 mg Inhalation once Route: Inhalation; 6 13:57 Follow up: Response: No adverse reaction [facility] 13:36 Drug: Metoprolol IVP 5 mg IVP once; Hold for SBP <100 or HR <60. Route: IVP; Site: kc6 right antecubital; 13:40 Follow up: Response: No adverse reaction; Blood pressure is lowered; Cardiac rhythm kc6 changed 13:36 Drug: Metoprolol PO 25 mg PO once Route: PO; kc6 15:31 Follow up: Response: No adverse reaction; Blood pressure is lowered; Cardiac rhythm kc6 changed 13:40 Not Given (Other Intervention Used): hydralazine5 mg IVP once kc6 13:50 Drug: Digoxin IVP 0.5 mg IVP once Route: IVP; Site: right antecubital; kc6 15:31 Follow up: Response: No adverse reaction; Blood pressure is lowered; Cardiac rhythm kc6 changed 13:50 Drug: hydrALAZINE PO 10 mg PO once Route: PO; kc6 15:31 Follow up: Response: No adverse reaction; Blood pressure is lowered; Cardiac rhythm kc6 changed 13:50 Drug: Lovenox Sub-Q 45 mg Sub-Q once Route: Sub-Q; Site: right lower abdomen; kc6 15:31 Follow up: Response: No adverse reaction kc6 14:21 Drug: Tussionex Pennkinetic ER PO Suspension 2.5 ml PO once Route: PO; kc6 15:31 Follow up: Response: No adverse reaction kc6 14:21 Drug: Furosemide IVP 20 mg IVP once; give over 2 minutes Route: IVP; Site: right kc6 antecubital; 15:32 Follow up: Response: No adverse reaction kc6 Medication: 17:41 VIS not applicable for this client. kc6 Intake: 13:56 IV: 1000ml; Total: 1000ml. kc6 13:56 IV: 1000ml; Total: 2000ml. kc6 15:31 IV: 250ml; Total: 2250ml. kc6 Outcome: 12:58 Decision to Hospitalize by Provider. sanju 17:41 Admitted to ER Hold. Please see [facility] for further documentation. 6 17:41 Condition: good 17:41 Instructed on the need for admit, 20:33 Patient left the ED. jw7 Signatures: Dispatcher [employer] EDFabiano Edmond MD MD cha Botello, Elizabeth eb Waits, Jodi, RN RN jw7 Radha Lange, RN RN kc6 Corrections: (The following items were deleted from the chart) 20:11 20:08 BP 157 / 49; Pulse 78bpm; Resp 22bpm; Pulse Ox 92% 3 lpm Nasal Cannula; azul jw7
[2023-07-25] MEDS ORDERED: NA CHLORIDE 0.9% 250 ML ONE (13:07)
[2023-07-25] MEDS ORDERED: LEVALBUTEROL 1.25 MG/3 ML NEB ONE (13:07)
[2023-07-25] MEDS ORDERED: IPRATROPIUM BROM 0.5MG/2.5ML ONE (13:07)
[2023-07-25] MEDS ORDERED: METHYLPREDNISOLONE 125 MG INJ ONE (13:07)
[2023-07-25] MEDS ORDERED: AZITHROMYCIN 500 MG INJ IVPB ONE (13:07)
--- NOTE | 2023-07-25 13:19 | RAD REPORT ---
EXAM DESCRIPTION: CT - Head C Spine Rajeev Rojas - 07/25/2023 12:51 pm CLINICAL HISTORY: Head and neck injury with chest and abdominal pain status post fall. Head and neck pain . TECHNIQUE: Computed axial tomography of the head and cervical spine was obtained Computed axial tomography of the chest, abdomen and pelvis was obtained. 100 cc Isovue-300 was given intravenously coronal and sagittal reconstruction was performed. All CT scans are performed using dose optimization technique as appropriate and may include automated exposure control or mA/KV adjustment according to patient size. COMPARISON: April 2023 FINDINGS: An intracranial bleed is not seen. The ventricles are normal in caliber. An extra-axial fl uid collection is not noted. Moderate low-density within periventricular, deep and subcortical white matter probably ischemic changes secondary to small vessel disease Fluid within the sinuses is not se en A cervical fracture is not seen. No dislocation is seen. A mediastinal hematoma is not noted. Small pleural effusions. A lung contusion is not seen. RUL nodule unchanged. Mild right upper lobe opacities may represent pneumonitis The liver, spleen, pancreas, adrenals, kidneys and bladder do not demonstrate an acute traumatic inju ry IMPRESSION: No acute intracranial abnormality is seen A cervical fracture is not visualized. If the patient continues have symptoms to suggest intracranial /spinal cord pathology then MRI would be recommended. No acute traumatic injury involving the chest, abdomen or pelvis is seen.
--- NOTE | 2023-07-25 13:22 | P.HP ---
Certification for Inpatient Patient admitted to: Inpatient <Waleska Isabel - Last Filed: 07/25/23 16:43> Patient History Date of Service: 07/25/23 Reason for admission: A-fib, near syncope History of Present Illness: 83-year-old, female with a past medical history of CAD, cardiac stents, COPD, diverticulitis, hyperlipidemia, hypertension, [place], hard of hearing, presents to the emergency room with dizziness and fall. Reports weakness symptoms progressively getting worse over the last 2 to 3 days. She denies pain, deformity. Reports shortness of breath with exertion. No reported fever, nausea vomiting diarrhea chest pain. Plan to admit for A-fib RVR, acute on chronic heart failure, pneumonia. Laboratory evaluation leukocytosis 12.80, left shift 77.7 acute on chronic kidney injury BUN 20 creatinine 1.20 EKG A-fib rate [address] changes - Past Medical/Surgical History Diabetic: No -: Hypothyroidism -: HTN -: HLD -: History of TIA -: CAD with prior stents, CABG x2 -: COPD -: Diverticulitis -: CABG x2 -: Hysterectomy -: History of colon resection related to diverticulitis -: Cardiac stents Psychosocial/ Personal History: Patient is of 59 years - Family History Father -: Heart disease - Social History Alcohol use: No CD- Drugs: No Caffeine use: Yes <Waleska Isabel - Last Filed: 07/25/23 16:43> Date of Service: 07/26/23 <Matti Martin - Last Filed: 07/26/23 15:57> Allergies Androgenic Anabolic Steroid Allergy (Verified 05/31/14 11:22) Shortness of breath phenobarbital Allergy (Verified 03/05/15 17:16) Unknown promethazine HCl [From Phenergan] Allergy (Verified 05/31/14 11:22) hallucinations codeine Adverse Reaction (Unknown, Verified 05/31/14 11:22) Nausea/Vomiting steroids Allergy (Uncoded 10/10/14 13:45) Unknown Home Medications: Levothyroxine Sodium [Levoxyl] 88 mcg PO [id number] 01/18/14 Metoprolol Succinate [Toprol Xl*] 100 mg PO BID 6AM 6PM 01/18/14 Albuterol Inhaler [Ventolin Inhaler*] 1 puff IH Q4HP PRN 06/05/22 Aspirin [Aspirin EC 81 MG] 81 mg PO DAILY 06/05/22 Budesonide/Formoterol Fumarate [Symbicort 160-4.5 Mcg Inhaler] 2 puff IH BID 06/05/22 Clopidogrel Bisulfate [Plavix*] 75 mg PO DAILY 06/05/22 Gabapentin 100 mg PO BEDTIME 06/05/22 Hydralazine [Apresoline*] 10 mg PO TIDP PRN 06/05/22 Irbesartan 150 mg PO DAILY 06/05/22 Amlodipine [Norvasc*] 5 mg PO DAILY 04/27/23 Atorvastatin Calcium [Lipitor] 40 mg PO BEDTIME #30 tab 05/04/23 Review of Systems per HPI <Waleska Isabel - Last Filed: 07/25/23 16:43> Physical Examination - Physical Exam General: Alert, In no apparent distress, Oriented x3, Other (moderate generalized weakness) HEENT: Atraumatic, Normocephalic Respiratory: Normal air movement, Crackles/rales Cardiovascular: Normal pulses, Irregular heart rate/rhythm (Irregular rate and rhythm) Gastrointestinal: Normal bowel sounds, Soft and benign Musculoskeletal: No clubbing, No swelling Integumentary: No rashes, No breakdown Neurological: Normal speech, Sensation intact, Normal affect - Studies Laboratory Data (last 24 hrs) 07/25/23 07/25/23 07/25/23 11:45 11:45 11:45 WBC 12.80 H Hgb 11.4 L Hct 34.4 L Plt Count 561 H PT 13.6 H INR 1.24 Sodium 138 Potassium 3.9 BUN 20 H Creatinine 1.21 H Glucose 130 H Magnesium 2.0 Total Bilirubin 0.6 AST 15 ALT 21 Alkaline Phosphatase 77 Lipase 23 <Waleska Isabel - Last Filed: 07/25/23 16:43> Assessment and Plan - Plan Assessment and plan A-fib RVR Near syncope Telemetry, cardiology consult, trend troponin, trend BNP IV diuretics, as needed analgesics, resume appropriate home meds, daily weight Normal troponin 57.0, Elevated BNP 06154, Daily weight, Lasix UA pending, CT of the abdomen pelvis chest, head and cervical spine leukocytosis 12.80, left shift 77.1,-ceftriaxone PT eval Acute on chronic kidney injury Gentle IV fluids, acute kidney injury BUN 20 creatinine 1.2, unknown baseline estimated GFR 44, Renal consult History patient cardiac stents Resume home antihypertensives COPD O2 2 L keep sats greater than 90%, as needed nebs Nebulizers, resume home meds diverticulitis hyperlipidemia hypertension History [place] hard of hearing Resume appropriate home meds Pulmonary lesion Bilateral renal cyst seen on prior exams Follow-up as outpatient Full code DVT heparin Diet cardiac Discharge Plan: Home Plan to discharge in: 48 Hours Discharge Plan: Home - Advance Directives Does patient have a Living Will: Yes Does patient have a Durable POA for Healthcare: Yes - Code Status/Comfort Care Code Status: Full Code Critical Care: No Time Spent Managing Pts Care (In Minutes): 55 <Waleska Isabel - Last Filed: 07/25/23 16:43> Date of Service: 07/25/23 Chart is been reviewed. Patient was seen and examined. Patient was recently discharged from [facility]. After discharge patient did well for 24 hours. However the next morning patient fell and she presents to the ER. Patient currently is doing well. Patient denies any new complaints. Patient will be admitted for inpatient hospitalization. <Matti Martin - Last Filed: 07/26/23 15:57>
[2023-07-25] MEDS ORDERED: METOPROLOL TAR 25 MG TAB ONE (13:26)
[2023-07-25] MEDS ORDERED: METOPROLOL TARTRATE 5 MG/5 ML INJ IV ONE (13:27)
[2023-07-25] MEDS ORDERED: HYDRALAZINE HCL 10 MG TABLET ONE (13:43)
[2023-07-25] MEDS ORDERED: ENOXAPARIN 40 MG/0.4 ML SQ ONE (13:43)
[2023-07-25] MEDS ORDERED: DIGOXIN 0.25 MG/ML AMP ONE (13:43)
[2023-07-25] MEDS ORDERED: FUROSEMIDE 20 MG/ 2ML VIAL ONE (14:16)
[2023-07-25] MEDS ORDERED: HYDROCODONE/CHLORPHEN 5 ML/OSYR ONE (14:16)
[2023-07-25] MEDS ORDERED: ONDANSETRON 4 MG/2 ML VIAL IV PRN (15:41)
[2023-07-25] MEDS ORDERED: MORPHINE 2 MG/ML SYR IV PRN (15:41)
[2023-07-25] MEDS: NA CHLORIDE 0.9% 1,000 ML IV SCH (16:00)
[2023-07-25] MEDS ORDERED: METOPROLOL TARTRATE 5 MG/5 ML INJ IV PRN (16:40)
[2023-07-25] MEDS ORDERED: ALBUTEROL 2.5 MG/3 ML NEB SOL IH PRN (16:40)
[2023-07-25] MEDS: FUROSEMIDE 40 MG/4 ML VIAL IV SCH (17:00)
[2023-07-25] MEDS: METHYLPREDNISOLONE 40 MG INJ IV SCH (17:00)
[2023-07-25] MEDS ORDERED: METOPROLOL TAR 50 MG TAB ONE (17:45)
[2023-07-25] MEDS ORDERED: FUROSEMIDE 40 MG/4 ML VIAL ONE (17:45)
[2023-07-25] MEDS: METOPROLOL XL 100 MG TAB PO SCH (18:00)
[2023-07-25] MEDS ORDERED: DULERA 100/5 (MOMETASONE/FORMOTEROL) INHALER IH SCH (21:00)
[2023-07-25] MEDS: GABAPENTIN 100 MG CAP PO SCH (21:00)
[2023-07-26] MEDS: METHYLPREDNISOLONE 40 MG INJ IV SCH ×3 (01:15→17:44)
[2023-07-26] MEDS: FUROSEMIDE 40 MG/4 ML VIAL IV SCH ×3 (01:15→17:44)
[2023-07-26] MEDS: METOPROLOL XL 100 MG TAB PO SCH ×2 (04:28→17:44)
[2023-07-26] MEDS: LEVOTHYROXINE SOD 0.088 MG TAB PO SCH (06:15)
[2023-07-26] MEDS: NA CHLORIDE 0.9% 1,000 ML IV SCH ×2 (06:17→17:45)
[2023-07-26 06:51] LABS: Absolute Lymphocytes (CBC) 0.8 K/uL (0.7-4.9); Hematocrit 34.1 % (36.0-45.0); Lymphocytes % 9.7 % (15.3-44.8); MCV 83.6 fL (80-100); MPV 6.9 fL (7.6-11.3); Platelets 572 thou/uL (152-406); RBC Red Blood Cell Count 4.08 M/uL (3.86-4.86)
[2023-07-26 07:11] LABS: Albumin 2.6 g/dL (3.4-5.0); Bilirubin Total 0.4 mg/dL (0.2-1.0); Potassium 3.7 mEq/L (3.5-5.1); Protein, Total 7.9 g/dL (6.4-8.2)
[2023-07-26 08:50] LABS: Blood Morphology Comment NOT SEEN (NOT SEEN); Platelet Estimate ADEQ; White Blood Cell Scan OK (OK)
[2023-07-26] MEDS: DULERA 100/5 (MOMETASONE/FORMOTEROL) INHALER IH SCH ×2 (09:00→20:02)
[2023-07-26] MEDS: AMLODIPINE 5 MG TAB PO SCH (11:21)
[2023-07-26] MEDS: CLOPIDOGREL 75 MG TABLET PO SCH (11:21)
[2023-07-26] MEDS: ASPIRIN EC 81 MG TAB PO SCH (11:21)
[2023-07-26] MEDS: CEFTRIAXONE 1,000 MG in NA CHLORIDE 0.9% 50 ML IVPB SCH (11:22)
[2023-07-26] MEDS: VALSARTAN 80 MG TAB PO SCH (11:23)
--- NOTE | 2023-07-26 12:51 | P.PN ---
Subjective Date of Service: 07/26/23 Chief Complaint: A-fib, near syncope Subjective: Improving Patient complains of being sleepy otherwise unremarkable. <Alysha Gould - Last Filed: 07/26/23 12:51> Date of Service: 07/26/23 <Matti Martin - Last Filed: 07/26/23 15:58> Review of Systems General: Unremarkable Eyes: Unremarkable ENT: Unremarkable Respiratory: Unremarkable Cardiovascular: Unremarkable Gastrointestinal: Unremarkable Genitourinary: Unremarkable Musculoskeletal: Unremarkable Integumentary: Unremarkable Neurological: Unremarkable Lymphatics: Unremarkable <Alysha Gould - Last Filed: 07/26/23 12:51> Physical Examination - Vital Signs Temperature: 96.9 F Blood Pressure: 131/63 Pulse: 70 Respirations: 16 Pulse Ox (%): 98 - Physical Exam General: Alert, In no apparent distress, Oriented x3, Cooperative HEENT: Atraumatic, PERRLA, EOMI Neck: Supple, JVD not distended Respiratory: Clear to auscultation bilaterally, Normal air movement Cardiovascular: Regular rate/rhythm, Normal S1 S2 Capillary refill: <2 Seconds Gastrointestinal: Normal bowel sounds, No tenderness Musculoskeletal: No clubbing, No tenderness Integumentary: No rashes Neurological: Normal speech, Normal tone, Normal affect Lymphatics: No axilla or inguinal lymphadenopathy <Alysha Gould - Last Filed: 07/26/23 12:51> Assessment And Plan - Plan Interval history. 07/26/2023 Patient seen at bedside. Patient complains of being sleepy. Patient denies any episode of dizziness. Patient on O2 therapy at 2 L/min. Continue diuresis with Lasix. Renal functions improving. A-fib management per regulatory coordinator. Physical therapy on board--will await further recommendations. Continue supportive care. A-fib RVR Near syncope Telemetry, cardiology consult, trend troponin, trend BNP IV diuretics, as needed analgesics, resume appropriate home meds, daily weight Normal troponin 57.0, Elevated BNP 85320, Daily weight, Lasix UA pending, CT of the abdomen pelvis chest, head and cervical spine leukocytosis 12.80, left shift 77.1,-ceftriaxone PT eval Acute on chronic kidney injury Gentle IV fluids, acute kidney injury BUN 20 creatinine 1.2, unknown baseline estimated GFR 44, Renal consult History patient cardiac stents Resume home antihypertensives COPD O2 2 L keep sats greater than 90%, as needed nebs Nebulizers, resume home meds diverticulitis hyperlipidemia hypertension History [place] hard of hearing Resume appropriate home meds Pulmonary lesion Bilateral renal cyst seen on prior exams Follow-up as outpatient Full code DVT heparin Diet cardiac Discharge Plan: Home Plan to discharge in: 48 Hours - Code Status/Comfort Care Code Status Assessed: Yes Physician Review: Patient Assessed, Agree with Above Assessment and Plan Critical Care: No <Alysha Gould - Last Filed: 07/26/23 12:51> Date of Service: 07/26/23 Patient was seen and examined. Agree with findings as mentioned above. Plan to discharge in the morning with home health services. <Matti Martin - Last Filed: 07/26/23 15:58>
--- NOTE | 2023-07-26 16:59 | EKG ---
Test Date: 2023-07-25 Test Time: 13:16:49 Ocean Biologist: NOHEMI MEASUREMENT RESULTS: Intervals: Rate: 134 MO: QRSD: 112 QT: 386 QTc: 576 [place]: P: MO: QRS: -87 T: 76 INTERPRETIVE STATEMENTS: Atrial fibrillation with rapid ventricular response with premature ventricular or aberrantly conducted complexes Left anterior fascicular block Abnormal ECG Compared to ECG 07/25/2023 11:18:52 Ventricular premature complex(es) now present Sinus tachycardia no longer present Atrial premature complex(es) no longer present Aberrant conduction of supraventricular beat(s) no longer present Left ventricular hypertrophy no longer present Early repolarization no longer present Electronically Signed On 07-26-23 16:56:05 QUICKBOOKS BOOKKEEPER by Keaton Frausto
--- NOTE | 2023-07-26 17:00 | EKG ---
Test Date: 2023-07-25 Test Time: 11:18:52 Elementary Education Teacher: KRANTHI MEASUREMENT RESULTS: Intervals: Rate: 120 ID: [id number] QRSD: 116 QT: 350 QTc: 494 [place]: P: 76 ID: [id number] QRS: -77 T: 89 INTERPRETIVE STATEMENTS: Sinus tachycardia with premature atrial complexes with aberrant conduction Left anterior fascicular block Left ventricular hypertrophy with QRS widening and repolarization abnormality Abnormal ECG Compared to ECG 04/27/2023 02:20:51 Sinus rhythm no longer present Electronically Signed On 07-26-23 16:56:16 RN ONCOLOGY RESEARCH by Keaton Frausto
--- NOTE | 2023-07-26 17:14 | CON ---
Date of Consultation: 07/26/2023 Reason For Consultation: AFib with RVR. History Of Present Illness: 83-year-old female, history of coronary artery disease, COPD, hypertensi on, dyslipidemia, presented with dizziness and fall to the emergency room. She was found to be in at rial fibrillation with rapid ventricular response. I saw her by bedside. She appeared to be in sinu s rhythm, doing clinically well. No complaints. Past Medical History: As outlined above in the HPI. Medications: Refer to reconciliation sheet for detailed list. Allergies: LIST OF ALLERGIES LONG AND IT WAS REVIEWED. REFER TO THE NURSE'S NOTE. Family History: No premature coronary artery disease or cancer. Social History: Does not smoke or drink. Does not use any drugs. Review of Systems: All systems reviewed and they were negative except as mentioned in the HPI. Physical Examination: Vital Signs: Reviewed. Head and Neck: Pupils are equal, reactive to light. Intact eye movements. No JVD. No cervical lym phadenopathy. Neck is supple. Thyroid is not enlarged. Lungs: Clear to auscultation bilaterally. No rhonchi, wheezing, or crackles. No accessory muscle u se. Heart: Regular rate and rhythm. No extra sounds. Abdomen: Soft, nontender. Bowel sounds positive. No organomegaly. No masses or hernia. No rigidi ty or rebound. Extremities: No edema, clubbing, or cyanosis. Intact pulses. Skin: No rash or nodule. Neurologic: Alert, awake, oriented x3. No acute focal deficits appreciated. Investigations: BUN 22, creatinine 1.1. Cardiac enzymes are negative and hemoglobin is 11.4. Assessment And Recommendations: 1.Atrial fibrillation with rapid ventricular response, now rate is controlled. She appears to be in sinus. We will obtain an EKG on her and continue metoprolol and recommend low-dose Eliquis 2.5 mg t wice a day for stroke prevention. 2.Congestive heart failure. Patient does not seem to be fluid overloaded. I will switch the Lasix to oral and to monitor BUN, creatinine, and electrolytes and please obtain an echocardiogram. 3.Hypertension. Blood pressure is controlled. SR/MODL Voice ID: [id number] Report ID: [id number]
[2023-07-26] MEDS: BENZONATATE 100 MG CAP PO PRN (20:05)
[2023-07-26] MEDS: GABAPENTIN 100 MG CAP PO SCH (20:07)
[2023-07-26] MEDS ORDERED: PHENOL 1.4% ORAL SPRAY 180ML MM PRN (20:07)
[2023-07-26] MEDS: ENSURE ENLIVE 237 ML CAN PO SCH (20:07)
[2023-07-27] MEDS: METHYLPREDNISOLONE 40 MG INJ IV SCH ×3 (00:05→16:55)
[2023-07-27] MEDS: FUROSEMIDE 40 MG/4 ML VIAL IV SCH ×3 (00:05→16:54)
[2023-07-27] MEDS: METOPROLOL XL 100 MG TAB PO SCH ×2 (05:34→16:56)
[2023-07-27] MEDS: LEVOTHYROXINE SOD 0.088 MG TAB PO SCH (05:34)
[2023-07-27] MEDS: BENZONATATE 100 MG CAP PO PRN ×2 (05:34→20:31)
[2023-07-27] MEDS: NA CHLORIDE 0.9% 1,000 ML IV SCH (06:04)
[2023-07-27 06:52] LABS: Absolute Lymphocytes (CBC) 0.7 K/uL (0.7-4.9); Hematocrit 31.4 % (36.0-45.0); Lymphocytes % 4.3 % (15.3-44.8); MCV 82.7 fL (80-100); Platelets 657 thou/uL (152-406)
[2023-07-27 07:12] LABS: Magnesium 1.9 mg/dL (1.6-2.4); Potassium 3.3 mEq/L (3.5-5.1); Thyroid Stimulating Hormone 0.248 uIU/mL (0.358-3.740)
--- NOTE | 2023-07-27 08:21 | RAD REPORT ---
EXAM DESCRIPTION: RAD - Chest Single View - 07/27/2023 4:58 am CLINICAL HISTORY: pneumonia Chest pain. COMPARISON: <Comparisons> FINDINGS: Portable technique limits examination quality. Since 07/25/2023, there has significant improvement in bilateral pulmonary opacities. Mild right-side d opacities persist. The heart is normal in size. Sternotomy wires. IMPRESSION: Significant improvement in bilateral pulmonary opacities since 07/25/2023 study.
[2023-07-27] MEDS: CEFTRIAXONE 1,000 MG in NA CHLORIDE 0.9% 50 ML IVPB SCH (08:48)
[2023-07-27] MEDS: VALSARTAN 80 MG TAB PO SCH (08:49)
[2023-07-27] MEDS: ASPIRIN EC 81 MG TAB PO SCH (08:49)
[2023-07-27] MEDS: AMLODIPINE 5 MG TAB PO SCH (08:49)
[2023-07-27] MEDS: CLOPIDOGREL 75 MG TABLET PO SCH (08:49)
[2023-07-27] MEDS: DULERA 100/5 (MOMETASONE/FORMOTEROL) INHALER IH SCH ×2 (08:50→20:30)
--- NOTE | 2023-07-27 08:50 | RAD REPORT ---
EXAM DESCRIPTION: - CP - 07/27/2023 8:35 am CLINICAL HISTORY: near syncope Headache, drowsiness, syncope COMPARISON: Head C Spine Mpr Wo Con dated 03/06/2023; Head C Spine Cap W Con dated 07/25/2023 TECHNIQUE: Real-time sonographic evaluation of both carotid systems was performed. Doppler interroga tion was performed with waveform tracing bilaterally. FINDINGS: Normal high resistance waveforms are noted in both external carotid arteries. The common c arotid arteries and internal carotid arteries show normal low resistance waveforms. There is moderate to advanced atherosclerotic plaquing seen involving both carotid systems. Moderate stenosis is suspected at the proximal right common carotid artery/ right carotid artery bulb resultin g in visual stenosis of 70-80% using NASCET criteria. Moderately severe hard plaquing is present invo lving the left carotid bulb resulting in moderate stenosis. There is evidence of a the common carotid artery stent which is patent. Nonvisualized left vertebral artery. IMPRESSION: Significant hard plaquing is present involving proximal internal carotid arteries bulbs. 70-80% stenosis may be present involving the right carotid bulb. Visualization is somewhat limited d ue to vessel tortuosity. Left common carotid artery stent is noted showing internal blood flow. Nonvisualization of the left v ertebral artery. CTA or MRA of the neck vessels may be helpful for further evaluation.
[2023-07-27 09:47] LABS: Blood Morphology Comment NOT SEEN (NOT SEEN); Platelet Estimate INCR; White Blood Cell Scan OK (OK)
[2023-07-27] MEDS: ENSURE ENLIVE 237 ML CAN PO SCH ×2 (09:50→20:30)
[2023-07-27] MEDS ORDERED: POTASSIUM CL SA 10 MEQ TAB PO ONE (12:28)
--- NOTE | 2023-07-27 12:39 | P.PN ---
Subjective Date of Service: 07/27/23 Chief Complaint: A-fib, near syncope Subjective: Improving Patient is more alert today and patient is hard of hearing. Patient complaining of cough. <Alysha Gould - Last Filed: 07/27/23 12:33> Date of Service: 07/27/23 <Matti Martin - Last Filed: 07/29/23 06:03> Review of Systems General: Unremarkable Eyes: Unremarkable ENT: Unremarkable Respiratory: Cough Cardiovascular: Unremarkable Gastrointestinal: Unremarkable Genitourinary: Unremarkable Musculoskeletal: Unremarkable Integumentary: Unremarkable Neurological: Unremarkable Lymphatics: Unremarkable <Alysha Gould - Last Filed: 07/27/23 12:33> Physical Examination - Vital Signs Temperature: 97.1 F Blood Pressure: 159/70 Pulse: 61 Respirations: 16 Pulse Ox (%): 99 - Physical Exam General: Alert, In no apparent distress, Oriented x3, Cooperative HEENT: Atraumatic, PERRLA, EOMI Neck: Supple, JVD not distended Respiratory: Normal air movement Cardiovascular: No edema, Regular rate/rhythm, Normal S1 S2 Capillary refill: <2 Seconds Gastrointestinal: Normal bowel sounds, Soft and benign, No tenderness Musculoskeletal: No clubbing, No tenderness Integumentary: No rashes, No significant lesion Neurological: Normal speech, Normal tone, Normal affect Lymphatics: No axilla or inguinal lymphadenopathy <Alysha Gould - Last Filed: 07/27/23 12:33> Assessment And Plan - Plan Interval history. 07/27/2023. Patient is present with spouse at bedside. Patient complaining of cough. Chest x-ray indicates improvement in bilateral opacities. Continue antitussives. E levation noted in WBC--likely steroid-induced. Will continue to monitor WBCs. Patient's spouse desires for patient to be discharged home with home health. Case management working on discharge. Carotid Doppler indicates findings of "70-80% stenosis may be present involving the right carotid bulb". Continue aspirin and statin. Tool Or Die Drawing Checker on board. Continue supportive care. 07/26/2023 Patient seen at bedside. Patient complains of being sleepy. Patient denies any episode of dizziness. Patient on O2 therapy at 2 L/min. Continue diuresis with Lasix. Renal functions improving. A-fib management per chemical economist. Physical therapy on board--will await further recommendations. Continue supportive care. A-fib RVR Near syncope Telemetry, cardiology consult, trend troponin, trend BNP IV diuretics, as needed analgesics, resume appropriate home meds, daily weight Normal troponin 57.0, Elevated BNP 94758, Daily weight, Lasix UA pending, CT of the abdomen pelvis chest, head and cervical spine leukocytosis 12.80, left shift 77.1,-ceftriaxone PT eval Acute on chronic kidney injury Gentle IV fluids, acute kidney injury BUN 20 creatinine 1.2, unknown baseline estimated GFR 44, Renal consult History patient cardiac stents Resume home antihypertensives COPD O2 2 L keep sats greater than 90%, as needed nebs Nebulizers, resume home meds diverticulitis hyperlipidemia hypertension History [place] hard of hearing Resume appropriate home meds Pulmonary lesion Bilateral renal cyst seen on prior exams Follow-up as outpatient Full code DVT heparin Diet cardiac Discharge Plan: Home Plan to discharge in: 48 Hours - Code Status/Comfort Care Code Status Assessed: Yes Physician Review: Patient Assessed, Agree with Above Assessment and Plan Critical Care: No <Alysha Gould - Last Filed: 07/27/23 12:33> Date of Service: 07/27/23 Patient was seen and examined. Agree with findings as mentioned above. Patient's undecided on what they want to do at this time. <Matti Martin - Last Filed: 07/29/23 06:03>
[2023-07-27 15:53] VITALS: BMI 17.1
--- NOTE | 2023-07-27 17:42 | PN ---
Date of Progress Note: 07/27/2023 Subjective: Seen by bedside, doing clinically well. No further palpitations. Review of Systems: No chest pain, shortness of breath, orthopnea, or cough. No nausea, vomiting, or diarrhea. All othe r systems were reviewed, they were negative. Objective: Vital Signs: Reviewed. Head and Neck: Pupils are equal, reactive to light. Intact eye movements. No JVD. No cervical lym phadenopathy. Neck is supple. Thyroid is not enlarged. Lungs: Clear to auscultation bilaterally. No rhonchi, wheezing, or crackles. No accessory muscle u se. Heart: Regular rate and rhythm. No extra sounds. Abdomen: Soft, nontender. Bowel sounds positive. No organomegaly. No masses or hernia. No rigidi ty or rebound. Extremities: No edema, clubbing, or cyanosis. Intact pulses. Skin: No rash or nodule. Neurologic: Alert, awake, oriented x3. No acute focal deficits appreciated. Investigations: BUN 34, creatinine 1.1. Cardiac enzymes are negative. Assessment And Recommendations: 1.Atrial fibrillation, now it is controlled, likely in sinus. Continue metoprolol and recommend Umm kevin 2.5 mg twice a day. 2.Congestive heart failure exacerbation. Discontinue IV Lasix and put her on oral diuretics. BUN a nd creatinine started to increase. I will discontinue today and plan for reevaluation tomorrow to se e if there is a need for IV Lasix, otherwise to be started on oral Lasix tomorrow. 3.Hypertension. Blood pressure is controlled. SR/MODL Voice ID: [id number] Report ID: [id number]
[2023-07-27] MEDS: GABAPENTIN 100 MG CAP PO SCH (20:31)
[2023-07-27] MEDS: ATORVASTATIN 40 MG TAB PO SCH (20:31)
[2023-07-28] MEDS: METHYLPREDNISOLONE 40 MG INJ IV SCH ×3 (01:17→17:08)
[2023-07-28] MEDS: METOPROLOL XL 100 MG TAB PO SCH ×3 (02:49→17:08)
[2023-07-28] MEDS: HYDRALAZINE HCL 10 MG TABLET PO PRN ×2 (05:51→20:42)
[2023-07-28] MEDS: LEVOTHYROXINE SOD 0.088 MG TAB PO SCH (05:59)
[2023-07-28] MEDS: VALSARTAN 80 MG TAB PO SCH (08:06)
[2023-07-28] MEDS: CEFTRIAXONE 1,000 MG in NA CHLORIDE 0.9% 50 ML IVPB SCH (08:06)
[2023-07-28] MEDS: ASPIRIN EC 81 MG TAB PO SCH (08:06)
[2023-07-28] MEDS: DULERA 100/5 (MOMETASONE/FORMOTEROL) INHALER IH SCH ×2 (08:06→20:39)
[2023-07-28] MEDS: AMLODIPINE 5 MG TAB PO SCH (08:07)
[2023-07-28] MEDS: CLOPIDOGREL 75 MG TABLET PO SCH (08:07)
[2023-07-28] MEDS: ENSURE ENLIVE 237 ML CAN PO SCH ×2 (08:08→20:38)
[2023-07-28 11:51] LABS: Absolute Lymphocytes (CBC) 0.7 K/uL (0.7-4.9); Hematocrit 36.8 % (36.0-45.0); Lymphocytes % 4.1 % (15.3-44.8); MCV 84.2 fL (80-100); MPV 7.1 fL (7.6-11.3); Platelets 622 thou/uL (152-406); RBC Red Blood Cell Count 4.37 M/uL (3.86-4.86)
[2023-07-28 12:03] LABS: Potassium 3.7 mEq/L (3.5-5.1)
[2023-07-28 12:14] LABS: Blood Morphology Comment NOT SEEN (NOT SEEN); Platelet Estimate INCR; White Blood Cell Scan OK (OK)
--- NOTE | 2023-07-28 19:17 | P.PN ---
Subjective Date of Service: 07/28/23 Chief Complaint: A-fib, near syncope Subjective: Improving Patient reports improvement in cough. Patient is hard of hearing. <Alysha Gould - Last Filed: 07/28/23 19:17> Date of Service: 07/29/23 <Matti Martin - Last Filed: 07/29/23 06:03> Review of Systems General: Weakness Eyes: Unremarkable ENT: Unremarkable Respiratory: Cough Cardiovascular: Unremarkable Gastrointestinal: Unremarkable Genitourinary: Unremarkable Musculoskeletal: Unremarkable Integumentary: Unremarkable Neurological: Weakness Lymphatics: Unremarkable <Alysha Gould - Last Filed: 07/28/23 19:17> Physical Examination - Vital Signs Temperature: 96.9 F Blood Pressure: 155/72 Pulse: 64 Respirations: 16 Pulse Ox (%): 96 - Physical Exam General: Alert, In no apparent distress, Oriented x3, Cooperative HEENT: Atraumatic, PERRLA, EOMI Neck: Supple, JVD not distended Respiratory: Clear to auscultation bilaterally, Normal air movement Cardiovascular: No edema, Regular rate/rhythm, Normal S1 S2 Capillary refill: <2 Seconds Gastrointestinal: Normal bowel sounds, Non-distended, No tenderness Musculoskeletal: No clubbing, No tenderness Integumentary: No rashes, No tenderness/swelling Neurological: Normal speech, Normal tone, Normal affect Lymphatics: No axilla or inguinal lymphadenopathy <Alysha Gould - Last Filed: 07/28/23 19:17> Assessment And Plan - Plan Interval history. 07/28/2023. Patient seen with at bedside. Patient reports improvement in cough. Patient seen by production team advisor who recommends placing patient on Eliquis. X Ray Inspector also DC IV Lasix and will reassess need for Lasix therapy. Patient is pending discharge placement likely to [facility] and patient's spouse also working to arrange private pay provider services for in-home. Continue supportive care. 07/27/2023. Patient is present with spouse at bedside. Patient complaining of cough. Chest x-ray indicates improvement in bilateral opacities. Continue antitussives. Elevation noted in WBC--likely steroid-induced. Will continue to monitor WBCs. Patient's spouse desires for patient to be discharged home with home health. Case management working on discharge. Carotid Doppler indicates findings of "70-80% stenosis may be present involving the right carotid bulb". Continue aspirin and statin. X Ray Inspector on board. Continue supportive care. Interval history. 07/26/2023 Patient seen at bedside. Patient complains of being sleepy. Patient denies any episode of dizziness. Patient on O2 therapy at 2 L/min. Continue diuresis with Lasix. Renal functions improving. A-fib management per production team advisor. Physical therapy on board--will await further recommendations. Continue supportive care. A-fib RVR Near syncope Telemetry, cardiology consult, trend troponin, trend BNP IV diuretics, as needed analgesics, resume appropriate home meds, daily weight Normal troponin 57.0, Elevated BNP 66339, Daily weight, Lasix UA pending, CT of the abdomen pelvis chest, head and cervical spine leukocytosis 12.80, left shift 77.1,-ceftriaxone PT eval Acute on chronic kidney injury Gentle IV fluids, acute kidney injury BUN 20 creatinine 1.2, unknown baseline estimated GFR 44, Renal consult History patient cardiac stents Resume home antihypertensives COPD O2 2 L keep sats greater than 90%, as needed nebs Nebulizers, resume home meds diverticulitis hyperlipidemia hypertension History [place] hard of hearing Resume appropriate home meds Pulmonary lesion Bilateral renal cyst seen on prior exams Follow-up as outpatient Full code DVT heparin Diet cardiac Discharge Plan: Home Plan to discharge in: 48 Hours - Code Status/Comfort Care Code Status Assessed: Yes Physician Review: Patient Assessed, Agree with Above Assessment and Plan Critical Care: No <Alysha Gould - Last Filed: 07/28/23 19:17> Date of Service: 07/28/23 Patient was seen and examined. Agree with findings as mentioned above. Patient's family had decided they want her back to [facility]. Will try to get patient referred back to [facility] at this time. Patient's may be willing to pay [id number]. However, I was informed that he may have a bill as well. Case management aware of situation and they are working on placement at this time. <Matti Martin - Last Filed: 07/29/23 06:03>
[2023-07-28] MEDS: ATORVASTATIN 40 MG TAB PO SCH (20:38)
[2023-07-28] MEDS: GABAPENTIN 100 MG CAP PO SCH (20:38)
[2023-07-28] MEDS: APIXABAN 2.5 MG TABLET PO SCH (20:38)
[2023-07-29] MEDS: METHYLPREDNISOLONE 40 MG INJ IV SCH ×3 (00:40→16:56)
[2023-07-29] MEDS: METOPROLOL XL 100 MG TAB PO SCH ×2 (05:27→16:56)
[2023-07-29] MEDS: LEVOTHYROXINE SOD 0.088 MG TAB PO SCH (05:27)
--- NOTE | 2023-07-29 06:48 | ECHO ---
HEIGHT: 5 ft 5 in WEIGHT: 103 lb 0 oz DATE OF STUDY: 07/28/[address]: Matti Martin MD 2-DIMENSIONAL: YES M.MODE: YES DOPPLER: YES COLOR FLOW: YES TDS: PORTABLE: YES DEFINITY: BUBBLE STUDY: DIAGNOSIS: NEAR SYNCOPE CARDIAC HISTORY: CATHERIZATION: SURGERY: PROSTHETIC VALVE: PACEMAKER: MEASUREMENTS (cm) DIASTOLIC (NORMALS) SYSTOLIC (NORMALS) IVSd 0.9 (0.6-1.2) LA Diam 3.8 (1.9-4.0) LVEF 55% LVIDd 4.6 (3.5-5.7) LVIDs 3.3 (2.0-3.5) %FS 28% LVPWd 1.0 (0.6-1.2) Ao Diam 2.3 (2.0-3.7) 2 DIMENSIONAL ASSESSMENT: RIGHT ATRIUM: NORMAL LEFT ATRIUM: ENLARGED RIGHT VENTRICLE: NORMAL LEFT VENTRICLE: NORMAL TRICUSPID VALVE: MILD TRICUSPID REGURGITATION MITRAL VALVE: MILD MITRAL REGURGITATION PULMONIC VALVE: MILD PULMONIC INSUFFICIENCY AORTIC VALVE: THICKENED WITH MILD AORTIC INSUFFICIENCY PERICARDIAL EFFUSION: NONE AORTIC ROOT: NORMAL LEFT VENTRICULAR WALL MOTION: NORMAL DOPPLER/COLOR FLOW: SEE BELOW COMMENTS: 1. NORMAL LEFT VENTRICULAR EJECTION FRACTION 55-60% WITH NORMAL WALL MOTION 2. LEFT ATRAL ENLARGEMENT 3. MILD MITRAL REGURGITATION, TRICUSPID REGURGITATION, PULMONIC INSUFFICIENCY 4. MODERATE AORTIC INSUFFICIENCY 5. MODERATE DIASTOLIC DYSFUNCTION TECHNOLOGIST: DENISA ISAACS
[2023-07-29] MEDS: VALSARTAN 80 MG TAB PO SCH (09:07)
[2023-07-29] MEDS: CEFTRIAXONE 1,000 MG in NA CHLORIDE 0.9% 50 ML IVPB SCH (09:07)
[2023-07-29] MEDS: APIXABAN 2.5 MG TABLET PO SCH ×2 (09:07→20:31)
[2023-07-29] MEDS: CLOPIDOGREL 75 MG TABLET PO SCH (09:07)
[2023-07-29] MEDS: ASPIRIN EC 81 MG TAB PO SCH (09:07)
[2023-07-29] MEDS: DULERA 100/5 (MOMETASONE/FORMOTEROL) INHALER IH SCH ×2 (09:08→20:31)
[2023-07-29] MEDS: AMLODIPINE 5 MG TAB PO SCH (09:08)
[2023-07-29] MEDS: ENSURE ENLIVE 237 ML CAN PO SCH ×2 (09:09→20:31)
--- NOTE | 2023-07-29 12:23 | P.PN ---
Subjective Date of Service: 07/29/23 Chief Complaint: A-fib, near syncope Pt is resting comfortably in bed. She was about to eat breakfast when I walked in. Pt denies any chest pain or SOB. No other complaints. Waiting the decision of [facility] to accept her back. Review of Systems Unremarkable General: Unremarkable Eyes: Unremarkable ENT: Unremarkable Respiratory: Unremarkable Cardiovascular: Unremarkable Gastrointestinal: Unremarkable Genitourinary: Unremarkable Musculoskeletal: Unremarkable Neurological: Unremarkable Lymphatics: Unremarkable Physical Examination - Vital Signs Temperature: 97.6 F Blood Pressure: 160/70 Pulse: 51 Respirations: 16 Pulse Ox (%): 96 - Physical Exam General: Alert, In no apparent distress, Oriented x3 HEENT: Atraumatic, Normocephalic Neck: Supple, 2+ carotid pulse no bruit Respiratory: Clear to auscultation bilaterally, Normal air movement Cardiovascular: No edema, Normal pulses, Normal S1 S2 Capillary refill: <2 Seconds Gastrointestinal: Normal bowel sounds, Soft and benign, Non-distended Musculoskeletal: No clubbing, No swelling Integumentary: No rashes, No breakdown Neurological: Normal speech, Normal strength at 5/5 x4 extr, Normal tone, Sensation intact Lymphatics: No axilla or inguinal lymphadenopathy Assessment And Plan - Plan A-fib RVR: Will continue telemetry, metoprolol and Eliquis. Near syncope: Unknown etiology. Echo shows EF 55 - 60% with moderate diastolic dysfunction, mild MR, TR and pulmonic insufficiency. Carotid ultrasounc shows 70 - 80% stenosis in the right ICA. Pt needs to follow up with a Vascular surgery. Diastolic CHF: Pt has elevated [place]: [place] [address]. Echo shows EF 55 - 60% with moderate diastolic dysfunction, mild MR, TR and pulmonic insufficiency. Will continue low salt diet, strict I/O and daily weight. Off lasix due to improvement of volume status. Troponin 57.0, Leukocytosis: WBC is 17 <- 12.8. UA is unremarkable. Continue empiric rocephin. Will check Procalcitonin. Acute on chronic kidney injury: cr is 1.29. Will avoid nephrotoxins andmonitor renal function. History of CAD s/p cardiac stents. Continue home meds. Htn: Continue home meds. HLD: statin Hx of COPD: Stable. Not in exacerbation. Will continue prn duoneb and oxygen. Pulmonary lesion / Bilateral renal cyst: Seen on prior exams. Will follow up on outpt. DVT heparin Code: full Dispo: Waiting for [facility] to accept her back. Discharge Plan: Home - Code Status/Comfort Care Code Status Assessed: Yes Code Status: Full Code Physician Review: Patient Assessed, Agree with Above Assessment and Plan
[2023-07-29] MEDS: ATORVASTATIN 40 MG TAB PO SCH (20:31)
[2023-07-29] MEDS: GABAPENTIN 100 MG CAP PO SCH (20:31)
[2023-07-30] MEDS: METHYLPREDNISOLONE 40 MG INJ IV SCH ×3 (00:48→17:04)
[2023-07-30 05:41] LABS: Absolute Lymphocytes (CBC) 1.1 K/uL (0.7-4.9); Hematocrit 33.1 % (36.0-45.0); Lymphocytes % 5.6 % (15.3-44.8); MCV 82.6 fL (80-100); MPV 6.8 fL (7.6-11.3); Platelets 747 thou/uL (152-406); RBC Red Blood Cell Count 4.01 M/uL (3.86-4.86)
[2023-07-30 05:47] LABS: Potassium 4.4 mEq/L (3.5-5.1)
[2023-07-30] MEDS: METOPROLOL XL 100 MG TAB PO SCH ×2 (06:00→17:05)
[2023-07-30] MEDS: LEVOTHYROXINE SOD 0.088 MG TAB PO SCH (06:21)
--- NOTE | 2023-07-30 10:53 | P.PN ---
Subjective Date of Service: 07/30/23 Chief Complaint: A-fib, near syncope Pt is resting comfortably in bed. She was about to get up when I saw her. Pt denies any dizziness. Her heart rate 51. Pt denies any chest pain or SOB. No other complaints. Waiting for insurance authorization. Review of Systems Unremarkable General: Unremarkable Eyes: Unremarkable ENT: Unremarkable Respiratory: Unremarkable Cardiovascular: Unremarkable Gastrointestinal: Unremarkable Genitourinary: Unremarkable Musculoskeletal: Unremarkable Integumentary: Unremarkable Neurological: Unremarkable Lymphatics: Unremarkable Physical Examination - Vital Signs Temperature: 97.3 F Blood Pressure: 156/50 Pulse: 51 Respirations: 18 Pulse Ox (%): 94 - Physical Exam General: Alert, In no apparent distress, Oriented x3 HEENT: Atraumatic, Normocephalic Neck: Supple, 2+ carotid pulse no bruit Respiratory: Clear to auscultation bilaterally, Normal air movement Cardiovascular: No edema, Normal pulses, Regular rate/rhythm Capillary refill: <2 Seconds Gastrointestinal: Normal bowel sounds, Soft and benign, Non-distended Musculoskeletal: No clubbing, No swelling Integumentary: No rashes, No breakdown Neurological: Normal speech, Normal strength at 5/5 x4 extr, Normal tone, Sensation intact Lymphatics: No axilla or inguinal lymphadenopathy Assessment And Plan - Plan A-fib RVR: Will continue telemetry, metoprolol and Eliquis. Near syncope: Unknown etiology. Echo shows EF 55 - 60% with moderate diastolic dysfunction, mild MR, TR and pulmonic insufficiency. Carotid ultrasounc shows 70 - 80% stenosis in the right ICA. Pt needs to follow up with a Vascular surgery. Diastolic CHF: Pt has elevated BNP: [place] [address]. Echo shows EF 55 - 60% with moderate diastolic dysfunction, mild MR, TR and pulmonic insufficiency. Will continue low salt diet, strict I/O and daily weight. Off lasix due to improvement of volume status. Troponin 57.0, Leukocytosis: WBC is 19.5<- 17 <- 12.8. UA is unremarkable. Continue empiric rocephin. Will check Procalcitonin. Acute on chronic kidney injury: Cr is 1.13<- 1.29. Will avoid nephrotoxins and monitor renal function. History of CAD s/p cardiac stents. Continue home meds. Thrombocytosis: Platelet is 747. Will continue aspirin and monitor.. Htn: Continue home meds. HLD: statin Hx of COPD: Stable. Not in exacerbation. Will continue prn duoneb and oxygen. Pulmonary lesion / Bilateral renal cyst: Seen on prior exams. Will follow up on outpt. DVT ppx: Eliquis Code: full Dispo: Waiting for insurance authorization for placement in [facility]. Physician Review: Patient Assessed, Agree with Above Assessment and Plan
[2023-07-30] MEDS: APIXABAN 2.5 MG TABLET PO SCH ×2 (11:16→20:41)
[2023-07-30] MEDS: ASPIRIN EC 81 MG TAB PO SCH (11:17)
[2023-07-30] MEDS: AMLODIPINE 5 MG TAB PO SCH (11:17)
[2023-07-30] MEDS: VALSARTAN 80 MG TAB PO SCH (11:17)
[2023-07-30] MEDS: CLOPIDOGREL 75 MG TABLET PO SCH (11:17)
[2023-07-30] MEDS: DULERA 100/5 (MOMETASONE/FORMOTEROL) INHALER IH SCH ×2 (11:18→20:42)
[2023-07-30] MEDS: ENSURE ENLIVE 237 ML CAN PO SCH ×2 (11:18→21:00)
[2023-07-30] MEDS: CEFTRIAXONE 1,000 MG in NA CHLORIDE 0.9% 50 ML IVPB SCH (11:20)
[2023-07-30] MEDS: ATORVASTATIN 40 MG TAB PO SCH (20:42)
[2023-07-30] MEDS: GABAPENTIN 100 MG CAP PO SCH (20:42)
[2023-07-31] MEDS: HYDRALAZINE HCL 10 MG TABLET PO PRN (00:28)
[2023-07-31] MEDS: METHYLPREDNISOLONE 40 MG INJ IV SCH ×3 (02:56→17:57)
[2023-07-31] MEDS: METOPROLOL XL 100 MG TAB PO SCH ×2 (05:01→17:57)
[2023-07-31] MEDS: LEVOTHYROXINE SOD 0.088 MG TAB PO SCH (05:25)
[2023-07-31 06:55] LABS: Absolute Lymphocytes (CBC) 0.8 K/uL (0.7-4.9); Hematocrit 35.8 % (36.0-45.0); Lymphocytes % 3.7 % (15.3-44.8); MCV 83.6 fL (80-100); MPV 7.1 fL (7.6-11.3); Platelets 706 thou/uL (152-406); RBC Red Blood Cell Count 4.28 M/uL (3.86-4.86)
[2023-07-31 07:16] LABS: Potassium 4.6 mEq/L (3.5-5.1)
[2023-07-31 09:00] LABS: Platelet Estimate INCR; Platelets, Giant FEW
[2023-07-31 09:01] LABS: Blood Morphology Comment NOT SEEN (NOT SEEN); Hypersegmented Neutrophils PRESENT
[2023-07-31] MEDS: CLOPIDOGREL 75 MG TABLET PO SCH (09:08)
[2023-07-31] MEDS: VALSARTAN 80 MG TAB PO SCH (09:08)
[2023-07-31] MEDS: APIXABAN 2.5 MG TABLET PO SCH ×2 (09:08→20:29)
[2023-07-31] MEDS: ASPIRIN EC 81 MG TAB PO SCH (09:08)
[2023-07-31] MEDS: DULERA 100/5 (MOMETASONE/FORMOTEROL) INHALER IH SCH ×2 (09:09→20:29)
[2023-07-31] MEDS: AMLODIPINE 5 MG TAB PO SCH (09:09)
[2023-07-31] MEDS: ENSURE ENLIVE 237 ML CAN PO SCH ×2 (09:12→20:30)
[2023-07-31] MEDS: CEFTRIAXONE 1,000 MG in NA CHLORIDE 0.9% 50 ML IVPB SCH (09:12)
[2023-07-31] MEDS ORDERED: METHYLPREDNISOLONE 40 MG INJ ONE (17:31)
[2023-07-31] MEDS: GABAPENTIN 100 MG CAP PO SCH (20:29)
[2023-07-31] MEDS: ATORVASTATIN 40 MG TAB PO SCH (20:29)
[2023-08-01] MEDS: HYDRALAZINE HCL 10 MG TABLET PO PRN (05:42)
[2023-08-01] MEDS: LEVOTHYROXINE SOD 0.088 MG TAB PO SCH (05:42)
[2023-08-01] MEDS: METOPROLOL XL 100 MG TAB PO SCH ×2 (05:45→16:56)
[2023-08-01 06:57] LABS: Absolute Lymphocytes (CBC) 1.1 K/uL (0.7-4.9); MCV 83.5 fL (80-100); MPV 7.4 fL (7.6-11.3); Platelets 698 thou/uL (152-406); RBC Red Blood Cell Count 4.31 M/uL (3.86-4.86)
[2023-08-01 07:23] LABS: Potassium 5.2 mEq/L (3.5-5.1)
[2023-08-01 07:45] LABS: Blood Morphology Comment NOT SEEN (NOT SEEN); Platelet Estimate INCR; White Blood Cell Scan OK (OK)
[2023-08-01] MEDS: CLOPIDOGREL 75 MG TABLET PO SCH (07:58)
[2023-08-01] MEDS: CEFTRIAXONE 1,000 MG in NA CHLORIDE 0.9% 50 ML IVPB SCH (07:58)
[2023-08-01] MEDS: APIXABAN 2.5 MG TABLET PO SCH ×2 (07:59→20:53)
[2023-08-01] MEDS: ASPIRIN EC 81 MG TAB PO SCH (07:59)
[2023-08-01] MEDS: ENSURE ENLIVE 237 ML CAN PO SCH ×2 (08:00→20:55)
[2023-08-01] MEDS ORDERED: SODIUM ZIRCONIUM CYCLOSILICATE 10 GM/PKT PO ONE (08:00)
[2023-08-01] MEDS: DULERA 100/5 (MOMETASONE/FORMOTEROL) INHALER IH SCH ×2 (08:04→20:54)
[2023-08-01] MEDS: VALSARTAN 80 MG TAB PO SCH (08:06)
[2023-08-01] MEDS: AMLODIPINE 5 MG TAB PO SCH (08:07)
--- NOTE | 2023-08-01 09:37 | P.PN ---
Subjective Date of Service: 07/31/23 Chief Complaint: A-fib, near syncope Pt is resting comfortably in bed. She was about to get up when I saw her. Pt denies any dizziness. Pt denies any chest pain or SOB. No other complaints. Waiting for insurance authorization. Review of Systems Unremarkable General: Unremarkable Eyes: Unremarkable ENT: Unremarkable Respiratory: Unremarkable Cardiovascular: Unremarkable Gastrointestinal: Unremarkable Genitourinary: Unremarkable Musculoskeletal: Unremarkable Integumentary: Unremarkable Neurological: Unremarkable Lymphatics: Unremarkable Physical Examination - Vital Signs Temperature: 97.7 F Blood Pressure: 163/78 Pulse: 46 Respirations: 16 Pulse Ox (%): 96 - Physical Exam General: Alert, In no apparent distress, Oriented x2 HEENT: Atraumatic, Normocephalic, PERRLA Neck: Supple, 2+ carotid pulse no bruit Respiratory: Clear to auscultation bilaterally, Normal air movement Cardiovascular: No edema, Normal pulses, Regular rate/rhythm, Normal S1 S2 Capillary refill: <2 Seconds Gastrointestinal: Normal bowel sounds, Soft and benign, Non-distended Musculoskeletal: No clubbing, No swelling Integumentary: No rashes, No breakdown Neurological: Normal speech, Normal strength at 5/5 x4 extr, Normal tone, Sensation intact Lymphatics: No axilla or inguinal lymphadenopathy Assessment And Plan - Plan A-fib RVR: Will continue telemetry, metoprolol and Eliquis. Near syncope: Unknown etiology. Echo shows EF 55 - 60% with moderate diastolic dysfunction, mild MR, TR and pulmonic insufficiency. Carotid ultrasounc shows 70 - 80% stenosis in the right ICA. Pt needs to follow up with a Vascular surgery. Diastolic CHF: Pt has elevated [place]: [place] [address]. Echo shows EF 55 - 60% with moderate diastolic dysfunction, mild MR, TR and pulmonic insufficiency. Will continue low salt diet, strict I/O and daily weight. Off lasix due to improvement of volume status. Troponin 57.0, Leukocytosis: WBC is 22<- 19.5<- 17 <- 12.8. UA is unremarkable. Continue empiric rocephin. Will check Procalcitonin. Acute on chronic kidney injury: Cr is 1.36 <- 1.13<- 1.29. Will avoid nep hrotoxins and monitor renal function. History of CAD s/p cardiac stents. Continue home meds. Thrombocytosis: Platelet is 706 <- 747. Will continue aspirin and monitor.. Htn: Continue home meds. HLD: statin Hx of COPD: Stable. Not in exacerbation. Will continue prn duoneb and oxygen. Pulmonary lesion / Bilateral renal cyst: Seen on prior exams. Will follow up on outpt. DVT ppx: Eliquis Code: full Dispo: Waiting for insurance authorization for placement in [facility]. Physician Review: Patient Assessed, Agree with Above Assessment and Plan
--- NOTE | 2023-08-01 09:42 | P.PN ---
Subjective Date of Service: 08/01/23 Chief Complaint: A-fib, near syncope Pt is resting comfortably in bed. She was about to get up when I saw her. Pt denies any dizziness. HR is 55. Pt denies any chest pain or SOB. No other complaints. Waiting for insurance authorization. Review of Systems Unremarkable Eyes: Unremarkable ENT: Unremarkable Respiratory: Unremarkable Cardiovascular: Unremarkable Gastrointestinal: Unremarkable Genitourinary: Unremarkable Musculoskeletal: Unremarkable Integumentary: Unremarkable Neurological: Unremarkable Lymphatics: Unremarkable Physical Examination - Vital Signs Temperature: 97.7 F Blood Pressure: 163/78 Pulse: 46 Respirations: 16 Pulse Ox (%): 96 - Physical Exam General: Alert, In no apparent distress, Oriented x2, Cooperative HEENT: Atraumatic, Normocephalic, PERRLA Neck: Supple, 2+ carotid pulse no bruit Respiratory: Clear to auscultation bilaterally, Normal air movement Cardiovascular: No edema, Normal pulses Capillary refill: <2 Seconds Gastrointestinal: Normal bowel sounds, Soft and benign, Non-distended Musculoskeletal: No clubbing, No swelling Integumentary: No rashes, No breakdown Neurological: Normal speech, Normal strength at 5/5 x4 extr, Normal tone, Sensation intact Lymphatics: No axilla or inguinal lymphadenopathy Assessment And Plan - Plan A-fib RVR: Will continue telemetry, metoprolol and Eliquis. Near syncope: Unknown etiology. Echo shows EF 55 - 60% with moderate diastolic dysfunction, mild MR, TR and pulmonic insufficiency. Carotid ultrasounc shows 70 - 80% stenosis in the right ICA. Pt needs to follow up with a Vascular surgery. Diastolic CHF: Pt has elevated B[place]: [place] [address]. Echo shows EF 55 - 60% with moderate diastolic dysfunction, mild MR, TR and pulmonic insufficiency. Will continue low salt diet, strict I/O and daily weight. Off lasix due to improvement of volume status. Troponin 57.0, Leukocytosis: WBC is 27 <- 22<- 19.5<- 17 <- 12.8. UA is unremarkable. Continue empiric rocephin. Will check Procalcitonin. Acute on chronic kidney injury: Cr is 1.12 <- 1.36 <- 1.13<- 1.29. Will avoid nephrotoxins and monitor renal function. History of CAD s/p cardiac stents. Continue home meds. Thrombocytosis: Platelet is 698<- 706 <- 747. Will continue aspirin and monitor.. Hyperkalemia: K is 5.2. Will give lokelma. Htn: Uncontrolled. Will continue home meds with prn iv hydralazine. HLD: statin Hx of COPD: Stable. Not in exacerbation. Will continue prn duoneb and oxygen. Pulmonary lesion / Bilateral renal cyst: Seen on prior exams. Will follow up on outpt. DVT ppx: Eliquis Code: full Dispo: Waiting for insurance authorization for placement in [facility]. Physician Review: Patient Assessed, Agree with Above Assessment and Plan
[2023-08-01] MEDS: ATORVASTATIN 40 MG TAB PO SCH (20:53)
[2023-08-01] MEDS: GABAPENTIN 100 MG CAP PO SCH (20:54)
[2023-08-02] MEDS: METOPROLOL XL 100 MG TAB PO SCH ×2 (05:07→17:09)
[2023-08-02 05:51] LABS: Absolute Lymphocytes (CBC) 2.4 K/uL (0.7-4.9); Hematocrit 34.7 % (36.0-45.0); Lymphocytes % 10.3 % (15.3-44.8); MCV 83.9 fL (80-100); Platelets 688 thou/uL (152-406); RBC Red Blood Cell Count 4.14 M/uL (3.86-4.86)
[2023-08-02 05:59] LABS: Potassium 4.1 mEq/L (3.5-5.1)
[2023-08-02] MEDS: LEVOTHYROXINE SOD 0.088 MG TAB PO SCH (06:13)
[2023-08-02] MEDS: VALSARTAN 80 MG TAB PO SCH (09:00)
[2023-08-02] MEDS: AMLODIPINE 5 MG TAB PO SCH (09:00)
[2023-08-02] MEDS: ASPIRIN EC 81 MG TAB PO SCH (09:24)
[2023-08-02] MEDS: APIXABAN 2.5 MG TABLET PO SCH ×2 (09:25→20:54)
[2023-08-02] MEDS: CLOPIDOGREL 75 MG TABLET PO SCH (09:25)
[2023-08-02] MEDS: ENSURE ENLIVE 237 ML CAN PO SCH ×2 (09:27→20:54)
[2023-08-02] MEDS: DULERA 100/5 (MOMETASONE/FORMOTEROL) INHALER IH SCH ×2 (09:29→20:55)
[2023-08-02 09:40] LABS: White Blood Cell Scan OK (OK)
[2023-08-02 09:41] LABS: Blood Morphology Comment NOT SEEN (NOT SEEN); Platelet Estimate INCR
--- NOTE | 2023-08-02 16:58 | EKG ---
Test Date: 2023-07-31 Test Time: 06:27:46 Metal Sander: IVORY MEASUREMENT RESULTS: Intervals: Rate: 48 MN: 198 QRSD: 136 QT: 504 QTc: 450 [place]: P: -17 MN: 198 QRS: -90 T: 18 INTERPRETIVE STATEMENTS: Marked sinus bradycardia Right superior axis deviation Nonspecific intraventricular block Nonspecific T wave abnormality Abnormal ECG Compared to ECG 07/25/2023 13:16:49 Right superior axis now present T-wave abnormality now present Atrial fibrillation no longer present Ventricular premature complex(es) no longer present Left anterior fascicular block no longer present Electronically Signed On 08-02-23 16:53:17 BUSINESS CENTER MANAGER by Keaton Frausto
--- NOTE | 2023-08-02 17:55 | P.PN ---
Subjective Date of Service: 08/02/23 Chief Complaint: A-fib, near syncope no shortness of breath, or cough, reported complaints, waiting for SNF authorization - Physical Exam General: Alert, In no apparent distress, Oriented x3, Obese HEENT: Atraumatic, Normocephalic Neck: Supple, 2+ carotid pulse no bruit Respiratory: Clear to auscultation bilaterally, Normal air movement Cardiovascular: No edema, Normal pulses, rapid Regular rate/rhythm, Normal S1 S2 Capillary refill: <2 Seconds Gastrointestinal: Normal bowel sounds, Soft and benign, Non-distended Musculoskeletal: No clubbing, No swelling Integumentary: No rashes, No breakdown Neurological: Normal speech, Normal strength at 5/5 x4 extr, Normal tone, Sensation intact Lymphatics: No axilla or inguinal lymphadenopathy <Waleska Isabel - Last Filed: 08/02/23 18:11> Date of Service: 08/02/23 <Lukas Carey - Last Filed: 08/02/23 19:39> Review of Systems per HPI <Waleska Isabel - Last Filed: 08/02/23 18:11> Physical Examination - Vital Signs Temperature: 97.3 F Blood Pressure: 154/72 Pulse: 67 Respirations: 18 Pulse Ox (%): 97 <Waleska Isabel - Last Filed: 08/02/23 18:11> Assessment And Plan - Plan Assessment and plan A-fib RVR controlled Near syncope Telemetry, cardiology consult, trend troponin, trend BNP IV diuretics, as needed analgesics, resume appropriate home meds, daily weight Normal troponin 57.0, Elevated BNP 14696, Daily weight, Lasix UA pending, CT of the abdomen pelvis chest, head and cervical spine PT eval Pending for placement at [facility] need peer to peer cardiology 1. Atrial fibrillation with rapid ventricular response, now rate is controlled. She appears to be in sinus. We will obtain an EKG on her and continue metoprolol and recommend low- dose Eliquis 2.5 mg twice a day for stroke prevention. 2. Congestive heart failure. Patient does not seem to be fluid overloaded. I will switch the Lasix to oral and to monitor BUN, creatinine, and electrolytes and please obtain an echocardiogram. 3. Hypertension. Blood pressure is controlled. Hyperthyroidism elevated free T4 1.54, TSH low 0.248 Acute hypoxic respiratory failure secondary to pneumonia Leukocytosis Nebulizers, IV antibiotics Trend WBCs Acute on chronic kidney injury improved Gentle IV fluids, acute kidney injury BUN 20 creatinine 1.2, unknown baseline estimated GFR 44, Renal consult History patient cardiac stents Resume home antihypertensives COPD stable O2 2 L keep sats greater than 90%, as needed nebs Nebulizers, resume home meds hx diverticulosis hyperlipidemia hypertension uncontrolled History [place] hard of hearing Resume appropriate home meds Pulmonary lesion Bilateral renal cyst seen on prior exams Follow-up as outpatient Full code DVT heparin Diet cardiac [facility]charge [facility]: [facility] Discharge Plan: [facility] - Code Status/Comfort Care Code Status: Full Code Critical Care: No Time Spent Managing PTS Care (In Minutes): 35 <Waleska Isabel - Last Filed: 08/02/23 18:11> - Plan Pt seen and examined. I agree with the note by the VARIOUS EXCEPTIONALITIES TEACHER. Pt is waiting for insurance authorization for SNF placement. She has 70 - 80% stenosis of the right ICA. Her reports that pt did right CEA in the past. I dont see any record in our system. <Lukas Carey - Last Filed: 08/02/23 19:39>
[2023-08-02] MEDS ORDERED: METOPROLOL TARTRATE 5 MG/5 ML INJ IV STA (18:07)
[2023-08-02] MEDS: CEFEPIME 2 GM in NA CHLORIDE 0.9% 100 ML IV SCH (20:54)
[2023-08-02] MEDS: GABAPENTIN 100 MG CAP PO SCH (20:54)
[2023-08-02] MEDS: ATORVASTATIN 40 MG TAB PO SCH (20:54)
[2023-08-03] MEDS: METOPROLOL XL 100 MG TAB PO SCH ×2 (05:14→17:17)
[2023-08-03] MEDS: LEVOTHYROXINE SOD 0.088 MG TAB PO SCH (05:30)
[2023-08-03 06:03] LABS: Hematocrit 34.6 % (36.0-45.0); Lymphocytes % 9.3 % (15.3-44.8); MCV 83.6 fL (80-100); MPV 7.2 fL (7.6-11.3); Platelets 604 thou/uL (152-406); RBC Red Blood Cell Count 4.14 M/uL (3.86-4.86)
[2023-08-03 06:18] LABS: Albumin 2.1 g/dL (3.4-5.0); Bilirubin Total 0.3 mg/dL (0.2-1.0); Magnesium 2.5 mg/dL (1.6-2.4); Potassium 4.5 mEq/L (3.5-5.1); Protein, Total 5.7 g/dL (6.4-8.2)
[2023-08-03] MEDS: ASPIRIN EC 81 MG TAB PO SCH (08:13)
[2023-08-03] MEDS: CLOPIDOGREL 75 MG TABLET PO SCH (08:13)
[2023-08-03] MEDS: APIXABAN 2.5 MG TABLET PO SCH ×2 (08:13→20:17)
[2023-08-03] MEDS: CEFEPIME 2 GM in NA CHLORIDE 0.9% 100 ML IV SCH ×2 (08:13→20:18)
[2023-08-03] MEDS: ENSURE ENLIVE 237 ML CAN PO SCH ×2 (08:16→20:28)
[2023-08-03] MEDS: DULERA 100/5 (MOMETASONE/FORMOTEROL) INHALER IH SCH ×2 (08:16→20:25)
[2023-08-03] MEDS: VALSARTAN 80 MG TAB PO SCH (08:18)
[2023-08-03] MEDS: AMLODIPINE 5 MG TAB PO SCH (08:18)
--- NOTE | 2023-08-03 15:53 | P.PN ---
Subjective Date of Service: 08/03/23 Chief Complaint: A-fib, near syncope no shortness of breath, or cough, reported complaints, waiting for SNF authorization - Physical Exam General: Alert, In no apparent distress, Oriented x3, Obese HEENT: Atraumatic, Normocephalic Neck: Supple, 2+ carotid pulse no bruit Respiratory: Clear to auscultation bilaterally, Normal air movement Cardiovascular: No edema, Normal pulses, rapid Regular rate/rhythm, Normal S1 S2 Capillary refill: <2 Seconds Gastrointestinal: Normal bowel sounds, Soft and benign, Non-distended Musculoskeletal: No clubbing, No swelling Integumentary: No rashes, No breakdown Neurological: Normal speech, Normal strength at 5/5 x4 extr, Normal tone, Sensation intact Lymphatics: No axilla or inguinal lymphadenopathy Review of Systems per HPI Physical Examination - Vital Signs Temperature: 99.6 F Blood Pressure: 152/67 Pulse: 72 Respirations: 16 Pulse Ox (%): 98 Assessment And Plan - Plan Assessment and plan A-fib RVR controlled Near syncope Telemetry, cardiology consult, trend troponin, trend BNP IV diuretics, as needed analgesics, resume appropriate home meds, daily weight Normal troponin 57.0, Elevated BNP 61730, Daily weight, Lasix UA pending, CT of the abdomen pelvis chest, head and cervical spine PT eval Pending for placement at [facility] need peer to peer cardiology 1. Atrial fibrillation with rapid ventricular response, now rate is controlled. She appears to be in sinus. We will obtain an EKG on her and continue metoprolol and recommend low- dose Eliquis 2.5 mg twice a day for stroke prevention. 2. Congestive heart failure. Patient does not seem to be fluid overloaded. I will switch the Lasix to oral and to monitor BUN, creatinine, and electrolytes and please obtain an echocardiogram. 3. Hypertension. Blood pressure is controlled. Hyperthyroidism elevated free T4 1.54, TSH low 0.248 Acute hypoxic respiratory failure secondary to pneumonia Leukocytosis Nebulizers, IV antibiotics Acute on chronic kidney injury improved Gentle IV fluids, acute kidney injury BUN 20 creatinine 1.2, unknown baseline estimated GFR 44, Renal consult Trend WBCs, UA ordered History patient cardiac stents Resume home antihypertensives COPD stable O2 2 L keep sats greater than 90%, as needed nebs Nebulizers, resume home meds hx diverticulosis hyperlipidemia hypertension uncontrolled History [place] hard of hearing Resume appropriate home meds Pulmonary lesion Bilateral renal cyst seen on prior exams Follow-up as outpatient Full code DVT heparin Diet cardiac [facility]charge [facility]: [facility] Discharge Plan: [facility] - Code Status/Comfort Care Code Status: Full Code Critical Care: No Time Spent Managing PTS Care (In Minutes): 35
[2023-08-03] MEDS: ATORVASTATIN 40 MG TAB PO SCH (20:17)
[2023-08-03] MEDS: ACETAMINOPHEN 500 MG TAB PO PRN (20:17)
[2023-08-03] MEDS: GABAPENTIN 100 MG CAP PO SCH (20:17)
[2023-08-04] MEDS: LEVOTHYROXINE SOD 0.088 MG TAB PO SCH (05:40)
[2023-08-04] MEDS: METOPROLOL XL 100 MG TAB PO SCH (05:40)
[2023-08-04 07:22] LABS: Absolute Lymphocytes (CBC) 1.3 K/uL (0.7-4.9); Hematocrit 32.9 % (36.0-45.0); Lymphocytes % 6.1 % (15.3-44.8); MCV 84.7 fL (80-100); MPV 7.3 fL (7.6-11.3); Platelets 462 thou/uL (152-406); RBC Red Blood Cell Count 3.89 M/uL (3.86-4.86)
[2023-08-04 07:38] LABS: Bilirubin Total 0.4 mg/dL (0.2-1.0); Magnesium 2.3 mg/dL (1.6-2.4); Potassium 3.9 mEq/L (3.5-5.1); Protein, Total 5.5 g/dL (6.4-8.2)
[2023-08-04] MEDS ORDERED: FUROSEMIDE 40 MG/4 ML VIAL IV ONE (08:36)
--- NOTE | 2023-08-04 08:43 | P.PN ---
Subjective Date of Service: 08/04/23 Chief Complaint: A-fib, near syncope no shortness of breath, or fever, reported complaints, waiting for SNF authorization - Physical Exam General: Alert, In no apparent distress, Oriented x3, Obese HEENT: Atraumatic, Normocephalic Neck: Supple, 2+ carotid pulse no bruit Respiratory: Clear to auscultation bilaterally, Normal air movement Cardiovascular: No edema, Normal pulses, rapid Regular rate/rhythm, Normal S1 S2 Capillary refill: <2 Seconds Gastrointestinal: Normal bowel sounds, Soft and benign, Non-distended Musculoskeletal: No clubbing, No swelling Integumentary: No rashes, No breakdown Neurological: Normal speech, Normal strength at 5/5 x4 extr, Normal tone, Sensation intact Lymphatics: No axilla or inguinal lymphadenopathy Review of Systems per [facility] Physical Examination - Vital Signs Temperature: 97.7 F Blood Pressure: 151/64 Pulse: 65 Respirations: 17 Pulse Ox (%): 98 Assessment And Plan - Plan Assessment and plan A-fib RVR controlled Near syncope Acute on chronic heart failure improved Telemetry, cardiology consult, trend troponin, trend BNP IV diuretics, as needed analgesics, resume appropriate home meds, daily weight Normal troponin 57.0, Elevated BNP [id number], Daily weight, Lasix UA pending, CT of the abdomen pelvis chest, head and cervical spine PT eval Pending for placement at [facility] need peer to peer cardiology 1. Atrial fibrillation with rapid ventricular response, now rate is controlled. She appears to be in sinus. We will obtain an EKG on her and continue metoprolol and recommend low- dose Eliquis 2.5 mg twice a day for stroke prevention. 2. Congestive heart failure. Patient does not seem to be fluid overloaded. I will switch the Lasix to oral and to monitor BUN, creatinine, and electrolytes and please obtain an echocardiogram. 3. Hypertension. Blood pressure is controlled. Hyperthyroidism elevated free T4 1.54, TSH low 0.248 On metoprolol Acute hypoxic respiratory failure secondary to pneumonia versus CHF improved Leukocytosis likely reactive to congestive heart failure Nebulizers, IV antibiotics Trend WBCs, Lasix for CHF Acute on chronic kidney injury improved Gentle IV fluids, acute kidney injury BUN 20 creatinine 1.2, unknown baseline estimated GFR 44, Renal consult Trend WBCs, UA ordered History patient cardiac stents Resume home antihypertensives COPD stable O2 2 L keep sats greater than 90%, as needed nebs Nebulizers, resume home meds hx diverticulosis hyperlipidemia hypertension uncontrolled History PR hard of hearing Resume appropriate home meds Pulmonary lesion Bilateral renal cyst seen on prior exams Follow-up as outpatient Full code DVT heparin Diet cardiac Discharge Plan: [facility] Discharge Plan: [facility] - Code Status/Comfort Care Code Status: Full Code Critical Care: No Time Spent Managing PTS Care (In Minutes): 35
[2023-08-04] MEDS ORDERED: POTASSIUM CL SA 10 MEQ TAB PO ONE (09:00)
[2023-08-04] MEDS: ENSURE ENLIVE 237 ML CAN PO SCH (09:00)
[2023-08-04] MEDS: CEFEPIME 2 GM in NA CHLORIDE 0.9% 100 ML IV SCH (09:34)
[2023-08-04] MEDS: VALSARTAN 80 MG TAB PO SCH (09:35)
[2023-08-04] MEDS: ASPIRIN EC 81 MG TAB PO SCH (09:36)
[2023-08-04] MEDS: AMLODIPINE 5 MG TAB PO SCH (09:36)
[2023-08-04] MEDS: APIXABAN 2.5 MG TABLET PO SCH (09:36)
[2023-08-04] MEDS: CLOPIDOGREL 75 MG TABLET PO SCH (09:36)
[2023-08-04] MEDS: DULERA 100/5 (MOMETASONE/FORMOTEROL) INHALER IH SCH (09:37)
[2023-08-04] MEDS: ACETAMINOPHEN 500 MG TAB PO PRN (11:00)
[2023-08-04 12:21] VITALS: BP 128/58; TEMP 98.7
[2023-08-04 13:07] LABS: Specific Gravity 1.008 (1.005-1.030); Urine Bacteria None Seen /HPF (<20); Urine Bilirubin NEGATIVE (Negative); Urine Blood Negative (Negative); Urine Clarity Clear (Clear); Urine Color Colorless (Yellow); Urine Glucose NEGATIVE (Negative); Urine Protein NEGATIVE (Negative); Urine RBC <5 /HPF (None Seen); Urine Urobilinogen Normal (Normal); Urine pH 5.5 (5.0-7.0)
--- NOTE | 2023-08-04 14:59 | P.DS ---
Admission Date: 07/25/23 Discharge Date: 08/04/23 Disposition: TRANSFER TO RESIDENTIAL Discharge Condition: FAIR Reason for Admission: A-fib, near syncope Brief History of Present Illness: 83-year-old, female with a past medical history of CAD, cardiac stents, COPD, diverticulitis, hyperlipidemia, hypertension, [place], hard of hearing, presents to the emergency room with dizziness and fall. Reports weakness symptoms progressively getting worse over the last 2 to 3 days. She denies pain, deformity. Reports shortness of breath with exertion. No reported fever, nausea vomiting diarrhea chest pain. Plan to admit for A-fib RVR, acute on chronic heart failure, pneumonia. Laboratory evaluation leukocytosis 12.80, left shift 77.7 acute on chronic kidney injury BUN 20 creatinine 1.20 EKG A-fib rate [address] changes - Physical Exam General: Alert, In no apparent distress, Oriented x3, Obese HEENT: Atraumatic, Normocephalic Neck: Supple, 2+ carotid pulse no bruit Respiratory: Clear to auscultation bilaterally, Normal air movement Cardiovascular: No edema, Normal pulses, rapid Regular rate/rhythm, Normal S1 S2 Capillary refill: <2 Seconds Gastrointestinal: Normal bowel sounds, Soft and benign, Non-distended Musculoskeletal: No clubbing, No swelling Integumentary: No rashes, No breakdown Neurological: Normal speech, Normal strength at 5/5 x4 extr, Normal tone, Sensation intact Lymphatics: No axilla or inguinal lymphadenopathy Hospital Course: 83-year-old female patient presented with past medical history of CAD, cardiac stents, COPD, diverticulitis, hyperlipidemia, hypertension tension, [place], hard of hearing, presented to the emergency room with weakness. She was admitted for A- fib RVR acute on chronic heart failure, pneumonia. Was noted to have leukocytosis elevated white count, elevated BNP, A-fib RVR, Was treated with IV antibiotics, Lasix, cardiology consult for A-fib RVR. Condition improved with IV antibiotics, IV diuretics, p.o. metoprolol, Eliquis 2.5 for daily stroke prevention, metoprolol to control heart rate. Stable for discharge to [facility] facility, with follow-up appointment with primary care physician. PROBLEM: Pneumonia A-fib RVR Acute on chronic diastolic heart failure Generalized weakness Acute kidney injury likely secondary from diuretics use Hyperthyroidism TSH elevated free T4 1.54, TSH low 0.248 (hold Synthroid recheck TSH in 2 weeks) Leukocytosis likely reactive from acute on chronic heart failure Will continue Levaquin for pneumonia Follow-up with endocrinology for abnormal TSH Is on metoprolol for afib rvr Chest x-ray Since 07/25/2023, there has significant improvement in bilateral pulmonary opacities. Mild right-sided opacities persist. The heart is normal in size. Sternotomy wires. IMPRESSION: Significant improvement in bilateral pulmonary opacities since 07/25/2023 study. Follow-up with cardiology Dr. Alfaro 1 to 2 weeks after discharge Continue metoprolol 101 p.o. twice daily for treatment of A-fib RVR Eliquis 2.51 p.o. twice daily twice daily Lasix 40 mg daily, with potassium 20 mg daily Hold Synthroid retest TSH in 2 weeks, Echocardiogram 1. NORMAL LEFT VENTRICULAR EJECTION FRACTION 55-60% WITH NORMAL WALL MOTION 2. LEFT ATRAL ENLARGEMENT 3. MILD MITRAL REGURGITATION, TRICUSPID REGURGITATION, PULMONIC INSUFFICIENCY 4. MODERATE AORTIC INSUFFICIENCY 5. MODERATE DIASTOLIC DYSFUNCTION Continue home medicines as previously prescribed GOAL: Clear understanding of disease process INSTRUCTIONS: Physician Discharge Instructions: -DC IV and DC home -Follow-up with PCP in 1 to 2 weeks -Please call Dr. Martin at [phone] if any questions regarding hospital stay -Please call nursing station at [phone] if any nursing or medication questions -Return to the emergency room if symptoms worsen Diet: ADA, low sodium Activity: Fall precautions DME: Date Ordered: Name of Company: [employer] Services Needed: None Date or Referral: IMMUNIZATION Influenza Vaccine Indicated: Influenza Vaccine Given: Date Given: Pneumonia Vaccine Indicated: Pneumonia Vaccine Given: Date Given: Vital Signs/Physical Exam: Temp Pulse Resp BP Pulse Ox 98.7 F 71 18 128/58 L 97 08/04/23 12:00 08/04/23 12:00 08/04/23 12:00 08/04/23 12:00 08/04/23 12:00 Laboratory Data at Discharge: WBC 21.90 thou/uL (4.3-10.9) H 08/04/23 07:07 Hgb 10.8 g/dL (12.0-15.0) L 08/04/23 07:07 Hct 32.9 % (36.0-45.0) L 08/04/23 07:07 Plt Count 462 thou/uL (152-406) H 08/04/23 07:07 PT 13.6 SECONDS (9.5-12.5) H 07/25/23 11:45 INR 1.24 07/25/23 11:45 Sodium 137 mEq/L (136-145) 08/04/23 07:07 Potassium 3.9 mEq/L (3.5-5.1) D 08/04/23 07:07 BUN 27 mg/dL (7-18) H 08/04/23 07:07 Creatinine 0.94 mg/dL (0.55-1.02) 08/04/23 07:07 Glucose 101 mg/dL (74-106) 08/04/23 07:07 Magnesium 2.3 mg/dL (1.6-2.4) 08/04/23 07:07 Total Bilirubin 0.4 mg/dL (0.2-1.0) 08/04/23 07:07 AST 20 U/L (15-37) 08/04/23 07:07 ALT 35 U/L (13-56) 08/04/23 07:07 Alkaline Phosphatase 71 U/L (45-117) 08/04/23 07:07 Lipase 23 U/L (13-75) 07/25/23 11:45 Home Medications: Levothyroxine Sodium [Levoxyl] 88 mcg PO [id number] 01/18/14 Metoprolol Succinate [Toprol Xl*] 100 mg PO BID 6AM 6PM 01/18/14 Albuterol Inhaler [Ventolin Inhaler*] 1 puff IH Q4HP PRN 06/05/22 Aspirin [Aspirin EC 81 MG] 81 mg PO DAILY 06/05/22 Budesonide/Formoterol Fumarate [Symbicort 160-4.5 Mcg Inhaler] 2 puff IH BID 06/05/22 Clopidogrel Bisulfate [Plavix*] 75 mg PO DAILY 06/05/22 Gabapentin 100 mg PO BEDTIME 06/05/22 Hydralazine [Apresoline*] 10 mg PO TIDP PRN 06/05/22 Irbesartan 150 mg PO DAILY 06/05/22 Amlodipine [Norvasc*] 5 mg PO DAILY 04/27/23 Atorvastatin Calcium [Lipitor] 40 mg PO BEDTIME #30 tab 05/04/23 Followup: NONE,NONE [Primary Care Provider] - 1-2 Weeks (Follow-up with Dr. Nieves in 1 to 2 weeks Follow-up with primary care 1 to 2 weeks ) Time spent managing pt's care (in minutes): 55
--- NOTE | 2023-08-04 15:20 | RAD REPORT ---
EXAM DESCRIPTION: RAD - Chest Single View - 08/04/2023 3:10 pm CLINICAL HISTORY: leukocytosis Chest pain. COMPARISON: Chest Single View dated 07/27/2023; Chest Single View dated 07/25/2023; Chest Single View dated 04/30/2023; Chest Single View dated 04/27/2023 FINDINGS: Portable technique limits examination quality. The lungs are emphysematous but grossly clear. The heart is normal in size. No displaced fractures.St ernotomy wires. IMPRESSION: No acute intrathoracic process suspected.
[2023-08-04 17:18] VITALS: O2SAT 98
== END 2023-08-04 16:30 | DRG 193 ==
LOC: ER 11:13 → ERHOLD 15:58 → 4TH 19:36
PROVIDERS: ADMIT Hospitalist; ATTEND Hospitalist
DX: J18.9 Pneumonia, unspecified organism (principal); E43 Unspecified severe protein-calorie malnutrition; I50.33 Acute on chronic diastolic (congestive) heart failure; J96.01 Acute respiratory failure with hypoxia; I13.0 Hypertensive heart and chronic kidney disease with heart failure and stage 1 through stage 4 chronic kidney disease, or unspecified chronic kidney disease; N17.9 Acute kidney failure, unspecified; J44.0 Chronic obstructive pulmonary disease with (acute) lower respiratory infection; K57.92 Diverticulitis of intestine, part unspecified, without perforation or abscess without bleeding; Z68.1 Body mass index [BMI] 19.9 or less, adult; I48.91 Unspecified atrial fibrillation; J44.9 Chronic obstructive pulmonary disease, unspecified; E03.9 Hypothyroidism, unspecified; N18.9 Chronic kidney disease, unspecified; E05.90 Thyrotoxicosis, unspecified without thyrotoxic crisis or storm; E78.5 Hyperlipidemia, unspecified; I25.2 Old myocardial infarction; J98.4 Other disorders of lung; I25.10 Atherosclerotic heart disease of native coronary artery without angina pectoris; D75.839 Thrombocytosis, unspecified; Z95.1 Presence of aortocoronary bypass graft; Z79.01 Long term (current) use of anticoagulants; R55 Syncope and collapse; H91.90 Unspecified hearing loss, unspecified ear; Z11.52 Encounter for screening for COVID-19; N28.1 Cyst of kidney, acquired
CPT/HCPCS: 0240U; 36415; 70450; 71045; 71260; 72125; 74177; 80048; 80053; 80076; 81001; 82533; 82607; 83540; 83605; 83690; 83735; 83880; 84145; 84439; 84443; 84484; 85025; 85610; 87040; 87086; 87088; 93005; 93306; 93880; 96365; 96366; 96372; 96375; 97110; 97116; 97161; 97530; 99285; J0692; J0696; J1160; J1650; J1940; J2920; J2930; J3535; J7030; J7050; J7614; J7644; Q9967